=== PATIENT | female | born 1950 | race Caucasian/White ===

== ENCOUNTER 2023-05-30 08:13 | Outpatient (OUT) | payer MEDICARE, OTHER, SELFPAY ==
[2023-05-30 08:51] LABS: Hematocrit 35.6 % (36.0-48.0); Mean Corpuscular HGB Conc 33.7 g/dL (29.9-35.2); Mean Corpuscular Hemoglobin 32.3 pg (26.7-34.0); Mean Platelet Volume 9.4 fL (9.5-13.5); Platelet Count 365 10^3/uL (150-450); Red Blood Count 3.71 10^6/uL (4.20-5.40); Red Cell Distribution Width 13.4 % (11.0-15.0); White Blood Count 7.6 10^3/uL (4.0-11.0)
[2023-05-30 09:07] LABS: Bilirubin Urine NEGATIVE (NEGATIVE); Blood Urine NEGATIVE (NEGATIVE); Clarity Urine CLEAR (CLEAR); Color Urine LT. YELLOW (YELLOW); Glucose Urine UA NEGATIVE (NEGATIVE); Ketones Urine NEGATIVE (NEGATIVE); Leukocyte Esterase Urine LARGE (NEGATIVE); Nitrite Urine NEGATIVE (NEGATIVE); Protein Urine NEGATIVE (NEG/TRACE); Specific Gravity Urine <=1.005 (1.005-1.025); Urobilinogen Urine 0.2 EU/dL (0.2-1.0)
[2023-05-30 09:20] LABS: Albumin Level 3.4 g/dL (3.4-5.0); Anion Gap 12.3; BUN Creatinine Ratio 12.1; Calcium 9.3 mg/dL (8.5-10.1); Carbon Dioxide 29.7 mmol/L (21.0-32.0); Chloride 99 mmol/L (98-107); Estimated GFR (African America 56 (>=60); Estimated GFR (Non-African Ame 46 (>=60); Glucose 90 mg/dL (74-106); Phosphorus 3.5 mg/dL (2.6-4.7); Sodium 137 mmol/L (136-145); Uric Acid 6.1 mg/dL (2.6-6.0)
[2023-05-30 09:24] LABS: Creatinine Urine Random 13.77 mg/dL (20.00-300.00); Protein Creatinine Ratio Urine 0.44; Total Protein Urine Random <6.0 mg/dL (<=11.9)
[2023-05-30 09:25] LABS: Percent Iron Saturation 32.2 %
[2023-05-30 10:04] LABS: Bacteria Urine MODERATE #/HPF (NONE SEEN); Cast Seen? NONE SEEN #/LPF (NONE SEEN); Crystals Seen? None Seen #/HPF (None Seen); Mucus Urine NONE SEEN (NONE SEEN); Squamous Epithelial Cell Urine FEW #/LPF (NONE/RARE); Urine Culture Indicated YES
[2023-05-31 12:09] LABS: PTH, Intact 57 pg/mL (15-65)
== END 2023-05-30 08:14 | disposition home or self-care (01) ==
LOC: LAB 08:19
PROVIDERS: PCP Nurse Practitioner; Visit Provider Internal Medicine
DX: I12.9 Hypertensive chronic kidney disease with stage 1 through stage 4 chronic kidney disease, or unspecified chronic kidney disease (principal); N18.30 Chronic kidney disease, stage 3 unspecified; D63.1 Anemia in chronic kidney disease; I25.10 Atherosclerotic heart disease of native coronary artery without angina pectoris; I73.9 Peripheral vascular disease, unspecified; N25.81 Secondary hyperparathyroidism of renal origin; R82.90 Unspecified abnormal findings in urine
CPT/HCPCS: 36415; 80069; 81001; 82306; 82570; 82728; 83540; 83550; 83735; 83970; 84156; 84550; 85014; 85018; 85027; 87086

== ENCOUNTER 2023-06-20 08:30 | Outpatient (OUT) | payer MEDICARE, OTHER, SELFPAY ==
[2023-06-20 09:10] LABS: Alanine Aminotransferase 22 U/L (14-59); Aspartate Amino Transferase 19 U/L (15-37); Chol HDL Ratio 1.8; Cholesterol 170 mg/dL (<=200); HDL Cholesterol 97 mg/dL (40-60); Triglycerides 63 mg/dL (<=150); VLDL CHOLESTEROL 12.6 mg/dL
== END 2023-06-20 08:31 | disposition home or self-care (01) ==
PROVIDERS: PCP Nurse Practitioner; Visit Provider Internal Medicine Cardiovascular Disease
DX: I25.10 Atherosclerotic heart disease of native coronary artery without angina pectoris (principal); E78.5 Hyperlipidemia, unspecified; I10 Essential (primary) hypertension
CPT/HCPCS: 36415; 80061; 84450; 84460

== ENCOUNTER 2023-12-06 12:39 | Emergency (ER) | payer MEDICARE, OTHER, SELFPAY ==
[2023-12-06] VITALS (10 sets, daily range): BP systolic 123–150; BP diastolic 66–97; PULSE 60–98; TEMP 36.5–36.6; O2SAT 88–100; BMI 24.9
--- OUTSIDE RECORDS SUMMARY | 2023-12-06 13:15 | XMS_ITS | CCD ---
Author Organization [facility] Care Team Providers Care Rubber Mill Tender Name Role Phone UNKNOWN, PROVIDER Unavailable Unavailable JACKSON CHEYANNE Unavailable Unavailable AichholIngrid greenwood Unavailable Unavailable Unavailable Alyssa, Dr. Olivares Attending Unavailable Alyssa, Dr. Olivares Referring Unavailable Jas, Mrs. Ingrid Morillo Primary Care Unavailab le Jas, Mrs. Ingrid Morillo Primary Care Unavailab le Alyssa, Dr. Nilton Cash Attending Unava kanika Shah, Dr. Nilton Cash Referring Unava ilable GEOVANNI BOSS Admitting Unavailable Cassius Thurman Consulting Unavailable GEOVANNI BOSS Attending Unavailable AICHHOLZ, EIGHT ARM OPERATOR INGRID Primary Care Unavailable KARYN, GEOVANNI Consulting Unavailable JOSSY MCQUEEN Admitting Unavailable JOSSY MCQUEEN Consulting Unavailable JOSSY MCQUEEN Attending Unavailable AICHHOLZ, EIGHT ARM OPERATOR INGRID Primary Care Unavailable NESSA, AGGIE Consulting Unavailable NESSAAGGIE Attending Unavailable AICHHOLZ, EIGHT ARM OPERATOR INGRID Primary Care Unavailable NESSA, AGGIE Admitting Unavailable HIGHLANDERJOSSY Attending Unavailable Cassius Thurman Consulting Unavailable AICHHOLZ, EIGHT ARM OPERATOR INGRID Primary Care Unavailable ANDRADEANDER PETER Paolo Admitting Unavailable HIGHLANDERJOSSY Consulting Unavailable AICHHOLZ, EIGHT ARM OPERATOR INGRID Primary Care Unavailable ALYSSA, DR NILTON Snow Attending Unavailledy SHAH, DR NILTON Snow Admitting Unavailledy SHAH, DR NILTON Snow Consulting Unavailabl e JAS, [facility] INGRID Primary Care Unavailable MARCUS ESPAÑA Admitting Unavailable Cassius Thurman Consulting Unavailable MARCUS ESPAÑA Attending Unavailable MARCUS ESPAÑA Consulting Unavailable GEOVANNI BOSS Admitting Unavailable GEOVANNI BOSS Attending Unavailable AICHHOLKate, EIGHT ARM OPERATOR INGRID Primary Care Unavailable DR EMILY REMY V Consulting Unavailable FARZANA BOSSBERLY Consulting Unavailable NESSA, AGGIE Consulting Unavailable AGGIE SZYMANSKI Attending Unavailable JAS, LALO INGRID Primary Care Unavailable AGGIE SZYMANSKI Admitting Unavailable Aggie Szymanski Unavailable Allergies Allergy Classification Reported Allergen(s) Allergy Type Date of Onset Reaction(s) Facility (1 source) celecoxib Drug Allergy 09-24-2013 [facility] (1 source) Cimetidine Drug Allergy 09-24-2013 [facility] Medications Current Medications Medication Drug Class(es) Dates Sig (Normalized) Sig (Original) Albuterol (2 sources) beta2-Adrenergic Agonist Albuterol Sulfate (2.5 MG/ 3 ML) Active amLODIPine 5 mg oral tablet (15 sources) Dihydropyridine Calcium Channel Marzena take 1 tablet by mouth every twenty-four hours amLODIPine Besylate 5 MG 1 tablet Orally Once a day for 90 days Active aspirin 81 mg chewable tablet (15 sources) Platelet Aggregation Inhibitor, Nonsteroidal Anti-inflammatory Drug take 1 tablet by mouth every twenty-four hours Aspirin 81 MG 1 Tablet Orally Daily Active Aspirin EC 81 MG TBEC TAKE 1 TABLET DAILY. Quantity: 0 Refills: 0 Ordered: 02-Jun-2021 DO Active furosemide 20 mg oral tablet (17 sources) Loop Diuretic Furosemide 20 MG TAKE 1 TABLET ONCE DAILY for 90 Active Completed/Discontinued Medications Medication Drug Class(es) Dates Sig (Normalized) Sig (Original) atorvastatin 80 mg oral tablet (15 sources) HMG-CoA Reductase Inhibitor Start: 12-28-2021 take 1 tablet by mouth at bedtime Atorvastatin Calcium 80 MG Oral Tablet TAKE 1 TABLET AT BEDTIME Quantity: 90 Refills: 3 Ordered: 25-Jan-2023 Nilton Shah DO Start : 28-Dec-2021 Active clopidogrel 75 mg oral tablet (17 sources) P2Y12 Platelet Inhibitor Start: 10-03-2021 take 1 tablet by mouth once daily Clopidogrel Bisulfate 75 MG Oral Tablet Take 1 tablet daily Quantity: 90 Refills: 3 Ordered: 02-Aug-2022 Nilton Shah DO Start : 03-Oct-2021 Active metoprolol tartrate 25 mg oral tablet (13 sources) beta-Adrenergic Marzena Start: 10-03-2021 take 1 tablet by mouth twice daily Metoprolol Tartrate 25 MG Oral Tablet Take 1 tablet twice a day Quantity: 180 Refills: 3 Ordered: 02-Aug-2022 Nilton Shah DO Start : 03-Oct-2021 Active nitroglycerin 0.4 mg sublingual tablet (13 sources) Nitrate Vasodilator Nitroglycerin 0.4 [address]ual Tablet Sublingual PL[address] 1 TABLET UNDER THE TONGUE EVERY 5 MINUTES UP TO 3 DOSES NEEDED FOR CHEST PAIN. Quantity: 0 Refills: 0 Ordered: 02-Jun-2021 DO Active Problems Active Problems Problem Classification Problem Date Documented Date Episodic/Chronic Acute cerebrovascular disease (13 sources) Cerebral infarction; Translations: [Cerebral artery occlusion, unspecified with cerebral infarction] Chronic Chronic kidney disease (4 sources) Chronic kidney disease stage 3; Translations: [Chronic kidney disease, stage 3 unspecified] Chronic Chronic obstructive pulmonary disease and bronchiectasis (14 sources) Chronic obstructive lung disease; Translations: [Chronic airway obstruction, not elsewhere classified] Onset: 2 Chronic Coronary atherosclerosis and other heart disease (20 sources) Double coronary vessel disease; Translations: [Coronary atherosclerosis of unspecified type of vessel, [place] or graft] Onset: 2 Chronic Coronary atherosclerosis and other heart disease (1 source) Coronary angioplasty status; Translations: [Coronary angioplasty status] Onset: 2 Episodic Deficiency and other anemia (2 sources) Anemia in chronic kidney disease; Translations: [ANEMIA IN CHRONIC KIDNEY DISEASE] Onset: 3 Chronic Deficiency and other anemia (2 sources) Anemia of renal disease; Translations: [Anemia in chronic kidney disease] Chronic Disorders of lipid metabolism (17 sources) Hyperlipidemia; Translations: [Other and unspecified hyperlipidemia] Onset: 2 Chronic Essential hypertension (14 sources) Benign essential hypertension; Translations: [Benign essential hypertension] Onset: 2 Chronic Hypertension with complications and secondary hypertension (8 sources) Hypertensive chronic kidney disease with stage 1 through stage 4 chronic kidney disease, or unspecified chronic kidney disease; Translations: [Hypertensive renal disease] Onset: 3 Chronic Nutritional deficiencies (2 sources) Hypoalbuminemia due to protein calorie malnutrition; Translations: [Unspecified protein-calorie malnutrition] Chronic Other diseases of kidney and ureters (3 sources) Secondary hyperparathyroidism of renal origin; Translations: [SEC HYPERPARATHYROIDISM RENAL ORIGN] Onset: 3 Chronic Other diseases of kidney and ureters (2 sources) Secondary hyperparathyroidism; Translations: [Secondary hyperparathyroidism of renal origin] Chronic Other nutritional; endocrine; and metabolic disorders (6 sources) Overweight in adulthood with body mass index of 25 or more but less than 30; Translations: [Overweight] Episodic Other nutritional; endocrine; and metabolic disorders (1 source) Hyperuricemia without signs of inflammatory arthritis and tophaceous disease Episodic Peripheral and visceral atherosclerosis (20 sources) Peripheral vascular disease, unspecified; Translations: [Intermittent claudication] Onset: 8 Chronic Residual codes; unclassified (7 sources) Body mass index 20-24 - normal; Translations: [Body Mass Index between 19-24, adult] Episodic Screening and history of mental health and substance abuse codes (14 sources) Ex-smoker; Translations: [Personal history of tobacco use] Onset: 2 Episodic Unclassified (2 sources) Peripheral vascular disease, unspecified / I73.9(ICD-9) Onset: 8 Unclassified (1 source) CHRN KIDNEY DISEASE STG 3 UNSP; Translations: [CHRN KIDNEY DISEASE STG 3 UNSP] Onset: 3 Past or Other Problems Problem Classification Problem Date Documented Da te Episodic/Chronic Chronic kidney disease (2 sources) Chronic kidney disease E Codes: Overexertion (1 source) Slipping, tripping and stumbling without falling, unspecified, initial encounter; Translations: [SLIP TRIP STUMBL NO FALL UNS INIT] Onset: 03-30-2022 Episodic Fracture of lower limb (14 sources) Fracture of unspecified metatarsal bone(s), right foot, initial encounter for closed fracture; Translations: [Displaced fracture of fourth metatarsal bone, right foot, initial encounter for closed fracture] Onset: 03-30-2022 Episodic Other aftercare (1 source) director long term care (current) use of aspirin; Translations: [SOAP WORKER CURRENT USE OF ASPIRIN] Onset: 03-30-2022 Episodic Other aftercare (1 source) Other [place] [facility] (current) drug therapy; Translations: [OTH SOAP WORKER CURRENT DRUG THERAPY] Onset: 03-30-2022 Episodic Other aftercare (1 source) director long term care (current) use of antithrombotics/ant iplatelets; Translations: [SOAP WORKER ANTITHROMBOT/ANTIPL ATLETS] Onset: 03-30-2022 Episodic Other connective tissue disease (4 sources) Pain in right foot; Translations: [PAIN IN RIGHT FOOT] Onset: 07-05-2022 Episodic Results Test Name Value Interpretation Reference Range Facility PTH INTACTon 10-31-2022 PTH, Intact 42 pg/mL Normal 15-65 [facility] Comment on above: Performed By: #### P THINT #### [facility] [address] [place] [address] Dr. Adin Barrera FERRITINon 10-30-2022 Ferritin [Mass/Vol] 35.0 ng/mL Normal 8.0-252.0 [facility] Comment on above: Performed By: #### F ERR, FETIBC, VITAD #### [facility] [address] [place] [address] Dr. Adin Barrera HEMOGRAM AND PLATELon 2022 Hematocrit (Bld) [Volume fraction] 35.5 % Critically low 36.0-48.0 [facility] Comment on above: Performed By: #### H H #### [facility] [address] [place] [address] Dr. Adin Barrera Hemoglobin (Bld) [Mass/Vol] 11.9 g/dL Critically low 12.0-16.0 [facility] Comment on above: Performed By: #### H H #### [facility] [address] [place] [address] Dr. Adin Barrera MCH (RBC) [Entitic mass] 31.5 pg Normal 26.7-34.0 [facility] Comment on above: Performed By: #### H H #### [facility] [address] [place] [address] Dr. Adin Barrera MCHC (RBC) [Mass/Vol] 33.5 g/dL Normal 29.9-35.2 [facility] Comment on above: Performed By: #### H H #### [facility] [address] [place] [address] Dr. Adin Barrera MCV (RBC) [Entitic vol] 93.9 fL Normal 81.0-99.0 [facility] Comment on above: Performed By: #### H H #### [facility] [address] [place] [address] Dr. Adin Barrera PLT 435 103/ul Normal 150-450 [facility] Comment on above: Performed By: #### H H #### [facility] [address] [place] [address] Dr. Adin Barrera RBC 3.78 106/ul Critically low 4.20-5.40 [facility] Comment on above: Performed By: #### H H #### [facility] [address] [place] [address] Dr. Adin Barrera WBC 9.1 103/ul Normal 4.0-11.0 [facility] Comment on above: Performed By: #### H H #### [facility] [address] [place] [address] Dr. Adin Barrera IRON AND TIBCon 10-30-2022 % SATURATION 29.4 % Normal [facility] Comment on above: Performed By: #### F ERR, FETIBC, VITAD #### [facility] [address] [place] [address] Dr. Adin Barrera Iron [Mass/Vol] 84.0 ug/dL Normal 50.0-170.0 [facility] Comment on above: Performed By: #### F ERR, FETIBC, VITAD #### [facility] [address] [place] [address] Dr. Adin Barrera TIBC DIRECT 286.0 ug/dL Normal 250.0-450.0 [facility] Comment on above: Performed By: #### F ERR, FETIBC, VITAD #### [facility] [address] [place] [address] Dr. Adin Barrera MAGNESIUMon 10-30-2022 Magnesium [Mass/Vol] 1.8 mg/dL Normal 1.8-2.4 [facility] Comment on above: Performed By: #### M G, URIC, RENAL #### [facility] [address] [place] [address] Dr. Adin Barrera RENAL FUNCTION PANELon 10-30 Albumin [Mass/Vol] 3.4 g/dL Normal 3.4-5.0 [facility] Comment on above: Performed By: #### M G, URIC, RENAL #### [facility] [address] [address] [address] Adin Barrera Calcium [Mass/Vol] 9.2 mg/dL Normal 8.5-10.1 [facility] Comment on above: Performed By: #### M G, URIC, RENAL #### [facility] [address] [address] [address] Adin Barrera Chloride [Moles/Vol] 104 mmol/L Normal 98-107 [facility] Comment on above: Performed By: #### M G, URIC, RENAL #### [facility] [address] [place] [address] Dr. Adin Barrera CO2 [Moles/Vol] 24.9 mmol/L Normal 21.0-32.0 [facility] Comment on above: Performed By: #### M G, URIC, RENAL #### [facility] [address] [place] [address] Dr. Adin Barrera Creatinine [Mass/Vol] 1.13 mg/dL Critically high 0.55-1.02 [facility] Comment on above: Performed By: #### M G, URIC, RENAL #### [facility] [address] [place] [address] Dr. Adin Barrera EGFR-AF TRISTANIAN 58 mL/min/1.73m2 Critically low >=60 [facility] Comment on above: Performed By: #### M G, URIC, RENAL #### [facility] [address] [place] [address] Dr. Adin Barrera EGFR-NON AF TRISTANIAN 48 mL/min/1.73m2 Critically low >=60 [facility] Comment on above: Performed By: #### M G, URIC, RENAL #### [facility] [address] [place] [address] Dr. Adin Barrera Glucose [Mass/Vol] 88 mg/dL Normal 74-106 [facility] Comment on above: Performed By: #### M G, URIC, RENAL #### [facility] [address] [place] [address] Dr. Adin Barrera Phosphate [Mass/Vol] 3.4 mg/dL Normal 2.6-4.7 [facility] Comment on above: Performed By: #### M G, URIC, RENAL #### [facility] [address] [place] [address] Dr. Adin Barrera Potassium [Moles/Vol] 4.4 mmol/L Normal 3.5-5.1 [facility] Comment on above: Performed By: #### M G, URIC, RENAL #### [facility] [address] [place] [address] Dr. Adin Barrera Sodium [Moles/Vol] 139 mmol/L Normal 136-145 [facility] Comment on above: Performed By: #### M G, URIC, RENAL #### [facility] [address] [place] [address] Dr. Adin Barrera Urea nitrogen [Mass/Vol] 13.0 mg/dL Normal 7.0-18.0 [facility] Comment on above: Performed By: #### M G, URIC, RENAL #### [facility] [address] [place] [address] Dr. Adin Barrera UA RANDOM W/MICROSCOPICon BACTERIA TRACE Abnormal NONE SEEN [facility] Comment on above: Performed By: #### M G, URIC, RENAL #### [facility] [address] [place] [address] Dr. Adin Barrera Bilirubin Ql (U) Negative Normal NEGATIVE [facility] Comment on above: Performed By: #### M G, URIC, RENAL #### [facility] [address] [place] [address] Dr. Adin Barrera CAST NONE SEEN Normal NONE SEEN [facility] Comment on above: Performed By: #### M G, URIC, RENAL #### [facility] [address] [place] [address] Dr. Adin Barrera Clarity (U) CLEAR Normal CLEAR [facility] Comment on above: Performed By: #### M G, URIC, RENAL #### [facility] [address] [place] [address] Dr. Adin Barrera Color (U) LT. YELLOW Normal YELLOW [facility] Comment on above: Performed By: #### M G, URIC, RENAL #### [facility] [address] [address] [address] Adin Barrera Crystals LM Nom (Urine sed) NONE SEEN Normal NONE SEEN [facility] Comment on above: Performed By: #### M G, URIC, RENAL #### [facility] [address] [address] [address] Adin Barrera Epithelial cells LM Ql (Urine sed) FEW Abnormal NONE SEEN /RARE [facility] Comment on above: Performed By: #### M G, URIC, RENAL #### [facility] [address] [address] [address] Adin Barrera Glucose Ql (U) Negative Normal NEGATIVE [facility] Comment on above: Performed By: #### M G, URIC, RENAL #### [facility] [address] [place] [address] Dr. Adin Barrera Hemoglobin Ql (U) Negative Normal NEGATIVE [facility] Comment on above: Performed By: #### M G, URIC, RENAL #### [facility] [address] [address] [address] Adin Barrera Ketones Ql (U) Negative Normal NEGATIVE [facility] Comment on above: Performed By: #### M G, URIC, RENAL #### [facility] [address] [address] [address] Adin Barrera LEUKOCYTES MODERATE Abnormal NEGATIVE [facility] Comment on above: Performed By: #### M G, URIC, RENAL #### [facility] [address] [address] [address] Adin Barrera MUCOUS NONE SEEN Normal NONE SEEN [facility] Comment on above: Performed By: #### M G, URIC, RENAL #### [facility] [address] [address] [address] Adin Barrera Nitrite Ql (U) Negative Normal NEGATIVE [facility] Comment on above: Performed By: #### M G, URIC, RENAL #### [facility] [address] [address] [address] Adin Barrera pH (U) 5.5 [pH] Normal 5-9 [facility] Comment on above: Performed By: #### M G, URIC, RENAL #### [facility] [address] [place] [address] Dr. Adin Barrera RBC 0-2 Normal 0-2 [facility] Comment on above: Performed By: #### M G, URIC, RENAL #### [facility] [address] [place] [address] Dr. Adin Barrera SPEC GRAVITY 1.010 Normal 1.005-<=1.025 [facility] Comment on above: Performed By: #### M G, URIC, RENAL #### [facility] [address] [place] [address] Dr. Adin Barrera UA PROTEIN Negative Normal NEGATIVE/ TRACE [facility] Comment on above: Performed By: #### M G, URIC, RENAL #### [facility] [address] [place] [address] Dr. Adin Barrera Urobilinogen Qn (U) 0.2 {Mitchell'U}/dL Normal 0.2 - 1.0 [facility] Comment on above: Performed By: #### M G, URIC, RENAL #### [facility] [address] [place] [address] Dr. Adin Barrera WBC 5-10 Abnormal NONE SEEN [facility] Comment on above: Performed By: #### M G, URIC, RENAL #### [facility] [address] [place] [address] Dr. Adin Barrera URIC ACID SERUMon 10-30-2022 Urate [Mass/Vol] 5.4 mg/dL Normal 2.6-6.0 [facility] Comment on above: Performed By: #### M G, URIC, RENAL #### [facility] [address] [place] [address] Dr. Adin Barrera VITAMIN D 25 OHon 10-30-2022 VIT D 25-OH 38.3 ng/mL Normal [facility] Comment on above: Performed By: #### F ERR, FETIBC, VITAD #### [facility] [address] [place] [address] Dr. Adin Barrera VIT D RANGES SEE BELOW Normal [facility] Comment on above: Result Comment: <20 ng/mL Vit D deficient 20 - <30 ng/mL Vit D insufficient 30 - 100 ng/mL Vit D sufficient >100 ng/mL Potential Toxicity Performed By: #### F ERR, FETIBC, VITAD #### [facility] [address] [address] [address] Adin Barrera Cardiac Stress Teston 2021 Cardiac Stress Test [address], [address] [address] Exercise Stress Test Patient Name: SANDRA SHELTON Ordering Physician: [id number] Nilton Shah DO Study Date: 07/31/2022 Reading Physician: [id number] Jessica Rojo MD, [facility] MRN/PID: [id number] Supervising Physician: [id number] Ayala Cordova MD Accession/Order#: [id number] Referring Physician: NILTON SHAH Date of : 1950 PCP: Gender: F Fellow: Height: 165.10 cm Nurse: Jessika Aguirre RN Weight: 68.04 kg Revenue Accounting Manager: NA BSA: 1.75 m2 Technologist: BMI: 24.96 kg/m2 Additional Staff: Age: 72 years cc report to: Patient Location: cc report to: [id number] Nilton Shah Study Type: Cardiac Stress Test Diagnosis/ICD: I25.10-Atherosclerotic heart disease; I25.2-Old myocardial infarction; Z98.61-Coronary angioplasty status (PTCA) Indication: STEMI Procedure/CPT: Stress Test Interpretation-[id number]; Stress Test Supervision-[id number] Falls Risk: Low: Patient has low risk for sustaining a fall; environmental safety interventions in place. Study Details: Correct procedure and correct patient verified verbally. Patient History: Allergies: None. Patient Performance: The peak heart rate achieved was 129 bpm, which was 86 % of the age predicted target heart rate of 150 bpm. The resting blood pressure was 120/78 mmHg with a heart rate of 82 bpm. The standing blood pressure was 122/76 mmHg with a heart rate of 83 bpm. The patient's functional capacity was below average. The patient developed leg fatigue during the stress exam. The symptoms resolved with rest. The blood pressure response was normal. The test was terminated due to: leg fatigue and musculoskeletal weakness. Baseline ECG: Resting ECG showed normal sinus rhythm. Stress Stage Data: + +--- +------+-------+ HR Sys BP Sahu BP + +--- +------+-------+ Baseline Resting 82 120 78 + +--- +------+-------+ Baseline Standing 83 122 76 + +--- +------+-------+ Stage I 129 154 76 + +--- +------+-------+ Recovery ECG: The heart rate recovery was normal. + +---+---- --+-------+ HR Sys BP Sahu BP + +---+---- --+-------+ Recovery I 127 146 72 + +---+---- --+-------+ Recovery II 120 138 62 + +---+---- --+-------+ Recovery III 100 126 68 + +---+---- --+-------+ Recovery IV 90 120 74 + +---+---- --+-------+ Summary: 1. 1_normal exercise tolerance test after completing 3 minutes on a Mike protocol and achieving 86% of predicted maximal heart rate and a workload of 4.6 METS. There were no ischemic EKG changes, no chest pain no cardiac arrhythmias induced by exercise 2_limited exercise tolerance for age 3_if the purpose of the stress test is to get enrolled in cardiac rehab, patient can be enrolled target heart rate between 75 to 85% of predicted maximal heart rate and workload between 3 and 5 METS and increase as tolerated. 2. The adequate level of stress was achieved. [id number] Jessica Rojo MD, [facility] Electronically signed on 07/31/2022 at 7:18:28 PM Final Normal [facility] Cardiac Stress Test -[facility] [address] DO Work Phone: LIPID PROFILEon 06-15-2022 CHOL-HDL RATIO NORM SEE BELOW Normal [facility] Comment on above: Result Comment: 3.3 - 4.4 LOW RISK 4.4 - 7.1 AVERAGE RISK 7.1 - 11.0 MODERATE RISK >11.0 HIGH RISK Performed By: #### M G, URIC, RENAL #### [facility] [address] [address] [address] Adin Barrera Cholesterol [Mass/Vol] 191 mg/dL Normal <=200 [facility] Comment on above: Performed By: #### M G, URIC, RENAL #### [facility] [address] [address] [address] Adin Barrera Cholesterol in HDL [Mass/Vol] 108 mg/dL Critically high 40-60 [facility] Comment on above: Performed By: #### M G, URIC, RENAL #### [facility] [address] [address] [address] Adin Barrera Cholesterol in LDL [Mass/Vol] 70.4 mg/dL Normal [facility] Comment on above: Performed By: #### M G, URIC, RENAL #### [facility] [address] [address] [address] Adin Barrera Cholesterol.total/ Cholesterol in HDL [Mass ratio] 1.8 {ratio} Normal [facility] Comment on above: Performed By: #### M G, URIC, RENAL #### [facility] [address] [address] [address] Adin Barrera HDL NORMAL > or = 60 mg/dl - LO W CARDIOVASCULAR RISK <40 mg/dl - HIGH CARDIOVASCULAR RISK Normal [facility] Comment on above: Performed By: #### M G, URIC, RENAL #### [facility] [address] [address] [address] Adin Barrera LDL CALC NORMAL SEE BELOW Normal [facility] Comment on above: Result Comment: <100 mg/dl OPTIMAL 100 - 129 mg/dl NEAR OR ABOVE OPTIMAL 130 - 159 mg/dl BORDERLINE HIGH 160 - 189 mg/dl HIGH >190 mg/dl VERY HIGH Performed By: #### M G, URIC, RENAL #### [facility] [address] [address] [address] Adin Barrera Triglyceride [Mass/Vol] 63 mg/dL Normal <=150 [facility] Comment on above: Performed By: #### M G, URIC, RENAL #### [facility] [address] [address] [address] Adin Barrera VLDL CALC 12.6 mg/dL Normal [facility] Comment on above: Performed By: #### M G, URIC, RENAL #### [facility] [address] [address] [address] Adin Corea 06-15-2022 AST [Catalytic activity/Vol] 18 U/L Normal 15-37 [facility] Comment on above: Performed By: #### M G, URIC, RENAL #### [facility] [address] [address] [address] [facility] 06-15-2022 ALT [Catalytic activity/Vol] 19 U/L Normal 14-59 [facility] Comment on above: Performed By: #### M G, URIC, RENAL #### [facility] [address] [place] [address] Dr. Adin Barrera Office Visit (Cardiology)on 06-07-2022 Follow-up visit Diagnoses/Problems Assessed Body mass index (BMI) of 24.0 to 24.9 in adult (V85.1) (Z68.24) 2-vessel coronary artery disease (414.00) (I25.10) History of myocardial infarction (412) (I25.2) History of PTCA (V45.82) (Z98.61) Hyperlipidemia (272.4) (E78.5) Cerebral infarction, unspecified (434.91) (I63.9) Essential hypertension, benign (401.1) (I10) PVD (peripheral vascular disease) (443.9) (I73.9) COPD (chronic obstructive pulmonary disease) (496) (J44.9) Orders 2-vessel coronary artery disease, History of myocardial infarction, History of PTCA Cardiac Stress Test; Status:Hold For - Scheduling,Retrospecti ve By Protocol Authorization; Requested for:[id number]; Hyperlipidemia ALT - Alanine Aminotransferase, Serum; Status:Active - Retrospective Authorization; Requested for:[id number]; AST; Status:Active - Retrospective Authorization; Requested for:[id number]; Lipid Panel; Status:Active - Retrospective Authorization; Requested for:[id number]; Patient Instructions Please bring all medicines, vitamins, and herbal supplements with you when you come to the office. Prescriptions will not be filled unless you are compliant with your follow up appointments or have a follow up appointment scheduled as per instruction of your physician. Refills should be requested at the time of your visit. Patient provided Falls Prevention education sheet. Follow up in 1 year Chief Complaint SANDRA SHELTON is being seen for an annual follow-up of. 72-year-old female returns she is doing well she has no cardiovascular complaints. She is in a walking boot on her right lower extremity due to falling over her dog with some fractured metatarsals. She has no cardiovascular complaints or angina or nitrate usage or hospitalizations. 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 Previous TIAs and remains on DAPT and high-dose statin therapy. She has not had any recent lipid panel performed her blood pressure is under excellent control. She is not smoking. 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 She has no claudication at this time Recommendations, continue current therapies obtain a lipid panel, will follow-up with treadmill stress testing within the next year once her foot is healed to assess for ischemia given her previous coronary and vascular history. Current Meds Medication NameInstruction Aspirin EC 81 MG Oral Tablet Delayed ReleaseTAKE 1 TABLET DAILY. Atorvastatin Calcium 80 MG Oral TabletTAKE 1 TABLET AT BEDTIME Clopidogrel Bisulfate 75 MG Oral TabletTake 1 tablet daily Lasix 20 MG Oral TabletTAKE 1 TABLET DAILY. Metoprolol Tartrate 25 MG Oral TabletTake 1 tablet twice a day Nitroglycerin 0.4 MG Sublingual Tablet SublingualPLACE 1 TABLET UNDER THE TONGUE EVERY 5 MINUTES UP TO 3 DOSES NEEDED FOR CHEST PAIN. Norvasc 5 MG Oral TabletTAKE 1 TABLET DAILY. Patient did not bring medication list or bottles. Updated verbally with patient Allergies NoKnown No Known Allergies Recorded By: Minerva Rushing; 05/09/2021 1:11:52 PM Social History Problems Alcohol use (V49.89) (Z78.9) socially Caffeine use (V49.89) (Z78.9) 2 sodas daily Former smoker (V15.82) (Z87.891) No illicit drug use Review of Systems Constitutional: not feeling tired. Cardiovascular: no intermittent leg claudication and as noted in HPI. Respiratory: no cough and no shortness of breath. Gastrointestinal: no change in bowel habits and no blood in stools. Integumentary: no skin rashes. Neurological: no seizures and no frequent falls. All other systems have been reviewed and are negative for complaint. Vitals Vital Signs Recorded: 07Jun2022 09:20AM Heart Rate68, L Radial Kzhokcto068, LUE, Sitting [id number], LUE, Sitting Height5 ft 5 in Wkjgvy388 lb BMI Mcmczidstr73.96 kg/m2 BSA Calculated1.75 Tobacco Useb) No PHQ-2 #1. Over the last 2 weeks have you felt down, depressed or hopeless? (If yes, answer PHQ-9 below)No PHQ-2 #2. Over the last 2 weeks have you felt little interest or pleasure in doing things? (If yes, answer PHQ-9 below)No Falls Screening (Age 18+)b) One or more falls in the last year Physical Exam Constitutional: alert and in no acute distress. Neck: neck is supple, symmetric, trachea midline, no masses and no thyromegaly . Pulmonary: no increased work of breathing or signs of respiratory distress and lungs clear to auscultation. Cardiovascular: carotid pulses 2+ bilaterally with no bruit , JVP was normal, no thrills , regular rhythm, normal S1 and S2, no murmurs , pedal pulses 2+ bilaterally and no edema . Abdomen: abdomen non-tender, no masses and no hepatomegaly . Skin: skin warm and dry, normal skin turgor . Psychiatric judgment and insi (more content not included)... Normal [facility] Tobacco Screening.on 022 Adult depression screening assessment No [facility] [address] DO Work Phone: Fall risk assessment b) One or more falls in the last year [facility] DO Work Phone: Tobacco use status CPHS b) No [facility] DO Work Phone: VIT D 25-[place] [facility] 2021 Vitamin D, 25-Hydroxy 36.0 ng/mL Normal 30.0-100.0 [facility] Comment on above: Result Comment: Marilyn min D deficiency has been defined by the [place] of [employer] and an Endocrine Society practice guideline as a level of serum 25-OH vitamin D less than 20 ng/mL (1,2). The Endocrine Society went on to further define vitamin D insufficiency as a level between 21 and 29 ng/mL (2). 1. IOM ([place] of [employer]). 2010. Dietary reference intakes for calcium and D. [place]: The National Academies Press. 2. Britt MF, Antonia NC, Zaid VIVAS, et al. Evaluation, treatment, and prevention of vitamin D deficiency: an Endocrine Society clinical practice guideline. JCEM. 2010; 96(7):1911-30. Performed By: #### M G, URIC, RENAL #### [facility] [address] [address] [address] Adin Barrera PTH INTACTon 05-06-2022 PTH, Intact 33 pg/mL Normal 15-65 [facility] Comment on above: Performed By: #### M G, URIC, RENAL #### [facility] [address], [place] [address] Dr. Adin Barrera FERRITINon 05-05-2022 Ferritin [Mass/Vol] 28.0 ng/mL Normal 8.0-252.0 [facility] Comment on above: Performed By: #### M G, URIC, RENAL #### [facility] [address] [place] [address] Dr. Adin Barrera HEMOGRAM AND PLATELon 2021 Hematocrit (Bld) [Volume fraction] 34.9 % Critically low 36.0-48.0 [facility] Comment on above: Performed By: #### H H #### [facility] [address] [place] [address] Dr. Adin Barrera Hemoglobin (Bld) [Mass/Vol] 11.3 g/dL Critically low 12.0-16.0 [facility] Comment on above: Performed By: #### H H #### [facility] [address] [place] [address] Dr. Adin Barrera MCH (RBC) [Entitic mass] 29.0 pg Normal 26.7-34.0 [facility] Comment on above: Performed By: #### H H #### [facility] [address] [place] [address] Dr. Adin Barrera MCHC (RBC) [Mass/Vol] 32.4 g/dL Normal 29.9-35.2 [facility] Comment on above: Performed By: #### H H #### [facility] [address] [place] [address] Dr. Adin Barrera MCV (RBC) [Entitic vol] 89.7 fL Normal 81.0-99.0 [facility] Comment on above: Performed By: #### H H #### [facility] [address] [place] [address] Dr. Adin Barrera PLT 355 103/ul Normal 150-450 [facility] Comment on above: Performed By: #### H H #### [facility] [address] [place] [address] Dr. Adin Barrera RBC 3.89 106/ul Critically low 4.20-5.40 [facility] Comment on above: Performed By: #### H H #### [facility] [address] [address] [address] Adin Barrera WBC 9.8 103/ul Normal 4.0-11.0 [facility] Comment on above: Performed By: #### H H #### [facility] [address] [place] [address] Dr. Adin Barrera IRON AND TIBCon 05-05-2022 % SATURATION 17.9 % Normal [facility] Comment on above: Performed By: #### M G, URIC, RENAL #### [facility] [address] [place] [address] Dr. Adin Barrera Iron [Mass/Vol] 53.0 ug/dL Normal 50.0-170.0 [facility] Comment on above: Performed By: #### M G, URIC, RENAL #### [facility] [address] [place] [address] Dr. Adin Barrera TIBC DIRECT 296.0 ug/dL Normal 250.0-450.0 [facility] Comment on above: Performed By: #### M G, URIC, RENAL #### [facility] [address] [place] [address] Dr. Adin Barrera MAGNESIUMon 05-05-2022 Magnesium [Mass/Vol] 2.0 mg/dL Normal 1.8-2.4 [facility] Comment on above: Performed By: #### M G, URIC, RENAL #### [facility] [address] [place] [address] Dr. Adin Barrera RENAL FUNCTION PANELon 05-05 Albumin [Mass/Vol] 3.2 g/dL Critically low 3.4-5.0 [facility] Comment on above: Performed By: #### M G, URIC, RENAL #### [facility] [address] [address] [address] Adin Barrera Calcium [Mass/Vol] 8.7 mg/dL Normal 8.5-10.1 [facility] Comment on above: Performed By: #### M G, URIC, RENAL #### [facility] [address] [address] [address] Adin Barrera Chloride [Moles/Vol] 102 mmol/L Normal 98-107 [facility] Comment on above: Performed By: #### M G, URIC, RENAL #### [facility] [address] [address] [address] Adin Barrera CO2 [Moles/Vol] 28.0 mmol/L Normal 21.0-32.0 [facility] Comment on above: Performed By: #### M G, URIC, RENAL #### [facility] [address] [address] [address] Adin Barrera Creatinine [Mass/Vol] 1.25 mg/dL Critically high 0.55-1.02 [facility] Comment on above: Performed By: #### M Luis Armando, URIC, RENAL #### [facility] [address] [place] [address] Dr. Adin Barrera EGFR-AF TRISTANIAN 51 mL/min/1.73m2 Critically low >=60 [facility] Comment on above: Performed By: #### M Luis Armando, URIC, RENAL #### [facility] [address] [place] [address] Dr. Adin Barrera EGFR-NON AF TRISTANIAN 42 mL/min/1.73m2 Critically low >=60 [facility] Comment on above: Performed By: #### M Luis Armando, URIC, RENAL #### [facility] [address] [place] [address] Dr. Adin Barrera Glucose [Mass/Vol] 101 mg/dL Normal 74-106 [facility] Comment on above: Performed By: #### M G, URIC, RENAL #### [facility] [address] [place] [address] Dr. Adin Barrera Phosphate [Mass/Vol] 3.9 mg/dL Normal 2.6-4.7 [facility] Comment on above: Performed By: #### M G, URIC, RENAL #### [facility] [address] [place] [address] Dr. Adin Barrera Potassium [Moles/Vol] 3.8 mmol/L Normal 3.5-5.1 [facility] Comment on above: Performed By: #### M G, URIC, RENAL #### [facility] [address] [address] [address] Adin Barrera Sodium [Moles/Vol] 139 mmol/L Normal 136-145 [facility] Comment on above: Performed By: #### M G, URIC, RENAL #### [facility] [address] [address] [address] Adin Barrera Urea nitrogen [Mass/Vol] 11.0 mg/dL Normal 7.0-18.0 [facility] Comment on above: Performed By: #### M G, URIC, RENAL #### [facility] [address] [address] [address] Adin Barrera UA RANDOM W/MICROSCOPICon BACTERIA SMALL Abnormal NONE SEEN [facility] Comment on above: Performed By: #### U AMIC #### [facility] [address] [place] [address] Dr. Adin Barrera Bilirubin Ql (U) Negative Normal NEGATIVE [facility] Comment on above: Performed By: #### U AMIC #### [facility] [address] [place] [address] Dr. Adin Barrera CAST NONE SEEN Normal NONE SEEN [facility] Comment on above: Performed By: #### U AMIC #### [facility] [address] [place] [address] Dr. Adin Barrera Clarity (U) CLEAR Normal CLEAR [facility] Comment on above: Performed By: #### U AMIC #### [facility] [address] [place] [address] Dr. Adin Barrera Color (U) LT. YELLOW Normal YELLOW [facility] Comment on above: Performed By: #### U AMIC #### [facility] [address] [place] [address] Dr. Adin Barrera Crystals LM Nom (Urine sed) NONE SEEN Normal NONE SEEN [facility] Comment on above: Performed By: #### U AMIC #### [facility] [address] [place] [address] Dr. Adin Barrera Epithelial cells LM Ql (Urine sed) FEW Abnormal NONE SEEN /RARE [facility] Comment on above: Performed By: #### U AMIC #### [facility] [address] [address] [address] Adin Barrera Glucose Ql (U) Negative Normal NEGATIVE [facility] Comment on above: Performed By: #### U AMIC #### [facility] [address] [address] [address] Adin Barrera Hemoglobin Ql (U) Negative Normal NEGATIVE [facility] Comment on above: Performed By: #### U AMIC #### [facility] [address] [address] [address] Adin Barrera Ketones Ql (U) Negative Normal NEGATIVE [facility] Comment on above: Performed By: #### U AMIC #### [facility] [address] [address] [address] Adin Barrera LEUKOCYTES MODERATE Abnormal NEGATIVE [facility] Comment on above: Performed By: #### U AMIC #### [facility] [address] [address] [address] Adin Barrera MUCOUS NONE SEEN Normal NONE SEEN [facility] Comment on above: Performed By: #### U AMIC #### [facility] [address] [address] [address] Adin Barrera Nitrite Ql (U) Negative Normal NEGATIVE [facility] Comment on above: Performed By: #### U AMIC #### [facility] [address] [place] [address] Dr. Adin Barrera pH (U) 6.0 [pH] Normal 5-9 [facility] Comment on above: Performed By: #### U AMIC #### [facility] [address] [address] [address] Adin Barrera RBC NONE SEEN Abnormal 0-2 [facility] Comment on above: Performed By: #### U AMIC #### [facility] [address] [place] [address] Dr. Adin Barrera SPEC GRAVITY 1.010 Normal 1.005-<=1.025 [facility] Comment on above: Performed By: #### U AMIC #### [facility] [address] [address] [address] Adin Barrera UA PROTEIN Negative Normal NEGATIVE/ TRACE [facility] Comment on above: Performed By: #### U AMIC #### [facility] [address] [address] [address] Adin Barrera Urobilinogen Qn (U) 0.2 {Mitchell'U}/dL Normal 0.2 - 1.0 [facility] Comment on above: Performed By: #### U AMIC #### [facility] [address] [place] [address] Dr. Adin Barrera WBC 10-20 Abnormal NONE SEEN [facility] Comment on above: Performed By: #### U AMIC #### [facility] [address] [place] [address] Dr. Adin Barrera URIC ACID SERUMon 05-05-2022 Urate [Mass/Vol] 6.2 mg/dL Critically high 2.6-6.0 [facility] Comment on above: Performed By: #### M G, URIC, RENAL #### [facility] [address] [place] [address] Dr. Adin Barrera URINE T PROTEIN CREAT RATIOo n 05-05-2022 Protein (U) [Mass/Vol] 6.5 mg/dL Normal <=12.0 [facility] Comment on above: Performed By: #### M G, URIC, RENAL #### [facility] [address] [place] [address] Dr. Adin Barrera UR PROT CREAT RAT 0.21 Normal [facility] Comment on above: Performed By: #### M G, URIC, RENAL #### [facility] [address] [place] [address] Dr. Adin Barrera URINE CREAT 31.60 mg/dL Normal 20.00-300.00 [facility] Comment on above: Performed By: #### M G, URIC, RENAL #### [facility] [address] [place] [address] Dr. Adin Barrera VIT B12 AND FOLATEon 022 Cobalamin (Vitamin B12) [Mass/Vol] 208.0 pg/mL Normal 193.0-986.0 [facility] Comment on above: Performed By: #### M G, URIC, RENAL #### [facility] [address], [place] [address] Dr. Adin Barrera FOLATE 13.30 ng/mL Normal 8.60-58.90 [facility] Comment on above: Performed By: #### M G, URIC, RENAL #### [facility] [address], [place] [address] Dr. Adin Barrera Tobacco Screening.on 021 Fall risk assessment a) No falls within the last year -[facility] [address] DO Work Phone: Tobacco use status CPHS b) No -[facility] 250 DO Work Phone: Vital Signs Date Time Vital Sign Value Performing Clinician Facility 08-23-2023 09:40-0500 Body height 161.29 cm Aggie Nessa Other [facility] Other 08-23-2023 09:40-0500 Body mass index (BMI) [Ratio] 25.51 kg/m2 Aggie Nessa Other [facility] Other 08-23-2023 09:40-0500 Body temperature 97.6 [degF] Aggie Nessa Other [facility] Other 08-23-2023 09:40-0500 Body weight 66.36 kg Aggie Nessa Other [facility] Other 08-23-2023 09:40-0500 Diastolic blood pressure 60 mm[Hg] Aggie Nessa Other [facility] Other 08-23-2023 09:40-0500 Respiratory rate 18 /min Aggie Nessa Other [facility] Other 08-23-2023 09:40-0500 SaO2% (BldA) [Mass fraction] 95 % Aggie Nessa Other [facility] Other 08-23-2023 09:40-0500 Systolic blood pressure 104 mm[Hg] Aggie Nessa Other [facility] Other 11-09-2022 10:20-0400 Body height 161.29 cm Aggie Nessa Other [facility] Other 11-09-2022 10:20-0400 Body mass index (BMI) [Ratio] 25.45 kg/m2 Aggie Nessa Other [facility] Other 11-09-2022 10:20-0400 Body temperature 96.5 [degF] Aggie Nessa Other [facility] Other 11-09-2022 10:20-0400 Body weight 66.23 kg Aggie Nessa Other [facility] Other 11-09-2022 10:20-0400 Diastolic blood pressure 74 mm[Hg] Aggie Nessa Other [facility] Other 11-09-2022 10:20-0400 Respiratory rate 18 /min Aggie Nessa Other [facility] Other 11-09-2022 10:20-0400 SaO2% (BldA) [Mass fraction] 96 % Aggie Nessa Other [facility] Other 11-09-2022 10:20-0400 Systolic blood pressure 110 mm[Hg] Aggie Nessa Other [facility] [employer] Other 06-07-2022 09:20-0400 Body height 165.1 cm Ingrid Mark Work Phone: [facility] 250 DO Work Phone: 06-07-2022 09:20-0400 Body mass index (BMI) [Ratio] 24.96 kg/m2 Ingrid Suhholz Work Phone: [facility] 250 DO Work Phone: 06-07-2022 09:20-0400 Body surface area Derived from formula 1.75 m2 Ingrid Suhholz Work Phone: [facility] 250 DO Work Phone: 06-07-2022 09:20-0400 Body weight 68.04 kg Ingrid Suhholz Work Phone: [facility] 250 DO Work Phone: 06-07-2022 09:20-0400 Diastolic blood pressure 64 mm[Hg] Ingrid Suhholz Work Phone: [facility] 250 DO Work Phone: 06-07-2022 09:20-0400 Heart rate 68 /min Ingrid Suhholz Work Phone: [facility] DO Work Phone: 06-07-2022 09:20-0400 Systolic blood pressure 110 mm[Hg] Ingrid Suhholz Work Phone: [facility] 250 DO Work Phone: 06-02-2021 09:29-0400 Body height 160.02 cm Ingrid Suhholz Work Phone: [facility] 250 DO Work Phone: 06-02-2021 09:29-0400 Body mass index (BMI) [Ratio] 26.39 kg/m2 Ingrid Mark Work Phone: [facility] 250 DO Work Phone: 06-02-2021 09:29-0400 Body surface area Derived from formula 1.71 m2 Ingrid Mark Work Phone: [facility] 250 DO Work Phone: 06-02-2021 09:29-0400 Body weight 67.59 kg Ingrid Mark Work Phone: [facility] 250 DO Work Phone: 06-02-2021 09:29-0400 Diastolic blood pressure 78 mm[Hg] Ingrid Mark Work Phone: [facility] 250 DO Work Phone: 06-02-2021 09:29-0400 Heart rate 74 /min Ingrid Mark Work Phone: [facility] 250 DO Work Phone: 06-02-2021 09:29-0400 Systolic blood pressure 136 mm[Hg] Ignrid Mark Work Phone: [facility] 250 DO Work Phone: 05-09-2021 13:12-0400 0 1 Ingrid Suhholkate Work Phone: [facility] 250 DO Work Phone: Comment on above: [id number] Encounters Encounter Date Encounter Type Care Provider Facility Start: 08-23-2023 End: 08-23-2023 ambulatory Aggie Szymanski Other [place] [facility] Other Start: 08-23-2023 Office outpatient visit 25 minutes Aggie Nessa [facility] Start: 01-19-2023 Rx Renewal Ingrid Salgado lz Work Phone: [facility] 250 DO Work Phone: Start: 11-09-2022 End: 11-09-2022 ambulatory Aggie Nessa Other [facility] [employer] Other Start: 11-09-2022 Office outpatient visit 15 minutes Aggie Nessa [facility] Start: 10-30-2022 End: 10-31-2022 ambulatory AGGIE NESSA Facility:[facility] Start: 08-02-2022 Chart Update Ingrid Salgado lz Work Phone: [facility] 250 DO Work Phone: Start: 07-31-[address] Mrs[address] Ingrid Morillo Joeclaudia F acility:[id number] Start: 07-05-2022 End: 07-06-2022 ambulatory JOSSY MCQUEEN Facility:[facility] Start: 06-15-2022 End: 06-16-2022 ambulatory EIGHT ARM OPERATOR INGRID MARK Facility:[facility] Start: 06-08-2022 End: 06-09-2022 ambulatory GEOVANNI KARYN Facility:[facility] Start: 06-07-2022 Office outpatient visit 25 minutes Ingrid Morillo Joekaylaeileenkate [facility]: [facility] Work Phone: Start: 06-07-[address] Nilton Ruiz ility: Start: 05-11-2022 End: 05-12-2022 ambulatory GEOVANNI KARYN Facility:[facility] Start: 05-05-2022 End: 05-06-2022 ambulatory AGGIE NESSA Facility:[facility] Start: 04-12-2022 End: 04-13-2022 ambulatory JOSSY MCQUEEN Facility:[facility] Start: 03-29-2022 End: 03-29-2022 ambulatory EIGHT ARM OPERATOR INGRID AICHHOLZ Facility:[facility] Start: 12-28-2021 Rx Renewal Ingrid Diazho lz Work Phone: [facility] 250 DO Work Phone: Start: 10-03-2021 Rx Renewal Ingrid Diazho lz Work Phone: [facility] 250 DO Work Phone: Start: 06-02-2021 Office outpatient visit 25 minutes Ingrid Morillo [facility] Work Phone: [facility] 250 DO Work Phone: Start: 11-21-2017 Ambulatory PROVIDER UNKNOWN Facili ty:[id number] Procedures Date Procedure Procedure Detail Performing Clinician Biopsy of breast Ingrid Mroillo Aic olz Work Phone: History of percutane ous transluminal coronary angioplasty History of PTCA Ingrid Morillo Aicholz Work Phone: Hysterectomy Ingrid Morillo Aichol z Work Phone: Ligation of fallopian tube L michelle Morillo Aicholz Work Phone: Neuroplasty of media n nerve at carpal tunnel Ingrid Yisel Aicholz Work Phone: Removal of ectopic p regnancy from fallopian tube Ingrid Morillo Aicholz Work Phone: Surgical procedure Ingrid Morillo A ichholz Work Phone: Total colonoscopy Ingrid Yisel chholz Work Phone: Plan of Treatment Date Care Activity Detail Author Start: 06-13-2023 FUV, Provider: Nilton Shah, Status: Pen, Time: 9:30 AM FUV, Provider: Nilton Shah, Status: Pen, Time: 9:30 AM [facility] 250 DO Work Phone: Start: 07-31-2022 STRESS ARAMIS, Provider : GAB HOWELL NUCLEAR ,[id number], Status: Pen, Time: 11:00 AM STRESS ARAMIS, Provider: GAB NILESHI NUCLEAR 01,[id number], Status: Pen, Time: 11:00 AM [facility] 250 DO Work Phone: Start: 06-07-2022 FUV, Provider: Nilton Shah, Status: Pen, Time: 9:20 AM FUV, Provider: Nilton Shah, Status: Pen, Time: 9:20 AM [facility] 250 DO Work Phone: Start: 07-05-2021 STRESS ARAMIS, Provider : GAB HHVI NUCLEAR 01,[id number], Status: Pen, Time: 11:00 AM STRESS ARAMIS, Provider: GAB HHVI NUCLEAR 01,[id number], Status: Pen, Time: 11:00 AM [facility] 250 DO Work Phone: Immunizations Immunization Date Immunization Notes Care Provider Christiane mustafa 12-13-2021 Comirnaty 30 MCG/0.3 ML Intramuscular Suspension Ingrid Mark Work Phone: [place] [address] DO Work Phone: 06-20-2021 Fluad Quadrivalent 0 .5 ML Intramuscular Prefilled Syringe Ingrid Mark Work Phone: [place] [address] DO Work Phone: 06-20-2021 Pfizer-BioNTech COVI D-19 Vacc 30 MCG/0.3ML Intramuscular Suspension Ingrid Mark Work Phone: [place] [address] DO Work Phone: 11-16-2020 Pfizer-BioNTech COVI D-19 Vacc 30 MCG/0.3ML Intramuscular Suspension Ingrid Mark Work Phone: [facility] 250 DO Work Phone: 10-25-2020 Pfizer-BioNTech COVI D-19 Vacc 30 MCG/0.3ML Intramuscular Suspension Ingrid Mark Work Phone: [place] [address] DO Work Phone: 06-10-2020 Fluad Quadrivalent 0 .5 ML Intramuscular Prefilled Syringe Ingrid Mark Work Phone: [place] [address] DO Work Phone: 06-24-2019 Seasonal trivalent influenza vaccine, adjuvanted, preservative free [facility] Work [facility]: [place] [address] DO Work Phone: 05-27-2019 influenza virus vacc ine, unspecified formulation [facility] Work Phone: [place] [address] DO Work Phone: 08-27-2017 influenza virus vacc ine, unspecified formulation [facility] Work Phone: [place] [address] DO Work Phone: 06-27-2017 influenza, injectabl e, quadrivalent, preservative free [facility] Work Phone: [place] [address] DO Work Phone: 05-27-2015 pneumococcal polysaccharide vaccine, 23 valent [facility] Work Phone: [place] [address] DO Work Phone: 06-14-2014 influenza virus vacc ine, unspecified formulation [facility] Work Phone: [place] [address] DO Work Phone: Payers Date Payer Category Payer Medicare [id number] 1957 Unknown [id number] 1950 Unknown [id number] [id number] 1950 Unknown [id number] 2.16.8 [id number] 1950 Unknown [id number] 2.16.84 [id number] 1950 Unknown [id number] 2.16.84 [id number] 1950 Unknown [id number] 2.16.84 [id number] 1950 Unknown [id number] 2.16.84 [id number] 1950 Unknown [id number] 2.16.84 [id number] 1950 Unknown [id number] 2.16.84 [id number] 1950 Unknown [id number] 2.16.84 [id number] 1950 Unknown [id number] 2.16.84 [id number] Medicare [id number] Unknown Social History Date Type Detail Facility No illicit drug use No illicit drug use [place] [address] DO Work Phone: Comment on above: socially; 2 sodas daily; Sex Assigned At Sex Assigned At [facility] [employer] Other Evaluation note 08-23-2023 Note Date & Type Note Facility 08-23-2023 Evaluation note Encounter Date Diagnosis Assessment Notes Jul, Chronic kidney disease, stage 3 unspecified (ICD-10 - N18.30) She has CKD likely due to longstanding HTN. Her b/l serum Creatinine is 1.1-1.3 mg/dl. She has no proteinuria and hematuria. Her renal US showed right renal cyst. She has weakly positive LAURENT biut has negative Anti Ds Ab and normal C3, C4. She has no evidence of proteinuria or hematuria Jul, Hypertensive chronic kidney disease with stage 1 through stage 4 chronic kidney disease, or unspecified chronic kidney disease (ICD-10 - I12.9) Blood pressure is controlled and appears to be euvolemic. Continue current medications Jul, Coronary artery disease involving [place] coronary artery of [place] heart without angina pectoris (ICD-10 - I25.10) Continue current medications and follow with Cardiology Jul, PAD (peripheral artery disease) (ICD-10 - I73.9) She denies any symptoms. Continue ASA and Statin Jul, Secondary hyperparathyroidism (ICD-10 - N25.81) MBD parameters including calcium, phosphorus, PTH and vitamin D are within the target goal. Jul, Hyperuricemia (ICD-10 - E79.0) She has hyperuricemia due to the CKD. Denies any gout flare. Will monitor without medication. [employer] Other Evaluation note 11-09-2022 Note Date & Type Note Facility 11-09-2022 Evaluation note Encounter Date Diagnosis Assessment Notes Oct, Chronic kidney disease, stage 3 unspecified (ICD-10 - N18.30) She has CKD likely due to longstanding HTN. Her b/l serum Creatinine is 1.3-1.5 mg/dl. She has no proteinuria and hematuria. She has weakly positive LAURENT biut has negative Anti Ds Ab and normal C3, C4. She has no evidence of proteinuria or hematuria Oct, Anemia of renal disease (ICD-10 - D63.1) Hemoglobin is within the goal and has adequate Iron. No need for SE[place]OUR Oct, Hypertensive chronic kidney disease with stage 1 through stage 4 chronic kidney disease, or unspecified chronic kidney disease (ICD-10 - I12.9) Blood pressure is controlled and appears to be euvolemic. Continue current medications Oct, Coronary artery disease involving [place] coronary artery of [place] heart without angina pectoris (ICD-10 - I25.10) Continue current medications and follow with Cardiology Oct, PAD (peripheral artery disease) (ICD-10 - I73.9) She denies any symptoms. Continue ASA and Statin Oct, Secondary hyperparathyroidism (ICD-10 - N25.81) MBD parameters including calcium, phosphorus, PTH and vitamin D are within the target goal. [employer] Other Clinical Note 07-05-2022 Note Date & Type Note Facility 07-05-2022 Note PROCEDURE: XR FOOT R T MIN 3 VIEWS HISTORY: Pain in foot ; follow-up right foot fractures COMPARISON: XR foot right 06/08/2022 FINDINGS: BONES:Stable alignment and prominent callus formation consistent with ongoing bone healing of prior fractures at the neck of the second through fifth metatarsals. Mild degenerative changes the first metatarsophalangeal joint. SOFT TISSUES:Mild distal dorsal soft tissue swelling, unchanged. EFFUSION:None visible. OTHER: Negative. IMPRESSION: 1. Stable alignment and bone healing of the second through fifth metatarsal fractures. Electronically authenticated by: CASSIUS THURMAN Date: 2022-07-05 14:14 [facility] Clinical Note 06-08-2022 Note Date & Type Note Facility 06-08-2022 Note PROCEDURE: XR FOOT R T MIN 3 VIEWS COMPARISON: 05/11/2022 HISTORY: Pain in right foot FINDINGS: BONES:Stable angulated fractures involving the head and neck of the second through fifth metatarsals. Intra-articular fracture medial base of the first proximal phalanx. No dislocation. Enthesopathic spurring of the calcaneus. SOFT TISSUES:Negative. No visible soft tissue swelling. EFFUSION:None visible. OTHER: Negative. IMPRESSION: Stable healing fractures Electronically authenticated by: EMILY REMY Date: 2022-06-08 18:49 [facility] Clinical Note 05-11-2022 Note Date & Type Note Facility 05-11-2022 Note PROCEDURE: XR FOOT R T MIN 3 VIEWS HISTORY: Pain in right foot ; follow-up metatarsal fractures COMPARISON: XR foot right 04/12/2022 FINDINGS: BONES:Small fracture fragments with early bone healing involving the proximal medial corner of the first proximal phalanx. Mildly displaced and angulated fractures involving the neck of the second through fifth metatarsals with prominent callus formation along the margins. SOFT TISSUES:No visible soft tissue swelling. EFFUSION:None visible. OTHER: Negative. IMPRESSION: 1. Ongoing bone healing of first proximal phalanx and second through fifth metatarsals with stable alignment compared to prior study. Electronically authenticated by: CASSIUS THURMAN Date: 2022-05-11 10:51 [facility] Clinical Note 04-13-2022 Note Date & Type Note Facility 04-13-2022 Note PROCEDURE: XR FOOT R T MIN 3 VIEWS HISTORY: Pain in right foot ; follow-up forefoot fractures COMPARISON: XR foot right 03/29/2022 FINDINGS: BONES: Nondisplaced proximal medial corner fracture of the first proximal phalanx with intra-articular extension. Transverse fractures through the neck of second through fifth metatarsals with slight medial apex angulation of the second third metatarsals. Lateral displacement of the heads of the fourth and fifth metatarsals up to one half of the bone width. SOFT TISSUES:Dorsal soft tissue swelling. EFFUSION:None visible. OTHER: Negative. IMPRESSION: 1. Acute fractures of the first through fifth digits with interval displacement involving the fourth and fifth metatarsals. The other fractures appear stable in alignment. Electronically authenticated by: CASSIUS THURMAN Date: 2022-04-13 06:59 [facility] Clinical Note 03-29-2022 Note Date & Type Note Facility 03-29-2022 Note PROCEDURE: XR FOOT R T MIN 3 VIEWS HISTORY: Unspecified fall ; acute right foot pain after falling COMPARISON: None. FINDINGS: BONES:Incomplete transverse fracture versus corner fracture at medial proximal base of first metatarsal. Mildly angulated transverse fractures through the neck of third, fourth, and fifth metatarsals, possibly the second metatarsal. SOFT TISSUES:Moderate swelling of distal foot. EFFUSION:None visible. OTHER: Negative. IMPRESSION: 1. Acute fractures of the first proximal phalanx, and the third through fifth metatarsals, possibly the second metatarsal. Electronically authenticated by: CASSIUS THURMAN Date: 2022-03-29 11:44 [facility] History general Narrative - Reported Note Date & Type Note Facility History general Narrative - Reported Type Medical History hypertension Medical History hyperlipidemia Medical History heart attack Medical History copd Medical History RIGHT FOOT FRACTURE Surgical History heart stent Surgical History hysterectomy Surgical History shoulder surgery Surgical History Bilateral CTR Hospitalization History See Above Hospitalization History Tubal preganacy [employer] Other Summary Purpose Family History Unknown Family Member Name Dates Details Family history of acute myoc ardial infarction of anterior wall: Brother(V17.3, Z82.49) Status:Active FH: diabetes mellitus: Broth er(V18.0, Z83.3) Status:Active Family history of hypertensi on: Mother(V17.49, Z82.49) Status:Active Unknown Family Member Name Dates Details Family history of hypertensi on: Mother(V17.49, Z82.49) Status:Active FH: diabetes mellitus: Broth er(V18.0, Z83.3) Status:Active Family history of acute myoc ardial infarction of anterior wall: Brother(V17.3, Z82.49) Status:Active Unknown Family Member Name Dates Details Family history of acute myoc ardial infarction of anterior wall: Brother(V17.3, Z82.49) Status:Active FH: diabetes mellitus: Broth er(V18.0, Z83.3) Status:Active Family history of hypertensi on: Mother(V17.49, Z82.49) Status:Active Unknown Family Member Name Dates Details Family history of acute myoc ardial infarction of anterior wall: Brother(V17.3, Z82.49) Status:Active FH: diabetes mellitus: Broth er(V18.0, Z83.3) Status:Active Family history of hypertensi on: Mother(V17.49, Z82.49) Status:Active Unknown Family Member Name Dates Details Family history of acute myoc ardial infarction of anterior wall: Brother(V17.3, Z82.49) Status:Active FH: diabetes mellitus: Broth er(V18.0, Z83.3) Status:Active Family history of hypertensi on: Mother(V17.49, Z82.49) Status:Active Unknown Family Member Name Dates Details Family history of acute myoc ardial infarction of anterior wall: Brother(V17.3, Z82.49) Status:Active FH: diabetes mellitus: Broth er(V18.0, Z83.3) Status:Active Family history of hypertensi on: Mother(V17.49, Z82.49) Status:Active Unknown Family Member Name Dates Details Family history of acute myoc ardial infarction of anterior wall: Brother(V17.3, Z82.49) Status:Active FH: diabetes mellitus: Broth er(V18.0, Z83.3) Status:Active Family history of hypertensi on: Mother(V17.49, Z82.49) Status:Active Unknown Family Member Name Dates Details Family history of acute myoc ardial infarction of anterior wall: Brother(V17.3, Z82.49) Status:Active FH: diabetes mellitus: Broth er(V18.0, Z83.3) Status:Active Family history of hypertensi on: Mother(V17.49, Z82.49) Status:Active Unknown Family Member Name Dates Details Family history of acute myoc ardial infarction of anterior wall: Brother(V17.3, Z82.49) Status:Active FH: diabetes mellitus: Broth er(V18.0, Z83.3) Status:Active Family history of hypertensi on: Mother(V17.49, Z82.49) Status:Active Unknown Family Member Name Dates Details Family history of hypertensi on: Mother(V17.49, Z82.49) Status:Active FH: diabetes mellitus: Broth er(V18.0, Z83.3) Status:Active Family history of acute myoc ardial infarction of anterior wall: Brother(V17.3, Z82.49) Status:Active Unknown Family Member Name Dates Details Family history of acute myoc ardial infarction of anterior wall: Brother(V17.3, Z82.49) Status:Active FH: diabetes mellitus: Broth er(V18.0, Z83.3) Status:Active Family history of hypertensi on: Mother(V17.49, Z82.49) Status:Active Unknown Family Member Name Dates Details Family history of acute myoc ardial infarction of anterior wall: Brother(V17.3, Z82.49) Status:Active FH: diabetes mellitus: Broth er(V18.0, Z83.3) Status:Active Family history of hypertensi on: Mother(V17.49, Z82.49) Status:Active Advance Directives No Advanced Directives Records FoundNo Advanced Directives Records FoundNo Advanced Directives Records FoundNo Advanced Directives Records FoundNo Advanced Directives Records Found Chief Complaint * SANDRA SHELTON is being seen for an annual follow-up of. * Patient is a 71-year-old female who returns for routine follow-up. She is doing well she has no significant cardiovascular complaints or nitrate usage or recurrent hospitalizations. She does have mild lower extremity claudication symptomatology however pulse volume recordings from August 2019 weretotally normal. 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 She has a history of prior inferior SD with primary revascularization of the RCA PLV branch, and in 2016 had LIGHTING DESIGNER and stenting of the right iliac artery and with relief of her symptomatology. She has developed chronic renal insufficiency due to combination of medications that have been adjudicated and now with improving renal parameters as followed by her center lead consultant. She also has a history of TIAs none recently and remains on long-term DAPT therapy with no bleeding, ne urologic, or cardiac recurrent events. * She remains with mild hypertension, hyperlipidemia and mild obesity * Recommendations, obtain lipid panel, continue current therapies, will follow- up in 1 year * SANDRA SHELTON is being seen for an annual follow-up of. * Patient is a 71-year-old female who returns for routine follow-up. She is doing well she has no significant cardiovascular complaints or nitrate usage or recurrent hospitalizations. She does have mild lower extremity claudication symptomatology however pulse volume recordings from August 2019 weretotally normal. 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 She has a history of prior inferior SD with primary revascularization of the RCA PLV branch, and in 2016 had LIGHTING DESIGNER and stenting of the right iliac artery and with relief of her symptomatology. She has developed chronic renal insufficiency due to combination of medications that have been adjudicated and now with improving renal parameters as followed by her center lead consultant. She also has a history of TIAs none recently and remains on long-term DAPT therapy with no bleeding, ne urologic, or cardiac recurrent events. * She remains with mild hypertension, hyperlipidemia and mild obesity * Recommendations, obtain lipid panel, continue current therapies, will follow- up in 1 year * SANDRA SHELTON is being seen for an annual follow-up of. * 72-year-old female returns she is doing well she has no cardiovascular complaints. She is in a walking boot on her right lower extremity due to falling over her dog with some fractured metatarsals. * She has no cardiovascular complaints or angina or nitrate usage or hospitalizations. She has a history of inferior SD with revascularization the RCA and PLV branch in 2014 with subsequent stenting ofthe right iliac as well. Previous TIAs and remains on DAPT and high-dose statin therapy. She has not had any recent lipid panel performed her blood pressure is under excellent control. She is not smoking. * Reviewing her August 2015 angiogram she underwent successful SMART stent of the right common external iliac with a 6 x 60 Smart stent notably had diffuse three-vessel below the knee disease on the left lower extremity. She has no claudication at this time * Recommendations, continue current therapies obtain a lipid panel, will follow- up with treadmill stress testing within the next year once her foot is healed to assess for ischemia given her previous coronary and vascular history. * SANDRA SHELTON is being seen for an annual follow-up of. * 72-year-old female returns she is doing well she has no cardiovascular complaints. She is in a walking boot on her right lower extremity due to falling over her dog with some fractured metatarsals. * She has no cardiovascular complaints or angina or nitrate usage or hospitalizations. She has a history of inferior SD with revascularization the RCA and PLV branch in 2014 with subsequent stenting ofthe right iliac as well. Previous TIAs and remains on DAPT and high-dose statin therapy. She has not had any recent lipid panel performed her blood pressure is under excellent control. She is not smoking. * Reviewing her August 2015 angiogram she underwent successful SMART stent of the right common external iliac with a 6 x 60 Smart stent notably had diffuse three-vessel below the knee disease on the left lower extremity. She has no claudication at this time * Recommendations, continue current therapies obtain a lipid panel, will follow- up with treadmill stress testing within the next year once her foot is healed to assess for ischemia given her previous coronary and vascular history. * SANDRA SHELTON is being seen for an annual follow-up of. * 72-year-old female returns she is doing well she has no cardiovascular complaints. She is in a walking boot on her right lower extremity due to falling over her dog with some fractured metatarsals. * She has no cardiovascular complaints or angina or nitrate usage or hospitalizations. She has a history of inferior SD with revascularization the RCA and PLV branch in 2014 with subsequent stenting ofthe right iliac as well. Previous TIAs and remains on DAPT and high-dose statin therapy. She has not had any recent lipid panel performed her blood pressure is under excellent control. She is not smoking. * Reviewing her August 2015 angiogram she underwent successful SMART stent of the right common external iliac with a 6 x 60 Smart stent notably had diffuse three-vessel below the knee disease on the left lower extremity. She has no claudication at this time * Recommendations, continue current therapies obtain a lipid panel, will follow- up with treadmill stress testing within the next year once her foot is healed to assess for ischemia given her previous coronary and vascular history. * SANDRA SHELTON is being seen for an annual follow-up of. * 72-year-old female returns she is doing well she has no cardiovascular complaints. She is in a walking boot on her right lower extremity due to falling over her dog with some fractured metatarsals. * She has no cardiovascular complaints or angina or nitrate usage or hospitalizations. She has a history of inferior SD with revascularization the RCA and PLV branch in 2014 with subsequent stenting ofthe right iliac as well. Previous TIAs and remains on DAPT and high-dose statin therapy. She has not had any recent lipid panel performed her blood pressure is under excellent control. She is not smoking. * Reviewing her August 2015 angiogram she underwent successful SMART stent of the right common external iliac with a 6 x 60 Smart stent notably had diffuse three-vessel below the knee disease on the left lower extremity. She has no claudication at this time * Recommendations, continue current therapies obtain a lipid panel, will follow- up with treadmill stress testing within the next year once her foot is healed to assess for ischemia given her previous coronary and vascular history. Additional Source Comments INFORMATION SOURCE (unrecogn ized section and content) DATE CREATED AUTHOR 02/14/2018 [facility] DATE CREATED AUTHOR AUTHOR'S ORGANIZ ATION 06/07/2022 [facility] DATE CREATED AUTHOR AUTHOR'S ORGANIZ ATION 06/07/2022 [employer] DATE CREATED AUTHOR AUTHOR'S ORGANIZ ATION 08/02/2022 [facility] DATE CREATED AUTHOR AUTHOR'S ORGANIZ ATION 11/01/2022 [facility] REASON FOR VISIT (unrecogniz ed section and content) CKD and HTNCKD and HTN FOR RECORDS PERTAINING TO PATIENTS WHO ARE OR HAVE BEEN ENROLLED IN A CHEMICAL DEPENDENCY/SUBSTANCEABUSE PROGRAM, SOME INFORMATION MAY BE OMITTED. This clinical summary was aggregated from multiple sources. Caution should be exercised in using it in the provision of clinical care. This summary normalizes information from multiple sources, and as a consequence, information in this document may materially change the coding, format and clinical context of patient data. In addition, data may be omitted in some cases. CLINICAL DECISIONS SHOULD BE BASED ON THE PRIMARY CLINICAL RECORDS. [employer] provides no warranty or guarantee of the accuracy or completeness of information in this document.
--- NOTE | 2023-12-06 13:17 | ECG_ITS ---
[facility] Test Date: 2023-12-06 Pat Name: SANDRA SHELTON Department: Room: - Gender: Female Instrument Specialist: : 1950 Requested By: [id number] Order Number: [id number] Reading MD: IRENE FORD Measurements Intervals Williamson Rate: 76 P: 34 WI: 148 QRS: 54 QRSD: 86 T: 26 QT: 400 QTc: 430 Interpretive Statements 1100 Sinus rhythm 2420 RSR (QR) in lead V1/V2, consistent with right ventricular conduction delay 9130 borderline ECG Compared to ECG 06/14/2018 14:02:00 No significant changes Electronically Signed On 12-06-2023 23:08:58 EDT by IRENE FORD
--- NOTE | 2023-12-06 13:21 | CT_ITS ---
The [address] [address] Patient Name: SANDRA SHELTON MRN: [id number] date: 1950 Sex: F Assigned Patient Location: ED.MAIN Current Patient Location: ER Accession/Order Number: [id number] Exam Date: 12/06/2023 14:52 Report Date: 12/06/2023 15:26 At the request of: MILAGROS DIAZ Procedure: CT abdomen pelvis w con CT ABDOMEN/PELVIS WITH IV CONTRAST. INDICATION: Abdominal pain. COMPARISON: There are no other studies available for comparison. TECHNIQUE: Contiguous axial images were obtained from the lung bases to the pelvic floor following the intravenous administration of contrast. Coronal and sagittal reformations are provided. FINDINGS: LOWER LUNGS: There is minimal atelectasis in the lower lobes. LIVER/BILIARY TREE: No mass. No intrahepatic ductal dilatation. GALLBLADDER: No significant gallbladder wall thickening. No radiopaque stone. CBD: Normal CBD. SPLEEN: Normal in size. PANCREAS: No acute findings. No peripancreatic fluid or inflammation. No pancreatic duct dilatation. No discrete mass. ADRENALS: Normal. KIDNEYS: No hydronephrosis. No radiopaque calculus. STOMACH AND BOWEL: There is a moderate-sized hiatal hernia. No dilated bowel loops. No bowel wall thickening. APPENDIX: Not visualized. PERITONEAL CAVITY: No fluid. No fat stranding. ABDOMINAL WALL: No subcutaneous stranding. No subcutaneous fluid collection. LYMPH NODES: No mesenteric or retroperitoneal lymphadenopathy by CT criteria. ABDOMINAL AORTA: No aneurysm. PELVIS: No acute abnormality. MUSCULOSKELETAL: No acute osseous abnormality. CT/CT abdomen pelvis w con IMPRESSION: 1. No acute abnormality in the abdomen or pelvis. 2. Moderate to large size hiatal hernia. Electronically authenticated by: SAMMY BACON Date: 12/06/2023 15:26
--- NOTE | 2023-12-06 13:22 | ED_ITS ---
HPI HPI - General Adult General Chief complaint: Abdominal Pain Stated complaint: ABDOMINAL PAIN Time Seen by Provider: 12/06/23 13:14 Source: patient Mode of arrival: Wheelchair History of Present Illness HPI narrative: Patient is a 73-year-old female who presents to the emergency department for sharp pain in the epigastrium and right upper quadrant that began 3 hours ago. She reports associated nausea and vomiting. She states the pain began while watching television this morning. Pain goes through to her back. She states she has had pancreatitis in the past, she does not know why and she still has her gallbladder. She has had a previous hysterectomy and appendectomy. She denies any other associated abdominal surgeries. She has had no fevers, cough or congestion. She states she has been urinating and had a normal bowel movement today without difficulty. No medications taken prior to arrival. Related Data Home Medications ?Medication ?Instructions ?Recorded ?Confirmed amlodipine 5 mg tablet 5 mg PO DAILY 12/06/23 12/06/23 atorvastatin 80 mg tablet 80 mg PO DAILY 12/06/23 12/06/23 furosemide 20 mg tablet 20 mg PO DAILY 12/06/23 12/06/23 Previous Rx's ?Medication ?Instructions ?Recorded hydrocodone 5 mg-acetaminophen 325 1 tab PO Q6H PRN pain 3 days #12 12/06/23 mg tablet tabs hyoscyamine sulfate 0.125 mg 0.125 mg PO Q6H PRN abdominal pain 12/06/23 tablet (Levsin) #12 tabs ondansetron 4 mg disintegrating 4 mg PO Q6H PRN nausea and 12/06/23 tablet vomiting #12 tabs promethazine 25 mg tablet 25 mg PO Q6H PRN nausea and 12/06/23 vomiting #12 tabs Allergies Allergy/AdvReac Type Severity Reaction Status Date / Time No Known Drug Allergies Allergy Verified 12/06/23 12:49 Opioid HPI Opioid Management Most Recent Opioid Data: Last Pain Scale 8 12/06/23 14:22 Last OCT Pain Assessment 12/06/23 13:48 Review of Systems ROS Constitutional Denies: fever or chills Ears, nose, mouth, and throat Denies: throat pain or nasal congestion Cardiovascular Denies: chest pain Respiratory Denies: shortness of breath or cough Gastrointestinal Reports: abdominal pain, nausea and vomiting; Denies: diarrhea Genitourinary Denies: painful urination Musculoskeletal Denies: back pain Integumentary/Breast Denies: rash Neurological Denies: headache Hematologic/Lymphatic Denies: easy bruising or easy bleeding Exam Narrative Exam Narrative: Gen.: Awake, alert, in no distress Head: Normocephalic, atraumatic ENT: Moist mucous membranes Respiratory: No respiratory distress, lungs clear bilaterally Cardio: Regular rate and rhythm Gastrointestinal: Abdomen is soft, nondistended and Tender to palpation in the right upper quadrant with voluntary guarding, no rebound Extremities: Moves extremities equally Psych: Normal mood and affect Neuro: No focal neuro deficit Skin: Warm, dry, intact Constitutional Vital Signs, click to edit/add: Last Vital Signs Temp 97.8 F 12/06/23 12:45 Pulse 87 12/06/23 15:10 Resp 16 12/06/23 15:10 BP 150/90 H 12/06/23 15:10 Pulse Ox 94 L 12/06/23 15:17 O2 Del Method Room Air 12/06/23 15:17 O2 Flow Rate 2 12/06/23 14:25 Course Vital Signs Vital signs: Vital Signs Temperature 97.8 F 12/06/23 12:45 Pulse Rate 81 12/06/23 12:45 Respiratory Rate 22 H 12/06/23 12:45 Blood Pressure 123/66 12/06/23 12:45 Pulse Oximetry 98 12/06/23 12:45 Oxygen Delivery Method Room Air 12/06/23 12:45 Temperature 97.8 F 12/06/23 12:45 Pulse Rate 87 12/06/23 15:10 Respiratory Rate 16 12/06/23 15:10 Blood Pressure 150/90 H 12/06/23 15:10 Pulse Oximetry 94 L 12/06/23 15:17 Oxygen Delivery Method Room Air 12/06/23 15:17 Oxygen Delivery Flow Rate 2 12/06/23 14:25 Medical Decision Making MDM Narrative Medical decision making narrative: Patient was initially medicated with IV fluids, Dilaudid, Zofran. She did have a short period of hypoxia as she fell asleep after the pain medications were given, she was briefly placed on a nasal cannula with improvement and she was able to be removed from the nasal cannula and oxygen with no further hypoxia. Patient's lab studies show elevated white blood cell count with elevated LFTs and bilirubin. CT was performed showing a moderate hiatal hernia, but no other acute abnormalities. Given the patient's pain in the right upper quadrant and abnormal labs, an ultrasound of the right upper quadrant was performed showing no evidence of acute biliary issue. Vital signs are stable in the ER. Abdomen is soft and nonsurgical. Discussed with Dr. Nunez for general surgery, patient will be sent for an outpatient HIDA scan and close follow-up in the office. Patient is stable at time of discharge, reevaluated by attending physician prior to discharge and remedicated with Phenergan as she still feels nauseous but has had no vomiting in the ER. She is discharged home on a clear liquid diet, Zofran, Phenergan, short course of pain medication and Levsin. Follow-up with general surgery and return to the ER if symptoms change or worsen Medical Records Medical records reviewed: Yes I reviewed the patient's medical records Lab Data Lab results reviewed: Yes I reviewed the patient's lab results Labs: Lab Results 12/06/23 Range/Units 13:20 WBC 14.8 H (4.0-11.0) 10^3/uL RBC 3.74 L (4.20-5.40) 10^6/uL Hgb 11.7 L (12.0-16.0) g/dL Hct 34.8 L (36.0-48.0) % MCV 93.0 (81.0-99.0) fL MCH 31.3 (26.7-34.0) pg MCHC 33.6 (29.9-35.2) g/dL RDW 13.9 (11.0-15.0) % Plt Count 370 (150-450) 10^3/uL MPV 9.7 (9.5-13.5) fL Neut % (Auto) 81.4 H (43.0-75.0) % Lymph % (Auto) 10.3 L (20.5-60.0) % Routt % (Auto) 6.6 (1.7-12.0) % Eos % (Auto) 0.9 (0.9-7.0) % Baso % (Auto) 0.4 (0.2-2.0) % Neut # (Auto) 12.0 H (1.4-6.5) 10^3/uL Lymph # (Auto) 1.5 (1.2-3.8) 10^3/uL Routt # (Auto) 1.0 H (0.3-0.8) 10^3/uL Eos # (Auto) 0.1 (0.0-0.7) 10^3/uL Baso # (Auto) 0.1 (0.0-0.1) 10^3/uL Abs Immat Gran (auto) 0.06 H (0.00-0.03) 10^3/uL Imm/Tot Granulo (auto) 0.4 (0.0-0.5) % Sodium 137 (136-145) mmol/L Potassium 3.5 (3.5-5.1) mmol/L Chloride 100 (98-107) mmol/L Carbon Dioxide 23.6 (21.0-32.0) mmol/L Anion Gap 16.9 BUN 18.0 (7.0-18.0) mg/dL Creatinine 1.22 H (0.55-1.02) mg/dL Est GFR ( Amer) 53 L (>=60) Est GFR (Non-Af Amer) 43 L (>=60) BUN/Creatinine Ratio 14.8 Glucose 124 H (74-106) mg/dL Lactate 2.0 (0.4-2.0) mmol/L Calcium 9.1 (8.5-10.1) mg/dL Total Bilirubin 1.5 H (0.2-1.0) mg/dL AST 56 H (15-37) U/L ALT 31 (14-59) U/L Alkaline Phosphatase 125 H (46-116) U/L Troponin I High Sens <4.0 L (4.0-51.3) pg/mL Total Protein 7.4 (6.4-8.2) g/dL Albumin 3.3 L (3.4-5.0) g/dL Globulin 4.1 g/dL Albumin/Globulin Ratio 0.8 Lipase 15.0 L (16.0-77.0) U/L Imaging Data CT scan - abdomen: Attestation: I have reviewed the pertinent imaging results. Radiologist's impression: ITS Impressions Abdomen/Pelvis CT 12/06/23 13:21 IMPRESSION: 1. No acute abnormality in the abdomen or pelvis. 2. Moderate to large size hiatal hernia. Electronically authenticated by: SAMMY BACON Date: 12/06/2023 15:26 Upper Quadrant Ultrasound 12/06/23 15:32 IMPRESSION: 1. Normal gallbladder. There are no stones or sludge, and no sonographic evidence of acute cholecystitis. 2. Fatty infiltration of the liver with normal caliber common bile duct at 5 mm. 3. Right kidney with cortical thinning and a 3.8 cm cyst. No hydronephrosis. Electronically authenticated by: MARCELAISABELL JUDITH Date: 12/06/2023 16:25 ECG Data Attestation: I personally reviewed and interpreted this ECG as follows: (Normal sinus rhythm at a rate of 76, no acute ST elevation or ectopy. EKG reviewed by attending physician) Discharge Plan Discharge Stand Alone Forms: Portal Instructions Chief Complaint: Abdominal Pain Clinical Impression: Abdominal pain Patient Disposition: Home, Self-Care Time of Disposition Decision: 16:36 Condition: Good Prescriptions / Home Meds: New hydrocodone-acetaminophen 5-325 mg tablet 1 tab PO Q6H PRN (Reason: pain) 3 Days Qty: 12 0RF Rx Instructions: DX: R10.9 hyoscyamine sulfate [Levsin] 0.125 mg tablet 0.125 mg PO Q6H PRN (Reason: abdominal pain) Qty: 12 0RF promethazine 25 mg tablet 25 mg PO Q6H PRN (Reason: nausea and vomiting) Qty: 12 0RF ondansetron 4 mg tablet,disintegrating 4 mg PO Q6H PRN (Reason: nausea and vomiting) Qty: 12 0RF No Action amlodipine 5 mg tablet 5 mg PO DAILY atorvastatin 80 mg tablet 80 mg PO DAILY furosemide 20 mg tablet 20 mg PO DAILY Print Language: Lithuanian Instructions: Acute Abdominal Pain (ED) Referrals: Ingrid Mark NP [Primary Care Provider] - 1 week Odin Nunez MD [Physician] - As soon as possible
[2023-12-06 13:38] LABS: Basophils Absolute Auto 0.1 10^3/uL (0.0-0.1); Basophils Percent Auto 0.4 % (0.2-2.0); Eosinophils Absolute Auto 0.1 10^3/uL (0.0-0.7); Eosinophils Percent Auto 0.9 % (0.9-7.0); Hematocrit 34.8 % (36.0-48.0); Hemoglobin 11.7 g/dL (12.0-16.0); Immature Granulocytes Abs Auto 0.06 10^3/uL (0.00-0.03); Immature Granulocytes Pct Auto 0.4 % (0.0-0.5); Lymphocytes Absolute Auto 1.5 10^3/uL (1.2-3.8); Lymphocytes Percent Auto 10.3 % (20.5-60.0); Mean Corpuscular HGB Conc 33.6 g/dL (29.9-35.2); Mean Corpuscular Hemoglobin 31.3 pg (26.7-34.0); Mean Platelet Volume 9.7 fL (9.5-13.5); Monocytes Percent Auto 6.6 % (1.7-12.0); Neutrophils Percent Auto 81.4 % (43.0-75.0); Platelet Count 370 10^3/uL (150-450); Red Blood Count 3.74 10^6/uL (4.20-5.40); Red Cell Distribution Width 13.9 % (11.0-15.0); White Blood Count 14.8 10^3/uL (4.0-11.0)
[2023-12-06] MEDS: 0.9 % SODIUM CHLORIDE 1,000 ML 999 ML IV (13:47)
[2023-12-06] MEDS: HYDROMORPHONE HCL 1 MG/ML CARTRIDGE IVP (13:48)
[2023-12-06] MEDS: ONDANSETRON PF 4 MG/2 ML VIAL IV ×2 (13:49→15:14)
[2023-12-06 14:20] LABS: Alanine Aminotransferase 31 U/L (14-59); Albumin Globulin Ratio 0.8; Albumin Level 3.3 g/dL (3.4-5.0); Alkaline Phosphatase 125 U/L (46-116); Anion Gap 16.9; Aspartate Amino Transferase 56 U/L (15-37); BUN Creatinine Ratio 14.8; Bilirubin Total 1.5 mg/dL (0.2-1.0); Calcium 9.1 mg/dL (8.5-10.1); Carbon Dioxide 23.6 mmol/L (21.0-32.0); Chloride 100 mmol/L (98-107); Estimated GFR (African America 53 (>=60); Estimated GFR (Non-African Ame 43 (>=60); Globulin 4.1 g/dL; Glucose 124 mg/dL (74-106); Potassium 3.5 mmol/L (3.5-5.1); Sodium 137 mmol/L (136-145); Total Protein 7.4 g/dL (6.4-8.2); Troponin I High Sensitivity <4.0 pg/mL (4.0-51.3)
--- NOTE | 2023-12-06 15:32 | US_ITS ---
The [address] [address] Patient Name: SANDRA SHELTON MRN: [id number] date: 1950 Sex: F Assigned Patient Location: ER Current Patient Location: ER Accession/Order Number: [id number] Exam Date: 12/06/2023 15:33 Report Date: 12/06/2023 16:25 At the request of: MILAGROS DIAZ Procedure: US right upper quadrant Ultrasound abdomen right upper quadrant HISTORY: ruq pain COMPARISON: None. TECHNIQUE: Dedicated transabdominal right upper quadrant ultrasound was performed. FINDINGS: The gallbladder is nondistended and without focal wall abnormality. There is no discrete gallstone identified. No sludge is seen. The gallbladder wall measures 2 mm in thickness. No pericholecystic fluid is seen, and the sonographic Xie's sign is negative. The proximal common bile duct measures 5 mm in diameter. There is no intrahepatic bile duct dilatation. The liver demonstrates diffusely increased echogenicity. No discrete liver lesion seen. The visualized pancreas is normal. Portions of the pancreas are obscured by overlying bowel gas. The right kidney measures 8.2 x 3.9 x 3.7 cm. Mild cortical thinning. There is a right renal cyst measuring 3.8 x 3.7 x 3.0 cm. There is no hydronephrosis in the right kidney. There is no fluid in the right upper quadrant. US/US right upper quadrant IMPRESSION: 1. Normal gallbladder. There are no stones or sludge, and no sonographic evidence of acute cholecystitis. 2. Fatty infiltration of the liver with normal caliber common bile duct at 5 mm. 3. Right kidney with cortical thinning and a 3.8 cm cyst. No hydronephrosis. Electronically authenticated by: MADIE WONG Date: 12/06/2023 16:25
[2023-12-06] MEDS: PROMETHAZINE HCL 12.5 MG in 0.9 % SODIUM CHLORIDE 50 ML 202 MG IV (16:57)
== END 2023-12-06 17:25 | disposition home or self-care (01) ==
PROVIDERS: Physician Assistant; Emergency Provider Emergency Medicine Emergency Medical Services; PCP Nurse Practitioner
DX: R10.9 Unspecified abdominal pain (principal); Z90.49 Acquired absence of other specified parts of digestive tract; Z90.710 Acquired absence of both cervix and uterus; Z79.899 Other long term (current) drug therapy
CPT/HCPCS: 36415; 74177; 76705; 80053; 83605; 83690; 84484; 85025; 93005; 96361; 96365; 96375; 96376; 99285; J1170; Q9967

== ENCOUNTER 2023-12-13 07:32 | Outpatient (OUT) | payer MEDICARE, OTHER, SELFPAY ==
--- NOTE | 2023-12-13 07:20 | NM_ITS ---
The [address] [address] Patient Name: SANDRA SHELTON MRN: [id number] date: 1950 Sex: F Assigned Patient Location: PA Current Patient Location: PA Accession/Order Number: [id number] Exam Date: 12/13/2023 07:20 Report Date: 12/13/2023 10:33 At the request of: CECY LOONEY Procedure: PA hepatobiliary w pharm EXAMINATION: PA hepatobiliary w pharm HISTORY: RIGHT UPPER QUADRANT PAIN, NAUSEA AND VOMITING COMPARISON: No relevant comparison available. TECHNIQUE: Radionuclide hepatobiliary imaging was performed after intravenous injection of 5.3 mCi Tc-99m LILLIAN derivative with sequential acquisitions every 1 minute for one hour. Hepatobiliary imaging with gallbladder ejection fraction analysis was then performed with sequential imaging every 1 minute for 60 minutes following ingestion of 8 oz. Ensure Plus. FINDINGS: LIVER: Normal, prompt and uniform radiotracer uptake and clearing. BILIARY DUCTS: Normal radioisotopic biliary excretion. GALLBLADDER: Normal with no evidence of cystic duct obstruction. INTESTINE: Normal with no evidence of common biliary ductal obstruction. EJECTION FRACTION: 67 % within 60 minutes. (Normal EF > 38%). OTHER: Negative. PA/PA hepatobiliary w pharm IMPRESSION: 1. Normal nuclear medicine HIDA scan. Electronically authenticated by: DEANA PRATER Date: 12/13/2023 10:33
--- OUTSIDE RECORDS SUMMARY | 2023-12-13 07:35 | XMS_ITS | CCD ---
Author Organization [facility] Care Team Providers Care Acetylene Torch Solderer Name Role Phone UNKNOWN, PROVIDER Unavailable Unavailable JACKSON CHEYANNE Unavailable Unavailable AichholzIngrid Yisel Unavailable Unavailable Unavailable Alyssa, Dr. Olivares Attending Unavailable Alyssa, Dr. Olivares Referring Unavailable Jas, Mrs. Ingrid Morillo Primary Care Unavailab le Jas, Mrs. Ingrid Morillo Primary Care Unavailab le Alyssa, Dr. Nilton Cash Attending Unava kanika Shah, Dr. Nilton Cash Referring Unava ilable GEOVANNI BOSS Admitting Unavailable Cassius Thurman Consulting Unavailable GEOVANNI BOSS Attending Unavailable AICHHOLZ, LIMEROCK TOWER LOADER INGRID Primary Care Unavailable KARYN, GEOVANNI Consulting Unavailable JOSSY MCQUEEN Admitting Unavailable JOSSY MCQUEEN Consulting Unavailable JOSSY MCQUEEN Attending Unavailable AICHHOLZ, LIMEROCK TOWER LOADER INGRID Primary Care Unavailable NESSA, AGGIE Consulting Unavailable NESSAFANTAUL Attending Unavailable AICHHOLZ, LIMEROCK TOWER LOADER INGRID Primary Care Unavailable NESSA, AGGIE Admitting Unavailable HIGHLANDERJOSSY Attending Unavailable Cassius Thurman Consulting Unavailable AICHHOLZ, LIMEROCK TOWER LOADER INGRID Primary Care Unavailable HIGHLANDERJOSSY Admitting Unavailable HIGHLANDERJOSSY Consulting Unavailable AICHHOLZ, LIMEROCK TOWER LOADER INGRID Primary Care Unavailable ALYSSA, DR NILOTN Snow Attending Unavailledy SHAH, DR NILTON Snow Admitting Unavailledy SHAH, DR NILTON Snow Consulting Unavailabl e JAS, [facility] INGRID Primary Care Unavailable MARCUS ESPAÑA Admitting Unavailable Cassius Thurman Consulting Unavailable MARCUS ESPAÑA Attending Unavailable MARCUS ESPAÑA Consulting Unavailable GEOVANNI BOSS Admitting Unavailable GEOVANNI BOSS Attending Unavailable AICHEILEENZ, LIMEROCK TOWER LOADER INGRID Primary Care Unavailable DR EMILY REMY V Consulting Unavailable FARZANA BOSSBERLY Consulting Unavailable NESSA, AGGIE Consulting Unavailable AGGIE SZYMANSKI Attending Unavailable LALO MARK Primary Care Unavailable AGGIE SZYMANSKI Admitting Unavailable Aggie Szymanski Unavailable Allergies Allergy Classification Reported Allergen(s) Allergy Type Date of Onset Reaction(s) Facility (1 source) celecoxib Drug Allergy 09-24-2013 [facility] (1 source) Cimetidine Drug Allergy 09-24-2013 [facility] Medications Current Medications Medication Drug Class(es) [...] [Coronary atherosclerosis of unspecified type of vessel, [place] or graft] Onset: 2 Chronic Coronary atherosclerosis [...] Onset: 03-30-2022 Episodic Other aftercare (1 source) long-term (current) use of aspirin; Translations: [GROUP HOME CURRENT USE OF ASPIRIN] Onset: 03-30-2022 Episodic Other aftercare (1 source) Other assisted (current) drug therapy; Translations: [OTH GROUP HOME CURRENT DRUG THERAPY] Onset: 03-30-2022 Episodic Other aftercare (1 source) 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 Adin Barrera FERRITINon 10-30-2022 Ferritin [Mass/Vol] 35.0 ng/mL Normal 8.0-252.0 [facility] Comment on above: Performed By: #### F ERR, FETIBC, VITAD #### [facility] [address] [address] [address] Adin Barrera HEMOGRAM AND PLATELon 2022 Hematocrit (Bld) [Volume fraction] 35.5 % Critically low 36.0-48.0 [facility] Comment on above: Performed By: #### H H #### [facility] [address] [place] [address] Dr. Adin Barrera Hemoglobin (Bld) [Mass/Vol] 11.9 g/dL Critically low 12.0-16.0 [facility] Comment on above: Performed By: #### H H #### [facility] [address] [place] [address] Dr. Adin Barrera MCH (RBC) [Entitic mass] 31.5 pg Normal 26.7-34.0 [facility] Comment on above: Performed By: #### H H #### [facility] [address] [place] [address] Dr. Adin Barrera MCHC (RBC) [Mass/Vol] 33.5 g/dL Normal 29.9-35.2 [facility] Comment on above: Performed By: #### H H #### [facility] [address] [place] [address] Dr. Adin Barrera MCV (RBC) [Entitic vol] 93.9 fL Normal 81.0-99.0 [facility] Comment on above: Performed By: #### H H #### [facility] [address] [place] [address] Dr. Adin Barrera PLT 435 103/ul Normal 150-450 [facility] Comment on above: Performed By: #### H H #### [facility] [address] [place] [address] Dr. Adin Barrera RBC 3.78 106/ul Critically low 4.20-5.40 [facility] Comment on above: Performed By: #### H H #### [facility] [address] [place] [address] Dr. Adin Barrera WBC 9.1 103/ul Normal 4.0-11.0 [facility] Comment on above: Performed By: #### H H #### [facility] [address] [place] [address] Dr. Adin Barrera IRON AND TIBCon 10-30-2022 % SATURATION 29.4 % Normal [facility] Comment on above: Performed By: #### F ERR, FETIBC, VITAD #### [facility] [address] [place] [address] Dr. Adin Barrera Iron [Mass/Vol] 84.0 ug/dL Normal 50.0-170.0 [facility] Comment on above: Performed By: #### F ERR, FETIBC, VITAD #### [facility] [address] [place] [address] Dr. Adin Barrera TIBC DIRECT 286.0 ug/dL Normal 250.0-450.0 [facility] Comment on above: Performed By: #### F ERR, FETIBC, VITAD #### [facility] [address] [place] [address] Dr. Adin Barrera MAGNESIUMon 10-30-2022 Magnesium [Mass/Vol] 1.8 mg/dL Normal 1.8-2.4 [facility] Comment on above: Performed By: #### M G, URIC, RENAL #### [facility] [address] [place] [address] Dr. Adin Barrera RENAL FUNCTION PANELon 10-30 Albumin [Mass/Vol] 3.4 g/dL Normal 3.4-5.0 [facility] Comment on above: Performed By: #### M G, URIC, RENAL #### [facility] [address] [place] [address] Dr. Adin Barrera Calcium [Mass/Vol] 9.2 mg/dL Normal 8.5-10.1 [facility] Comment on above: Performed By: #### M G, URIC, RENAL #### [facility] [address] [place] [address] Dr. Adin Barrera Chloride [Moles/Vol] 104 mmol/L Normal 98-107 [facility] Comment on above: Performed By: #### M G, URIC, RENAL #### [facility] [address] [place] [address] Dr. Adin Barrera CO2 [Moles/Vol] 24.9 mmol/L Normal 21.0-32.0 [facility] Comment on above: Performed By: #### M G, URIC, RENAL #### [facility] [address] [place] [address] Dr. Adin Barrera Creatinine [Mass/Vol] 1.13 mg/dL Critically high 0.55-1.02 [facility] Comment on above: Performed By: #### M G, URIC, RENAL #### [facility] [address] [place] [address] Dr. Adin Barrera EGFR-AF TONGAN 58 mL/min/1.73m2 Critically low >=60 [facility] Comment on above: Performed By: #### M G, URIC, RENAL #### [facility] [address] [place] [address] Dr. Adin Barrera EGFR-NON AF TONGAN 48 mL/min/1.73m2 Critically low >=60 [facility] Comment on above: Performed By: #### M G, URIC, RENAL #### [facility] [address] [place] [address] Dr. Adin Barrera Glucose [Mass/Vol] 88 mg/dL Normal 74-106 [facility] Comment on above: Performed By: #### M G, URIC, RENAL #### [facility] [address] [place] [address] Dr. Adin Barrera Phosphate [Mass/Vol] 3.4 mg/dL Normal 2.6-4.7 [facility] Comment on above: Performed By: #### M G, URIC, RENAL #### [facility] [address] [place] [address] Dr. Adin Barrera Potassium [Moles/Vol] 4.4 mmol/L Normal 3.5-5.1 [facility] Comment on above: Performed By: #### M G, URIC, RENAL #### [facility] [address] [place] [address] Dr. Adin Barrera Sodium [Moles/Vol] 139 mmol/L Normal 136-145 [facility] Comment on above: Performed By: #### M G, URIC, RENAL #### [facility] [address] [place] [address] Dr. Adin Barrera Urea nitrogen [Mass/Vol] 13.0 mg/dL Normal 7.0-18.0 [facility] Comment on above: Performed By: #### M G, URIC, RENAL #### [facility] [address] [place] [address] Dr. Adin Barrera UA RANDOM W/MICROSCOPICon BACTERIA TRACE Abnormal NONE SEEN [facility] Comment on above: Performed By: #### M G, URIC, RENAL #### [facility] [address] [place] [address] Dr. Adin Barrera Bilirubin Ql (U) Negative Normal NEGATIVE [facility] Comment on above: Performed By: #### M G, URIC, RENAL #### [facility] [address] [place] [address] Dr. Adin Barrera CAST NONE SEEN Normal NONE SEEN [facility] Comment on above: Performed By: #### M G, URIC, RENAL #### [facility] [address] [place] [address] Dr. Adin Barrera Clarity (U) CLEAR Normal CLEAR [facility] Comment on above: Performed By: #### M G, URIC, RENAL #### [facility] [address] [place] [address] Dr. Adin Barrera Color (U) LT. YELLOW Normal YELLOW [facility] Comment on above: Performed By: #### M G, URIC, RENAL #### [facility] [address] [address] [address] Adin Barrera Crystals LM Nom (Urine sed) NONE SEEN Normal NONE SEEN [facility] Comment on above: Performed By: #### M G, URIC, RENAL #### [facility] [address] [address] [address] Adin Barrera Epithelial cells LM Ql (Urine sed) FEW Abnormal NONE SEEN /RARE [facility] Comment on above: Performed By: #### M G, URIC, RENAL #### [facility] [address] [address] [address] Adin Barrera Glucose Ql (U) Negative Normal NEGATIVE [facility] Comment on above: Performed By: #### M G, URIC, RENAL #### [facility] [address] [place] [address] Dr. Adin Barrera Hemoglobin Ql (U) Negative Normal NEGATIVE [facility] Comment on above: Performed By: #### M G, URIC, RENAL #### [facility] [address] [address] [address] Adin Barrera Ketones Ql (U) Negative Normal NEGATIVE [facility] Comment on above: Performed By: #### M G, URIC, RENAL #### [facility] [address] [address] [address] Adin Barrera LEUKOCYTES MODERATE Abnormal NEGATIVE [facility] Comment on above: Performed By: #### M G, URIC, RENAL #### [facility] [address] [address] [address] Adin Brarera MUCOUS NONE SEEN Normal NONE SEEN [facility] Comment on above: Performed By: #### M G, URIC, RENAL #### [facility] [address] [address] [address] Adin Barrera Nitrite Ql (U) Negative Normal NEGATIVE [facility] Comment on above: Performed By: #### M G, URIC, RENAL #### [facility] [address] [address] [address] Adin Barrera pH (U) 5.5 [pH] Normal 5-9 [facility] Comment on above: Performed By: #### M G, URIC, RENAL #### [facility] [address] [place] [address] Dr. Adin Barrera RBC 0-2 Normal 0-2 [facility] Comment on above: Performed By: #### M G, URIC, RENAL #### [facility] [address] [place] [address] Dr. Adin Barrera SPEC GRAVITY 1.010 Normal 1.005-<=1.025 [facility] Comment on above: Performed By: #### M G, URIC, RENAL #### [facility] [address] [place] [address] Dr. Adin Barrera UA PROTEIN Negative Normal NEGATIVE/ TRACE [facility] Comment on above: Performed By: #### M G, URIC, RENAL #### [facility] [address] [place] [address] Dr. Adin Barrera Urobilinogen Qn (U) 0.2 {Mitchell'U}/dL Normal 0.2 - 1.0 [facility] Comment on above: Performed By: #### M G, URIC, RENAL #### [facility] [address] [place] [address] Dr. Adin Barrera WBC 5-10 Abnormal NONE SEEN [facility] Comment on above: Performed By: #### M G, URIC, RENAL #### [facility] [address] [place] [address] Dr. Adin Barrera URIC ACID SERUMon 10-30-2022 Urate [Mass/Vol] 5.4 mg/dL Normal 2.6-6.0 [facility] Comment on above: Performed By: #### M G, URIC, RENAL #### [facility] [address] [place] [address] Dr. Adin Barrera VITAMIN D 25 OHon 10-30-2022 VIT D 25-OH 38.3 ng/mL Normal [facility] Comment on above: Performed By: #### F ERR, FETIBC, VITAD #### [facility] [address] [place] [address] Dr. Adin Barrera VIT D RANGES SEE BELOW Normal [facility] Comment on above: Result Comment: <20 ng/mL Vit D deficient 20 - <30 ng/mL Vit D insufficient 30 - 100 ng/mL Vit D sufficient >100 ng/mL Potential Toxicity Performed By: #### F ERR, FETIBC, VITAD #### [facility] [address] [address] [address] Adin Barrera Cardiac Stress Teston 2021 Cardiac Stress Test [address], [address] [address] Exercise Stress Test Patient Name: SANDRA SHELTON Ordering Physician: [id number] Nilton Shah DO Study Date: 07/31/2022 Reading Physician: [id number] Jessica Rojo MD, [facility] MRN/PID: [id number] Supervising Physician: [id number] Ayala Cordova MD Accession/Order#: [id number] Referring Physician: NILTON SHAH Date of : 1950 PCP: Gender: F Fellow: Height: 165.10 cm Nurse: Jessika Aguirre RN Weight: 68.04 kg Change Agent: NA BSA: 1.75 m2 Technologist: BMI: 24.96 kg/m2 Additional Staff: Age: 72 years cc report to: Patient Location: cc report to: [id number] Nilton Shah DO Study Type: Cardiac Stress Test Diagnosis/ICD: I25.10-Atherosclerotic heart disease; 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 [id number] Jessica Rojo MD, FAC Electronically signed on 07/31/2022 at 7:18:28 PM Final Normal [facility] Cardiac Stress Test -[facility] [address] DO Work Phone: LIPID PROFILEon 06-15-2022 CHOL-HDL RATIO NORM SEE BELOW Normal [facility] Comment on above: Result Comment: 3.3 - 4.4 LOW RISK 4.4 - 7.1 AVERAGE RISK 7.1 - 11.0 MODERATE RISK >11.0 HIGH RISK Performed By: #### M G, URIC, RENAL #### [facility] [address] [address] [address] Adin Barrera Cholesterol [Mass/Vol] 191 mg/dL Normal <=200 [facility] Comment on above: Performed By: #### M G, URIC, RENAL #### [facility] [address] [address] [address] Adin Barrera Cholesterol in HDL [Mass/Vol] 108 mg/dL Critically high 40-60 [facility] Comment on above: Performed By: #### M G, URIC, RENAL #### [facility] [address] [address] [address] Adin Barrera Cholesterol in LDL [Mass/Vol] 70.4 mg/dL Normal [facility] Comment on above: Performed By: #### M G, URIC, RENAL #### [facility] [address] [address] [address] Adin Barrera Cholesterol.total/ Cholesterol in HDL [Mass ratio] 1.8 {ratio} Normal [facility] Comment on above: Performed By: #### M G, URIC, RENAL #### [facility] [address] [address] [address] Adin Barrera HDL NORMAL > or = 60 mg/dl - LO W CARDIOVASCULAR RISK <40 mg/dl - HIGH CARDIOVASCULAR RISK Normal [facility] Comment on above: Performed By: #### M G, URIC, RENAL #### [facility] [address] [address] [address] Adin Barrera LDL CALC NORMAL SEE BELOW Normal [facility] Comment on above: Result Comment: <100 mg/dl OPTIMAL 100 - 129 mg/dl NEAR OR ABOVE OPTIMAL 130 - 159 mg/dl BORDERLINE HIGH 160 - 189 mg/dl HIGH >190 mg/dl VERY HIGH Performed By: #### M G, URIC, RENAL #### [facility] [address] [address] [address] Adin Barrera Triglyceride [Mass/Vol] 63 mg/dL Normal <=150 [facility] Comment on above: Performed By: #### M G, URIC, RENAL #### [facility] [address] [address] [address] Adin Barrera VLDL CALC 12.6 mg/dL Normal [facility] Comment on above: Performed By: #### M G, URIC, RENAL #### [facility] [address] [address] [address] Adin Corea 06-15-2022 AST [Catalytic activity/Vol] 18 U/L Normal 15-37 [facility] Comment on above: Performed By: #### M G, URIC, RENAL #### [facility] [address] [address] [address] [facility] ALT [Catalytic activity/Vol] 19 U/L Normal 14-59 [facility] Comment on above: Performed By: #### M G, URIC, RENAL #### [facility] [address] [place] [address] Dr. Adin Barrera Office Visit (Cardiology)on 06-07-2022 [...] - Scheduling,Retrospecti ve By Protocol Authorization; Requested for:[id number]; Hyperlipidemia ALT - Alanine Aminotransferase, Serum; Status:Active - Retrospective Authorization; Requested for:[id number]; AST; Status:Active - Retrospective Authorization; Requested for:[id number]; Lipid Panel; Status:Active - Retrospective Authorization; Requested for:[id number]; Patient Instructions Please bring all medicines, vitamins, [...] hospitalizations. She has a history of inferior UT with revascularization the RCA and PLV branch [...] Recorded: 07Jun2022 09:20AM Heart Rate68, L Radial Dfilcfvz447, LUE, Sitting Zkskucyyi46, LUE, Sitting Height5 ft 5 in Narvns185 lb BMI Ioqxehkhdm47.96 kg/m2 BSA Calculated1.75 Tobacco Useb) No PHQ-2 [...] Screening.on 022 Adult depression screening assessment No [facility] [address] DO Work Phone: Fall risk assessment b) One or more falls in the last year [facility] [address] DO Work Phone: Tobacco use status CPHS b) No [facility] [address] 250 DO Work Phone: VIT D 25-OH [facility] 2021 Vitamin D, 25-Hydroxy 36.0 ng/mL Normal 30.0-100.0 [facility] Comment on above: Result Comment: Marilyn min D deficiency has been defined by the Hope of [employer] and an Endocrine Society practice guideline as a level of serum 25-OH vitamin D less than 20 ng/mL (1,2). The Endocrine Society went on to further define vitamin D insufficiency as a level between 21 and 29 ng/mL (2). 1. IOM ([employer] of [employer]). 2010. Dietary reference intakes for calcium and D. [place]: The National Academies Press. 2. Britt MF, Antonia NC, Zaid VIVAS, et al. Evaluation, treatment, and prevention of vitamin D deficiency: an Endocrine Society clinical practice guideline. JCEM. 2010; 96(7):1911-30. Performed By: #### M G, URIC, RENAL #### [facility] [address] [place], [place] [address] Dr. Adin Barrera PTH INTACTon 05-06-2022 PTH, Intact 33 pg/mL Normal 15-65 [facility] Comment on above: Performed By: #### M G, URIC, RENAL #### [facility] [address] [place], [place] [address] Dr. Adin Barrera FERRITINon 05-05-2022 Ferritin [Mass/Vol] 28.0 ng/mL Normal 8.0-252.0 [facility] Comment on above: Performed By: #### M G, URIC, RENAL #### [facility] [address] [address] [address] Adin Barrera HEMOGRAM AND PLATELon 2021 Hematocrit (Bld) [Volume fraction] 34.9 % Critically low 36.0-48.0 [facility] Comment on above: Performed By: #### H H #### [facility] [address] [address] [address] Adin Barrera Hemoglobin (Bld) [Mass/Vol] 11.3 g/dL Critically low 12.0-16.0 [facility] Comment on above: Performed By: #### H H #### [facility] [address] [place] [address] Dr. Adin Barrera MCH (RBC) [Entitic mass] 29.0 pg Normal 26.7-34.0 [facility] Comment on above: Performed By: #### H H #### [facility] [address] [place] [address] Dr. Adin Barrera MCHC (RBC) [Mass/Vol] 32.4 g/dL Normal 29.9-35.2 [facility] Comment on above: Performed By: #### H H #### [facility] [address] [place] [address] Dr. Adin Barrera MCV (RBC) [Entitic vol] 89.7 fL Normal 81.0-99.0 [facility] Comment on above: Performed By: #### H H #### [facility] [address] [place] [address] Dr. Adin Barrera PLT 355 103/ul Normal 150-450 [facility] Comment on above: Performed By: #### H H #### [facility] [address] [address] [address] Adin Barrera RBC 3.89 106/ul Critically low 4.20-5.40 [facility] Comment on above: Performed By: #### H H #### [facility] [address] [address] [address] Adin Barrera WBC 9.8 103/ul Normal 4.0-11.0 [facility] Comment on above: Performed By: #### H H #### [facility] [address] [address] [address] Adin Barrera IRON AND TIBCon 05-05-2022 % SATURATION 17.9 % Normal [facility] Comment on above: Performed By: #### M G, URIC, RENAL #### [facility] [address] [place] [address] Dr. Adin Barrera Iron [Mass/Vol] 53.0 ug/dL Normal 50.0-170.0 [facility] Comment on above: Performed By: #### M G, URIC, RENAL #### [facility] [address] [place] [address] Dr. Adin Barrera TIBC DIRECT 296.0 ug/dL Normal 250.0-450.0 [facility] Comment on above: Performed By: #### M G, URIC, RENAL #### [facility] [address] [place] [address] Dr. Adin Barrera MAGNESIUMon 05-05-2022 Magnesium [Mass/Vol] 2.0 mg/dL Normal 1.8-2.4 [facility] Comment on above: Performed By: #### M G, URIC, RENAL #### [facility] [address] [address] [address] Adin Barrera RENAL FUNCTION PANELon 05-05 Albumin [Mass/Vol] 3.2 g/dL Critically low 3.4-5.0 [facility] Comment on above: Performed By: #### M G, URIC, RENAL #### [facility] [address] [place] [address] Dr. Adin Barrera Calcium [Mass/Vol] 8.7 mg/dL Normal 8.5-10.1 [facility] Comment on above: Performed By: #### M G, URIC, RENAL #### [facility] [address] [address] [address] Adin Barrera Chloride [Moles/Vol] 102 mmol/L Normal 98-107 [facility] Comment on above: Performed By: #### M G, URIC, RENAL #### [facility] [address] [address] [address] Adin Barrera CO2 [Moles/Vol] 28.0 mmol/L Normal 21.0-32.0 [facility] Comment on above: Performed By: #### M G, URIC, RENAL #### [facility] [address] [address] [address] Adin Barrera Creatinine [Mass/Vol] 1.25 mg/dL Critically high 0.55-1.02 [facility] Comment on above: Performed By: #### M Luis Armando, URIC, RENAL #### [facility] [address] [place] [address] Dr. Adin Barrera EGFR-AF TONGAN 51 mL/min/1.73m2 Critically low >=60 [facility] Comment on above: Performed By: #### M G, URIC, RENAL #### [facility] [address] [place] [address] Dr. Adin Barrera EGFR-NON AF TONGAN 42 mL/min/1.73m2 Critically low >=60 [facility] Comment on above: Performed By: #### M G, URIC, RENAL #### [facility] [address] [place] [address] Dr. Adin Barrera Glucose [Mass/Vol] 101 mg/dL Normal 74-106 [facility] Comment on above: Performed By: #### M G, URIC, RENAL #### [facility] [address] [place] [address] Dr. Adin Barrera Phosphate [Mass/Vol] 3.9 mg/dL Normal 2.6-4.7 [facility] Comment on above: Performed By: #### M G, URIC, RENAL #### [facility] [address] [place] [address] Dr. Adin Barrera Potassium [Moles/Vol] 3.8 mmol/L Normal 3.5-5.1 [facility] Comment on above: Performed By: #### M G, URIC, RENAL #### [facility] [address] [address] [address] Adin Barrera Sodium [Moles/Vol] 139 mmol/L Normal 136-145 [facility] Comment on above: Performed By: #### M G, URIC, RENAL #### [facility] [address] [address] [address] dAin Barrera Urea nitrogen [Mass/Vol] 11.0 mg/dL Normal 7.0-18.0 [facility] Comment on above: Performed By: #### M G, URIC, RENAL #### [facility] [address] [address] [address] Adin Barrera UA RANDOM W/MICROSCOPICon BACTERIA SMALL Abnormal NONE SEEN [facility] Comment on above: Performed By: #### U AMIC #### [facility] [address] [place] [address] Dr. Adin Barrera Bilirubin Ql (U) Negative Normal NEGATIVE [facility] Comment on above: Performed By: #### U AMIC #### [facility] [address] [place] [address] Dr. Adin Barrera CAST NONE SEEN Normal NONE SEEN [facility] Comment on above: Performed By: #### U AMIC #### [facility] [address] [place] [address] Dr. Adin Barrera Clarity (U) CLEAR Normal CLEAR [facility] Comment on above: Performed By: #### U AMIC #### [facility] [address] [place] [address] Dr. Adin Barrera Color (U) LT. YELLOW Normal YELLOW [facility] Comment on above: Performed By: #### U AMIC #### [facility] [address] [place] [address] Dr. Adin Barrera Crystals LM Nom (Urine sed) NONE SEEN Normal NONE SEEN [facility] Comment on above: Performed By: #### U AMIC #### [facility] [address] [place] [address] Dr. Adin Barrera Epithelial cells LM Ql (Urine sed) FEW Abnormal NONE SEEN /RARE [facility] Comment on above: Performed By: #### U AMIC #### [facility] [address] [address] [address] Adin Barrera Glucose Ql (U) Negative Normal NEGATIVE The [facility] Comment on above: Performed By: #### U AMIC #### [facility] [address] [address] [address] Adin Barrera Hemoglobin Ql (U) Negative Normal NEGATIVE The [facility] Comment on above: Performed By: #### U AMIC #### [facility] [address] [address] [address] Adin Barrera Ketones Ql (U) Negative Normal NEGATIVE [facility] Comment on above: Performed By: #### U AMIC #### [facility] [address] [address] [address] Adin Barrera LEUKOCYTES MODERATE Abnormal NEGATIVE [facility] Comment on above: Performed By: #### U AMIC #### [facility] [address] [address] [address] Adin Barrera MUCOUS NONE SEEN Normal NONE SEEN [facility] Comment on above: Performed By: #### U AMIC #### [facility] [address] [address] [address] Adin Barrera Nitrite Ql (U) Negative Normal NEGATIVE [facility] Comment on above: Performed By: #### U AMIC #### [facility] [address] [address] [address] Adin Barrera pH (U) 6.0 [pH] Normal 5-9 [facility] Comment on above: Performed By: #### U AMIC #### [facility] [address] [address] [address] Adin Barrera RBC NONE SEEN Abnormal 0-2 [facility] Comment on above: Performed By: #### U AMIC #### [facility] [address] [place] [address] Dr. Adin Barrera SPEC GRAVITY 1.010 Normal 1.005-<=1.025 The [facility] Comment on above: Performed By: #### U AMIC #### [facility] [address] [address] [address] Adin Barrera UA PROTEIN Negative Normal NEGATIVE/ TRACE [facility] Comment on above: Performed By: #### U AMIC #### [facility] [address] [address] [address] Adin Barrera Urobilinogen Qn (U) 0.2 {Mitchell'U}/dL Normal 0.2 - 1.0 [facility] Comment on above: Performed By: #### U AMIC #### [facility] [address] [address] [address] Adin Barrera WBC 10-20 Abnormal NONE SEEN [facility] Comment on above: Performed By: #### U AMIC #### [facility] [address] [place] [address] Dr. Adin Barrera URIC ACID SERUMon 05-05-2022 Urate [Mass/Vol] 6.2 mg/dL Critically high 2.6-6.0 [facility] Comment on above: Performed By: #### M G, URIC, RENAL #### [facility] [address] [place] [address] Dr. Adin Barrera URINE T PROTEIN CREAT RATIOo n 05-05-2022 Protein (U) [Mass/Vol] 6.5 mg/dL Normal <=12.0 [facility] Comment on above: Performed By: #### M G, URIC, RENAL #### [facility] [address] [place] [address] Dr. Adin Barrera UR PROT CREAT RAT 0.21 Normal [address] [facility] Comment on above: Performed By: #### M G, URIC, RENAL #### [facility] [address] [place] [address] Dr. Adin Barrera URINE CREAT 31.60 mg/dL Normal 20.00-300.00 [facility] Comment on above: Performed By: #### M G, URIC, RENAL #### [facility] [address] [place] [address] Dr. Adin Barrera VIT B12 AND FOLATEon 022 Cobalamin (Vitamin B12) [Mass/Vol] 208.0 pg/mL Normal 193.0-986.0 [facility] Comment on above: Performed By: #### M G, URIC, RENAL #### [facility] [address] [place], [place] [address] Dr. Adin Barrera FOLATE 13.30 ng/mL Normal 8.60-58.90 [facility] Comment on above: Performed By: #### M G, URIC, RENAL #### [facility] [address] [place], [place] [address] Dr. Adin Barrera Tobacco Screening.on 021 Fall risk assessment a) No falls within the last year -[facility] 250 DO Work Phone: Tobacco use status CPHS b) No -[facility] Ign[address]ta 250 DO Work Phone: Vital Signs Date Time Vital Sign Value Performing Clinician Facility 08-23-2023 09:40-0500 Body height 161.29 cm Aggie Nessa Other [employer] Other 08-23-2023 09:40-0500 Body mass index (BMI) [Ratio] 25.51 kg/m2 Aggie Nessa Other [facility] Other 08-23-2023 09:40-0500 Body temperature 97.6 [degF] Aggie Nessa Other [facility] Other 08-23-2023 09:40-0500 Body weight 66.36 kg Aggie Nessa Other [facility] Other 08-23-2023 09:40-0500 Diastolic blood pressure 60 mm[Hg] Aggie Nessa Other [facility] Other 08-23-2023 09:40-0500 Respiratory rate 18 /min Aggie Nessa Other [facility] Other 08-23-2023 09:40-0500 SaO2% (BldA) [Mass fraction] 95 % Aggie Nessa Other [facility] Other 08-23-2023 09:40-0500 Systolic blood pressure 104 mm[Hg] Aggie Nessa Other [facility] Other 11-09-2022 10:20-0400 Body height 161.29 cm Aggie Nessa Other [facility] Other 11-09-2022 10:20-0400 Body mass index (BMI) [Ratio] 25.45 kg/m2 Aggie Nessa Other [facility] Other 11-09-2022 10:20-0400 Body temperature 96.5 [degF] Aggie Nessa Other [facility] Other 11-09-2022 10:20-0400 Body weight 66.23 kg Aggie Nessa Other [facility] Other 11-09-2022 10:20-0400 Diastolic blood pressure 74 mm[Hg] Aggie Nessa Other [facility] Other 11-09-2022 10:20-0400 Respiratory rate 18 /min Aggie Nessa Other [facility] Other 11-09-2022 10:20-0400 SaO2% (BldA) [Mass fraction] 96 % Aggie Nessa Other [facility] Other 11-09-2022 10:20-0400 Systolic blood pressure 110 mm[Hg] Aggie Nessa Other [facility] [employer] Other 06-07-2022 09:20-0400 Body height 165.1 cm Ingrid Suhholkrystyna Work Phone: [facility] 250 DO Work Phone: 06-07-2022 09:20-0400 Body mass index (BMI) [Ratio] 24.96 kg/m2 Ingrid Suhholz Work Phone: [facility] 250 DO Work Phone: 06-07-2022 09:20-0400 Body surface area Derived from formula 1.75 m2 Ingrid Suhholz Work Phone: [facility] 250 DO Work Phone: 06-07-2022 09:20-0400 Body weight 68.04 kg Ingrid Suhholz Work Phone: [facility] 250 DO Work Phone: 06-07-2022 09:20-0400 Diastolic blood pressure 64 mm[Hg] Ingrid Suhholz Work Phone: [facility] 250 DO Work Phone: 06-07-2022 09:20-0400 Heart rate 68 /min Ingrid Suhholz Work Phone: [facility] 250 DO Work Phone: 06-07-2022 09:20-0400 Systolic blood pressure 110 mm[Hg] Ingrid Suhholz Work Phone: [facility] 250 DO Work Phone: 06-02-2021 09:29-0400 Body height 160.02 cm Ingrid Suhholz Work Phone: [facility] 250 DO Work Phone: 06-02-2021 09:29-0400 Body mass index (BMI) [Ratio] 26.39 kg/m2 Ingrid Mark Work Phone: [facility] 250 DO Work Phone: 06-02-2021 09:29-0400 Body surface area Derived from formula 1.71 m2 Ingrid Mark Work Phone: [facility] 250 DO Work Phone: 06-02-2021 09:29-0400 Body weight 67.59 kg Ingrid Mark Work Phone: [facility] 250 DO Work Phone: 06-02-2021 09:29-0400 Diastolic blood pressure 78 mm[Hg] Ingrid Suhholkrystyna Work Phone: [facility] 250 DO Work Phone: 06-02-2021 09:29-0400 Heart rate 74 /min Ingrid Mark Work Phone: [facility] 250 DO Work Phone: 06-02-2021 09:29-0400 Systolic blood pressure 136 mm[Hg] Ingrid Suhholkrystyna Work Phone: [facility] 250 DO Work Phone: 05-09-2021 13:12-0400 0 1 Ingrid Suhholkrystyna Work Phone: [facility] 250 DO Work Phone: Comment on above: [id number] Encounters Encounter Date Encounter Type Care Provider Facility Start: 08-23-2023 End: 08-23-2023 ambulatory Aggie Szymanski Other [place] [employer] Other Start: 08-23-2023 Office outpatient visit 25 minutes Aggie Nessa [facility] Start: 01-19-2023 Rx Renewal Ingrid Salgado lz Work Phone: [facility] 250 DO Work Phone: Start: 11-09-2022 End: 11-09-2022 ambulatory Aggie Nessa Other [facility] [employer] Other Start: 11-09-2022 Office outpatient visit 15 minutes Aggie Nessa [facility] Start: 10-30-2022 End: 10-31-2022 ambulatory AGGIE NESSA Facility:[facility] Start: 08-02-2022 Chart Update Ingrid Salgado lz Work Phone: [facility] 250 DO Work Phone: Start: 07-31-2022 amb[address] Mrs. Ingrid Morillo Joeclaudia F acility:[id number] Start: 07-05-2022 End: 07-06-2022 ambulatory JOSSY MCQUEEN Facility:[facility] Start: 06-15-2022 End: 06-16-2022 ambulatory [employer] INGRID MARK Facility:[facility] Start: 06-08-2022 End: 06-09-2022 ambulatory GEOVANNI KARYN Facility:[facility] Start: 06-07-2022 Office outpatient visit 25 minutes Ingrid Morillo Joekaylaeileenkrystyna Work Phone: [facility] 250 DO Work Phone: Start: 06-07-[address] Nilton Ruiz ility: Start: 05-11-2022 End: 05-12-2022 ambulatory GEOVANNI KARYN Facility:[facility] Start: 05-05-2022 End: 05-06-2022 ambulatory AGGIE NESSA Facility:[facility] Start: 04-12-2022 End: 04-13-2022 ambulatory JOSSY MCQUEEN Facility:[facility] Start: 03-29-2022 End: 03-29-2022 ambulatory [employer] INGRID AICHHOLZ Facility:[facility] Start: 12-28-2021 Rx Renewal Ingrid Diazho lz Work Phone: [facility] 250 DO Work Phone: Start: 10-03-2021 Rx Renewal Ingrid Diazho lz Work Phone: [facility] 250 DO Work Phone: Start: 06-02-2021 Office outpatient visit 25 minutes Ingrid Morillo Aicholz Work Phone: [facility] 250 DO Work Phone: Start: 11-21-2017 Ambulatory PROVIDER UNKNOWN Facili ty:[id number] Procedures Date Procedure Procedure Detail Performing Clinician Biopsy of breast Ingrid Morillo Aic hholz Work Phone: History of percutane ous transluminal coronary angioplasty History of PTCA Ingrid Morillo Aicholz Work Phone: Hysterectomy Ingrid Morillo Aichol z Work Phone: Ligation of fallopian tube L michelle Morillo Aicholz Work Phone: Neuroplasty of media n nerve at carpal tunnel Ingrid Yisel Aichholz Work Phone: Removal of ectopic p regnancy from fallopian tube Ingrid Morillo Aichholz Work Phone: Surgical procedure Ingrid Morillo A ichholz Work Phone: Total colonoscopy Ingrid Yisel chholz Work Phone: Plan of Treatment Date Care Activity Detail Author Start: 06-13-2023 FUV, Provider: Nilton Shah, Status: Pen, Time: 9:30 AM FUV, Provider: Nilton Shah, Status: Pen, Time: 9:30 AM [facility] 250 DO Work Phone: Start: 07-31-2022 STRESS ARAMIS, Provider : GAB HOWELL NUCLEAR ,[id number], Status: Pen, Time: 11:00 AM STRESS ARAMIS, Provider: GAB NILESHI NUCLEAR 01,[id number], Status: Pen, Time: 11:00 AM [facility] 250 DO Work Phone: Start: 06-07-2022 FUV, Provider: Nilton Shah, Status: Pen, Time: 9:20 AM FUV, Provider: Nilton Shah, Status: Pen, Time: 9:20 AM [facility] 250 DO Work Phone: Start: 07-05-2021 STRESS ARAMIS, Provider : GAB NILESHI NUCLEAR 01,[id number], Status: Pen, Time: 11:00 AM STRESS ARAMIS, Provider: GAB GALLOWAYI NUCLEAR 01,[id number], Status: Pen, Time: 11:00 AM [facility] 250 DO Work Phone: Immunizations Immunization Date Immunization Notes Care Provider Christiane mustafa 12-13-2021 Comirnaty 30 MCG/0.3 ML Intramuscular Suspension Ingrid Mark Work Phone: [address] [place] [address] DO Work Phone: 06-20-2021 Fluad Quadrivalent 0 .5 ML Intramuscular Prefilled Syringe Ingrid Mark Work Phone: [address] [place] [address] DO Work Phone: 06-20-2021 Pfizer-BioNTech COVI D-19 Vacc 30 MCG/0.3ML Intramuscular Suspension Ingrid Mark Work Phone: [facility] 250 DO Work Phone: 11-16-2020 Pfizer-BioNTech COVI D-19 Vacc 30 MCG/0.3ML Intramuscular Suspension Ingrid Mark Work Phone: [facility] 250 DO Work Phone: 10-25-2020 Pfizer-BioNTech COVI D-19 Vacc 30 MCG/0.3ML Intramuscular Suspension Ingrid Mark Work Phone: [address] [address] DO Work Phone: 06-10-2020 Fluad Quadrivalent 0 .5 ML Intramuscular Prefilled Syringe Ingrid Mark Work Phone: [address] [address] DO Work Phone: 06-24-2019 Seasonal trivalent influenza vaccine, adjuvanted, preservative free [facility] Work Phone: [address] [place] [address] DO Work Phone: 05-27-2019 influenza virus vacc ine, unspecified formulation [facility] Work Phone: [address] [place] [address] DO Work Phone: 08-27-2017 influenza virus vacc ine, unspecified formulation [facility] Work Phone: [address] [address] DO Work Phone: 06-27-2017 influenza, injectabl e, quadrivalent, preservative free [facility] Work Phone: [address] [address] DO Work Phone: 05-27-2015 pneumococcal polysaccharide vaccine, 23 valent [facility] Work Phone: [address] [address] DO Work Phone: 06-14-2014 influenza virus vacc ine, unspecified formulation [facility] Work Phone: [address] [address] DO Work Phone: Payers Date Payer Category Payer Medicare [id number] 1957 Unknown [id number] 1950 Unknown [id number] 2.16. [id number] 1950 Unknown [id number] 2.16.8 [id number] 1952 Unknown [id number] 2.16.84 [id number] 1950 Unknown [id number] 2.16.84 [id number] 1952 Unknown [id number] 2.16.84 [id number] 1952 Unknown [id number] 2.16.84 [id number] 1952 Unknown [id number] 2.16.84 [id number] 1952 Unknown [id number] 2.16.84 [id number] 1952 Unknown [id number] 2.16.84 [id number] 1950 Unknown [id number] 2.16.84 [id number] Medicare [id number] Unknown Social History Date Type Detail Facility No illicit drug use No illicit drug use [address] [id number] DO Work Phone: Comment on above: socially; 2 sodas daily; Sex Assigned At Sex Assigned At [facility] [employer] Other Evaluation note 08-23-2023 Note Date & [...] current medications Jul, Coronary artery disease involving [place] coronary artery of [place] heart without angina pectoris (ICD-10 - I25.10) [...] any gout flare. Will monitor without medication. [facility] Other Evaluation note 11-09-2022 Note Date & [...] current medications Oct, Coronary artery disease involving [place] coronary artery of [place] heart without angina pectoris (ICD-10 - I25.10) Continue current medications and follow with Cardiology Oct, PAD (peripheral artery disease) (ICD-10 - I73.9) She denies any symptoms. Continue ASA and Statin Oct, Secondary hyperparathyroidism (ICD-10 - N25.81) MBD parameters including calcium, phosphorus, PTH and vitamin D are within the target goal. [employer] Other Clinical Note 07-05-2022 Note Date & [...] by: CASSIUS THURMAN Date: 2022-07-05 14:14 [facility] Note 06-08-2022 Note Date & Type [...] by: EMILY REMY Date: 2022-06-08 18:49 [facility] Note 05-11-2022 Note Date & Type [...] by: CASSIUS THURMAN Date: 2022-05-11 10:51 [facility] Note 04-13-2022 Note Date & Type [...] authenticated by: CASSIUS THURMAN Date: 2022-04-13 06:59 [facility] Clinical Note 03-29-2022 Note Date & [...] the second metatarsal. Electronically authenticated by: CASSIUS HTURMAN Date: 2022-03-29 11:44 [facility] History general Narrative - Reported Note Date & Type Note Facility History general Narrative - Reported Type Medical History hypertension Medical History hyperlipidemia Medical History heart attack Medical History copd Medical History RIGHT FOOT FRACTURE Surgical History heart stent Surgical History hysterectomy Surgical History shoulder surgery Surgical History Bilateral CTR Hospitalization History See Above Hospitalization History Tubal preganacy [facility] Other Summary Purpose Family History Unknown Family [...] She has a history of prior inferior UT with primary revascularization of the RCA PLV branch, and in 2016 had LEGAL INSTRUCTOR and stenting of the right iliac artery and with relief of her symptomatology. She has developed chronic renal insufficiency due to combination of medications that have been adjudicated and now with improving renal parameters as followed by her human resource professional. She also has a history of TIAs [...] She has a history of prior inferior UT with primary revascularization of the RCA PLV branch, and in 2016 had LEGAL INSTRUCTOR and stenting of the right iliac artery and with relief of her symptomatology. She has developed chronic renal insufficiency due to combination of medications that have been adjudicated and now with improving renal parameters as followed by her human resource professional. She also has a history of TIAs [...] hospitalizations. She has a history of inferior UT with revascularization the RCA and PLV branch [...] hospitalizations. She has a history of inferior UT with revascularization the RCA and PLV branch [...] hospitalizations. She has a history of inferior UT with revascularization the RCA and PLV branch [...] hospitalizations. She has a history of inferior UT with revascularization the RCA and PLV branch [...] section and content) DATE CREATED AUTHOR 02/14/2018 [facility] DATE CREATED AUTHOR AUTHOR'S ORGANIZ ATION 06/07/2022 [facility] DATE CREATED AUTHOR AUTHOR'S ORGANIZ ATION 06/07/2022 [facility] DATE CREATED AUTHOR AUTHOR'S ORGANIZ ATION [facility]/02/2022 [facility] DATE CREATED AUTHOR AUTHOR'S ORGANIZ ATION 11/01/2022 [facility] REASON FOR VISIT (unrecogniz ed section and [...] BE BASED ON THE PRIMARY CLINICAL RECORDS. [facility], [facility]. provides no warranty or guarantee of the accuracy or completeness of information in this document.
== END 2023-12-13 07:33 | disposition home or self-care (01) ==
LOC: NM 07:32
PROVIDERS: PCP Nurse Practitioner; Visit Provider Emergency Medicine Emergency Medical Services
DX: R10.9 Unspecified abdominal pain (principal)
CPT/HCPCS: 78227; A9537

== ENCOUNTER 2024-01-08 07:27 | Outpatient (OUT) | payer MEDICARE, OTHER, SELFPAY ==
--- OUTSIDE RECORDS SUMMARY | 2024-01-08 07:31 | XMS_ITS | CCD ---
Author Organization [facility] Care Team Providers Care Drywall Boardhanger Name Role Phone UNKNOWN, PROVIDER Unavailable Unavailable CHEYANNE PAZ Unavailable Unavailable AickaylaholIngrid greenwood Unavailable Unavailable Unavailable Dr. Nilton Shah Attending Unavailable Alyssa, Dr. Olivares Referring Unavailable Jas, Mrs. Ingrid Morillo Primary Care Unavailab le Joehhelene, Mrs. Ingrid Morillo Primary Care Unavailab le Alyssa, Dr. Nilton Cash Attending Unava kanika Shah, Dr. Nilton Cash Referring Unava ilable GEOVANNI BOSS Admitting Unavailable Olman, Cassius Consulting Unavailable GEOVANNI BOSS Attending Unavailable AICHHOLZ, STAGE ELECTRICIAN INGRID Primary Care Unavailable KARYN, GEOVANNI Consulting Unavailable CHARISSE, PETER D Admitting Unavailable CHARISSE, PETER D Consulting Unavailable CHARISSE PETER D Attending Unavailable AICHHOLZ, STAGE ELECTRICIAN INGRID Primary Care Unavailable NESSA, AGGIE Consulting Unavailable NESSAFANTAUL Attending Unavailable AICHHOLZ, STAGE ELECTRICIAN INGRID Primary Care Unavailable NESSA, AGGIE Admitting Unavailable HIGHLANDER, PETER D Attending Unavailable Zieber, Cassius Consulting Unavailable AICHHOLZ, STAGE ELECTRICIAN INGRID Primary Care Unavailable HIGHLANDER, PETER D Admitting Unavailable HIGHLANDER, PETER D Consulting Unavailable AICHHOLZ, STAGE ELECTRICIAN INGRID Primary Care Unavailable ALYSSA, DR NILTON Snow Attending Unavailledy SHAH, DR NILTON Snow Admitting Unavailledy SHAH, DR NILTON Snow Consulting Unavailabl e AICHHELENE, STAGE ELECTRICIAN INGRID Primary Care Unavailable MARCUS ESPAÑA Admitting Unavailable Cassius Thurman Consulting Unavailable MARCUS ESPAÑA Attending Unavailable MARCUS ESPAÑA Consulting Unavailable GEOVANNI BOSS Admitting Unavailable GEOVANNI BOSS Attending Unavailable AICHHOLZ, STAGE ELECTRICIAN INGRID Primary Care Unavailable DR EMILY REMY V Consulting Unavailable GEOVANNI BOSS Consulting Unavailable AGGIE SZYMANSKI Consulting Unavailable AGGIE SZYMANSKI Attending Unavailable LALO MARK Primary Care Unavailable AGGIE SZYMANSKI Admitting Unavailable Aggie Szymanski Unavailable JOSE LUIS ADAM Attending Unavailable INGRID MARK Primary Care Unavailable Allergies Allergy Classification Reported Allergen(s) Allergy Type Date of Onset Reaction(s) Facility (1 source) celecoxib Drug Allergy 09-24-2013 [facility] (1 source) Cimetidine Drug Allergy 09-24-2013 [facility] Medications Current Medications Medication Drug Class(es) [...] Problem Classification Problem Date Documented Date Episodic/Chronic Abdominal hernia (2 sources) Diaphragmatic hernia without obstruction or gangrene; Translations: [Hernia of abdominal cavity] Onset: 4 Episodic Abdominal pain (2 sources) Epigastric pain; Translations: [Right upper quadrant pain] Onset: 4 Episodic Acute cerebrovascular disease (13 sources) Cerebral infarction; [...] [Coronary atherosclerosis of unspecified type of vessel, [place] or graft] Onset: 2 Chronic Coronary atherosclerosis [...] [Secondary hyperparathyroidism of renal origin] Chronic Other liver diseases (1 source) Fatty (change of) liver, not elsewhere classified; Translations: [Fatty (change of) liver, not elsewhere classified] Onset: 4 Chronic Other nutritional; endocrine; and metabolic disorders (6 sources) Overweight in adulthood with body mass index of 25 or more but less than 30; Translations: [Overweight] Episodic Other nutritional; endocrine; and metabolic disorders (1 source) Hyperuricemia without signs of inflammatory arthritis and tophaceous disease Episodic Other screening for suspected conditions (not mental disorders or infectious disease) (1 source) Other specified abnormal findings of blood chemistry; Translations: [Other specified abnormal findings of blood chemistry] Onset: 4 Episodic Peripheral and visceral atherosclerosis (20 sources) Peripheral vascular disease, unspecified; Translations: [Intermittent claudication] Onset: 8 Chronic Residual codes; unclassified (7 sources) Body mass index 20-24 - normal; Translations: [Body Mass Index between 19-24, adult] Episodic Residual codes; unclassified (1 source) Pain, unspecified; Translations: [Pain, unspecified] Onset: 4 Episodic Screening and history of mental health [...] Onset: 03-30-2022 Episodic Other aftercare (1 source) detention (current) use of aspirin; Translations: [[facility] CURRENT USE OF ASPIRIN] Onset: 03-30-2022 Episodic Other aftercare (1 source) Other salvage determiner (current) drug therapy; Translations: [OTH [facility] CURRENT DRUG THERAPY] Onset: 03-30-2022 Episodic Other aftercare (1 source) detention (current) use of antithrombotics/ant iplatelets; Translations: [[facility] ANTITHROMBOT/ANTIPL ATLETS] Onset: 03-30-2022 Episodic Other connective tissue disease (4 sources) Pain in right foot; Translations: [PAIN IN RIGHT FOOT] Onset: 07-05-2022 Episodic Results Test Name Value Interpretation Reference Range Facility PTH INTACTon 10-31-2022 PTH, Intact 42 pg/mL Normal 15-65 [facility] Comment on above: Performed By: #### P THINT #### [facility] [address] [place] [address] Dr. Adin Barrera FERRITINon 10-30-2022 Ferritin [Mass/Vol] 35.0 ng/mL Normal 8.0-252.0 [facility] Comment on above: Performed By: #### F ERR, FETIBC, VITAD #### [facility] [address] [place] [address] Dr. Adin Barrera HEMOGRAM AND PLATELon 2022 Hematocrit (Bld) [Volume fraction] 35.5 % Critically low 36.0-48.0 [facility] Comment on above: Performed By: #### H H #### [facility] [address] [place] [address] Dr. Adin Barrera Hemoglobin (Bld) [Mass/Vol] 11.9 g/dL Critically low 12.0-16.0 [facility] Comment on above: Performed By: #### H H #### [facility] [address] [address] [address] Adin Barrera MCH (RBC) [Entitic mass] 31.5 pg Normal 26.7-34.0 [facility] Comment on above: Performed By: #### H H #### [facility] [address] [place] [address] Dr. Adin Barrera MCHC (RBC) [Mass/Vol] 33.5 g/dL Normal 29.9-35.2 [facility] Comment on above: Performed By: #### H H #### [facility] [address] [place] [address] Dr. Adin Barrera MCV (RBC) [Entitic vol] 93.9 fL Normal 81.0-99.0 [facility] Comment on above: Performed By: #### H H #### [facility] [address] [place] [address] Dr. Adin Barrera PLT 435 103/ul Normal 150-450 [facility] Comment on above: Performed By: #### H H #### [facility] [address] [place] [address] Dr. Adin Barrera RBC 3.78 106/ul Critically low 4.20-5.40 [facility] Comment on above: Performed By: #### H H #### [facility] [address] [place] [address] Dr. Adin Barrera WBC 9.1 103/ul Normal 4.0-11.0 [facility] Comment on above: Performed By: #### H H #### [facility] [address] [place] [address] Dr. Adin Barrera IRON AND TIBCon 10-30-2022 % SATURATION 29.4 % Normal [facility] Comment on above: Performed By: #### F ERR, FETIBC, VITAD #### [facility] [address] [place] [address] Dr. Adin Barrera Iron [Mass/Vol] 84.0 ug/dL Normal 50.0-170.0 [facility] Comment on above: Performed By: #### F ERR, FETIBC, VITAD #### [facility] [address] [address] [address] Adin Barrera TIBC DIRECT 286.0 ug/dL Normal 250.0-450.0 [facility] Comment on above: Performed By: #### F ERR, FETIBC, VITAD #### [facility] [address] [place] [address] Dr. Adin Barrera MAGNESIUMon 10-30-2022 Magnesium [Mass/Vol] 1.8 mg/dL Normal 1.8-2.4 [facility] Comment on above: Performed By: #### M G, URIC, RENAL #### [facility] [address] [place] [address] Dr. Adin Barrera RENAL FUNCTION PANELon 10-30 Albumin [Mass/Vol] 3.4 g/dL Normal 3.4-5.0 [facility] Comment on above: Performed By: #### M G, URIC, RENAL #### [facility] [address] [place] [address] Dr. Adin Barrera Calcium [Mass/Vol] 9.2 mg/dL Normal 8.5-10.1 [facility] Comment on above: Performed By: #### M G, URIC, RENAL #### [facility] [address] [place] [address] Dr. Adin Barrera Chloride [Moles/Vol] 104 mmol/L Normal 98-107 [facility] Comment on above: Performed By: #### M G, URIC, RENAL #### [facility] [address] [place] [address] Dr. Adin Barrera CO2 [Moles/Vol] 24.9 mmol/L Normal 21.0-32.0 [facility] Comment on above: Performed By: #### M G, URIC, RENAL #### [facility] [address] [place] [address] Dr. Adin Barrera Creatinine [Mass/Vol] 1.13 mg/dL Critically high 0.55-1.02 [facility] Comment on above: Performed By: #### M G, URIC, RENAL #### [facility] [address] [address] [address] Adin Barrera EGFR-AF SUDANESE 58 mL/min/1.73m2 Critically low >=60 [facility] Comment on above: Performed By: #### M G, URIC, RENAL #### [facility] [address] [address] [address] Adin Barrera EGFR-NON AF SUDANESE 48 mL/min/1.73m2 Critically low >=60 [facility] Comment on above: Performed By: #### M G, URIC, RENAL #### [facility] [address] [address] [address] Adin Barrera Glucose [Mass/Vol] 88 mg/dL Normal 74-106 [facility] Comment on above: Performed By: #### M G, URIC, RENAL #### [facility] [address] [place] [address] Dr. Adin Barrera Phosphate [Mass/Vol] 3.4 mg/dL Normal 2.6-4.7 [facility] Comment on above: Performed By: #### M G, URIC, RENAL #### [facility] [address] [place] [address] Dr. Adin Barrera Potassium [Moles/Vol] 4.4 mmol/L Normal 3.5-5.1 [facility] Comment on above: Performed By: #### M G, URIC, RENAL #### [facility] [address] [place] [address] Dr. Adin Barrera Sodium [Moles/Vol] 139 mmol/L Normal 136-145 [facility] Comment on above: Performed By: #### M G, URIC, RENAL #### [facility] [address] [place] [address] Dr. Adin Barrera Urea nitrogen [Mass/Vol] 13.0 mg/dL Normal 7.0-18.0 [facility] Comment on above: Performed By: #### M G, URIC, RENAL #### [facility] [address] [place] [address] Dr. Adin Barrera UA RANDOM W/MICROSCOPICon BACTERIA TRACE Abnormal NONE SEEN [facility] Comment on above: Performed By: #### M G, URIC, RENAL #### [facility] [address] [address] [address] Adin Barrera Bilirubin Ql (U) Negative Normal NEGATIVE [facility] Comment on above: Performed By: #### M G, URIC, RENAL #### [facility] [address] [address] [address] Adin Barrera CAST NONE SEEN Normal NONE SEEN [facility] Comment on above: Performed By: #### M G, URIC, RENAL #### [facility] [address] [address] [address] Adin Barrera Clarity (U) CLEAR Normal CLEAR [facility] Comment on above: Performed By: #### M G, URIC, RENAL #### [facility] [address] [address] [address] Adin Barrera Color (U) LT. YELLOW Normal YELLOW [facility] Comment on above: Performed By: #### M G, URIC, RENAL #### [facility] [address] [address] [address] Adin Barrera Crystals LM Nom (Urine sed) NONE SEEN Normal NONE SEEN [facility] Comment on above: Performed By: #### M G, URIC, RENAL #### [facility] [address] [address] [address] Adin Barrera Epithelial cells LM Ql (Urine sed) FEW Abnormal NONE SEEN /RARE [facility] Comment on above: Performed By: #### M G, URIC, RENAL #### [facility] [address] [address] [address] Adin Barrera Glucose Ql (U) Negative Normal NEGATIVE [facility] Comment on above: Performed By: #### M G, URIC, RENAL #### [facility] [address] [address] [address] Adin Barrera Hemoglobin Ql (U) Negative Normal NEGATIVE [facility] Comment on above: Performed By: #### M G, URIC, RENAL #### [facility] [address] [address] [address] Adin Barrera Ketones Ql (U) Negative Normal NEGATIVE [facility] Comment on above: Performed By: #### M G, URIC, RENAL #### [facility] [address] [address] [address] Adin Barrera LEUKOCYTES MODERATE Abnormal NEGATIVE [facility] Comment on above: Performed By: #### M G, URIC, RENAL #### [facility] [address] [address] [address] Adin Barrera MUCOUS NONE SEEN Normal NONE SEEN [facility] Comment on above: Performed By: #### M G, URIC, RENAL #### [facility] [address] [address] [address] Adin Barrera Nitrite Ql (U) Negative Normal NEGATIVE [facility] Comment on above: Performed By: #### M G, URIC, RENAL #### [facility] [address] [place] [address] Dr. Adin Barrera pH (U) 5.5 [pH] Normal 5-9 [facility] Comment on above: Performed By: #### M G, URIC, RENAL #### [facility] [address] [place] [address] Dr. Adin Barrera RBC 0-2 Normal 0-2 [facility] Comment on above: Performed By: #### M G, URIC, RENAL #### [facility] [address] [place] [address] Dr. Adin Barrera SPEC GRAVITY 1.010 Normal 1.005-<=1.025 [facility] Comment on above: Performed By: #### M G, URIC, RENAL #### [facility] [address] [place] [address] Dr. Adin Barrera UA PROTEIN Negative Normal NEGATIVE/ TRACE [facility] Comment on above: Performed By: #### M G, URIC, RENAL #### [facility] [address] [place] [address] Dr. Adin Barrera Urobilinogen Qn (U) 0.2 {Mitchell'U}/dL Normal 0.2 - 1.0 [facility] Comment on above: Performed By: #### M G, URIC, RENAL #### [facility] [address] [address] [address] Adin Barrera WBC 5-10 Abnormal NONE SEEN [facility] Comment on above: Performed By: #### M G, URIC, RENAL #### [facility] [address] [address] [address] Adin Barrera URIC ACID SERUMon 10-30-2022 Urate [Mass/Vol] 5.4 mg/dL Normal 2.6-6.0 [facility] Comment on above: Performed By: #### M G, URIC, RENAL #### [facility] [address] [address] [address] Adin Barrera VITAMIN D 25 OHon 10-30-2022 VIT D 25-OH 38.3 ng/mL Normal [facility] Comment on above: Performed By: #### F ERR, FETIBC, VITAD #### [facility] [address] [place] [address] Dr. Adin Barrera VIT D RANGES SEE BELOW Normal [facility] Comment on above: Result Comment: <20 ng/mL Vit D deficient 20 - <30 ng/mL Vit D insufficient 30 - 100 ng/mL Vit D sufficient >100 ng/mL Potential Toxicity Performed By: #### F ERR, FETIBC, VITAD #### [facility] [address] [place] [address] Dr. Adin Barrera Cardiac Stress Teston 2021 Cardiac Stress Test [address], [address], [place] [address] Exercise Stress Test Patient Name: SANDRA SHELTON Ordering Physician: [id number] Nilton Shah DO Study Date: 07/31/2022 Reading Physician: [id number] Jessica Rojo MD, [facility] MRN/PID: [id number] Supervising Physician: [id number] Ayala Cordova MD Accession/Order#: [id number] Referring Physician: NILTON SHAH Date of : 1950 PCP: Gender: F Fellow: Height: 165.10 cm Nurse: Jessika Aguirre RN Weight: 68.04 kg Employee Relations Manager: KATIE BSA: 1.75 m2 Technologist: BMI: 24.96 kg/m2 Additional Staff: Age: 72 years cc report to: Patient Location: cc report to: [id number] Nilton Shah DO Study Type: Cardiac Stress Test Diagnosis/ICD: I25.10-Atherosclerotic heart disease; 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 [id number] Jessica Rojo MD, FACC Electronically signed on 07/31/2022 at 7:18:28 PM Final Normal [facility] Cardiac Stress Test -[facility] 250 DO Work Phone: LIPID PROFILEon 06-15-2022 CHOL-HDL RATIO NORM SEE BELOW Normal [facility] Comment on above: Result Comment: 3.3 - 4.4 LOW RISK 4.4 - 7.1 AVERAGE RISK 7.1 - 11.0 MODERATE RISK >11.0 HIGH RISK Performed By: #### M G, URIC, RENAL #### [facility] [address] [place], [place] [address] Dr. Adin Barrera Cholesterol [Mass/Vol] 191 mg/dL Normal <=200 [facility] Comment on above: Performed By: #### M G, URIC, RENAL #### [facility] [address] [address] [address] Adin Barrera Cholesterol in HDL [Mass/Vol] 108 mg/dL Critically high 40-60 [facility] Comment on above: Performed By: #### M G, URIC, RENAL #### [facility] [address] [address] [address] Adin Barrera Cholesterol in LDL [Mass/Vol] 70.4 mg/dL Normal [facility] Comment on above: Performed By: #### M G, URIC, RENAL #### [facility] [address] [address] [address] Adin Barrera Cholesterol.total/ Cholesterol in HDL [Mass ratio] 1.8 {ratio} Normal [facility] Comment on above: Performed By: #### M G, URIC, RENAL #### [facility] [address] [address] [address] Adin Barrera HDL NORMAL > or = 60 mg/dl - LO W CARDIOVASCULAR RISK <40 mg/dl - HIGH CARDIOVASCULAR RISK Normal [facility] Comment on above: Performed By: #### M G, URIC, RENAL #### [facility] [address] [address] [address] Adin Barrera LDL CALC NORMAL SEE BELOW Normal [facility] Comment on above: Result Comment: <100 mg/dl OPTIMAL 100 - 129 mg/dl NEAR OR ABOVE OPTIMAL 130 - 159 mg/dl BORDERLINE HIGH 160 - 189 mg/dl HIGH >190 mg/dl VERY HIGH Performed By: #### M G, URIC, RENAL #### [facility] [address] [address] [address] Adin Barrera Triglyceride [Mass/Vol] 63 mg/dL Normal <=150 [facility] Comment on above: Performed By: #### M G, URIC, RENAL #### [facility] [address] [address] [address] Adin Barrera VLDL CALC 12.6 mg/dL Normal [facility] Comment on above: Performed By: #### M G, URIC, RENAL #### [facility] [address] [place], [place] [address] Dr. Adin Barrera SGOTon 06-15-2022 AST [Catalytic activity/Vol] 18 U/L Normal 15-37 [facility] Comment on above: Performed By: #### M G, URIC, RENAL #### [facility] [address] [place], [place] [address] Dr. Adin Barrera SGPTon 06-15-2022 ALT [Catalytic activity/Vol] 19 U/L Normal 14-59 [facility] Comment on above: Performed By: #### M G, URIC, RENAL #### [facility] [address] [place], [place] [address] Dr. Adin Barrera Office Visit (Cardiology)on 06-07-2022 [...] - Scheduling,Retrospecti ve By Protocol Authorization; Requested for:[id number]; Hyperlipidemia ALT - Alanine Aminotransferase, Serum; Status:Active - Retrospective Authorization; Requested for:[id number]; AST; Status:Active - Retrospective Authorization; Requested for:[id number]; Lipid Panel; Status:Active - Retrospective Authorization; Requested for:[id number]; Patient Instructions Please bring all medicines, vitamins, [...] hospitalizations. 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 Normal [employer] Tobacco Screening.on Adult depression screening assessment No [facility] [employer] [address] DO Work Phone: Fall risk assessment b) One or more falls in the last year [facility] [employer] [address] DO Work Phone: Tobacco use status CP b) No [facility] [employer] 250 DO Work Phone: VIT D 25-OH [facility] 2021 Vitamin D, 25-Hydroxy 36.0 ng/mL Normal 30.0-100.0 [facility] Comment on above: Result Comment: Marilyn min D deficiency has been defined by the [place] of [employer] and an Endocrine Society practice guideline as a level of serum 25-OH vitamin D less than 20 ng/mL (1,2). The Endocrine Society went on to further define vitamin D insufficiency as a level between 21 and 29 ng/mL (2). 1. IOM ([place] of [employer]). 2010. Dietary reference intakes for calcium and D. [place]: The National Academies Press. 2. Britt MF, Antonia MAGAÑA, Zaid VIVAS, et al. Evaluation, treatment, and prevention of vitamin D deficiency: an Endocrine Society clinical practice guideline. JCEM. 2010; 96(7):1911-30. Performed By: #### M G, URIC, RENAL #### [facility] [address] [place] [address] Dr. Adin Barrera PTH INTACTon 05-06-2022 PTH, Intact 33 pg/mL Normal 15-65 [facility] Comment on above: Performed By: #### M G, URIC, RENAL #### [facility] [address] [place] [address] Dr. Adin Barrera FERRITINon 05-05-2022 Ferritin [Mass/Vol] 28.0 ng/mL Normal 8.0-252.0 [facility] Comment on above: Performed By: #### M G, URIC, RENAL #### [facility] [address] [place] [address] Dr. Adin Barrera HEMOGRAM AND PLATELon 2021 Hematocrit (Bld) [Volume fraction] 34.9 % Critically low 36.0-48.0 [facility] Comment on above: Performed By: #### H H #### [facility] [address] [place] [address] Dr. Adin Barrera Hemoglobin (Bld) [Mass/Vol] 11.3 g/dL Critically low 12.0-16.0 [facility] Comment on above: Performed By: #### H H #### [facility] [address] [place] [address] Dr. Adin Barrera MCH (RBC) [Entitic mass] 29.0 pg Normal 26.7-34.0 [facility] Comment on above: Performed By: #### H H #### [facility] [address] [place] [address] Dr. Adin Barrera MCHC (RBC) [Mass/Vol] 32.4 g/dL Normal 29.9-35.2 [facility] Comment on above: Performed By: #### H H #### [facility] [address] [place] [address] Dr. Adin Barrera MCV (RBC) [Entitic vol] 89.7 fL Normal 81.0-99.0 [facility] Comment on above: Performed By: #### H H #### [facility] [address] [place] [address] Dr. Adin Barrera PLT 355 103/ul Normal 150-450 [facility] Comment on above: Performed By: #### H H #### [facility] [address] [place] [address] Dr. Adin Barrera RBC 3.89 106/ul Critically low 4.20-5.40 [facility] Comment on above: Performed By: #### H H #### [facility] [address] [place] [address] Dr. Adin Barrera WBC 9.8 103/ul Normal 4.0-11.0 [facility] Comment on above: Performed By: #### H H #### [facility] [address] [place] [address] Dr. Adin Barrera IRON AND TIBCon 05-05-2022 % SATURATION 17.9 % Normal [facility] Comment on above: Performed By: #### M G, URIC, RENAL #### [facility] [address] [place] [address] Dr. Adin Barrera Iron [Mass/Vol] 53.0 ug/dL Normal 50.0-170.0 [facility] Comment on above: Performed By: #### M G, URIC, RENAL #### [facility] [address] [place] [address] Dr. Adin Barrera TIBC DIRECT 296.0 ug/dL Normal 250.0-450.0 [facility] Comment on above: Performed By: #### M G, URIC, RENAL #### [facility] [address] [place] [address] Dr. Adin Barrera MAGNESIUMon 05-05-2022 Magnesium [Mass/Vol] 2.0 mg/dL Normal 1.8-2.4 [facility] Comment on above: Performed By: #### M G, URIC, RENAL #### [facility] [address] [address] [address] Adin Barrera RENAL FUNCTION PANELon 05-05 Albumin [Mass/Vol] 3.2 g/dL Critically low 3.4-5.0 [facility] Comment on above: Performed By: #### M G, URIC, RENAL #### [facility] [address] [place] [address] Dr. Adin Barrera Calcium [Mass/Vol] 8.7 mg/dL Normal 8.5-10.1 [facility] Comment on above: Performed By: #### M G, URIC, RENAL #### [facility] [address] [place] [address] Dr. Adin Barrera Chloride [Moles/Vol] 102 mmol/L Normal 98-107 [facility] Comment on above: Performed By: #### M G, URIC, RENAL #### [facility] [address] [place] [address] Dr. Adin Barrera CO2 [Moles/Vol] 28.0 mmol/L Normal 21.0-32.0 [facility] Comment on above: Performed By: #### M G, URIC, RENAL #### [facility] [address] [place] [address] Dr. Adin Barrera Creatinine [Mass/Vol] 1.25 mg/dL Critically high 0.55-1.02 [facility] Comment on above: Performed By: #### M G, URIC, RENAL #### [facility] [address] [place] [address] Dr. Adin Barrera EGFR-AF SUDANESE 51 mL/min/1.73m2 Critically low >=60 [facility] Comment on above: Performed By: #### M G, URIC, RENAL #### [facility] [address] [place] [address] Dr. Adin Barrera EGFR-NON AF SUDANESE 42 mL/min/1.73m2 Critically low >=60 [facility] Comment on above: Performed By: #### M G, URIC, RENAL #### [facility] [address] [address] [address] Adin Barrera Glucose [Mass/Vol] 101 mg/dL Normal 74-106 [facility] Comment on above: Performed By: #### M G, URIC, RENAL #### [facility] [address] [place] [address] Dr. Adin Barrera Phosphate [Mass/Vol] 3.9 mg/dL Normal 2.6-4.7 [facility] Comment on above: Performed By: #### M G, URIC, RENAL #### [facility] [address] [place] [address] Dr. Adin Barrera Potassium [Moles/Vol] 3.8 mmol/L Normal 3.5-5.1 [facility] Comment on above: Performed By: #### M G, URIC, RENAL #### [facility] [address] [place] [address] Dr. Adin Barrera Sodium [Moles/Vol] 139 mmol/L Normal 136-145 [facility] Comment on above: Performed By: #### M G, URIC, RENAL #### [facility] [address] [place] [address] Dr. Adin Barrera Urea nitrogen [Mass/Vol] 11.0 mg/dL Normal 7.0-18.0 [facility] Comment on above: Performed By: #### M G, URIC, RENAL #### [facility] [address] [place] [address] Dr. Adin Barrera UA RANDOM W/MICROSCOPICon BACTERIA SMALL Abnormal NONE SEEN [facility] Comment on above: Performed By: #### U AMIC #### [facility] [address] [place] [address] Dr. Adin Barrera Bilirubin Ql (U) Negative Normal NEGATIVE [facility] Comment on above: Performed By: #### U AMIC #### [facility] [address] [place] [address] Dr. Adin Barrera CAST NONE SEEN Normal NONE SEEN [facility] Comment on above: Performed By: #### U AMIC #### [facility] [address] [address] [address] Adin Barrera Clarity (U) CLEAR Normal CLEAR [facility] Comment on above: Performed By: #### U AMIC #### [facility] [address] [address] [address] Adin Barrera Color (U) LT. YELLOW Normal YELLOW [facility] Comment on above: Performed By: #### U AMIC #### [facility] [address] [address] [address] Adin Barrera Crystals LM Nom (Urine sed) NONE SEEN Normal NONE SEEN [facility] Comment on above: Performed By: #### U AMIC #### [facility] [address] [place] [address] Dr. Adin Barrera Epithelial cells LM Ql (Urine sed) FEW Abnormal NONE SEEN /RARE [facility] Comment on above: Performed By: #### U AMIC #### [facility] [address] [address] [address] Adin Barrera Glucose Ql (U) Negative Normal NEGATIVE [facility] Comment on above: Performed By: #### U AMIC #### [facility] [address] [place] [address] Dr. Adin Barrera Hemoglobin Ql (U) Negative Normal NEGATIVE [facility] Comment on above: Performed By: #### U AMIC #### [facility] [address] [address] [address] Adin Barrera Ketones Ql (U) Negative Normal NEGATIVE [facility] Comment on above: Performed By: #### U AMIC #### [facility] [address] [address] [address] Adin Barrera LEUKOCYTES MODERATE Abnormal NEGATIVE [facility] Comment on above: Performed By: #### U AMIC #### [facility] [address] [place] [address] Dr. Adin Barrera MUCOUS NONE SEEN Normal NONE SEEN [facility] Comment on above: Performed By: #### U AMIC #### [facility] [address] [place] [address] Dr. Adin Barrera Nitrite Ql (U) Negative Normal NEGATIVE [facility] Comment on above: Performed By: #### U AMIC #### [facility] [address] [address] [address] Adin Barrera pH (U) 6.0 [pH] Normal 5-9 [facility] Comment on above: Performed By: #### U AMIC #### [facility] [address] [address] [address] Adin Barrera RBC NONE SEEN Abnormal 0-2 [facility] Comment on above: Performed By: #### U AMIC #### [facility] [address] [address] [address] Adin Barrera SPEC GRAVITY 1.010 Normal 1.005-<=1.025 The [facility] Comment on above: Performed By: #### U AMIC #### [facility] [address] [place] [address] Dr. Adin Barrera UA PROTEIN Negative Normal NEGATIVE/ TRACE [facility] Comment on above: Performed By: #### U AMIC #### [facility] [address] [place] [address] Dr. Adin Barrera Urobilinogen Qn (U) 0.2 {Mitchell'U}/dL Normal 0.2 - 1.0 [facility] Comment on above: Performed By: #### U AMIC #### [facility] [address] [place] [address] Dr. Adin Barrera WBC 10-20 Abnormal NONE SEEN [facility] Comment on above: Performed By: #### U AMIC #### [facility] [address] [place] [address] Dr. Adin Barrera URIC ACID SERUMon 05-05-2022 Urate [Mass/Vol] 6.2 mg/dL Critically high 2.6-6.0 [facility] Comment on above: Performed By: #### M G, URIC, RENAL #### [facility] [address] [place] [address] Dr. Adin Barrera URINE T PROTEIN CREAT RATIOo n 09-09-2022 Protein (U) [Mass/Vol] 6.5 mg/dL Normal <=12.0 [facility] Comment on above: Performed By: #### M G, URIC, RENAL #### [facility] [address] [address] [address] Adin Barrera UR PROT CREAT RAT 0.21 Normal [facility] Comment on above: Performed By: #### M G, URIC, RENAL #### [facility] [id number] Adin Barrera URINE CREAT 31.60 mg/dL Normal 20.00-300.00 [facility] Comment on above: Performed By: #### M G, URIC, RENAL #### [facility] [address] [address] [address] Adin Barrera VIT B12 AND FOLATEon 022 Cobalamin (Vitamin B12) [Mass/Vol] 208.0 pg/mL Normal 193.0-986.0 [facility] Comment on above: Performed By: #### M G, URIC, RENAL #### [facility] [address] [address] [address] Adin Barrera FOLATE 13.30 ng/mL Normal 8.60-58.90 [facility] Comment on above: Performed By: #### M G, URIC, RENAL #### [facility] [address] [place] [address] Dr. Adin Barrera Tobacco Screening.on 021 Fall risk assessment a) No falls within the last year [facility] 250 DO Work Phone: Tobacco use status [facility] b) No [facility] 250 DO Work Phone: Vital Signs Date Time Vital Sign Value Performing Clinician Facility 08-23-2023 09:40-0500 Body height 161.29 cm Aggie Nessa Other [employer] Other 08-23-2023 09:40-0500 Body mass index (BMI) [Ratio] 25.51 kg/m2 Aggie Nessa Other [employer] Other 08-23-2023 09:40-0500 Body temperature 97.6 [degF] Aggie Nessa Other [employer] Other 08-23-2023 09:40-0500 Body weight 66.36 kg Aggie Nessa Other [employer] Other 08-23-2023 09:40-0500 Diastolic blood pressure 60 mm[Hg] Aggie Nessa Other [employer] Other 08-23-2023 09:40-0500 Respiratory rate 18 /min Aggie Nessa Other [employer] Other 08-23-2023 09:40-0500 SaO2% (BldA) [Mass fraction] 95 % Aggie Nessa Other [employer] Other 08-23-2023 09:40-0500 Systolic blood pressure 104 mm[Hg] Aggie Nessa Other [employer] Other 11-09-2022 10:20-0400 Body height 161.29 cm Aggie Nessa Other [employer] Other 11-09-2022 10:20-0400 Body mass index (BMI) [Ratio] 25.45 kg/m2 Aggie Nessa Other [employer] Other 11-09-2022 10:20-0400 Body temperature 96.5 [degF] Aggie Nessa Other [employer] Other 11-09-2022 10:20-0400 Body weight 66.23 kg Aggie Nessa Other [employer] Other 11-09-2022 10:20-0400 Diastolic blood pressure 74 mm[Hg] Aggie Nessa Other [employer] Other 11-09-2022 10:20-0400 Respiratory rate 18 /min Aggie Nessa Other [employer] Other 11-09-2022 10:20-0400 SaO2% (BldA) [Mass fraction] 96 % Aggie Nessa Other [employer] Other 11-09-2022 10:20-0400 Systolic blood pressure 110 mm[Hg] Aggie Nessa Other [employer] Other 06-07-2022 09:20-0400 Body height 165.1 cm Ingrid Mark Work Phone: [facility] [employer] 250 DO Work Phone: 06-07-2022 09:20-0400 Body mass index (BMI) [Ratio] 24.96 kg/m2 Ingrid Mark Work Phone: [facility] 250 DO Work Phone: 06-07-2022 09:20-0400 Body surface area Derived from formula 1.75 m2 Ingrid Mark Work Phone: [facility] 250 DO Work Phone: 06-07-2022 09:20-0400 Body weight 68.04 kg Ingrid Mark Work Phone: [facility] [employer] 250 DO Work Phone: 06-07-2022 09:20-0400 Diastolic blood pressure 64 mm[Hg] Ingrid Morillo Aichholz Work Phone: [facility] 250 DO Work Phone: 06-07-2022 09:20-0400 Heart rate 68 /min Ingrid Morillo Aichholz Work Phone: [facility] 250 DO Work Phone: 06-07-2022 09:20-0400 Systolic blood pressure 110 mm[Hg] Ingrid Morillo Aichholz Work Phone: [facility] 250 DO Work Phone: 06-02-2021 09:29-0400 Body height 160.02 cm Ingrid Morillo Aichholz Work Phone: [facility] 250 DO Work Phone: 06-02-2021 09:29-0400 Body mass index (BMI) [Ratio] 26.39 kg/m2 Ingrid Jo Aichholz Work Phone: [facility] 250 DO Work Phone: 06-02-2021 09:29-0400 Body surface area Derived from formula 1.71 m2 Ingrid Morillo Aichholz Work Phone: [facility] 250 DO Work Phone: 06-02-2021 09:29-0400 Body weight 67.59 kg Ingrid Morillo Aichholz Work Phone: [facility] 250 DO Work Phone: 06-02-2021 09:29-0400 Diastolic blood pressure 78 mm[Hg] Ingrid Morillo Aichholz Work Phone: [facility] 250 DO Work Phone: 06-02-2021 09:29-0400 Heart rate 74 /min Ingrid Jo Aichholz Work Phone: [facility] 250 DO Work Phone: 06-02-2021 09:29-0400 Systolic blood pressure 136 mm[Hg] Ingrid Morillo Joehholz Work Phone: [facility] 250 DO Work Phone: 05-09-2021 13:120400 0 1 Ingrid Morillo Joehholz Work Phone: [facility] 250 DO Work Phone: Comment on above: [id number] Encounters Encounter Date Encounter Type Care Provider Facility Start: 12-19-2023 End: 12-19-2023 ambulatory [facility] Start: 12-12-2023 ambulatory [facility] Start: 08-23-2023 End: 08-23-2023 ambulatory Aggie Nessa Other [facility] [employer] Other Start: 08-23-2023 Office outpatient visit 25 minutes Aggie Nessa [facility] Start: 01-19-2023 Rx Renewal Ingrid Morillo Damian lz Work Phone: [facility] 250 DO Work Phone: Start: 11-09-2022 End: 11-09-2022 ambulatory Aggie Nessa Other [facility] [employer] Other Start: 11-09-2022 Office outpatient visit 15 minutes Aggie Nessa [facility] Start: 10-30-2022 End: 10-31-2022 ambulatory AGGIE NESSA Facility: Start: 08-02-2022 Chart Update Ingrid Morillo Damian lz Work Phone: [facility] 250 DO Work Phone: Start: 07-31-2022 amb[address] Mrs. Ingrid Morillo Joehhelene Willem acility:[id number] Start: 07-05-2022 End: 07-06-2022 [facility] Start: 06-15-2022 End: 06-16-2022 ambulatory [employer] INGRID AICKaylaHOLZ Facility:H1 Start: 06-08-2022 End: 06-09-2022 ambulatory GEOVANNI KARYN Facility:[facility]1 Start: 06-07-2022 Office outpatient visit 25 minutes Ingrid Morillo Aichholz Work Phone: [facility] 250 DO Work Phone: Start: 06-07-[address] Nilton Shah Fac ility: Start: 05-11-2022 End: 05-12-2022 ambulatory GEOVANNI CHINEN Facility:H1 Start: 05-05-2022 End: 05-06-2022 ambulatory AGGIE NESSA Facility:H1 Start: 04-12-2022 End: 04-13-2022 ambulatory JOSSY Paolo [facility] Facility:H1 Start: 03-29-2022 End: 03-29-2022 ambulatory [employer] IN[employer] MARK Facility:H1 Start: 12-28-2021 Rx Renewal Ingrid Morillo Joehho lz Work Phone: [facility] 250 DO Work Phone: Start: 10-03-2021 Rx Renewal Ingrid Morillo Joehho lz Work Phone: [facility] 250 DO Work Phone: Start: 06-02-2021 Office outpatient visit 25 minutes Ingrid Yisel Aichholz Work Phone: [facility] 250 DO Work Phone: Start: 11-21-2017 Ambulatory PROVIDER UNKNOWN Facili ty:[id number] Procedures Date Procedure Procedure Detail Performing Clinician Biopsy of breast Ingrid Morillo Aic hholz Work Phone: History of percutane ous transluminal coronary angioplasty History of PTCA Ingrid Morillo Aichholz Work Phone: Hysterectomy Ingrid Morillo Aichol z Work Phone: Ligation of fallopian tube [facility] Work Phone: Neuroplasty of media n nerve at carpal tunnel [facility] Work Phone: 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 Work [facility]: Start: 07-31-2022 STRESS ARAMIS, Provider : GAB HHVI NUCLEAR 01,[id number], Status: Pen, Time: 11:00 AM STRESS ARAMIS, Provider: GAB HHVI NUCLEAR 01,[id number], Status: Pen, Time: 11:00 AM [facility] 250 DO Work Phone: Start: 06-07-2022 FUV, Provider: Nilton Shah, Status: Pen, Time: 9:20 AM [facility], Provider: Nilton Shah, Status: Pen, Time: 9:[address] [facility] Work Phone: Start: 07-05-2021 STRESS ARAMIS, Provider : GAB HHVI NUCLEAR 01,[id number], Status: Pen, Time: 11:00 AM STRESS ARAMIS, Provider: GAB HHVI NUCLEAR 01,[id number], Status: Pen, Time: 11:00 AM [facility] 250 DO Work Phone: Immunizations Immunization Date Immunization Notes Care Provider Fa cilijovany 12-13-2021 Comirnaty 30 MCG/0.3 ML Intramuscular Suspension Ingrid Suhhelene Work Phone: [place] [address] DO Work Phone: 06-20-2021 Fluad Quadrivalent 0 .5 ML Intramuscular Prefilled Syringe Ingrid Suhholz Work Phone: [address] [address] DO Work Phone: 06-20-2021 Pfizer-BioNTech COVI D-19 Vacc 30 MCG/0.3ML Intramuscular Suspension Ingrid Morillo Joekaylaholz Work Phone: [address] [address] DO Work Phone: 11-16-2020 Pfizer-BioNTech COVI D-19 Vacc 30 MCG/0.3ML Intramuscular Suspension Ingrid Yisel Diazkaylaholkrystyna Work Phone: [address] [address] DO Work Phone: 10-25-2020 Pfizer-BioNTech COVI D-19 Vacc 30 MCG/0.3ML Intramuscular Suspension Ingrid Gonzaleskrystyna Work Phone: [address] [address] DO Work Phone: 06-10-2020 Fluad Quadrivalent 0 .5 ML Intramuscular Prefilled Syringe Ingrid Yisel Diazjuliuskrystyna Work Phone: [address] [address] DO Work Phone: 06-24-2019 Seasonal trivalent influenza vaccine, adjuvanted, preservative free Ingrid Yisel Diazkaylahelene Work Phone: [address] [place] [address] DO Work Phone: 05-27-2019 influenza virus vacc ine, unspecified formulation Ingrid Yisel Diazkaylahelene Work Phone: [address] [place] [address] DO Work Phone: 08-27-2017 influenza virus vacc ine, unspecified formulation Ingridterri Mark Work Phone: [address] [address] DO Work Phone: 06-27-2017 influenza, injectabl e, quadrivalent, preservative free Ingrid Mark Work Phone: [address] [place] [address] DO Work Phone: 05-27-2015 pneumococcal polysaccharide vaccine, 23 valent Ingrid Mark Work Phone: [address] [place] [address] DO Work Phone: 06-14-2014 influenza virus vacc ine, unspecified formulation Ingrid Mark Work Phone: [address] [address] DO Work Phone: Payers Date Payer Category Payer Medicare [id number] 1957 Unknown [id number] 1950 Unknown [id number] 2.16. [id number] 1950 Unknown [id number] 2.16.8 [id number] 1952 Unknown [id number] 2.16.84 [id number] 1950 Unknown [id number] 2.16.84 [id number] 1952 Unknown [id number] 2.16.84 [id number] 1952 Unknown [id number] 2.16.84 [id number] 1952 Unknown [id number] 2.16.84 [id number] 1952 Unknown [id number] 2.16.84 [id number] 1952 Unknown [id number] 2.16.84 [id number] 1952 Unknown [id number] 2.16.84 [id number] 1952 Unknown [id number] 2.16.8 [id number] Medicare [id number] Unknown Social History Date Type Detail Facility No illicit drug use No illicit drug use [facility] 250 DO Work Phone: Comment on above: socially; 2 sodas daily; Sex Assigned At Sex Assigned At Bir th [employer] Other Evaluation note 08-23-2023 Note Date & [...] current medications Jul, Coronary artery disease involving [place] coronary artery of [place] heart without angina pectoris (ICD-10 - I25.10) [...] any gout flare. Will monitor without medication. [employer] Other Evaluation note 11-09-2022 Note Date & [...] current medications Oct, Coronary artery disease involving [place] coronary artery of [place] heart without angina pectoris (ICD-10 - I25.10) Continue current medications and follow with Cardiology Oct, PAD (peripheral artery disease) (ICD-10 - I73.9) She denies any symptoms. Continue ASA and Statin Oct, Secondary hyperparathyroidism (ICD-10 - N25.81) MBD parameters including calcium, phosphorus, PTH and vitamin D are within the target goal. [employer] Other Clinical Note 07-05-2022 Note Date & [...] authenticated by: CASSIUS THURMAN Date: 2022-07-05 14:14 [facility] Clinical Note 06-08-2022 Note Date & Type [...] by: EMILY REMY Date: 2022-06-08 18:49 [facility] Note 05-11-2022 Note Date & Type [...] by: CASSIUS THURMAN Date: 2022-05-11 10:51 [facility] Note 04-13-2022 Note Date & Type [...] authenticated by: CASSIUS THURMAN Date: 2022-04-13 06:59 [facility] Note 03-29-2022 Note Date & Type [...] authenticated by: CASSIUS THURMAN Date: 2022-03-29 11:44 [facility] History general Narrative - Reported Note Date & Type Note Facility History general Narrative - Reported Type Medical History hypertension Medical History hyperlipidemia Medical History heart attack Medical History copd Medical History RIGHT FOOT FRACTURE Surgical History heart stent Surgical History hysterectomy Surgical History shoulder surgery Surgical History Bilateral CTR Hospitalization History See Above Hospitalization History Tubal preganacy [employer] Other Summary Purpose Family History No Family History Records FoundUnknown Family Member Name Dates Details Family history [...] She has a history of prior inferior HI with primary revascularization of the RCA PLV branch, and in 2016 had GATE AGENT and stenting of the right iliac artery and with relief of her symptomatology. 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 She also has a history of TIAs [...] She has a history of prior inferior HI with primary revascularization of the RCA PLV branch, and in 2015 had GATE AGENT and stenting of the right iliac artery and with relief of her symptomatology. 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 She also has a history of TIAs [...] hospitalizations. She has a history of inferior HI with revascularization the RCA and PLV branch [...] hospitalizations. She has a history of inferior HI with revascularization the RCA and PLV branch [...] hospitalizations. She has a history of inferior HI with revascularization the RCA and PLV branch [...] hospitalizations. She has a history of inferior HI with revascularization the RCA and PLV branch [...] section and content) DATE CREATED AUTHOR 02/14/2018 [facility] DATE CREATED AUTHOR AUTHOR'S ORGANIZ ATION 06/07/2022 [facility] DATE CREATED AUTHOR AUTHOR'S ORGANIZ ATION 06/07/2022 [employer] DATE CREATED AUTHOR AUTHOR'S ORGANIZ ATION 08/02/2022 [facility] DATE CREATED AUTHOR AUTHOR'S ORGANIZ ATION 11/01/2022 [facility] DATE CREATED AUTHOR AUTHOR'S ORGANIZ ATION 12/20/2023 [facility] REASON FOR VISIT (unrecogniz ed section and [...] BE BASED ON THE PRIMARY CLINICAL RECORDS. [employer] provides no warranty or guarantee of the accuracy or completeness of information in this document.
== END 2024-01-08 07:28 | disposition home or self-care (01) ==
LOC: PST 07:27
PROVIDERS: PCP Nurse Practitioner; Visit Provider Surgery
DX: Z01.818 Encounter for other preprocedural examination (principal); K44.9 Diaphragmatic hernia without obstruction or gangrene; R10.13 Epigastric pain; R10.11 Right upper quadrant pain

== ENCOUNTER 2024-01-09 06:47 | Day surgery (SDC) | payer MEDICARE, OTHER, SELFPAY ==
[2024-01-09 06:50] VITALS: BP 137/74; PULSE 99; TEMP 36.1; O2SAT 100; BMI 24.2
--- OUTSIDE RECORDS SUMMARY | 2024-01-09 06:50 | XMS_ITS | CCD ---
Author Organization [facility] Care Team Providers Care Concept Artist Name Role Phone UNKNOWN, PROVIDER Unavailable Unavailable [...] Consulting Unavailable GEOVANNI BOSS Attending Unavailable AICHHOLZ, RUBBER TILE FLOOR LAYER INGRID Primary Care Unavailable KARYN, GEOVANNI Consulting Unavailable CHARISSE, PETER D Admitting Unavailable CHARISSE, PETER D Consulting Unavailable CHARISSE PETER D Attending Unavailable AICHHOLZ, RUBBER TILE FLOOR LAYER INGRID Primary Care Unavailable NESSA, AGGIE Consulting Unavailable NESSAFANTAUL Attending Unavailable AICHHOLZ, RUBBER TILE FLOOR LAYER INGRID Primary Care Unavailable NESSA, AGGIE Admitting Unavailable HIGHLANDER, PETER D Attending Unavailable Zieber, Cassius Consulting Unavailable AICHHOLZ, RUBBER TILE FLOOR LAYER INGRID Primary Care Unavailable HIGHLANDER, PETER D Admitting Unavailable HIGHLANDER, PETER D Consulting Unavailable AICHHOLZ, RUBBER TILE FLOOR LAYER INGRID Primary Care Unavailable ALYSSA, DR NILTON Snow Attending Unavailledy SHAH, DR NILTON Snow Admitting Unavailledy SHAH, DR NILTON Snow Consulting Unavailabl e AICHHELENE, RUBBER TILE FLOOR LAYER INGRID Primary Care Unavailable MARCUS ESPAÑA Admitting Unavailable Cassius Thurman Consulting Unavailable MARCUS ESPAÑA Attending Unavailable MARCUS ESPAÑA Consulting Unavailable GEOVANNI BOSS Admitting Unavailable GEOVANNI BOSS Attending Unavailable AICHHOLZ, RUBBER TILE FLOOR LAYER INGRID Primary Care Unavailable DR EMILY REMY V Consulting Unavailable GEOVANNI BOSS Consulting Unavailable AGGIE SZYMANSKI Consulting Unavailable AGGIE SZYMANSKI Attending Unavailable LALO MARK Primary Care Unavailable AGGIE SZYMANSKI Admitting Unavailable Aggie Szymanski Unavailable JOSE LUIS ADAM Attending Unavailable INGRID MARK Primary Care Unavailable Allergies Allergy Classification Reported Allergen(s) Allergy Type Date of Onset Reaction(s) Facility (1 source) celecoxib Drug Allergy 09-24-2013 [facility] (1 source) Cimetidine Drug Allergy 09-24-2013 [facility] Medications Current Medications Medication Drug Class(es) [...] [Coronary atherosclerosis of unspecified type of vessel, [place] or graft] Onset: 2 Chronic Coronary atherosclerosis [...] source) long-term (current) use of aspirin; Translations: [INTERMEDIATE CURRENT USE OF ASPIRIN] Onset: 03-30-2022 Episodic Other aftercare (1 source) Other vermin exterminator (current) drug therapy; Translations: [OTH INTERMEDIATE CURRENT DRUG THERAPY] Onset: 03-30-2022 Episodic Other aftercare (1 source) long-term (current) use of antithrombotics/ant iplatelets; Translations: [INTERMEDIATE ANTITHROMBOT/ANTIPL ATLETS] Onset: 03-30-2022 Episodic Other connective tissue disease (4 sources) Pain in right foot; Translations: [PAIN IN RIGHT FOOT] Onset: 07-05-2022 Episodic Results Test Name Value Interpretation Reference Range Facility PTH INTACTon 10-31-2022 PTH, Intact 42 pg/mL Normal 15-65 [facility] Comment on above: Performed By: #### P THINT #### [facility] [address] [place] [address] Dr. Adin Barrera FERRITINon 10-30-2022 Ferritin [Mass/Vol] 35.0 ng/mL Normal 8.0-252.0 [facility] Comment on above: Performed By: #### F ERR, FETIBC, VITAD #### [facility] [address] [place] [address] Dr. Adin Barrera HEMOGRAM AND PLATELon 2022 Hematocrit (Bld) [Volume fraction] 35.5 % Critically low 36.0-48.0 [facility] Comment on above: Performed By: #### H H #### [facility] [address] [place] [address] Dr. Adin Barrera Hemoglobin (Bld) [Mass/Vol] 11.9 g/dL Critically low 12.0-16.0 [facility] Comment on above: Performed By: #### H H #### [facility] [address] [address] [address] Adin Barrera MCH (RBC) [Entitic mass] 31.5 pg Normal 26.7-34.0 [facility] Comment on above: Performed By: #### H H #### [facility] [address] [place] [address] Dr. Adin Barrera MCHC (RBC) [Mass/Vol] 33.5 g/dL Normal 29.9-35.2 [facility] Comment on above: Performed By: #### H H #### [facility] [address] [place] [address] Dr. Adin Barrera MCV (RBC) [Entitic vol] 93.9 fL Normal 81.0-99.0 [facility] Comment on above: Performed By: #### H H #### [facility] [address] [place] [address] Dr. Adin Barrera PLT 435 103/ul Normal 150-450 [facility] Comment on above: Performed By: #### H H #### [facility] [address] [place] [address] Dr. Adin Barrera RBC 3.78 106/ul Critically low 4.20-5.40 [facility] Comment on above: Performed By: #### H H #### [facility] [address] [place] [address] Dr. Adin Barrera WBC 9.1 103/ul Normal 4.0-11.0 [facility] Comment on above: Performed By: #### H H #### [facility] [address] [place] [address] Dr. Adin Barrera IRON AND TIBCon 10-30-2022 % SATURATION 29.4 % Normal [facility] Comment on above: Performed By: #### F ERR, FETIBC, VITAD #### [facility] [address] [place] [address] Dr. Adin Barrera Iron [Mass/Vol] 84.0 ug/dL Normal 50.0-170.0 [facility] Comment on above: Performed By: #### F ERR, FETIBC, VITAD #### [facility] [address] [address] [address] Adin Barrera TIBC DIRECT 286.0 ug/dL Normal 250.0-450.0 [facility] Comment on above: Performed By: #### F ERR, FETIBC, VITAD #### [facility] [address] [place] [address] Dr. Adin Barrera MAGNESIUMon 10-30-2022 Magnesium [Mass/Vol] 1.8 mg/dL Normal 1.8-2.4 [facility] Comment on above: Performed By: #### M G, URIC, RENAL #### [facility] [address] [place] [address] Dr. Adin Barrera RENAL FUNCTION PANELon 10-30 Albumin [Mass/Vol] 3.4 g/dL Normal 3.4-5.0 [facility] Comment on above: Performed By: #### M G, URIC, RENAL #### [facility] [address] [place] [address] Dr. Adin Barrera Calcium [Mass/Vol] 9.2 mg/dL Normal 8.5-10.1 [facility] Comment on above: Performed By: #### M G, URIC, RENAL #### [facility] [address] [place] [address] Dr. Adin Barrera Chloride [Moles/Vol] 104 mmol/L Normal 98-107 [facility] Comment on above: Performed By: #### M G, URIC, RENAL #### [facility] [address] [place] [address] Dr. Adin Barrera CO2 [Moles/Vol] 24.9 mmol/L Normal 21.0-32.0 [facility] Comment on above: Performed By: #### M G, URIC, RENAL #### [facility] [address] [place] [address] Dr. Adin Barrera Creatinine [Mass/Vol] 1.13 mg/dL Critically high 0.55-1.02 [facility] Comment on above: Performed By: #### M G, URIC, RENAL #### [facility] [address] [address] [address] Adin Barrera EGFR-AF BURMESE 58 mL/min/1.73m2 Critically low >=60 [facility] Comment on above: Performed By: #### M G, URIC, RENAL #### [facility] [address] [address] [address] Adin Barrera EGFR-NON AF BURMESE 48 mL/min/1.73m2 Critically low >=60 [facility] Comment on above: Performed By: #### M G, URIC, RENAL #### [facility] [address] [address] [address] Adin Barrera Glucose [Mass/Vol] 88 mg/dL Normal 74-106 [facility] Comment on above: Performed By: #### M G, URIC, RENAL #### [facility] [address] [place] [address] Dr. Adin Barrera Phosphate [Mass/Vol] 3.4 mg/dL Normal 2.6-4.7 [facility] Comment on above: Performed By: #### M G, URIC, RENAL #### [facility] [address] [place] [address] Dr. Adin Barrera Potassium [Moles/Vol] 4.4 mmol/L Normal 3.5-5.1 [facility] Comment on above: Performed By: #### M G, URIC, RENAL #### [facility] [address] [place] [address] Dr. Adin Barrera Sodium [Moles/Vol] 139 mmol/L Normal 136-145 [facility] Comment on above: Performed By: #### M G, URIC, RENAL #### [facility] [address] [place] [address] Dr. Adin Barrera Urea nitrogen [Mass/Vol] 13.0 mg/dL Normal 7.0-18.0 [facility] Comment on above: Performed By: #### M G, URIC, RENAL #### [facility] [address] [place] [address] Dr. Adin Barrera UA RANDOM W/MICROSCOPICon BACTERIA TRACE Abnormal NONE SEEN [facility] Comment on above: Performed By: #### M G, URIC, RENAL #### [facility] [address] [address] [address] Adin Barrera Bilirubin Ql (U) Negative Normal NEGATIVE [facility] Comment on above: Performed By: #### M G, URIC, RENAL #### [facility] [address] [address] [address] Adin Barrera CAST NONE SEEN Normal NONE SEEN [facility] Comment on above: Performed By: #### M G, URIC, RENAL #### [facility] [address] [address] [address] Adin Barrera Clarity (U) CLEAR Normal CLEAR [facility] Comment on above: Performed By: #### M G, URIC, RENAL #### [facility] [address] [address] [address] Adin Barrera Color (U) LT. YELLOW Normal YELLOW [facility] Comment on above: Performed By: #### M G, URIC, RENAL #### [facility] [address] [address] [address] Adin Barrera Crystals LM Nom (Urine sed) NONE SEEN Normal NONE SEEN [facility] Comment on above: Performed By: #### M G, URIC, RENAL #### [facility] [address] [address] [address] Adin Barrera Epithelial cells LM Ql (Urine sed) FEW Abnormal NONE SEEN /RARE [facility] Comment on above: Performed By: #### M G, URIC, RENAL #### [facility] [address] [address] [address] Adin Barrera Glucose Ql (U) Negative Normal NEGATIVE [facility] Comment on above: Performed By: #### M G, URIC, RENAL #### [facility] [address] [address] [address] Adin Barrera Hemoglobin Ql (U) Negative Normal NEGATIVE [facility] Comment on above: Performed By: #### M G, URIC, RENAL #### [facility] [address] [address] [address] Adin Barrera Ketones Ql (U) Negative Normal NEGATIVE [facility] Comment on above: Performed By: #### M G, URIC, RENAL #### [facility] [address] [address] [address] Adin Barrera LEUKOCYTES MODERATE Abnormal NEGATIVE [facility] Comment on above: Performed By: #### M G, URIC, RENAL #### [facility] [address] [address] [address] Adin Barrera MUCOUS NONE SEEN Normal NONE SEEN [facility] Comment on above: Performed By: #### M G, URIC, RENAL #### [facility] [address] [address] [address] Adin Barrera Nitrite Ql (U) Negative Normal NEGATIVE [facility] Comment on above: Performed By: #### M G, URIC, RENAL #### [facility] [address] [place] [address] Dr. Adin Barrera pH (U) 5.5 [pH] Normal 5-9 [facility] Comment on above: Performed By: #### M G, URIC, RENAL #### [facility] [address] [place] [address] Dr. Adin Barrera RBC 0-2 Normal 0-2 [facility] Comment on above: Performed By: #### M G, URIC, RENAL #### [facility] [address] [place] [address] Dr. Adin Barrera SPEC GRAVITY 1.010 Normal 1.005-<=1.025 [facility] Comment on above: Performed By: #### M G, URIC, RENAL #### [facility] [address] [place] [address] Dr. Adin Barrera UA PROTEIN Negative Normal NEGATIVE/ TRACE [facility] Comment on above: Performed By: #### M G, URIC, RENAL #### [facility] [address] [place] [address] Dr. Adin Barrera Urobilinogen Qn (U) 0.2 {Mitchell'U}/dL Normal 0.2 - 1.0 [facility] Comment on above: Performed By: #### M G, URIC, RENAL #### [facility] [address] [address] [address] Adin Barrera WBC 5-10 Abnormal NONE SEEN [facility] Comment on above: Performed By: #### M G, URIC, RENAL #### [facility] [address] [address] [address] Adin Barrera URIC ACID SERUMon 10-30-2022 Urate [Mass/Vol] 5.4 mg/dL Normal 2.6-6.0 [facility] Comment on above: Performed By: #### M G, URIC, RENAL #### [facility] [address] [address] [address] Adin Barrera VITAMIN D 25 OHon 10-30-2022 VIT D 25-OH 38.3 ng/mL Normal [facility] Comment on above: Performed By: #### F ERR, FETIBC, VITAD #### [facility] [address] [place] [address] Dr. Adin Barrera VIT D RANGES SEE BELOW Normal [facility] Comment on above: Result Comment: <20 ng/mL Vit D deficient 20 - <30 ng/mL Vit D insufficient 30 - 100 ng/mL Vit D sufficient >100 ng/mL Potential Toxicity Performed By: #### F ERR, FETIBC, VITAD #### [facility] [address] [place] [address] Dr. Adin Barrera Cardiac Stress Teston 2021 Cardiac Stress Test [address], [address], [place] [address] Exercise Stress Test Patient Name: SANDRA SHELTON Ordering Physician: [id number] Nilton Shah DO Study Date: 07/31/2022 Reading Physician: [id number] Jessica Rojo MD, [facility] MRN/PID: [id number] Supervising Physician: [id number] Ayala Cordova MD Accession/Order#: [id number] Referring Physician: NILTON SHAH Date of : 1950 PCP: Gender: F Fellow: Height: 165.10 cm Nurse: Jessika Aguirre RN Weight: 68.04 kg Manager Field Service: KATIE BSA: 1.75 m2 Technologist: BMI: 24.96 kg/m2 Additional Staff: Age: 72 years cc report to: Patient Location: cc report to: [id number] Nilton Shah DO Study Type: Cardiac Stress Test Diagnosis/ICD: I25.10-Atherosclerotic heart disease; 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 [id number] Jessica Rojo MD, FACC Electronically signed on 07/31/2022 at 7:18:28 PM Final Normal [facility] Cardiac Stress Test -[facility] 250 DO Work Phone: LIPID PROFILEon 06-15-2022 CHOL-HDL RATIO NORM SEE BELOW Normal [facility] Comment on above: Result Comment: 3.3 - 4.4 LOW RISK 4.4 - 7.1 AVERAGE RISK 7.1 - 11.0 MODERATE RISK >11.0 HIGH RISK Performed By: #### M G, URIC, RENAL #### [facility] [address] [place], [place] [address] Dr. Adin Barrera Cholesterol [Mass/Vol] 191 mg/dL Normal <=200 [facility] Comment on above: Performed By: #### M G, URIC, RENAL #### [facility] [address] [address] [address] Adin Barrera Cholesterol in HDL [Mass/Vol] 108 mg/dL Critically high 40-60 [facility] Comment on above: Performed By: #### M G, URIC, RENAL #### [facility] [address] [address] [address] Adin Barrera Cholesterol in LDL [Mass/Vol] 70.4 mg/dL Normal [facility] Comment on above: Performed By: #### M G, URIC, RENAL #### [facility] [address] [address] [address] Adin Barrera Cholesterol.total/ Cholesterol in HDL [Mass ratio] 1.8 {ratio} Normal [facility] Comment on above: Performed By: #### M G, URIC, RENAL #### [facility] [address] [address] [address] Adin Barrera HDL NORMAL > or = 60 mg/dl - LO W CARDIOVASCULAR RISK <40 mg/dl - HIGH CARDIOVASCULAR RISK Normal [facility] Comment on above: Performed By: #### M G, URIC, RENAL #### [facility] [address] [address] [address] Adin Barrera LDL CALC NORMAL SEE BELOW Normal [facility] Comment on above: Result Comment: <100 mg/dl OPTIMAL 100 - 129 mg/dl NEAR OR ABOVE OPTIMAL 130 - 159 mg/dl BORDERLINE HIGH 160 - 189 mg/dl HIGH >190 mg/dl VERY HIGH Performed By: #### M G, URIC, RENAL #### [facility] [address] [address] [address] Adin Barrera Triglyceride [Mass/Vol] 63 mg/dL Normal <=150 [facility] Comment on above: Performed By: #### M G, URIC, RENAL #### [facility] [address] [address] [address] Adin Barrera VLDL CALC 12.6 mg/dL Normal [facility] Comment on above: Performed By: #### M G, URIC, RENAL #### [facility] [address] [place], [place] [address] Dr. Adin Barrera SGOTon 06-15-2022 AST [Catalytic activity/Vol] 18 U/L Normal 15-37 [facility] Comment on above: Performed By: #### M G, URIC, RENAL #### [facility] [address] [place], [place] [address] Dr. Adin Barrera SGPTon 06-15-2022 ALT [Catalytic activity/Vol] 19 U/L Normal 14-59 [facility] Comment on above: Performed By: #### M G, URIC, RENAL #### [facility] [address] [place], [place] [address] Dr. Adin Barrera Office Visit (Cardiology)on 06-07-2022 [...] - Scheduling,Retrospecti ve By Protocol Authorization; Requested for:[id number]; Hyperlipidemia ALT - Alanine Aminotransferase, Serum; Status:Active - Retrospective Authorization; Requested for:[id number]; AST; Status:Active - Retrospective Authorization; Requested for:[id number]; Lipid Panel; Status:Active - Retrospective Authorization; Requested for:[id number]; Patient Instructions Please bring all medicines, vitamins, [...] hospitalizations. 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 [...] Recorded: 07Jun2022 09:20AM Heart Rate68, L Radial Utqtmlib999, LUE, Sitting Kokjrjxnd90, LUE, Sitting Height5 ft 5 in Dqkiso713 lb BMI Jsfyujqzsk83.96 kg/m2 BSA Calculated1.75 Tobacco Useb) No PHQ-2 [...] Tobacco Screening.on Adult depression screening assessment No [facility] [employer] DO Work Phone: Fall risk assessment b) One or more falls in the last year [facility] [employer] DO Work Phone: Tobacco use status CP b) No [facility] [employer] 250 DO Work Phone: VIT D 25-OH [facility]on 2021 Vitamin D, 25-Hydroxy 36.0 ng/mL Normal 30.0-100.0 [facility] Comment on above: Result Comment: Marilyn min D deficiency has been defined by the [place] of [employer] and an Endocrine Society practice guideline as a level of serum 25-OH vitamin D less than 20 ng/mL (1,2). The Endocrine Society went on to further define vitamin D insufficiency as a level between 21 and 29 ng/mL (2). 1. IOM ([place] of [employer]). 2010. Dietary reference intakes for calcium and D. [place]: The National Academies Press. 2. Britt MF, Antonia MAGAÑA, Zaid VIVAS, et al. Evaluation, treatment, and prevention of vitamin D deficiency: an Endocrine Society clinical practice guideline. JCEM. 2010; 96(7):1911-30. Performed By: #### M G, URIC, RENAL #### [facility] [address] [place] [address] Dr. Adin Barrera PTH INTACTon 05-06-2022 PTH, Intact 33 pg/mL Normal 15-65 [facility] Comment on above: Performed By: #### M G, URIC, RENAL #### [facility] [address] [place] [address] Dr. Adin Barrera FERRITINon 05-05-2022 Ferritin [Mass/Vol] 28.0 ng/mL Normal 8.0-252.0 [facility] Comment on above: Performed By: #### M G, URIC, RENAL #### [facility] [address] [place] [address] Dr. Adin Barrera HEMOGRAM AND PLATELon 2021 Hematocrit (Bld) [Volume fraction] 34.9 % Critically low 36.0-48.0 [facility] Comment on above: Performed By: #### H H #### [facility] [address] [place] [address] Dr. Adin Barrera Hemoglobin (Bld) [Mass/Vol] 11.3 g/dL Critically low 12.0-16.0 [facility] Comment on above: Performed By: #### H H #### [facility] [address] [place] [address] Dr. Adin Barrera MCH (RBC) [Entitic mass] 29.0 pg Normal 26.7-34.0 [facility] Comment on above: Performed By: #### H H #### [facility] [address] [place] [address] Dr. Adin Barrera MCHC (RBC) [Mass/Vol] 32.4 g/dL Normal 29.9-35.2 [facility] Comment on above: Performed By: #### H H #### [facility] [address] [place] [address] Dr. Adin Barrera MCV (RBC) [Entitic vol] 89.7 fL Normal 81.0-99.0 [facility] Comment on above: Performed By: #### H H #### [facility] [address] [place] [address] Dr. Adin Barrera PLT 355 103/ul Normal 150-450 [facility] Comment on above: Performed By: #### H H #### [facility] [address] [place] [address] Dr. Adin Barrera RBC 3.89 106/ul Critically low 4.20-5.40 [facility] Comment on above: Performed By: #### H H #### [facility] [address] [place] [address] Dr. Adin Barrera WBC 9.8 103/ul Normal 4.0-11.0 [facility] Comment on above: Performed By: #### H H #### [facility] [address] [place] [address] Dr. Adin Barrera IRON AND TIBCon 05-05-2022 % SATURATION 17.9 % Normal [facility] Comment on above: Performed By: #### M G, URIC, RENAL #### [facility] [address] [place] [address] Dr. Adin Barrera Iron [Mass/Vol] 53.0 ug/dL Normal 50.0-170.0 [facility] Comment on above: Performed By: #### M G, URIC, RENAL #### [facility] [address] [place] [address] Dr. Adin Barrera TIBC DIRECT 296.0 ug/dL Normal 250.0-450.0 [facility] Comment on above: Performed By: #### M G, URIC, RENAL #### [facility] [address] [place] [address] Dr. Adin Barrera MAGNESIUMon 05-05-2022 Magnesium [Mass/Vol] 2.0 mg/dL Normal 1.8-2.4 [facility] Comment on above: Performed By: #### M G, URIC, RENAL #### [facility] [address] [address] [address] Adin Barrera RENAL FUNCTION PANELon 05-05 Albumin [Mass/Vol] 3.2 g/dL Critically low 3.4-5.0 [facility] Comment on above: Performed By: #### M G, URIC, RENAL #### [facility] [address] [place] [address] Dr. Adin Barrera Calcium [Mass/Vol] 8.7 mg/dL Normal 8.5-10.1 [facility] Comment on above: Performed By: #### M G, URIC, RENAL #### [facility] [address] [place] [address] Dr. Adin Barrera Chloride [Moles/Vol] 102 mmol/L Normal 98-107 [facility] Comment on above: Performed By: #### M G, URIC, RENAL #### [facility] [address] [place] [address] Dr. Adin Barrera CO2 [Moles/Vol] 28.0 mmol/L Normal 21.0-32.0 [facility] Comment on above: Performed By: #### M G, URIC, RENAL #### [facility] [address] [place] [address] Dr. Adin Barrera Creatinine [Mass/Vol] 1.25 mg/dL Critically high 0.55-1.02 [facility] Comment on above: Performed By: #### M G, URIC, RENAL #### [facility] [address] [place] [address] Dr. Adin Barrera EGFR-AF BURMESE 51 mL/min/1.73m2 Critically low >=60 [facility] Comment on above: Performed By: #### M G, URIC, RENAL #### [facility] [address] [place] [address] Dr. Adin Barrera EGFR-NON AF BURMESE 42 mL/min/1.73m2 Critically low >=60 [facility] Comment on above: Performed By: #### M G, URIC, RENAL #### [facility] [address] [address] [address] Adin Barrera Glucose [Mass/Vol] 101 mg/dL Normal 74-106 [facility] Comment on above: Performed By: #### M G, URIC, RENAL #### [facility] [address] [place] [address] Dr. Adin Barrera Phosphate [Mass/Vol] 3.9 mg/dL Normal 2.6-4.7 [facility] Comment on above: Performed By: #### M G, URIC, RENAL #### [facility] [address] [place] [address] Dr. Adin Barrera Potassium [Moles/Vol] 3.8 mmol/L Normal 3.5-5.1 [facility] Comment on above: Performed By: #### M G, URIC, RENAL #### [facility] [address] [place] [address] Dr. Adin Barrera Sodium [Moles/Vol] 139 mmol/L Normal 136-145 [facility] Comment on above: Performed By: #### M G, URIC, RENAL #### [facility] [address] [place] [address] Dr. Adin Barrera Urea nitrogen [Mass/Vol] 11.0 mg/dL Normal 7.0-18.0 [facility] Comment on above: Performed By: #### M G, URIC, RENAL #### [facility] [address] [place] [address] Dr. Adin Barrera UA RANDOM W/MICROSCOPICon BACTERIA SMALL Abnormal NONE SEEN [facility] Comment on above: Performed By: #### U AMIC #### [facility] [address] [place] [address] Dr. Adin Barrera Bilirubin Ql (U) Negative Normal NEGATIVE [facility] Comment on above: Performed By: #### U AMIC #### [facility] [address] [place] [address] Dr. Adin Barrera CAST NONE SEEN Normal NONE SEEN [facility] Comment on above: Performed By: #### U AMIC #### [facility] [address] [address] [address] Adin Barrera Clarity (U) CLEAR Normal CLEAR [facility] Comment on above: Performed By: #### U AMIC #### [facility] [address] [address] [address] Adin Barrera Color (U) LT. YELLOW Normal YELLOW [facility] Comment on above: Performed By: #### U AMIC #### [facility] [address] [address] [address] Adin Barrera Crystals LM Nom (Urine sed) NONE SEEN Normal NONE SEEN [facility] Comment on above: Performed By: #### U AMIC #### [facility] [address] [place] [address] Dr. Adin Barrera Epithelial cells LM Ql (Urine sed) FEW Abnormal NONE SEEN /RARE [facility] Comment on above: Performed By: #### U AMIC #### [facility] [address] [address] [address] Adin Barrera Glucose Ql (U) Negative Normal NEGATIVE [facility] Comment on above: Performed By: #### U AMIC #### [facility] [address] [place] [address] Dr. Adin Barrera Hemoglobin Ql (U) Negative Normal NEGATIVE The [facility] Comment on above: Performed By: #### U AMIC #### [facility] [address] [address] [address] Adin Barrera Ketones Ql (U) Negative Normal NEGATIVE [facility] Comment on above: Performed By: #### U AMIC #### [facility] [address] [address] [address] Adin Barrera LEUKOCYTES MODERATE Abnormal NEGATIVE [facility] Comment on above: Performed By: #### U AMIC #### [facility] [address] [place] [address] Dr. Adin Barrera MUCOUS NONE SEEN Normal NONE SEEN [facility] Comment on above: Performed By: #### U AMIC #### [facility] [address] [place] [address] Dr. Adin Barrera Nitrite Ql (U) Negative Normal NEGATIVE [facility] Comment on above: Performed By: #### U AMIC #### [facility] [address] [address] [address] Adin Barrera pH (U) 6.0 [pH] Normal 5-9 [facility] Comment on above: Performed By: #### U AMIC #### [facility] [address] [address] [address] Adin Barrera RBC NONE SEEN Abnormal 0-2 [facility] Comment on above: Performed By: #### U AMIC #### [facility] [address] [address] [address] Adin Barrera SPEC GRAVITY 1.010 Normal 1.005-<=1.025 [facility] Comment on above: Performed By: #### U AMIC #### [facility] [address] [place] [address] Dr. Adin Barrera UA PROTEIN Negative Normal NEGATIVE/ TRACE [facility] Comment on above: Performed By: #### U AMIC #### [facility] [address] [place] [address] Dr. Adin Barrera Urobilinogen Qn (U) 0.2 {Mitchell'U}/dL Normal 0.2 - 1.0 [facility] Comment on above: Performed By: #### U AMIC #### [facility] [address] [place] [address] Dr. Adin Barrera WBC 10-20 Abnormal NONE SEEN [facility] Comment on above: Performed By: #### U AMIC #### [facility] [address] [place] [address] Dr. Adin Barrera URIC ACID SERUMon 05-05-2022 Urate [Mass/Vol] 6.2 mg/dL Critically high 2.6-6.0 [facility] Comment on above: Performed By: #### M G, URIC, RENAL #### [facility] [address] [place] [address] Dr. Adin Barrera URINE T PROTEIN CREAT RATIOo n 09-09-2022 Protein (U) [Mass/Vol] 6.5 mg/dL Normal <=12.0 [facility] Comment on above: Performed By: #### M G, URIC, RENAL #### [facility] [address] [address] [address] Adin Barrera UR PROT CREAT RAT 0.21 Normal [facility] Comment on above: Performed By: #### M G, URIC, RENAL #### [facility] [address] [id number] Adin Barrera URINE CREAT 31.60 mg/dL Normal 20.00-300.00 [facility] Comment on above: Performed By: #### M G, URIC, RENAL #### [facility] [address] [address] [address] Adin Barrera VIT B12 AND FOLATEon 022 Cobalamin (Vitamin B12) [Mass/Vol] 208.0 pg/mL Normal 193.0-986.0 [facility] Comment on above: Performed By: #### M G, URIC, RENAL #### [facility] [address] [address] [address] Adin Barrera FOLATE 13.30 ng/mL Normal 8.60-58.90 [facility] Comment on above: Performed By: #### M G, URIC, RENAL #### [facility] [address] [place] [address] Dr. Adin Barrera Tobacco Screening.on 021 Fall risk assessment a) No falls within the last year [facility] 250 DO Work Phone: Tobacco use status [facility] b) No [facility] 250 DO Work Phone: Vital Signs Date Time Vital Sign Value Performing Clinician Facility 08-23-2023 09:40-0500 Body height 161.29 cm Aggie Nessa Other [facility] Other 08-23-2023 09:40-0500 Body mass index (BMI) [Ratio] 25.51 kg/m2 Aggie Nessa Other [facility] Other 08-23-2023 09:40-0500 Body temperature 97.6 [degF] Aggie Nessa Other [facility] Other 08-23-2023 09:40-0500 Body weight 66.36 kg Aggie Nessa Other [facility] Other 08-23-2023 09:40-0500 Diastolic blood pressure 60 mm[Hg] Aggie Nessa Other [facility] Other 08-23-2023 09:40-0500 Respiratory rate 18 /min Aggie Nessa Other [facility] Other 08-23-2023 09:40-0500 SaO2% (BldA) [Mass fraction] 95 % Aggie Nessa Other [facility] Other 08-23-2023 09:40-0500 Systolic blood pressure 104 mm[Hg] Aggie Nessa Other [facility] Other 11-09-2022 10:20-0400 Body height 161.29 cm Aggie Nessa Other [facility] Other 11-09-2022 10:20-0400 Body mass index (BMI) [Ratio] 25.45 kg/m2 Aggie Nessa Other [facility] Other 11-09-2022 10:20-0400 Body temperature 96.5 [degF] Aggie Nessa Other [facility] Other 11-09-2022 10:20-0400 Body weight 66.23 kg Aggie Nessa Other [facility] Other 11-09-2022 10:20-0400 Diastolic blood pressure 74 mm[Hg] Aggie Nessa Other [facility] Other 11-09-2022 10:20-0400 Respiratory rate 18 /min Aggie Nessa Other [facility] Other 11-09-2022 10:20-0400 SaO2% (BldA) [Mass fraction] 96 % Aggie Nessa Other [facility] Other 11-09-2022 10:20-0400 Systolic blood pressure 110 mm[Hg] Aggie Nessa Other [facility] Other 06-07-2022 09:20-0400 Body height 165.1 cm Ingrid Mark Work Phone: [facility] 250 DO Work Phone: 06-07-2022 09:20-0400 Body mass index (BMI) [Ratio] 24.96 kg/m2 Ingrid Mark Work Phone: [facility] 250 DO Work Phone: 06-07-2022 09:20-0400 Body surface area Derived from formula 1.75 m2 Ingrid Mark Work Phone: [facility] 250 DO Work Phone: 06-07-2022 09:20-0400 Body weight 68.04 kg Ingrid Mark Work Phone: [facility] [employer] 250 DO Work Phone: 06-07-2022 09:20-0400 Diastolic blood pressure 64 mm[Hg] Ingrid Morillo Aichholz Work Phone: [facility] 250 DO Work Phone: 06-07-2022 09:20-0400 Heart rate 68 /min Ingrid Morillo Aichholz Work Phone: [facility] 250 DO Work Phone: 06-07-2022 09:20-0400 Systolic blood pressure 110 mm[Hg] Ingrid Morillo Aichholz Work Phone: [facility] 250 DO Work Phone: 06-02-2021 09:29-0400 Body height 160.02 cm Ingrid Morillo Aichholz Work Phone: [facility] 250 DO Work Phone: 06-02-2021 09:29-0400 Body mass index (BMI) [Ratio] 26.39 kg/m2 Ingrid Jo Aichholz Work Phone: [facility] 250 DO Work Phone: 06-02-2021 09:29-0400 Body surface area Derived from formula 1.71 m2 Ingrid Morillo Aichholz Work Phone: [facility] 250 DO Work Phone: 06-02-2021 09:29-0400 Body weight 67.59 kg Ingrid Morillo Aichholz Work Phone: [facility] 250 DO Work Phone: 06-02-2021 09:29-0400 Diastolic blood pressure 78 mm[Hg] Ingrid Moirllo Aichholz Work Phone: [facility] 250 DO Work Phone: 06-02-2021 09:29-0400 Heart rate 74 /min Ingrid Jo Aichholz Work Phone: [facility] 250 DO Work Phone: 06-02-2021 09:29-0400 Systolic blood pressure 136 mm[Hg] Ingrid Morillo Joehholz Work Phone: [facility] 250 DO Work Phone: 05-09-2021 13:120400 0 1 Ingrid Morillo Joehholz Work Phone: [facility] 250 DO Work Phone: Comment on above: [id number] Encounters Encounter Date Encounter Type Care Provider Facility Start: 12-19-2023 End: 12-19-2023 ambulatory [facility] Start: 12-12-2023 ambulatory [facility] Start: 08-23-2023 End: 08-23-2023 ambulatory Aggie Nessa Other [facility] Other Start: 08-23-2023 Office outpatient visit 25 minutes Aggie Nessa [facility] Start: 01-19-2023 Rx Renewal Ingrid Morillo Damian lz Work Phone: [facility] 250 DO Work Phone: Start: 11-09-2022 End: 11-09-2022 ambulatory Aggie Nessa Other [facility] Other Start: 11-09-2022 Office outpatient visit 15 minutes Aggie Nessa [facility] Start: 10-30-2022 End: 10-31-2022 ambulatory AGGIE NESSA Facility: Start: 08-02-2022 Chart Update Ingrid Morillo Damian lz Work Phone: [facility] 250 DO Work Phone: Start: 07-31-2022 [address] Mrs. Ingrid Morillo Joehhelene Willem acility:[id number] Start: 07-05-2022 End: 07-06-2022 [facility] Start: 06-15-2022 End: 06-16-2022 ambulatory [employer] INGRID AICKaylaHOLZ Facility:H1 Start: 06-08-2022 End: 06-09-2022 ambulatory GEOVANNI KARYN Facility:H1 Start: 06-07-2022 Office outpatient visit 25 minutes Ingrid Morillo Aichholz Work Phone: [facility] 250 DO Work Phone: Start: 06-07-[address] Nilton Shah Fac ility: Start: 05-11-2022 End: 05-12-2022 ambulatory GEOVANNI CHINEN Facility:H1 Start: 05-05-2022 End: 05-06-2022 ambulatory AGGIE NESSA Facility:H1 Start: 04-12-2022 End: 04-13-2022 ambulatory JOSSY Paolo [facility] Facility:H1 Start: 03-29-2022 End: 03-29-2022 ambulatory [employer] INGRID MARK Facility:H1 Start: 12-28-2021 Rx Renewal Ingrid Morillo Joehho lz Work Phone: [facility] 250 DO Work Phone: Start: 10-03-2021 Rx Renewal Ingrid Morillo Joehho lz Work Phone: [facility] 250 DO Work Phone: Start: 06-02-2021 Office outpatient visit 25 minutes Ingrid Yisel Aichholz Work Phone: [facility] 250 DO Work Phone: Start: 11-21-2017 Ambulatory PROVIDER UNKNOWN Facili ty:[id number] Procedures Date Procedure Procedure Detail Performing Clinician Biopsy of breast Ingrid Morillo Aic hholz Work Phone: History of percutane ous transluminal coronary angioplasty History of PTCA Ingrid Morillo Aichholz Work Phone: Hysterectomy Ingrid Morillo Aichol z Work Phone: L[facility] of fallopian tube [facility] Work Phone: Neuroplasty of media n nerve at carpal tunnel [facility] Work Phone: Removal of ectopic p regnancy from fallopian tube [facility] Work Phone: Surgical procedure Ingrid Morillo A ichholz Work Phone: Total colonoscopy Ingrid Morillo chholz Work Phone: Plan of Treatment Date Care Activity Detail Author Start: 06-13-2023 FUV, Provider: Nilton Shah, Status: Pen, Time: 9:30 AM [facility], Provider: Nilton Shah, Status: Pen, Time: 9:30 [facility] Work [facility]: Start: 07-31-2022 STRESS ARAMIS, Provider : GAB HHVI NUCLEAR 01,[id number], Status: Pen, Time: 11:00 AM STRESS ARAMIS, Provider: GAB HHVI NUCLEAR 01,[id number], Status: Pen, Time: 11:00 AM [facility] 250 DO Work Phone: Start: 06-07-2022 FUV, Provider: Nilton Shah, Status: Pen, Time: 9:20 AM [facility]UV, Provider: Nilton Shah, Status: Pen, Time: 9:20 AM [facility] Work Phone: Start: 07-05-2021 STRESS ARAMIS, Provider : GAB HHVI NUCLEAR 01,[id number], Status: Pen, Time: 11:00 AM STRESS ARAMIS, Provider: GAB HHVI NUCLEAR 01,[id number], Status: Pen, Time: 11:00 AM [facility] 250 DO Work Phone: Immunizations Immunization Date Immunization Notes Care Provider Fa cilijovany 12-13-2021 Comirnaty 30 MCG/0.3 ML Intramuscular Suspension Ingrid Suhhelene Work Phone: [address] [address] DO Work Phone: 06-20-2021 Fluad Quadrivalent 0 .5 ML Intramuscular Prefilled Syringe Ingrid Suhholz Work Phone: [address] [address] DO Work Phone: 06-20-2021 Pfizer-BioNTech COVI D-19 Vacc 30 MCG/0.3ML Intramuscular Suspension Ingrid Morillo Joekaylaholz Work Phone: [address] [address] DO Work Phone: 11-16-2020 Pfizer-BioNTech COVI D-19 Vacc 30 MCG/0.3ML Intramuscular Suspension Ingrid Yisel Diazkaylaholkrystyna Work Phone: [address] [address] DO Work Phone: 10-25-2020 Pfizer-BioNTech COVI D-19 Vacc 30 MCG/0.3ML Intramuscular Suspension Ingrid Gonzaleskrystyna Work Phone: [address] [address] DO Work Phone: 06-10-2020 Fluad Quadrivalent 0 .5 ML Intramuscular Prefilled Syringe Ingrid Yisel Diazjuliuskrystyna Work Phone: [address] [address] DO Work Phone: 06-24-2019 Seasonal trivalent influenza vaccine, adjuvanted, preservative free Ingrid Yisel Diazkaylaehlene Work Phone: [address] [address] DO Work Phone: 05-27-2019 influenza virus vacc ine, unspecified formulation Ingrid Yisel Diazkaylahelene Work Phone: [address] [address] DO Work Phone: 08-27-2017 influenza virus vacc ine, unspecified formulation Ingridterri Mark Work Phone: [address] [address] DO Work Phone: 06-27-2017 influenza, injectabl e, quadrivalent, preservative free Ingrid Mark Work Phone: [address] [address] DO Work Phone: 05-27-2015 pneumococcal polysaccharide vaccine, 23 valent Ingrid Mark Work Phone: [address] [address] DO Work Phone: 06-14-2014 influenza virus vacc ine, unspecified formulation Ingrid Mark Work Phone: [address] [address] DO Work Phone: Payers Date Payer Category Payer Medicare [id number] 1957 Unknown [id number] 1950 Unknown [id number] 2.16. [id number] 1950 Unknown [id number] 2.16.8 [id number] 1950 Unknown [id number] 2.16.84 [id number] 1950 Unknown [id number] 2.16.84 [id number] 1952 Unknown [id number] 2.16.84 [id number] 1950 Unknown [id number] 2.16.84 [id number] 1952 Unknown [id number] 2.16.84 [id number] 1952 Unknown [id number] 2.16.84 [id number] 1952 Unknown [id number] 2.16.84 [id number] 1952 Unknown [id number] 2.16.84 [id number] 1952 Unknown [id number] 2.16.8 [id number] Medicare [id number] Unknown Social History Date Type Detail Facility No illicit drug use No illicit drug use [facility] 250 DO Work Phone: Comment on above: socially; 2 sodas daily; Sex Assigned At Sex Assigned At Bir th [facility] Other Evaluation note 08-23-2023 Note Date & [...] current medications Jul, Coronary artery disease involving [place] coronary artery of [place] heart without angina pectoris (ICD-10 - I25.10) [...] any gout flare. Will monitor without medication. [facility] Other Evaluation note 11-09-2022 Note Date & Type Note Facility 11-09-2022 Evaluation note Encounter Date Diagnosis Assessment Notes Oct, Chronic kidney disease, stage 3 unspecified (ICD-10 - N18.30) She has CKD likely due to longstanding HTN. Her b/l serum Creatinine is 1.3-1.5 mg/dl. She has no proteinuria and hematuria. She has weakly positive LAUERNT biut has negative Anti Ds Ab and [...] current medications Oct, Coronary artery disease involving [place] coronary artery of [place] heart without angina pectoris (ICD-10 - I25.10) Continue current medications and follow with Cardiology Oct, PAD (peripheral artery disease) (ICD-10 - I73.9) She denies any symptoms. Continue ASA and Statin Oct, Secondary hyperparathyroidism (ICD-10 - N25.81) MBD parameters including calcium, phosphorus, PTH and vitamin D are within the target goal. [facility] Other Clinical Note 07-05-2022 Note Date & [...] authenticated by: CASSIUS THURMAN Date: 2022-07-05 14:14 [facility] Clinical Note 06-08-2022 Note Date & Type [...] by: EMILY REMY Date: 2022-06-08 18:49 [facility] Clinical Note 05-11-2022 Note Date & Type [...] by: CASSIUS THURMAN Date: 2022-05-11 10:51 [facility] Clinical Note 04-13-2022 Note Date & Type [...] by: CASSIUS THURMAN Date: 2022-04-13 06:59 [facility] Clinical Note 03-29-2022 Note Date & [...] authenticated by: CASSIUS THURMAN Date: 2022-03-29 11:44 [facility] History general Narrative - Reported Note Date & Type Note Facility History general Narrative - Reported Type Medical History hypertension Medical History hyperlipidemia Medical History heart attack Medical History copd Medical History RIGHT FOOT FRACTURE Surgical History heart stent Surgical History hysterectomy Surgical History shoulder surgery Surgical History Bilateral CTR Hospitalization History See Above Hospitalization History Tubal preganacy [facility] Other Summary Purpose Family History No Family [...] She has a history of prior inferior IN with primary revascularization of the RCA PLV branch, and in 2016 had PLUMBER SUPERVISOR and stenting of the right iliac artery and with relief of her symptomatology. She has developed chronic renal insufficiency due to combination of medications that have been adjudicated and now with improving renal parameters as followed by her small arms artillery repairer. She also has a history of TIAs [...] She has a history of prior inferior IN with primary revascularization of the RCA PLV branch, and in 2015 had PLUMBER SUPERVISOR and stenting of the right iliac artery and with relief of her symptomatology. She has developed chronic renal insufficiency due to combination of medications that have been adjudicated and now with improving renal parameters as followed by her small arms artillery repairer. She also has a history of TIAs [...] hospitalizations. 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 [...] hospitalizations. 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 [...] hospitalizations. 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 [...] hospitalizations. 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 [...] section and content) DATE CREATED AUTHOR 02/14/2018 [facility] DATE CREATED AUTHOR AUTHOR'S ORGANIZ ATION 06/07/2022 [facility] DATE CREATED AUTHOR AUTHOR'S ORGANIZ ATION 06/07/2022 [employer] DATE CREATED AUTHOR AUTHOR'S ORGANIZ ATION 08/02/2022 [facility] DATE CREATED AUTHOR AUTHOR'S ORGANIZ [...] BE BASED ON THE PRIMARY CLINICAL RECORDS. [email or web address] provides no warranty or guarantee of the accuracy or completeness of information in this document.
[2024-01-09] MEDS: LACTATED RINGER'S SOLUTION 1,000 ML 50 ML IV (07:24)
--- NOTE | 2024-01-09 07:42 | P.GSPRC_ITS ---
Date of procedure: 01/09/24 Indications for Procedure: nausea and vomiting Pre-op diagnosis: nausea and vomiting Post-op diagnosis: other (superficial gastritis without hemorrhage/medium hiatal hernia) Procedure: EGD with biopsy antrum and distal esophagus Findings: superficial gastritis without hemorrhage Medium hiatal hernia Anesthesia: RADHA Surgeon: Odin Nunez Procedure Summary: 73-year-old female presents for upper endoscopy due to chronic nausea and vomiting and findings of a large hiatal hernia on CT scan performed at [facility]. She had initially been scheduled for colonoscopy as well but declined to have it done because she cannot tolerate the bowel preparation of suprep tablets. She does not want to try it again with a different prep. She understands about a colonoscopy cannot rule out a malignancy of the large intestine. Patient was taken to the endoscopy suite placed in the left lateral recumbent position and given anesthesia by the senior occupational therapist. The Olympus EGD scope was advanced under direct visualization into the posterior pharynx esophagus with difficulty into the stomach and through the 1st 2nd 3rd and 4th portions of the duodenum which were completely normal. There were no ulcers polyps or tumors seen. The scope was returned to the stomach retroflexed on itself looking the GE junction which showed a medium hiatal hernia and no polyps or ulcers or tumors but she did have moderate to severe gastritis for which biopsies of the antrum were taken with hemostasis being maintained. The scope was then withdrawn to the distal esophagus where she has a moderate- sized hiatal hernia not as large as depicted on CT scan and minimal esophagitis for which one biopsy was done at the GE junction and about 35 cm. Hemostasis was maintained. The scope was removed from the rest of the esophagus which was completely normal. He tolerated procedure well. We will await the biopsies.we will call with results of her biopsies and further recommendations. Estimated blood loss (mL): 0 Complications: No Condition: stable Disposition: PACU
[2024-01-09 07:45] VITALS: BP 118/69; PULSE 84; TEMP 36.8; O2SAT 99
[2024-01-09 08:15] VITALS: BP 134/90; PULSE 107; O2SAT 98
[2024-01-10 12:09] LABS: H Pylori Tissue, Urease Negative
== END 2024-01-09 08:15 | disposition home or self-care (01) ==
PROVIDERS: PCP Nurse Practitioner; Visit Provider Surgery
PROC: (CPT 43239; principal; 2024-01-09 08:05)
DX: R10.13 Epigastric pain (principal); R10.11 Right upper quadrant pain; K44.9 Diaphragmatic hernia without obstruction or gangrene; R11.2 Nausea with vomiting, unspecified; K29.30 Chronic superficial gastritis without bleeding; K20.90 Esophagitis, unspecified without bleeding; Z79.02 Long term (current) use of antithrombotics/antiplatelets; Z79.82 Long term (current) use of aspirin; E78.00 Pure hypercholesterolemia, unspecified; Z87.442 Personal history of urinary calculi; Z90.710 Acquired absence of both cervix and uterus; Z87.891 Personal history of nicotine dependence; K76.0 Fatty (change of) liver, not elsewhere classified; R79.89 Other specified abnormal findings of blood chemistry
CPT/HCPCS: 43239; 87077; 88305; 88342; 99999; J1094; J2704

== ENCOUNTER 2024-02-05 08:18 | Outpatient (OUT) | payer MEDICARE, OTHER, SELFPAY ==
--- OUTSIDE RECORDS SUMMARY | 2024-02-05 08:26 | XMS_ITS | CCD ---
Author Organization [facility] Care Team Providers Care Sand Slinger Name Role Phone UNKNOWN, PROVIDER Unavailable Unavailable CHEYANNE PAZ Unavailable Unavailable AichholzIngrid Yisel Unavailable Unavailable Unavailable Dr. Nilton Shah Attending Unavailable Alyssa, Dr. Olivares Referring Unavailable Jas, Mrs. Ingrid Morillo Primary Care Unavailab le Jas, Mrs. Ingrid Morillo Primary Care Unavailab kp Shah, Dr. Nilton Cash Attending Unava kanika Shah, Dr. Nilton Cash Referring Unava ilable GEOVANNI BOSS Admitting Unavailable Olman, Cassius Consulting Unavailable GEOVANNI BOSS Attending Unavailable AICHHOLZ, MACHINE OPERATOR CANE CUTTER INGRID Primary Care Unavailable FARZANA BOSSBERLY Consulting Unavailable CHARISSE, PETER D Admitting Unavailable HIGHLANDER, PETER D Consulting Unavailable CHARISSE PETER D Attending Unavailable AICHHOLZ, MACHINE OPERATOR CANE CUTTER INGRID Primary Care Unavailable NESSA, AGGIE Consulting Unavailable NESSA AGGIE Attending Unavailable AICHHOLZ, MACHINE OPERATOR CANE CUTTER INGRID Primary Care Unavailable NESSA, AGGIE Admitting Unavailable HIGHLANDER, PETER D Attending Unavailable Zieber, Cassius Consulting Unavailable AICHHOLZ, MACHINE OPERATOR CANE CUTTER INGRID Primary Care Unavailable HIGHLANDER, PETER D Admitting Unavailable HIGHLANDER, PETER D Consulting Unavailable AICHHOLZ, MACHINE OPERATOR CANE CUTTER INGRID Primary Care Unavailable ALYSSA, DR NILTON Snow Attending Unavailledy SHAH, DR NILTON Snow Admitting Unavailledy SHAH, DR NILTON Snow Consulting Unavailabl e JOEHHELENE, MACHINE OPERATOR CANE CUTTER INGRID Primary Care Unavailable MARCUS ESPAÑA Admitting Unavailable Cassius Thurman Consulting Unavailable MARCUS ESPAÑA Attending Unavailable MARCUS ESPAÑA Consulting Unavailable GEOVANNI BOSS Admitting Unavailable GEOVANNI BOSS Attending Unavailable AICHHOLZ, MACHINE OPERATOR CANE CUTTER INGRID Primary Care Unavailable WALTHAM, DR EMILY Patel Consulting Unavailable GEOVANNI BOSS Consulting Unavailable AGGIE SZYMANSKI Consulting Unavailable AGGIE SZYMANSKI Attending Unavailable LALO MARK Primary Care Unavailable NESASAGGIE Admitting Unavailable Nessa Aggie Unavailable JOSE LUIS ADAM Attending Unavailable INGRID MARK Primary Care Unavailable Jose Luis Adam Attending Unavailable Jose Luis Adam Admitting Unavailable Allergies Allergy Classification Reported Allergen(s) Allergy Type Date of Onset Reaction(s) Facility (1 source) celecoxib Drug Allergy 09-24-2013 [facility] (1 source) Cimetidine Drug Allergy 09-24-2013 [facility] Medications Current Medications Medication Drug [...] [Coronary atherosclerosis of unspecified type of vessel, cher-ae heights or graft] Onset: 2 Chronic Coronary atherosclerosis [...] Onset: 03-30-2022 Episodic Other aftercare (1 source) continuous churn buttermaker (current) use of aspirin; Translations: [JAIL CURRENT USE OF ASPIRIN] Onset: 03-30-2022 Episodic Other aftercare (1 source) Other senior care (current) drug therapy; Translations: [OTH JAIL CURRENT DRUG THERAPY] Onset: 03-30-2022 Episodic Other aftercare (1 source) continuous churn buttermaker (current) use of antithrombotics/ant iplatelets; Translations: [EMERGENCY RESPONSE TECHNICIAN ANTITHROMBOT/ANTIPL ATLETS] Onset: 03-30-2022 Episodic Other connective tissue disease (4 sources) Pain in right foot; Translations: [PAIN IN RIGHT FOOT] Onset: 07-05-2022 Episodic Results Test Name Value Interpretation Reference Range Facility [facility] 01-09-2024 L Specimen: [id number] Received: 01/10/24 Status: MOHAMUD Burns Num: [id number] Spec Type: Surgical Subm Dr: Jose Luis Adam DO Tissues: A Stomach - Biopsy/Polyp (ANTRUM BX) B Esophagus Biopsy (DISTAL ESOPHAGUS) Procedures: HE/4, Gross/Micro L4/2, PAS-Alcian Blue, H PYLORI/2 Age/ Patient Sex Location Account Attending Physician Mira Shelton 73/F LABELL [id number] Jose Luis Adam DO SPEC NUM: [id number] RECD: 01/10/24 STATUS: MOHAMUD BURNS NUM: [id number] EVA: 01/09/[address]: Jose Luis Adam DO ENTERED: 01/10/[address]: Nafisa,Lab SPEC TYPE: Surgical DEPT: KEYUR SULLIVAN ORDERED: HE/4, Gross/Micro L4/2, PAS-Alcian Blue, H PYLORI/2 ORDERED: HE/4, Gross/Micro L4/2, PAS-Alcian Blue, H PYLORI/2 Supplemental Report Addendum 1 Entered: 01/13/24-8488 Supplemental for findings of PAS/AB special stain without a change or the initial interpretation: -The PAS/AB special stain is also negative CPT: 97973 Addendum Signed (signature on file) Edouard Barrera MD 01/13/24 1542 ---- Pathological Diagnosis A, gastric antrum biopsy: -Antral mucosa with moderate chronic gastritis in both fragments of only minor active type, and with focal mild chronic erosion, otherwise without intestinal metaplasia, active erosion, or glandular atypia identified ---- Specimen: [id number] Received: 01/10/24 Status: MOHAMUD Burns Num: [id number] Spec Type: Surgical Subm Dr: Jose Luis Adam, Tissues: A Stomach - Biopsy/Polyp (ANTRUM BX) B Esophagus Biopsy (DISTAL ESOPHAGUS) Procedures: HE/4, Gross/Micro L4/2, PAS-Alcian Blue, H PYLORI/2 ---- Patient: RuthievelshinMira [id number] (Continued) ---- Specimen: [id number] Received: 01/10/24 (Continued) Pathological Diagnosis (Continued) Signed (signature on file) Edouard Barrera MD 01/13/24 1437 ---- Specimen: [id number] Received: 01/10/24 Status: MOHAMUD Burns Num: [id number] Spec Type: Surgical Subm Dr: Jose Luis Adam DO Tissues: A Stomach - Biopsy/Polyp (ANTRUM BX) B Esophagus Biopsy (DISTAL ESOPHAGUS) Procedures: HE/4, Gross/Micro L4/2, PAS-Alcian Blue, H PYLORI/2 ---- Patient: RuthieMira izaguirre [id number] (Continued) ---- Specimen: [id number] Received: 01/10/24 (Continued) Pathological Diagnosis (Continued) -H. pylori immunostain with provided control is negative for identified Helicobacter organism B, distal esophagus biopsy: -Cardiac type glandular mucosa with moderate chronic inflammation of the at least minor active type, consistent with nonspecific mild chronic gastric carditis and/or mild effect of chronic GERD, otherwise without obvious intestinal metaplasia or glandular dysplasia identified -H. pylori immunostain with provided control is also negative for identified Helicobacter organism Gross Description A. Received in formalin, labeled with the patient's name, date of and antrum BX are 2 sharp mucosal tissue fragments measuring 0.4 x 0.3 x 0.1 cm and 0.3 x 0.3 x 0.1 cm, entirely submitted in A1. B. Received in formalin, labeled with the patient's name, date of and distal esophagus BX is a 0.2 x 0.2 x 0.2 cm sharp mucosal tissue fragment, entirely submitted in B1. Clinical history: Hiatal hernia, esophagitis CPT Codes 07604 X2 [id number] ---- ---- Specimen: [id number] Received: 01/10/24 Status: MOHAMUD Burns Num: [id number] Spec Type: Surgical Subm Dr: Jose Luis Adam DO Tissues: A Stomach - Biopsy/Polyp (ANTRUM BX) B Esophagus Biopsy (DISTAL ESOPHAGUS) Procedures: HE/4, Gross/Micro L4/2, PAS-Alcian Blue, H PYLORI/2 ---- Patient: Mira Shelton [id number] (Continued) ---- Signed (signature on file) Edouard Barrera MD 01/13/24 1437 Normal [facility] PTH INTACTon 10-31-2022 PTH, Intact 42 pg/mL Normal 15-65 [facility] Comment on above: Performed By: #### P THINT #### [facility] [address] [place] [address] Dr. Adin Barrera FERRITINon 10-30-2022 Ferritin [Mass/Vol] 35.0 ng/mL Normal 8.0-252.0 [facility] Comment on above: Performed By: #### F ERR, FETIBC, VITAD #### [facility] [address] [place] [address] Dr. Adin Barrera HEMOGRAM AND PLATELon 2022 Hematocrit (Bld) [Volume fraction] 35.5 % Critically low 36.0-48.0 [facility] Comment on above: Performed By: #### H H #### [facility] [address] [place] [address] [address] Adin Barrera Hemoglobin (Bld) [Mass/Vol] 11.9 g/dL Critically low 12.0-16.0 [facility] Comment on above: Performed By: #### H H #### [facility] [address] [place] [address] Dr. Adin Barrera MCH (RBC) [Entitic mass] 31.5 pg Normal 26.7-34.0 [facility] Comment on above: Performed By: #### H H #### [facility] [address] [place] [address] Dr. Adin Barrera MCHC (RBC) [Mass/Vol] 33.5 g/dL Normal 29.9-35.2 [facility] Comment on above: Performed By: #### H H #### [facility] [address] [place] [address] Dr. Adin Barrera MCV (RBC) [Entitic vol] 93.9 fL Normal 81.0-99.0 [facility] Comment on above: Performed By: #### H H #### [facility] [address] [place] [address] Dr. Adin Barrera PLT 435 103/ul Normal 150-450 [facility] Comment on above: Performed By: #### H H #### [facility] [address] [place] [address] Dr. Adin Barrera RBC 3.78 106/ul Critically low 4.20-5.40 [facility] Comment on above: Performed By: #### H H #### [facility] [address] [place] [address] Dr. Adin Barrera WBC 9.1 103/ul Normal 4.0-11.0 [facility] Comment on above: Performed By: #### H H #### [facility] [address] [place] [address] Dr. Adin Barrera IRON AND TIBCon 10-30-2022 % SATURATION 29.4 % Normal [facility] Comment on above: Performed By: #### F ERR, FETIBC, VITAD #### [facility] [address] [place] [address] Dr. Adin Barrera Iron [Mass/Vol] 84.0 ug/dL Normal 50.0-170.0 [facility] Comment on above: Performed By: #### F ERR, FETIBC, VITAD #### [facility] [address] [place] [address] Dr. Adin Barrera TIBC DIRECT 286.0 ug/dL Normal 250.0-450.0 [facility] Comment on above: Performed By: #### F ERR, FETIBC, VITAD #### [facility] [address] [place] [address] Dr. Adin Barrera MAGNESIUMon 10-30-2022 Magnesium [Mass/Vol] 1.8 mg/dL Normal 1.8-2.4 [facility] Comment on above: Performed By: #### M G, URIC, RENAL #### [facility] [address] [place] [address] Dr. Adin Barrera RENAL FUNCTION PANELon 10-30 Albumin [Mass/Vol] 3.4 g/dL Normal 3.4-5.0 [facility] Comment on above: Performed By: #### M G, URIC, RENAL #### [facility] [address] [place] [address] Dr. Adin Barrera Calcium [Mass/Vol] 9.2 mg/dL Normal 8.5-10.1 [facility] Comment on above: Performed By: #### M G, URIC, RENAL #### [facility] [address] [place] [address] Dr. Adin Barrera Chloride [Moles/Vol] 104 mmol/L Normal 98-107 [facility] Comment on above: Performed By: #### M G, URIC, RENAL #### [facility] [address] [place] [address] Dr. Adin Barrera CO2 [Moles/Vol] 24.9 mmol/L Normal 21.0-32.0 [facility] Comment on above: Performed By: #### M G, URIC, RENAL #### [facility] [address] [address] [address] Adin Barrera Creatinine [Mass/Vol] 1.13 mg/dL Critically high 0.55-1.02 [facility] Comment on above: Performed By: #### M G, URIC, RENAL #### [facility] [address] [address] [address] Adin Barrera EGFR-AF MOSOTHO 58 mL/min/1.73m2 Critically low >=60 [facility] Comment on above: Performed By: #### M G, URIC, RENAL #### [facility] [address] [address] [address] Adin Barrera EGFR-NON AF MOSOTHO 48 mL/min/1.73m2 Critically low >=60 [facility] Comment on above: Performed By: #### M G, URIC, RENAL #### [facility] [address] [address] [address] Adin Barrera Glucose [Mass/Vol] 88 mg/dL Normal 74-106 [facility] Comment on above: Performed By: #### M G, URIC, RENAL #### [facility] [address] [address] [address] Adin Barrera Phosphate [Mass/Vol] 3.4 mg/dL Normal 2.6-4.7 [facility] Comment on above: Performed By: #### M G, URIC, RENAL #### [facility] [address] [address] [address] Adin Barrera Potassium [Moles/Vol] 4.4 mmol/L Normal 3.5-5.1 [facility] Comment on above: Performed By: #### M G, URIC, RENAL #### [facility] [address] [address] [address] Adin Barrera Sodium [Moles/Vol] 139 mmol/L Normal 136-145 [facility] Comment on above: Performed By: #### M G, URIC, RENAL #### [facility] [address] [address] [address] Adin Barrera Urea nitrogen [Mass/Vol] 13.0 mg/dL Normal 7.0-18.0 [facility] Comment on above: Performed By: #### M G, URIC, RENAL #### [facility] [address] [place] [address] Dr. Adin Barrera UA RANDOM W/MICROSCOPICon BACTERIA TRACE Abnormal NONE SEEN [facility] Comment on above: Performed By: #### M G, URIC, RENAL #### [facility] [address] [place] [address] Dr. Adin Barrera Bilirubin Ql (U) Negative Normal NEGATIVE [facility] Comment on above: Performed By: #### M G, URIC, RENAL #### [facility] [address] [place] [address] Dr. Adin Barrera CAST NONE SEEN Normal NONE SEEN [facility] Comment on above: Performed By: #### M G, URIC, RENAL #### [facility] [address] [place] [address] Dr. Adin Barrera Clarity (U) CLEAR Normal CLEAR [facility] Comment on above: Performed By: #### M G, URIC, RENAL #### [facility] [address] [place] [address] Dr. Adin Barrera Color (U) LT. YELLOW Normal YELLOW [facility] Comment on above: Performed By: #### M G, URIC, RENAL #### [facility] [address] [place] [address] Dr. Adin Barrera Crystals LM Nom (Urine sed) NONE SEEN Normal NONE SEEN [facility] Comment on above: Performed By: #### M G, URIC, RENAL #### [facility] [address] [place] [address] Dr. Adin Barrera Epithelial cells LM Ql (Urine sed) FEW Abnormal NONE SEEN /RARE [facility] Comment on above: Performed By: #### M G, URIC, RENAL #### [facility] [address] [place] [address] Dr. Adin Barrera Glucose Ql (U) Negative Normal NEGATIVE [facility] Comment on above: Performed By: #### M G, URIC, RENAL #### [facility] [address] [place] [address] Dr. Adin Barrera Hemoglobin Ql (U) Negative Normal NEGATIVE The [facility] Comment on above: Performed By: #### M G, URIC, RENAL #### [facility] [address] [address] [address] Adin Barrera Ketones Ql (U) Negative Normal NEGATIVE [facility] Comment on above: Performed By: #### M G, URIC, RENAL #### [facility] [address] [address] [address] Adin Barrera LEUKOCYTES MODERATE Abnormal NEGATIVE [facility] Comment on above: Performed By: #### M G, URIC, RENAL #### [facility] [address] [address] [address] Adin Barrera MUCOUS NONE SEEN Normal NONE SEEN [facility] Comment on above: Performed By: #### M G, URIC, RENAL #### [facility] [address] [address] [address] Adin Barrera Nitrite Ql (U) Negative Normal NEGATIVE [facility] Comment on above: Performed By: #### M G, URIC, RENAL #### [facility] [address] [address] [address] Adin Barrera pH (U) 5.5 [pH] Normal 5-9 [facility] Comment on above: Performed By: #### M G, URIC, RENAL #### [facility] [address] [address] [address] Adin Barrera RBC 0-2 Normal 0-2 [facility] Comment on above: Performed By: #### M G, URIC, RENAL #### [facility] [address] [address] [address] Adin Barrera SPEC GRAVITY 1.010 Normal 1.005-<=1.025 [facility] Comment on above: Performed By: #### M G, URIC, RENAL #### [facility] [address] [address] [address] Adin Barrera UA PROTEIN Negative Normal NEGATIVE/ TRACE [facility] Comment on above: Performed By: #### M G, URIC, RENAL #### [facility] [address] [address] [address] Adin Barrera Urobilinogen Qn (U) 0.2 {Mitchell'U}/dL Normal 0.2 - 1.0 [facility] Comment on above: Performed By: #### M G, URIC, RENAL #### [facility] [address] [id number] Adin Barrera WBC 5-10 Abnormal NONE SEEN [facility] Comment on above: Performed By: #### M G, URIC, RENAL #### [facility] [address] [address] [address] Adin Barrera URIC ACID SERUMon 10-30-2022 Urate [Mass/Vol] 5.4 mg/dL Normal 2.6-6.0 [facility] Comment on above: Performed By: #### M G, URIC, RENAL #### [facility] [address] [place] [address] Dr. Adin Barrera VITAMIN D 25 OHon 10-30-2022 VIT D 25-OH 38.3 ng/mL Normal [facility] Comment on above: Performed By: #### F ERR, FETIBC, VITAD #### [facility] [address] [place] [address] Dr. Adin Barrera VIT D RANGES SEE BELOW Normal [facility] Comment on above: Result Comment: <20 ng/mL Vit D deficient 20 - <30 ng/mL Vit D insufficient 30 - 100 ng/mL Vit D sufficient >100 ng/mL Potential Toxicity Performed By: #### F ERR, FETIBC, VITAD #### [facility] [address] [place] [address] Dr. Adin Barrera Cardiac Stress Teston 2021 Cardiac Stress Test [address], [address], [place] [address] Exercise Stress Test Patient Name: MIRA SHELTON Ordering Physician: [id number] Nilton Shah DO Study Date: 07/31/2022 Reading Physician: [id number] Jessica Rojo MD, [facility] MRN/PID: [id number] Supervising Physician: [id number] Ayala Cordova MD Accession/Order#: [id number] Referring Physician: NILTON HAHNDON Date of : 1950 PCP: Gender: F Fellow: Height: 165.10 cm Nurse: Jessika Aguirre RN Weight: 68.04 kg History Professor: KATIE BSA: 1.75 m2 Technologist: BMI: 24.96 kg/m2 Additional Staff: Age: 72 years cc report to: Patient Location: cc report to: [id number] Nilton Hah[address]ove SALOMON Study Type: Cardiac Stress Test Diagnosis/ICD: I25.10-Atherosclerotic heart disease; 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 [id number] Jessica Rojo MD, FACC Electronically signed on 07/31/2022 at 7:18:28 PM Final Normal [facility] Cardiac Stress Test -[facility] 250 DO Work Phone: LIPID PROFILEon 06-15-2022 CHOL-HDL RATIO NORM SEE BELOW Normal [facility] Comment on above: Result Comment: 3.3 - 4.4 LOW RISK 4.4 - 7.1 AVERAGE RISK 7.1 - 11.0 MODERATE RISK >11.0 HIGH RISK Performed By: #### M G, URIC, RENAL #### [facility] [address] [address] [address] Adin Barrera Cholesterol [Mass/Vol] 191 mg/dL Normal <=200 [facility] Comment on above: Performed By: #### M G, URIC, RENAL #### [facility] [address] [address] [address] Adin Barrera Cholesterol in HDL [Mass/Vol] 108 mg/dL Critically high 40-60 [facility] Comment on above: Performed By: #### M G, URIC, RENAL #### [facility] [address] [place] [address] Dr. Adin Barrera Cholesterol in LDL [Mass/Vol] 70.4 mg/dL Normal [facility] Comment on above: Performed By: #### M G, URIC, RENAL #### [facility] [address] [place] [address] Dr. Adin Barrera Cholesterol.total/ Cholesterol in HDL [Mass ratio] 1.8 {ratio} Normal [facility] Comment on above: Performed By: #### M G, URIC, RENAL #### [facility] [address] [place] [address] Dr. Adin Barrera HDL NORMAL > or = 60 mg/dl - LO W CARDIOVASCULAR RISK <40 mg/dl - HIGH CARDIOVASCULAR RISK Normal [facility] Comment on above: Performed By: #### M G, URIC, RENAL #### [facility] [address] [address] [address] Adin Barrera LDL CALC NORMAL SEE BELOW Normal [facility] Comment on above: Result Comment: <100 mg/dl OPTIMAL 100 - 129 mg/dl NEAR OR ABOVE OPTIMAL 130 - 159 mg/dl BORDERLINE HIGH 160 - 189 mg/dl HIGH >190 mg/dl VERY HIGH Performed By: #### M G, URIC, RENAL #### [facility] [address] [address] [address] Adin Barrera Triglyceride [Mass/Vol] 63 mg/dL Normal <=150 [facility] Comment on above: Performed By: #### M G, URIC, RENAL #### [facility] [address] [place], [place] [address] Dr. Adin Barrera VLDL CALC 12.6 mg/dL Normal [facility] Comment on above: Performed By: #### M G, URIC, RENAL #### [facility] [address] [place], [place] [address] Dr. Adin Barrera SGOTon 06-15-2022 AST [Catalytic activity/Vol] 18 U/L Normal 15-37 [facility] Comment on above: Performed By: #### M G, URIC, RENAL #### [facility] [address] [place], [place] [address] Dr. Adin Barrera SGPTon 06-15-2022 ALT [Catalytic activity/Vol] 19 U/L Normal 14-59 [facility] Comment on above: Performed By: #### M G, URIC, RENAL #### [facility] [address] [place], [place] [address] Dr. Adin Barrera Office Visit (Cardiology)on 06-07-2022 [...] - Scheduling,Retrospecti ve By Protocol Authorization; Requested for:07Jun2022; Hyperlipidemia ALT - Alanine Aminotransferase, Serum; Status:Active - Retrospective Authorization; Requested for:07Jun2022; AST; Status:Active - Retrospective Authorization; Requested for:07Jun2022; Lipid Panel; Status:Active - Retrospective Authorization; Requested for:[id number]; Patient Instructions Please bring all medicines, vitamins, [...] Follow up in 1 year Chief Complaint MIRA SHELTON is being seen for an annual follow-up of. 72-year-old female returns she is doing well she has no cardiovascular complaints. She is in a walking boot on her right lower extremity due to falling over her dog with some fractured metatarsals. She has no cardiovascular complaints or angina or nitrate usage or hospitalizations. 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 Normal [place] Tobacco Screening.on 022 Adult depression screening assessment No [facility] 250 DO Work Phone: Fall risk assessment b) One or more falls in the last year [facility] [employer] 250 DO Work Phone: Tobacco use status [facility]PH[facility] b) No [facility] 250 DO Work Phone: VIT D 25-OH [facility]on 2021 Vitamin D, 25-Hydroxy 36.0 ng/mL Normal 30.0-100.0 [facility] Comment on above: Result Comment: Marilyn min D deficiency has been defined by the [place] of [employer] and an Endocrine Society practice guideline as a level of serum 25-OH vitamin D less than 20 ng/mL (1,2). The Endocrine Society went on to further define vitamin D insufficiency as a level between 21 and 29 ng/mL (2). 1. IOM ([place] of [employer]). 2010. Dietary reference intakes for calcium and D. [place]: The National Academies Press. 2. Britt MF, Antonia NC, Zaid VIVAS, et al. Evaluation, treatment, and prevention of vitamin D deficiency: an Endocrine Society clinical practice guideline. JCEM. 2010; 96(7):1911-30. Performed By: #### M G, URIC, RENAL #### [facility] [address] [place] [address] Dr. Adin Barrera PTH INTACTon 05-06-2022 PTH, Intact 33 pg/mL Normal 15-65 [facility] Comment on above: Performed By: #### M G, URIC, RENAL #### [facility] [address] [place] [address] Dr. Adin Barrera FERRITINon 05-05-2022 Ferritin [Mass/Vol] 28.0 ng/mL Normal 8.0-252.0 [facility] Comment on above: Performed By: #### M G, URIC, RENAL #### [facility] [address] [place] [address] Dr. Adin Barrera HEMOGRAM AND PLATELon 2021 Hematocrit (Bld) [Volume fraction] 34.9 % Critically low 36.0-48.0 [facility] Comment on above: Performed By: #### H H #### [facility] [address] [place] [address] Dr. Adin Barrera Hemoglobin (Bld) [Mass/Vol] 11.3 g/dL Critically low 12.0-16.0 [facility] Comment on above: Performed By: #### H H #### [facility] [address] [place] [address] Dr. Adin Barrera MCH (RBC) [Entitic mass] 29.0 pg Normal 26.7-34.0 [facility] Comment on above: Performed By: #### H H #### [facility] [address] [place] [address] Dr. dAin Barrera MCHC (RBC) [Mass/Vol] 32.4 g/dL Normal 29.9-35.2 [facility] Comment on above: Performed By: #### H H #### [facility] [address] [place] [address] Dr. Adin Barrera MCV (RBC) [Entitic vol] 89.7 fL Normal 81.0-99.0 [facility] Comment on above: Performed By: #### H H #### [facility] [address] [place] [address] Dr. Adin Barrera PLT 355 103/ul Normal 150-450 [facility] Comment on above: Performed By: #### H H #### [facility] [address] [place] [address] Dr. Adin Barrera RBC 3.89 106/ul Critically low 4.20-5.40 [facility] Comment on above: Performed By: #### H H #### [facility] [address] [place] [address] Dr. Adin Barrera WBC 9.8 103/ul Normal 4.0-11.0 [facility] Comment on above: Performed By: #### H H #### [facility] [address] [place] [address] Dr. Adin Barrera IRON AND TIBCon 05-05-2022 % SATURATION 17.9 % Normal [facility] Comment on above: Performed By: #### M G, URIC, RENAL #### [facility] [address] [place] [address] Dr. Adin Barrera Iron [Mass/Vol] 53.0 ug/dL Normal 50.0-170.0 [facility] Comment on above: Performed By: #### M G, URIC, RENAL #### [facility] [address] [place] [address] Dr. Adin Barrera TIBC DIRECT 296.0 ug/dL Normal 250.0-450.0 [facility] Comment on above: Performed By: #### M G, URIC, RENAL #### [facility] [address] [address] [address] Adin Barrera MAGNESIUMon 05-05-2022 Magnesium [Mass/Vol] 2.0 mg/dL Normal 1.8-2.4 [facility] Comment on above: Performed By: #### M G, URIC, RENAL #### [facility] [address] [address] [address] Adin Barrera RENAL FUNCTION PANELon 05-05 Albumin [Mass/Vol] 3.2 g/dL Critically low 3.4-5.0 [facility] Comment on above: Performed By: #### M G, URIC, RENAL #### [facility] [address] [address] [address] Adin Barrera Calcium [Mass/Vol] 8.7 mg/dL Normal 8.5-10.1 [facility] Comment on above: Performed By: #### M G, URIC, RENAL #### [facility] [address] [address] [address] Adin Barrera Chloride [Moles/Vol] 102 mmol/L Normal 98-107 [facility] Comment on above: Performed By: #### M G, URIC, RENAL #### [facility] [address] [address] [address] Adin Barrera CO2 [Moles/Vol] 28.0 mmol/L Normal 21.0-32.0 [facility] Comment on above: Performed By: #### M G, URIC, RENAL #### [facility] [address] [address] [address] Adin Barrera Creatinine [Mass/Vol] 1.25 mg/dL Critically high 0.55-1.02 [facility] Comment on above: Performed By: #### M G, URIC, RENAL #### [facility] [address] [address] [address] Adin Barrera EGFR-AF MOSOTHO 51 mL/min/1.73m2 Critically low >=60 [facility] Comment on above: Performed By: #### M G, URIC, RENAL #### [facility] [address] [address] [address] Adin Barrera EGFR-NON AF MOSOTHO 42 mL/min/1.73m2 Critically low >=60 [facility] Comment on above: Performed By: #### M G, URIC, RENAL #### [facility] [address] [place] [address] Dr. Adin Barrera Glucose [Mass/Vol] 101 mg/dL Normal 74-106 [facility] Comment on above: Performed By: #### M G, URIC, RENAL #### [facility] [address] [place] [address] Dr. Adin Barrera Phosphate [Mass/Vol] 3.9 mg/dL Normal 2.6-4.7 [facility] Comment on above: Performed By: #### M G, URIC, RENAL #### [facility] [address] [place] [address] Dr. Adin Barrera Potassium [Moles/Vol] 3.8 mmol/L Normal 3.5-5.1 [facility] Comment on above: Performed By: #### M G, URIC, RENAL #### [facility] [address] [place] [address] Dr. Adin Barrera Sodium [Moles/Vol] 139 mmol/L Normal 136-145 [facility] Comment on above: Performed By: #### M G, URIC, RENAL #### [facility] [address] [place] [address] Dr. Adin Barrera Urea nitrogen [Mass/Vol] 11.0 mg/dL Normal 7.0-18.0 [facility] Comment on above: Performed By: #### M G, URIC, RENAL #### [facility] [address] [place] [address] Dr. Adin Barrera UA RANDOM W/MICROSCOPICon BACTERIA SMALL Abnormal NONE SEEN [facility] Comment on above: Performed By: #### U AMIC #### [facility] [address] [place] [address] Dr. Adin Barrera Bilirubin Ql (U) Negative Normal NEGATIVE [facility] Comment on above: Performed By: #### U AMIC #### [facility] [address] [address] [address] Adin Barrera CAST NONE SEEN Normal NONE SEEN [facility] Comment on above: Performed By: #### U AMIC #### [facility] [address] [address] [address] Adin Barrera Clarity (U) CLEAR Normal CLEAR [facility] Comment on above: Performed By: #### U AMIC #### [facility] [address] [address] [address] Adin Barrera Color (U) LT. YELLOW Normal YELLOW [facility] Comment on above: Performed By: #### U AMIC #### [facility] [address] [place] [address] Dr. Adin Barrera Crystals LM Nom (Urine sed) NONE SEEN Normal NONE SEEN [facility] Comment on above: Performed By: #### U AMIC #### [facility] [address] [address] [address] Adin Barrera Epithelial cells LM Ql (Urine sed) FEW Abnormal NONE SEEN /RARE [facility] Comment on above: Performed By: #### U AMIC #### [facility] [address] [place] [address] Dr. Adin Barrera Glucose Ql (U) Negative Normal NEGATIVE [facility] Comment on above: Performed By: #### U AMIC #### [facility] [address] [address] [address] Adin Barrera Hemoglobin Ql (U) Negative Normal NEGATIVE The [facility] Comment on above: Performed By: #### U AMIC #### [facility] [address] [address] [address] Adin Barrera Ketones Ql (U) Negative Normal NEGATIVE [facility] Comment on above: Performed By: #### U AMIC #### [facility] [address] [address] [address] Adin Barrera LEUKOCYTES MODERATE Abnormal NEGATIVE [facility] Comment on above: Performed By: #### U AMIC #### [facility] [address] [place] [address] Dr. Adin Barrera MUCOUS NONE SEEN Normal NONE SEEN [facility] Comment on above: Performed By: #### U AMIC #### [facility] [address] [address] [address] Adin Barrera Nitrite Ql (U) Negative Normal NEGATIVE [facility] Comment on above: Performed By: #### U AMIC #### [facility] [address] [place] [address] Dr. Adin Barrera pH (U) 6.0 [pH] Normal 5-9 [facility] Comment on above: Performed By: #### U AMIC #### [facility] [address] [place] [address] Dr. Adin Barrera RBC NONE SEEN Abnormal 0-2 [facility] Comment on above: Performed By: #### U AMIC #### [facility] [address] [place] [address] Dr. Adin Barrera SPEC GRAVITY 1.010 Normal 1.005-<=1.025 [facility] Comment on above: Performed By: #### U AMIC #### [facility] [address] [place] [address] Dr. Adin Barrera UA PROTEIN Negative Normal NEGATIVE/ TRACE [facility] Comment on above: Performed By: #### U AMIC #### [facility] [address] [place] [address] Dr. Adin Barrera Urobilinogen Qn (U) 0.2 {Mitchell'U}/dL Normal 0.2 - 1.0 [facility] Comment on above: Performed By: #### U AMIC #### [facility] [address] [place] [address] Dr. Adin Barrera WBC 10-20 Abnormal NONE SEEN [facility] Comment on above: Performed By: #### U AMIC #### [facility] [address] [place] [address] Dr. Adin Barrera URIC ACID SERUMon 05-05-2022 Urate [Mass/Vol] 6.2 mg/dL Critically high 2.6-6.0 [facility] Comment on above: Performed By: #### M G, URIC, RENAL #### [facility] [address] [address] [address] Adin Barrera URINE T PROTEIN CREAT RATIOo n 05-05-2022 Protein (U) [Mass/Vol] 6.5 mg/dL Normal <=12.0 [facility] Comment on above: Performed By: #### M G, URIC, RENAL #### [facility] [address] [place] [address] Dr. Adin Barrera UR PROT CREAT RAT 0.21 Normal [facility] Comment on above: Performed By: #### M G URIC, RENAL #### [facility] [address] [place] [address] Dr. Adin Barrera URINE CREAT 31.60 mg/dL Normal 20.00-300.[address] [facility] Comment on above: Performed By: #### M Luis Armando, URIC, RENAL #### [facility] [address] [place] [address] Dr. Adin Barrera VIT B12 AND FOLATEon 022 Cobalamin (Vitamin B12) [Mass/Vol] 208.0 pg/mL Normal 193.0-986.0 [facility] Comment on above: Performed By: #### M Luis Armando, URIC, RENAL #### [facility] [address] [place] [address] Dr. Adin Barrera FOLATE 13.30 ng/mL Normal 8.60-58.90 [facility] Comment on above: Performed By: #### M G, URIC, RENAL #### [facility] [address] [place] [address] Dr. Adin Barrera Tobacco Screening.on 021 Fall risk assessment a) No falls within the last year [facility] [employer] 250 DO Work Phone: Tobacco use status [facility] b) No [facility] [employer] 250 DO Work Phone: Vital Signs Date Time Vital Sign Value Performing Clinician Facility 08-23-2023 09:40-0500 Body height 161.29 cm Aggie Nessa Other [facility] Other 08-23-2023 09:40-0500 Body mass index (BMI) [Ratio] 25.51 kg/m2 Aggie Nessa Other [facility] Other 08-23-2023 09:40-0500 Body temperature 97.6 [degF] Aggie Nessa Other [facility] Other 08-23-2023 09:40-0500 Body weight 66.36 kg Aggie Nessa Other [facility] Other 08-23-2023 09:40-0500 Diastolic blood pressure 60 mm[Hg] Aggie Nessa Other [facility] Other 08-23-2023 09:40-0500 Respiratory rate 18 /min Aggie Nessa Other [facility] Other 08-23-2023 09:40-0500 SaO2% (BldA) [Mass fraction] 95 % Aggie Nessa Other [facility] Other 08-23-2023 09:40-0500 Systolic blood pressure 104 mm[Hg] Aggie Nessa Other [facility] Other 11-09-2022 10:20-0400 Body height 161.29 cm Aggie Nessa Other [facility] Other 11-09-2022 10:20-0400 Body mass index (BMI) [Ratio] 25.45 kg/m2 Aggie Nessa Other [facility] Other 11-09-2022 10:20-0400 Body temperature 96.5 [degF] Aggie Nessa Other [facility] Other 11-09-2022 10:20-0400 Body weight 66.23 kg Aggie Nessa Other [facility] Other 11-09-2022 10:20-0400 Diastolic blood pressure 74 mm[Hg] Aggie Nessa Other [facility] Other 11-09-2022 10:20-0400 Respiratory rate 18 /min Aggie Nessa Other [facility] Other 11-09-2022 10:20-0400 SaO2% (BldA) [Mass fraction] 96 % Aggie Nessa Other [facility] Other 11-09-2022 10:20-0400 Systolic blood pressure 110 mm[Hg] Aggie Nessa Other [facility] Other 06-07-2022 09:20-0400 Body height 165.1 cm Ingrid Yisel DiazGiveit100helene Work Phone: [facility] [employer] 250 DO Work Phone: 06-07-2022 09:20-0400 Body mass index (BMI) [Ratio] 24.96 kg/m2 Ingrid Mark Work Phone: [facility] [employer] 250 DO Work Phone: 06-07-2022 09:20-0400 Body surface area Derived from formula 1.75 m2 Ingrid Mark Work Phone: [facility] [employer] 250 DO Work Phone: 06-07-2022 09:20-0400 Body weight 68.04 kg Ingrid Diazhholz Work Phone: [facility] 250 DO Work Phone: 06-07-2022 09:20-0400 Diastolic blood pressure 64 mm[Hg] Ingrid Morillo Aichholz Work Phone: [facility] 250 DO Work Phone: 06-07-2022 09:20-0400 Heart rate 68 /min Ingrid Morillo Aichholz Work Phone: [facility] 250 DO Work Phone: 06-07-2022 09:20-0400 Systolic blood pressure 110 mm[Hg] Ingrid Morillo Aichholz Work Phone: [facility] 250 DO Work Phone: 06-02-2021 09:29-0400 Body height 160.02 cm Ingrid Diazhholz Work Phone: [facility] 250 DO Work Phone: 06-02-2021 09:29-0400 Body mass index (BMI) [Ratio] 26.39 kg/m2 Ingrid Diazhholz Work Phone: [facility] 250 DO Work Phone: 06-02-2021 09:29-0400 Body surface area Derived from formula 1.71 m2 Ingrid Morillo Aichholz Work Phone: [facility] 250 DO Work Phone: 06-02-2021 09:29-0400 Body weight 67.59 kg Ingrid Morillo Aichholz Work Phone: [facility] 250 DO Work Phone: 06-02-2021 09:29-0400 Diastolic blood pressure 78 mm[Hg] Ingrid Diazhholz Work Phone: [facility] 250 DO Work Phone: 06-02-2021 09:29-0400 Heart rate 74 /min Ingrid Morillo Joehholz Work Phone: [facility] 250 DO Work Phone: 06-02-2021 09:29-0400 Systolic blood pressure 136 mm[Hg] Ingrid Morillo Aichholz Work Phone: [facility] 250 DO Work Phone: 05-09-2021 13:12-0400 0 1 Ingrid Diazhholz Work Phone: [facility] 250 DO Work Phone: Comment on above: [id number] Encounters Encounter Date Encounter Type Care Provider Facility Start: 01-09-2024 End: 01-09-2024 ambulatory [facility] Facility:[facility] Start: 12-19-2023 End: 12-19-2023 ambulatory [facility] Start: 12-12-[address] [facility] Start: 08-23-2023 End: 08-23-2023 ambulatory Aggie Nessa Other [facility] Other Start: 08-23-2023 Office outpatient visit 25 minutes Aggie Nessa [facility] Start: 01-19-2023 Rx Renewal Ingrid Morillo Joehho lz Work Phone: [facility] 250 DO Work Phone: Start: 11-09-2022 End: 11-09-2022 ambulatory Aggie Nessa Other [facility] Other Start: 11-09-2022 Office outpatient visit 15 minutes Aggie Nessa [facility] Start: 10-30-2022 End: 10-31-2022 ambulatory AGGIE NESSA Facility:[facility] Start: 08-02-2022 Chart Update Ingrid Yisel Diazkaylaho lz Work Phone: [facility] 250 DO Work Phone: Start: 07-31-2022 [address] Mrs. Ingrid Morillo Jas F acility:[id number] Start: 07-05-2022 End: 07-06-2022 ambulatory PETER D ANDRADEANDER Facility:[facility] Start: 06-15-2022 End: 06-16-2022 ambulatory MACHINE OPERATOR CANE CUTTER INGRID JOEKaylaGOKULZ Facility:[facility] Start: 06-08-2022 End: 06-09-2022 ambulatory GEOVANNI KARYN Facility:[facility] Start: 06-07-2022 Office outpatient visit 25 minutes Ingrid Yisel Diazhholz Work Phone: [facility] 250 DO Work Phone: Start: 06-07-[address] Nilton Shah Fac ility: Start: 05-11-2022 End: 05-12-2022 ambulatory GEOVANNI KARYN Facility:[facility] Start: 05-05-2022 End: 05-06-2022 ambulatory AGGIE NESSA Facility:[facility] Start: 04-12-2022 End: 04-13-2022 ambulatory [facility] Facility:[facility] Start: 03-29-2022 End: 03-29-2022 ambulatory MACHINE OPERATOR CANE CUTTER INGRID JOEKaylaGOKULZ Facility:[facility]1 Start: 12-28-2021 Rx Renewal Ingrid Yisel Diazhpoornima lz Work Phone: [facility] 250 DO Work Phone: Start: 10-03-2021 Rx Renewal Ingrid Yisel Diazhho lz Work Phone: [facility] 250 DO Work Phone: Start: 06-02-2021 Office outpatient visit 25 minutes Ingrid Yisel Diazhholz Work Phone: [facility] 250 DO Work Phone: Start: 11-21-2017 Ambulatory PROVIDER UNKNOWN Facili ty:[id number] Procedures Date Procedure Procedure Detail Performing Clinician Biopsy of breast Ingrid Morillo Aic hholz Work Phone: History of percutane ous transluminal coronary angioplasty History of PTCA Ingrid Morillo Aichholz Work Phone: Hysterectomy Ingrid Morillo Aichhol z Work Phone: Ligation of fallopian tube L michelle Morillo Aichholz Work Phone: Neuroplasty of media n nerve [...] Nilton Shah, Status: Pen, Time: 9:30 AM [facility] 250 DO Work Phone: Start: 07-31-2022 STRESS ARAMIS, Provider : GAB HHVI NUCLEAR 01,[id number], Status: Pen, Time: 11:00 AM STRESS ARAMIS, Provider: GAB HHVI NUCLEAR 01,[id number], Status: Pen, Time: 11:00 AM [facility] 250 DO Work Phone: Start: 06-07-2022 FUV, Provider: Nilton Shah, Status: Pen, Time: 9:20 AM [facility]UV, Provider: Nilton Shah, Status: Pen, Time: 9:20 AM [facility] 250 DO Work Phone: Start: 07-05-2021 STRESS ARAMIS, Provider : GAB GALLOWAYI NUCLEAR 01,[id number], Status: Pen, Time: 11:00 AM STRESS ARAMIS, [facility] ,[id number], Status: Pen, Time: 11:00 AM [facility] 250 DO Work Phone: Immunizations Immunization Date Immunization Notes Care Provider Christiane ramsey 12-13-2021 Comirnaty 30 MCG/0.3 ML Intramuscular Suspension Ingrid Mark Work Phone: [address] [address] DO Work Phone: 06-20-2021 Fluad Quadrivalent 0 .5 ML Intramuscular Prefilled Syringe Ingrid Mark Work Phone: [address] [address] DO Work Phone: 06-20-2021 Pfizer-BioNTech COVI D-19 Vacc 30 MCG/0.3ML Intramuscular Suspension Ingrid Mark Work Phone: [address] [address] DO Work Phone: 11-16-2020 Pfizer-BioNTech COVI D-19 Vacc 30 MCG/0.3ML Intramuscular Suspension Ingrid Mark Work Phone: [address] [address] DO Work Phone: 10-25-2020 Pfizer-BioNTech COVI D-19 Vacc 30 MCG/0.3ML Intramuscular Suspension Ingrid Mark Work Phone: [address] [place] [address] DO Work Phone: 06-10-2020 Fluad Quadrivalent 0 .5 ML Intramuscular Prefilled Syringe Ingrid Mark Work Phone: [address] [place] [address] DO Work Phone: 06-24-2019 Seasonal trivalent influenza vaccine, adjuvanted, preservative free Ingrid Mark Work Phone: [address] [address] DO Work Phone: 05-27-2019 influenza virus vacc ine, unspecified formulation Ingrid Mark Work Phone: [address] [place] [address] DO Work Phone: 08-27-2017 influenza virus vacc ine, unspecified formulation Ingrid Suhholkrystyna Work Phone: [address] [place] [address] DO Work Phone: 06-27-2017 influenza, injectabl e, quadrivalent, preservative free Ingrid Suhholkrystyna Work Phone: [address] [place] [address] DO Work Phone: 05-27-2015 pneumococcal polysaccharide vaccine, 23 valent Ingrid DiazGiveit100holz Work Phone: [address] [place] [address] DO Work Phone: 06-14-2014 influenza virus vacc ine, unspecified formulation Ingrid Morillo Aickaylaholz Work Phone: [address] [place] [address] DO Work Phone: Payers Date Payer Category Payer Self-pay 1957 Medicare [id number] 1957 Unknown [id number] 1950 Unknown [id number] 2.16. [id number] 1950 Unknown [id number] 2.16.8 [id number] 1952 Unknown [id number] 2.16.84 [id number] 1952 Unknown [id number] 2.16.84 [id number] 1952 Unknown [id number] 2.16.84 [id number] 1952 Unknown [id number] 2.16.84 [id number] 1952 Unknown [id number] 2.16.84 [id number] 1952 Unknown [id number] 2.16.84 [id number] 1952 Unknown [id number] 2.16.84 [id number] 1952 Unknown [id number] 2.16.84 [id number] 1952 Unknown [id number] 2.16.8 [id number] Medicare [id number] Unknown Unknown [id number] 2.16.8 [id number] Social History Date Type Detail Facility No illicit drug use No illicit drug use [address] [address] DO Work Phone: Comment on above: socially; 2 sodas daily; Sex Assigned At Sex Assigned At [facility] [employer] Other Evaluation note 08-23-2023 Note Date & [...] current medications Jul, Coronary artery disease involving cher-ae heights coronary artery of cher-ae heights heart without angina pectoris (ICD-10 - I25.10) [...] any gout flare. Will monitor without medication. [facility] Other Evaluation note 11-09-2022 Note Date & [...] current medications Oct, Coronary artery disease involving cher-ae heights coronary artery of cher-ae heights heart without angina pectoris (ICD-10 - I25.10) Continue current medications and follow with Cardiology Oct, PAD (peripheral artery disease) (ICD-10 - I73.9) She denies any symptoms. Continue ASA and Statin Oct, Secondary hyperparathyroidism (ICD-10 - N25.81) MBD parameters including calcium, phosphorus, PTH and vitamin D are within the target goal. [facility] Other Clinical Note 07-05-2022 Note Date & [...] by: CASSIUS THURMAN Date: 2022-07-05 14:14 [facility] Clinical Note 06-08-2022 Note Date [...] by: EMILY REMY Date: 2022-06-08 18:49 [facility] Clinical Note 05-11-2022 Note Date & [...] by: CASSIUS THURMAN Date: 2022-05-11 10:51 [facility] Clinical Note 04-13-2022 Note Date & [...] authenticated by: CASSIUS THURMAN Date: 2022-04-13 06:59 [facility] Clinical Note 03-29-2022 Note Date & [...] authenticated by: CASSIUS THURMAN Date: 2022-03-29 11:44 [facility] History general Narrative - Reported Note Date & Type Note Facility History general Narrative - Reported Type Medical History hypertension Medical History hyperlipidemia Medical History heart attack Medical History copd Medical History RIGHT FOOT FRACTURE Surgical History heart stent Surgical History hysterectomy Surgical History shoulder surgery Surgical History Bilateral CTR Hospitalization History See Above Hospitalization History Tubal preganacy [facility] Other Summary Purpose Family History No Family [...] Advanced Directives Records Found Chief Complaint * MIRA SHELTON is being seen for an annual [...] She has a history of prior inferior MN with primary revascularization of the RCA PLV branch, and in 2016 had ACCOUNTS SUPERVISOR and stenting of the right iliac artery and with relief of her symptomatology. She has developed chronic renal insufficiency due to combination of medications that have been adjudicated and now with improving renal parameters as followed by her clinic manager. She also has a history of TIAs none recently and remains on long-term DAPT therapy with no bleeding, ne urologic, or cardiac recurrent events. * She remains with mild hypertension, hyperlipidemia and mild obesity * Recommendations, obtain lipid panel, continue current therapies, will follow- up in 1 year * MIRA SHELTON is being seen for an annual [...] She has a history of prior inferior MN with primary revascularization of the RCA PLV branch, and in 2015 had ACCOUNTS SUPERVISOR and stenting of the right iliac artery and with relief of her symptomatology. She has developed chronic renal insufficiency due to combination of medications that have been adjudicated and now with improving renal parameters as followed by her clinic manager. She also has a history of TIAs none recently and remains on long-term DAPT therapy with no bleeding, ne urologic, or cardiac recurrent events. * She remains with mild hypertension, hyperlipidemia and mild obesity * Recommendations, obtain lipid panel, continue current therapies, will follow- up in 1 year * MIRA SHELTON is being seen for an annual follow-up of. * 72-year-old female returns she is doing well she has no cardiovascular complaints. She is in a walking boot on her right lower extremity due to falling over her dog with some fractured metatarsals. * She has no cardiovascular complaints or angina or nitrate usage or hospitalizations. She has a history of inferior MN with revascularization the RCA and PLV branch [...] her previous coronary and vascular history. * MIRA SHELTON is being seen for an annual follow-up of. * 72-year-old female returns she is doing well she has no cardiovascular complaints. She is in a walking boot on her right lower extremity due to falling over her dog with some fractured metatarsals. * She has no cardiovascular complaints or angina or nitrate usage or hospitalizations. She has a history of inferior MN with revascularization the RCA and PLV branch [...] her previous coronary and vascular history. * MIRA SHELTON is being seen for an annual follow-up of. * 72-year-old female returns she is doing well she has no cardiovascular complaints. She is in a walking boot on her right lower extremity due to falling over her dog with some fractured metatarsals. * She has no cardiovascular complaints or angina or nitrate usage or hospitalizations. She has a history of inferior MN with revascularization the RCA and PLV branch [...] her previous coronary and vascular history. * MIRA SHELTON is being seen for an annual follow-up of. * 72-year-old female returns she is doing well she has no cardiovascular complaints. She is in a walking boot on her right lower extremity due to falling over her dog with some fractured metatarsals. * She has no cardiovascular complaints or angina or nitrate usage or hospitalizations. She has a history of inferior MN with revascularization the RCA and PLV branch [...] section and content) DATE CREATED AUTHOR 02/14/2018 [facility] DATE CREATED AUTHOR AUTHOR'S ORGANIZ ATION 06/07/2022 [facility] DATE CREATED AUTHOR AUTHOR'S ORGANIZ ATION 06/07/2022 [facility] DATE CREATED AUTHOR AUTHOR'S ORGANIZ ATION 08/02/2022 [facility] DATE CREATED AUTHOR AUTHOR'S ORGANIZ ATION 11/01/2022 [facility] DATE CREATED AUTHOR AUTHOR'S ORGANIZ ATION 12/20/2023 [facility] DATE CREATED AUTHOR AUTHOR'S ORGANIZ ATION 01/15/[address] [facility] REASON FOR VISIT (unrecogniz ed section and [...] BE BASED ON THE PRIMARY CLINICAL RECORDS. [facility]. provides no warranty or guarantee of the accuracy or completeness of information in this document.
[2024-02-05 08:54] LABS: Bilirubin Urine NEGATIVE (NEGATIVE); Blood Urine NEGATIVE (NEGATIVE); Clarity Urine CLEAR (CLEAR); Color Urine LT. YELLOW (YELLOW); Glucose Urine UA NEGATIVE (NEGATIVE); Ketones Urine NEGATIVE (NEGATIVE); Leukocyte Esterase Urine MODERATE (NEGATIVE); Nitrite Urine NEGATIVE (NEGATIVE); Protein Urine NEGATIVE (NEG/TRACE); Urobilinogen Urine 0.2 EU/dL (0.2-1.0)
[2024-02-05 08:54] LABS: Hematocrit 34.7 % (36.0-48.0); Hemoglobin 11.7 g/dL (12.0-16.0); Mean Corpuscular HGB Conc 33.7 g/dL (29.9-35.2); Mean Corpuscular Hemoglobin 31.4 pg (26.7-34.0); Mean Platelet Volume 9.5 fL (9.5-13.5); Platelet Count 387 10^3/uL (150-450); Red Blood Count 3.73 10^6/uL (4.20-5.40); Red Cell Distribution Width 14.2 % (11.0-15.0); White Blood Count 8.5 10^3/uL (4.0-11.0)
[2024-02-05 09:02] LABS: Bacteria Urine MODERATE #/HPF (NONE SEEN); Mucus Urine NONE SEEN (NONE SEEN); RBC Urine NONE SEEN #/HPF (0-2); Squamous Epithelial Cell Urine MODERATE #/LPF (NONE/RARE)
[2024-02-05 09:15] LABS: Albumin Level 2.9 g/dL (3.4-5.0); Calcium 8.7 mg/dL (8.5-10.1); Chloride 100 mmol/L (98-107); Estimated GFR (African America 50 (>=60); Estimated GFR (Non-African Ame 41 (>=60); Glucose 94 mg/dL (74-106); Magnesium 1.9 mg/dL (1.8-2.4); Phosphorus 3.3 mg/dL (2.6-4.7); Sodium 138 mmol/L (136-145); Uric Acid 6.2 mg/dL (2.6-6.0)
[2024-02-05 09:46] LABS: Creatinine Urine Random 21.26 mg/dL (20.00-300.00); Protein Creatinine Ratio Urine 0.28; Total Protein Urine Random <6.0 mg/dL (<=11.9)
[2024-02-06 11:09] LABS: PTH, Intact 42 pg/mL (15-65)
== END 2024-02-05 08:19 | disposition home or self-care (01) ==
LOC: LAB 08:20
PROVIDERS: PCP Nurse Practitioner; Visit Provider Internal Medicine
DX: N18.30 Chronic kidney disease, stage 3 unspecified (principal); D63.1 Anemia in chronic kidney disease; I12.9 Hypertensive chronic kidney disease with stage 1 through stage 4 chronic kidney disease, or unspecified chronic kidney disease; I25.10 Atherosclerotic heart disease of native coronary artery without angina pectoris; I73.9 Peripheral vascular disease, unspecified; N25.81 Secondary hyperparathyroidism of renal origin
CPT/HCPCS: 36415; 80069; 81001; 82306; 82570; 83735; 83970; 84156; 84550; 85027

== ENCOUNTER 2025-02-20 08:01 | Outpatient (OUT) | payer MEDICARE, OTHER, SELFPAY ==
--- OUTSIDE RECORDS SUMMARY | 2025-02-20 08:06 | XMS_ITS | Clinical Summary ---
Author Organization [facility] Healthcare Address [address] [place] [address] Care Team Providers Care Spring Inspector Name Role Phone Dangelo Mittal MD Primary Care Provider [phone] Ingrid Mark RACK ROOM WORKER Unavailable [phone] Ingrid Mark RACK ROOM WORKER Unavailable [phone] Allergies No known active allergies Medications albuterol (2.5 MG/3ML) 0.083% nebulizer solution Take 2.5 mg by nebulization every 6 (six) hours if needed for wheezing or shortness of breath 4 Active amLODIPine (Norvasc) 5 MG tablet Take 5 mg by mouth Daily Active aspirin 81 MG EC tablet Take 81 mg by mouth in the morning. Active atorvastatin (Lipitor) 80 MG tablet Take 80 mg by mouth at bedtime Active clopidogrel (Plavix) 75 MG tablet Take 75 mg by mouth Daily Active furosemide (Lasix) 20 MG tablet Take 20 mg by mouth Daily Active metoprolol tartrate (Lopressor) 25 MG tablet Take 25 mg by mouth in the morning and 25 mg before bedtime. Active nitroglycerin (Nitrostat) 0.[address] 0.4 mg under the tongue every 5 (five) minutes if needed for chest pain Active sucralfate (Carafate) 1 g tablet Take 1 g by mouth in the morning and 1 g at noon and 1 g in the evening and 1 g before bedtime. 4 Active Sutab 7059-169-420 MG tablet USE PER INSTRUCTIONAL SHEET GIVEN BY OFFICE Active Active Problems Problem Noted Date Diagnosed Date Chronic kidney disease, stage 3b 08/12/2024 Assessment & Plan (08/12/2024 6:45 AM EST): Mgmt per nephrology Anemia of renal disease 08/12/2024 Hyperuricemia 08/12/2024 Assessment & Plan (08/12/2024 6:44 AM EST): No current meds, is followed by nephrology for her CKD stage 3b Secondary hyperparathyroidism 08/12/2024 Assessment & Plan (08/12/2024 6:45 AM EST): Monitor with nephrology, secondary to her CKD CAD (coronary artery disease) 08/12/2024 Assessment & Plan (08/12/2024 6:47 AM EST): Follows with [facility] Current meds: asa, statin, plavix, amlodpine, and metoprolol and prn nitro Hypertensive chronic kidney disease with stage 1 through stage 4 chronic kidney disease, or unspecified chronic kidney disease 08/12/2024 Assessment & Plan (08/12/2024 6:45 AM EST): Recommend bp control Nephrology monitors PAD (peripheral artery disease) 08/12/2024 Assessment & Plan (08/12/2024 6:46 AM EST): On statin, asa, plavix, b lindsay Cont with cardiology Encounter for subsequent tete ual wellness visit (AWV) in Medicare patient 08/12/2024 Assessment & Plan (08/12/2024 11:30 AM EST): Reviewed Ht/Wt/BMI Recommend eye exam yearly Recommend dental exams twice a year Balance work/leisure activities Exercises is recommended most days of the week (appropriate as chronic conditions allow) Follow up yearly and prn Refuses mammogram, colon cancer testing, or lung cancer screening Recommend updating her pneumovax 23 vaccine Dermatitis 08/12/2024 Former smoker 06/18/2024 Assessment & Plan (08/12/2024 11:29 AM EST): Was a former smoker Patient meets requirements for low dose CT scan for lung cancer screening: age 55-80, patient is a current smoker or has quit in the last 15 years (about 9 years ago). Smoking history is > or equal to 30 pack-year ( 1.5 ppdX 45 years 66 pack years). If needed the patient is able or willing to receive treatment. The patient is not currently exhibiting any s/s of lung cancer. We have discussed the benefits as well as harms of screening, follow up testing if needed, false positive rates. We have also discussed that this type of CT scan has less radiation exposure than a traditional lung CT scan. We have also discussed that it is important to follow with annual screening for this. The patient has also been counseled on the importance of smoking cessation. She declines wanting this done Cerebral infarction, unspecified 05/14/2023 Chronic obstructive pulmonary disease, unspecifi ed 05/14/2023 Assessment & Plan (08/12/2024 6:47 AM EST): Former smoker Uses albuterol prn Essential hypertension, benign 05/14/2023 Assessment & Plan (08/12/2024 6:46 AM EST): Please check blood pressure daily and record DASH diet Limit caffeine Take medication as directed Contact office if chest pain, pressure, dizziness, shortness of breath, swelling legs Recommend slow position changes Current meds: Amlodipine, metoprolol History of myocardial infarction 05/14/2023 History of PTCA 05/14/2023 Hyperlipidemia 05/14/2023 Assessment & Plan (08/12/2024 6:44 AM EST): Currently on statin Check labs yearly and prn dose changes BMI 24.0-24.9, adult 05/14/2023 Resolved Problems Problem Noted Date Diagnosed Date Resolved Date Chronic kidney disease 06/13/202308/12 2-vessel coronary artery disease 05/14/2023 08/12/2024 Peripheral vascular disease, unspecified 05/14/2023 08/12/2024 Immunizations Immunization Administration Dates Next Due Influenza, High Dose Seasona l, Preservative Free 08/12/2024 Influenza, Seasonal, Quadriv alent, Adjuvanted 06/26/2023,06/20/2021,06/10/2020 Influenza, Unspecified 05/27/2019,08/27/2017, Influenza, injectable, quadr ivalent, preservative free 06/27/2017 Influenza, trivalent, adjuvanted 06/24/2019 Pneumococcal Polysaccharide PPSV23 05/27/2015 Social History Tobacco Use Types Packs/Day Years Used Date Smoking Tobacco: Never Smokeless Tobacco: Never Tobacco Cessation:Counseling Given: Not Answered Alcohol Use Standard Drinks/Week Comments Yes 0 (1 standard drink = 0.6 oz pure alcohol) caffine: two sodas daily no coffee no tea PHQ-2 Answer Date Recorded Patient Health Questionnaire-2 Score 0 08/12/2024 Comments Unknown Sex and Gender Information Value Date Recorded Sex Assigned at Not on file Legal Sex Female 7:58 PM EDT Gender Identity Not on file Sexual Orientation Not on file Last Filed Vital Signs Vital Sign Reading Time Taken Comments Blood Pressure 112/82 08/12/2024 10:36 AM EST Pulse 75 08/12/2024 10:36 AM EST Temperature 36.8 C (98.3 F) 08/12/2024 10:36 AM EST Respiratory Rate 19 08/12/2024 10:36 AM EST Oxygen Saturation 97% 08/12/2024 10:36 AM EST Inhaled Oxygen Concentration - - Weight 65.3 kg (144 lb) 08/12/2024 10:36 AM EST Height 163.8 cm (5' 4.5 ) 08/12/2024 10:36 AM ES T Body Mass Index 24.34 08/12/2024 10:36 AM EST Plan of Treatment Upcoming Encounters Date Type Department Care Team (Late st Contact Info) Description 08/13/2025 10:00 AM EST [facility] [address] [place] [address] Ingrid Mark NP [address] [place] [address] Health Maintenance Due Date Last Done Comments CT Colonography 1950 Colonoscopy 1950 FIT-DNA 1950 FIT 1950 FOBT 1950 Sigmoidoscopy 1950 Pneumococcal Vaccine: 65+ Years (2 of 2 - PCV) 05/27/2016 05/27/2015 Colorectal Cancer Screening 08/12/2025 Postponed from 1950 (Patient Refused) Mammogram 08/12/2025 08/12/2024 (Samantha ent Refused) Medicare Annual Wellness (AWV) 08/12/2025 08/12/2024 Influenza Vaccine Completed 08/12/2024, , 06/20/2021, Additional history exists Insurance MEDICARE [employer] Care Teams Spring Inspector Relationship Specialty Start Date End Date Dangelo Mittal MD [address] [place] [phone] PCP - General Family Medicine 08/12/24 Ingrid Mark NP [address] [place] [address] PCP - ACO Reach 10/03/24 Ingrid Mark NP [address] [place] [address] Nurse Practitioner Family Medicine 08/12/24
--- OUTSIDE RECORDS SUMMARY | 2025-02-20 08:06 | XMS_ITS | Clinical Summary ---
Author Organization [employer] Address [id number] [address] [place] [address] Care Team Providers Care Net Coordinator Name Role Phone JoeIngrid taylor Dahlia SENIOR OPERATOR-PRACTICING MD ANESTHESIOLOGIST Primary Care Provider Allergies No known active allergies Medications amLODIPine (NORVASC) 5 mg tablet Take 1 tablet (5 mg total) by mouth in the morning. Active aspirin 81 mg Take 1 tablet (81 mg total) by mouth in the morning. Active atorvastatin (LIPITOR) 80 mg tablet Take 1 tablet (80 mg total) by mouth in the morning. 12/14/19 24 Active furosemide (LASIX) 20 mg tablet Take 1 tablet (20 mg total) by mouth daily. Active HYDROcodone-acetam inophen (NORCO) 5-325 mg per tablet Take 1 tablet by mouth every 6 (six) hours as needed for pain. 12/06/19 24 Active hyoscyamine (ANASPAZ,LEVSIN) 0.125 mg tablet Take 1 tablet (0.125 mg total) by mouth. 12/06/19 24 Active nitroglycerin (NITROSTAT) 0.[address] 1 tablet (0.4 mg total) under the tongue. Active ondansetron ODT (ZOFRAN ODT) 4 mg disintegrating tablet Dissolve 1 tablet (4 mg total) on tongue every 8 (eight) hours as needed. 12/06/19 24 Active promethazine (PHENERGAN) 25 mg tablet Take 0.5 tablets (12.5 mg total) by mouth every 6 (six) hours as needed. 12/06/19 24 Active sucralfate (CARAFATE) 1 gram tablet Take 1 tablet (1 g total) by mouth in the morning and 1 tablet (1 g total) at noon and 1 tablet (1 g total) in the evening and 1 tablet (1 g total) before bedtime. 360 tablet 12/19/19 Active sod sulf-pot chloride-mag sulf 1.479-0.188- 0.225 gram tablet See instructional sheet given by office. Patient was given a [employer] coupon voucher to use, this is not to be ran through patients insurance. 24 tablet 12/19/19 Active clopidogreL (PLAVIX) 75 mg tablet Take 1 tablet (75 mg total) by mouth in the morning. Active metoprolol tartrate (LOPRESSOR) 25 mg tablet Take 1 tablet (25 mg total) by mouth in the morning and 1 tablet (25 mg total) before bedtime. Active sucralfate (CARAFATE) 1 gram tablet Take 1 tablet (1 g total) by mouth in the morning and 1 tablet (1 g total) at noon and 1 tablet (1 g total) in the evening and 1 tablet (1 g total) before bedtime. 56 tablet 12/19/19 Active Active Problems No known active problems Family History Medical History Relation Name Comments Cancer Brother Liver cancer Brother Cancer Father Esophageal cancer Father Hypertension Mother Relation Name Status Comments Brother Father Mother Social History Tobacco Use Types Packs/Day Years Used Date Smoking Tobacco: Former Cigarettes Smokeless Tobacco: Never Tobacco Cessation:Counseling Given: Not Answered Alcohol Use Standard Drinks/Week Comments Not Asked 0 (1 standard drink = 0.6 oz pur e alcohol) 4-6 A WEEK Childcare Answer Date Recorded Childcare Unknown 02/05/2019 Employment Answer Date Recorded Employment Unknown 02/05/2019 Hunger Screening Answer Date Recorded Within the past 12 months we worried whether our food would run out before we got money to buy more. Never True 12/19/2023 Within the past 12 months th e food we bought just didn't last and we didn't have money to get more. Never True 12/19/2023 Comments Unknown Sex and Gender Information Value Date Recorded Sex Assigned at Not on file Legal Sex Female 11:24 AM EDT Gender Identity Not on file Sexual Orientation Not on file Last Filed Vital Signs Vital Sign Reading Time Taken Comments Blood Pressure - - Pulse - - Temperature - - Respiratory Rate - - Oxygen Saturation - - Inhaled Oxygen Concentration - - Weight 64.4 kg (142 lb) 12/19/2023 9:43 AM EDT Height 165.1 cm (5' 5 ) 12/19/2023 9:43 AM EDT Body Mass Index 23.63 12/19/2023 9:43 AM EDT Plan of Treatment Health Maintenance Due Date Last Done Comments Depression Screening 1964 DTaP,Tdap and Td Vaccines (1 - Tdap) 1971 Zoster (Shingles) Vaccine (1 of 2) 2002 Fall Risk Screening 2017 COVID-19 Vaccine (6 - 2023-2 5 season) 2024 06/26/2023, 12/13/2021, 06/20/2021, Additional history exists Adult BMI Screening 12/18/2024 12/19/2023 Tobacco Screening 12/18/2024 12/19/2023 Influenza Vaccine 04/27/2025 06/26/2023, , 06/10/2020, Additional history exists Medical Devices Not on file Insurance MEDICARE COMM[employer] Care Teams Net Coordinator Relationship Specialty Start Date End Date Ingrid Mark, SENIOR OPERATOR-PRACTICING MD ANESTHESIOLOGIST PCP - General Nurse Practitioner 12/19/23
--- OUTSIDE RECORDS SUMMARY | 2025-02-20 08:06 | XMS_ITS | Encounter Summary ---
Author Organization [facility] Address [address] [place] [address] Phone Care Team Providers Care Map Colorer Name Role Phone JoekaylaeileenIngrid greenwood Yisel STERILE PROCESSING TECH-PUBLIC POLICY MEDIATOR Primary Care Provider Encounter Details Date Type Department Care Team (Late st Contact Info) Description 02/05/2024 Scanned Document [facility] [address] [place] [phone] Scanning, Generic Provider Social History Tobacco Use Types Packs/Day Years Used Date Smoking Tobacco: Former Cigarettes Q uit: 2013 Smokeless Tobacco: Never Alcohol Use Standard Drinks/Week Comments Yes 1 (1 standard drink = 0.6 oz pur e alcohol) occassionally PHQ-2 Answer Date Recorded Patient Health Questionnaire-2 Score 0 06/13/2023 Comments Unknown Sex and Gender Information Value Date Recorded Sex Assigned at Not on file Legal Sex Female 12:58 PM EST Gender Identity Not on file Sexual Orientation Not on file documented as of this encounter Plan of Treatment Upcoming Encounters Date Type Department Care Team (Late st Contact Info) Description 06/18/2025 10:10 AM EDT Office Visit [facility] [address] [facility] [address] [place] [address] Marshall Cano DO [address] [facility] [address] [place] [address] documented as of this encounter Visit Diagnoses Not on filedocumented in this encounter Additional Health Concerns Assessment Noted Time A fall risk assessment has been complete d for the patient 06/13/2023 9:47 AM EDT documented as of this encounter Care Teams Map Colorer Relationship Specialty Start Date End Date Ingrid Mark, STERILE PROCESSING TECH-PUBLIC POLICY MEDIATOR [address] [place] [address] PCP - General 09/17/19 documented as of this encounter
--- OUTSIDE RECORDS SUMMARY | 2025-02-20 08:06 | XMS_ITS | Encounter Summary ---
Author Organization [facility] Address [address] [place] [address] Phone Care Team Providers Care Food Sanitarian Name Role Phone Ingrid Mark TRANSFERRER-CORPORATE LAW SPECIALIST Primary Care Provider Encounter Details Date Type Department Care Team (Late st Contact Info) Description 06/16/2022 Orders Only [facility] [address] [place] [address] Conversion, Onbase Social History Tobacco Use Types Packs/Day Years Used Date Smoking Tobacco: Never Assessed Comments Unknown Sex and Gender Information Value Date Recorded Sex Assigned at Not on file Legal Sex Female 12:58 PM EST Gender Identity Not on file Sexual Orientation Not on file documented as of this encounter Plan of Treatment Upcoming Encounters Date Type Department Care Team (Late st Contact Info) Description 06/18/2025 10:10 AM EDT Office Visit [facility] [address] [facility] [address] [place] [phone] Marshall Cano, [address] [facility] [address] [place] [address] Scheduled Orders Name Type Priority Associated Diagnoses Orde r Schedule OUTSIDE LAB SCAN Lab Ordered: 06/16/2022 documented as of this encounter Visit Diagnoses Not on filedocumented in this encounter Care Teams Food Sanitarian Relationship Specialty Start Date End Date Ingrid Mark APRN-CORPORATE LAW SPECIALIST [address] [place] [address] PCP - General 09/17/19 documented as of this encounter
--- OUTSIDE RECORDS SUMMARY | 2025-02-20 08:06 | XMS_ITS | Encounter Summary ---
Author Organization [facility] Address [address] [place] [address] Phone Care Team Providers Care Bonderizer Name Role Phone Ingrid Mark APRN-DIRECTOR OF BANDS Primary Care Provider Encounter Details Date Type Department Care Team (Late st Contact Info) Description 03/29/2020 Orders Only [facility] [address] [place] [address] Conversion, Onbase Social History Tobacco Use Types [...] Description 06/18/2025 10:10 AM EDT Office Visit [facility] [address] [facility] [address] [place] [phone] Marshall Cano, [address] [facility] [address] [place], [place] [phone] Scheduled Orders Name Type Priority Associated Diagnoses Orde r Schedule OUTSIDE LAB SCAN Lab Ordered: 03/29/2020 documented as of this encounter Visit Diagnoses Not on filedocumented in this encounter Care Teams Bonderizer Relationship Specialty Start Date End Date Ingrid Mark APRN-CNP [address] [place] [phone] PCP - General 09/17/19 documented as of this encounter
--- OUTSIDE RECORDS SUMMARY | 2025-02-20 08:07 | XMS_ITS | Encounter Summary ---
Author Organization [facility] Address [address] [place] [address] Care Team Providers Care Rnfa Name Role Phone Dangelo Mittal MD Primary Care Provider [phone] Ingrid Mark NP Unavailable [phone] Ingrid Mark NP Unavailable [phone] Encounter Details Date Type Department Care Team (Late st Contact Info) Description 12/13/2023 Clinisync Result Encounter [facility] External Department Unsolicited Provider, Generic External Data Social History Tobacco Use Types Packs/Day Years [...] 08/13/2025 10:00 AM EST Office Visit [facility] [address] [place] [address] Ingrid Mark NP [address] [place] [address] documented as of this encounter Procedures Procedure Name Priority Date/Time Associated Diagnosis Comments NM HEPATOBILIARY SCAN W PHARMACOLOGICAL INTERVENTION 12/13/2023 10:33 AM EDT documented in this encounter Results * NM HEPATOBILIARY SCAN W PHARMACOLOGICAL INTERVENTION (12/13/2023 10:33 AM EDT) Anatomical Region Laterality Modality Radiographic Anay ging 12/13/2023 10:3 3 AM EDT Narrative 12/13/2023 10:36 [place] [address] Nuclear Medicine Report Signed Patient: MIRA SHELTON MR#: [id number] : 1950 Acct:[id number] Age/Sex: 73 / F ADM Date: 12/13/23 Loc: [place] Attending Dr: Ulysses Casas M.D. Ordering Physician: Ulysses Casas Date of Service: 12/13/23 Procedure(s): [place] hepatobiliary w pharm Accession Number(s): [id number] cc: Ingrid Mark GUEST ASSOCIATE; Ulysses Casas [place] [address] Patient Name: MIRA SHELTON MRN: [id number] date: 1950 Sex: F Assigned Patient Location: [place] Current Patient Location: [place] Accession/Order Number: [id number] Exam Date: 12/13/2023 07:20 Report Date: 12/13/2023 10:33 At the request of: ULYSSES CASAS Procedure: [place] hepatobiliary w pharm EXAMINATION: [place] hepatobiliary w pharm HISTORY: RIGHT UPPER QUADRANT PAIN, NAUSEA AND VOMITING COMPARISON: No relevant comparison available. TECHNIQUE: Radionuclide hepatobiliary imaging was performed after intravenous injection of 5.3 mCi Tc-99m LILLIAN derivative with sequential acquisitions every 1 minute for one hour. Hepatobiliary imaging with gallbladder ejection fraction analysis was then performed with sequential imaging every 1 minute for 60 minutes following ingestion of 8 oz. Ensure Plus. FINDINGS: LIVER: Normal, prompt and uniform radiotracer uptake and clearing. BILIARY DUCTS: Normal radioisotopic biliary excretion. GALLBLADDER: Normal with no evidence of cystic duct obstruction. INTESTINE: Normal with no evidence of common biliary ductal obstruction. EJECTION FRACTION: 67 % within 60 minutes. (Normal EF > 38%). OTHER: Negative. [place] hepatobiliary w pharm IMPRESSION: 1. Normal nuclear medicine HIDA scan. Electronically authenticated by: CASSIUS THURMAN Date: 12/13/2023 10:33 Dictated By: Cassius Thurman M.D. Signed By: 12/13/23 1036 DD/ 1033 TD/TT: Invoice Machine Operator: Procedure Note Radiology, Radiologist, - 12/13/2023 [place] [address] Nuclear Medicine Report Signed Patient: MIRA SHELTON JMR#: [id number] : 1950cct:[id number] Age/Sex: 73 / FADM Date: 12/13/23 Loc: [place] Attending Dr: Ulysses Casas M.D. Ordering Physician: Ulysses Casas Date of Service: 12/13/23 Procedure(s): [place] hepatobiliary w pharm Accession Number(s): [id number] cc: Ingrid Mark NP; Ulysses Casas [place] [address] Patient Name: MIRA SHELTON MRN: [id number] date: 1950 Sex: F Assigned Patient Location: [place] Current Patient Location: [place] Accession/Order Number: [id number] Exam Date: 12/13/2023 07:20 Report Date: 12/13/2023 10:33 At the request of: ULYSSES CASAS Procedure: [place] hepatobiliary w pharm EXAMINATION: [place] hepatobiliary w pharm HISTORY: RIGHT UPPER QUADRANT PAIN, NAUSEA AND VOMITING COMPARISON: No relevant comparison available. TECHNIQUE: Radionuclide hepatobiliary imaging was performed afterintravenous injection of 5.3 mCi Tc-99m LILLIAN derivative with sequential acquisitionsevery 1 minute for one hour. Hepatobiliary imaging with gallbladder ejectionfraction analysis was then performed with sequential imaging every 1 minute for 60 minutes following ingestion of 8 oz. Ensure Plus. FINDINGS: LIVER: Normal, prompt and uniform radiotracer uptake and clearing. BILIARY DUCTS: Normal radioisotopic biliary excretion. GALLBLADDER: Normal with no evidence of cystic duct obstruction. INTESTINE: Normal with no evidence of common biliary ductal obstruction. EJECTION FRACTION: 67 % within 60 minutes. (Normal EF > 38%). OTHER: Negative. [place] hepatobiliary w pharm IMPRESSION: 1. Normal nuclear medicine HIDA scan. Electronically authenticated by: CASSIUS Mclaughlin: 12/13/2023 10:33 Dictated By: Cassius Thurman M.D. Signed By:12/13/23 1036 DD/ 1033 TD/TT: Invoice Machine Operator: us Generic External Data Provider IMG XR PROCEDURES Final Result documented in this encounter Visit Diagnoses Not on filedocumented in this encounter Care Teams Rnfa Relationship Specialty Start Date End Date Dangelo Mittal MD [address] [place] [phone] PCP - General Family Medicine 08/12/24 Ingrid Mark NP [address] [place] [address] PCP - ACO Reach 10/03/24 Ingrid Mark NP [address] [place] [address] Nurse Practitioner Family Medicine 08/12/24 documented as of this encounter
--- OUTSIDE RECORDS SUMMARY | 2025-02-20 08:07 | XMS_ITS | Clinical Summary ---
Author Organization [facility] Address [address] [place] [address] Phone Care Team Providers Care Corduroy Cutter Operator Name Role Phone Ingrid Mark APRN-AIRPLANE ELECTRICAL REPAIRER Primary Care Provider Allergies No known active allergies Medications furosemide (Lasix) 20 mg tablet Take 1 tablet (20 mg) by mouth once daily. Active nitroglycerin (Nitrostat) 0.[address] 1 tablet (0.4 mg) under the tongue every 5 minutes if needed for chest pain. Active amLODIPine (Norvasc) 5 mg tablet Take 1 tablet (5 mg) by mouth once daily. Active atorvastatin (Lipitor) 80 mg tabletIndications:H yperlipidemia, unspecified hyperlipidemia type Take 1 tablet (80 mg) by mouth once daily at bedtime. 90 tablet 3 4 Active metoprolol tartrate (Lopressor) 25 mg tabletIndications:E ssential hypertension, benign TAKE 1 TABLET TWICE A DAY 180 tablet 3 5 Active clopidogrel (Plavix) 75 mg tabletIndications:2 -vessel coronary artery disease,History of PTCA Take 1 tablet (75 mg) by mouth once daily. 90 tablet 3 5 11/25/19 26 Active Active Problems Problem Noted Date Diagnosed Date Former smoker 06/18/2024 Chronic kidney disease 06/13/2023 PVD (peripheral vascular disease) 05/14/2023 Hyperlipidemia 05/14/2023 History of PTCA 05/14/2023 History of myocardial infarction 05/14/2023 Essential hypertension, benign 05/14/2023 COPD (chronic obstructive pulmonary disease) ([place]) 05/14/2023 Cerebral infarction, unspecified 05/14/2023 2-vessel coronary artery disease 05/14/2023 BMI 24.0-24.9, adult 05/14/2023 Encounters Date Type Department Care Team Description 11/23/[address] [place] [address] Ana Howard, ORE FEEDER-AIRPLANE ELECTRICAL REPAIRER 2-vessel coronary artery disease; History of PTCA 11/23/[address] [place] [address] Marshall Cano, Essential hypertension, benign from Last 3 Months Immunizations Immunization Administration Dates Next Due Flu vaccine (IIV4), preserva tive free *Check age/dose* 06/27/2017 Influenza, Seasonal, Quadriv alent, Adjuvanted 06/20/2021,06/10/2020 Influenza, Unspecified 05/27/2019,08/27/2017, Influenza, trivalent, adjuvanted 06/24/2019 Pfizer Ferguson Cap SARS-CoV-2 12/13/2021 Pneumococcal polysaccharide vaccine, 23-valent, age 2 years and older (PNEUMOVAX 23) 05/27/2015 Family History Medical History Relation Name Comments Diabetes Brother Heart attack Brother Hypertension Mother Relation Name Status Comments Brother Mother Social History Tobacco Use Types Packs/Day [...] Sign Reading Time Taken Comments Blood Pressure 122/76 06/18/2024 9:03 AM EDT Pulse 68 06/18/2024 9:03 AM EDT Temperature - - Respiratory Rate - - Oxygen Saturation - - Inhaled Oxygen Concentration - - Weight 64.9 kg (143 lb) 06/18/2024 9:03 AM EDT Height 162.6 cm (5' 4 ) 06/18/2024 9:03 AM EDT Body Mass Index 24.55 06/18/2024 9:03 AM EDT Plan of Treatment Upcoming Encounters Date Type Department Care Team (Late st Contact Info) Description 06/18/2025 10:10 AM EDT Office Visit [facility] [address] [place] [id number] Marshall Cano DO [address] [place] [address] Health Maintenance Due Date Last Done Comments Bone Density Scan 1952 CT Colonography 1952 Colonoscopy 1952 Colorectal Cancer Screening 1952 FIT-DNA (Cologuard) 1952 FIT 1952 Lipid Panel 1952 Medicare Annual Wellness Visit (AWV) 1952 Sigmoidoscopy 1952 Skin Cancer Screening 1952 Diabetes Screening 1970 Hepatitis C Screening 1970 CKD: Urine Protein Screening 1971 DTaP/Tdap/Td Vaccines (1 - Tdap) 1974 Mammogram 1992 Zoster Vaccines (1 of 2) 2002 RSV High Risk: (Elderly (60+) or Population) (1 - Risk 60-74 years 1-dose series) 2012 Pneumococcal Vaccine (2 of 2 - PCV) 05/27/2016 05/27/2015 COVID-19 Vaccine ( season) 2024 06/26/2023, 12/13/2021, 06/20/2021, Additional history exists Influenza Vaccine (Season Ended) 2025 06/26/2023, 06/20/2021, 06/10/2020, Additional history exists HIB Vaccines Aged Out No longer eligi ble based on patient's age to complete this topic HPV Vaccines (No Doses Required) Completed Hepatitis A Vaccines Aged Out No long er eligible based on patient's age to complete this topic Hepatitis B Vaccines Aged Out No long er eligible based on patient's age to complete this topic IPV Vaccines Aged Out No longer eligi ble based on patient's age to complete this topic Meningococcal Vaccine Aged Out No johnathan melina eligible based on patient's age to complete this topic Rotavirus Vaccines Aged Out No longer eligible based on patient's age to complete this topic Insurance MEDICARE PART A AND B [employer] MEDICARE PART A AND B Member Subscriber Plan / Payer ( fective 2017-Present) Name:RuthieFátima izaguirrety Dahlia Member ID:[id number] Relation to Subscriber:Self Name:CatrachoshinMira Dahlia Subscriber ID:[id number] Payer ID:Not on file Group ID:Not on file Type:Not on file Address: [place] [phone] [employer] Care Teams Corduroy Cutter Operator Relationship Specialty Start Date End Date Ingrid Mark, ORE FEEDER-AIRPLANE ELECTRICAL REPAIRER [facility] [place][note 2] [place] [address] PCP - General 09/17/19
--- OUTSIDE RECORDS SUMMARY | 2025-02-20 08:08 | XMS_ITS | CCD ---
Author Organization [facility] CliniSyne Care Team Providers Care Tool Builder Name Role Phone UNKNOWN, PROVIDER Unavailable Unavailable JACKSON CHEYANNE Unavailable Unavailable AichholzIngrid Yisel Unavailable Unavailable Unavailable Dr. Marshall Shah Attending Unavailable Jerome, Dr. Olivares Referring Unavailable Jas, Mrs. Ingrid Morillo Primary Care Unavailab le Joehminerva, Mrs. Ingrid Morillo Primary Care Unavailab le Jerome, Dr. Marshall Cash Attending Unava kanika Shah, Dr. Marshall Cash Referring Unava ilable FARZANA BOSSBERLY Admitting Unavailable Deana Thurman Consulting Unavailable GEOVANNI BOSS Attending Unavailable AICHHOLZ, LUNCH WAGON OPERATOR INGRID Primary Care Unavailable FARZANA BOSSBERLY Consulting Unavailable JOSSY MCQUEEN Admitting Unavailable JOSSY MCQUEEN Consulting Unavailable JOSSY MCQUEEN Attending Unavailable AICHHOLZ, LUNCH WAGON OPERATOR INGRID Primary Care Unavailable NESSA, AGGIE Consulting Unavailable NESSAFANTAUL Attending Unavailable AICHHOLZ, LUNCH WAGON OPERATOR INGRID Primary Care Unavailable NESSA, AGGIE Admitting Unavailable JOSSY MCQUEEN Attending Unavailable La NenaerPoen Consulting Unavailable AICHHOLZ, LUNCH WAGON OPERATOR INGRID Primary Care Unavailable HIGHLANDER PETER D Admitting Unavailable HIGHLANDER PETER Paolo Consulting Unavailable AICHHOLZ, LUNCH WAGON OPERATOR INGRID Primary Care Unavailable JEROME, DR MARSHALL Snow Attending Unavailledy SHAH, DR MARSHALL Snow Admitting Unavailledy SHAH, DR MARSHALL Snow Consulting Unavailabl e JOEHMINERVA, LUNCH WAGON OPERATOR INGRID Primary Care Unavailable MARCUS ESPAÑA Admitting Unavailable Deana Thurman Consulting Unavailable MARCUS ESPAÑA Attending Unavailable MARCUS ESPAÑA Consulting Unavailable GEOVANNI BOSS Admitting Unavailable GEOVANNI BOSS Attending Unavailable AICHHOLZ, LUNCH WAGON OPERATOR INGRID Primary Care Unavailable DR EMILY REMY V Consulting Unavailable GEOVANNI BOSS Consulting Unavailable NESSA, AGGIE Consulting Unavailable NESSA, AGGIE Attending Unavailable LALO MARK Primary Care Unavailable NESSA, AGGIE Admitting Unavailable Nessa, Aggie Unavailable JOSE LUIS ADAM Attending Unavailable INGRID MARK Primary Care Unavailable DO Jose Luis Adam Attending Provider [phone] Jas ALTAMIRANO-Ingrid MAY Primary Care Provider MARSHALL SHAH Attending Unavailable MARSHALL SHAH Referring Unavailable INGRID MARK Primary Care Unavailable Jose Luis Adam Admitting Unavailable Jose Luis Adam Attending Unavailable Ingrid Mark Primary Care Unavailable Nessa, Aggie Consulting Unavailable Zuhair Shah Admitting Unavailable Zuhair Shah Attending Unavailable Dangelo Mittal MD Primary Care Provider Jas SNOW GROOMER, Ingrid Unavailable INGRID MARK Attending Unavailable Jas HOT AIR FURNACE INSTALLER REPAIRER-LUNCH WAGON OPERATOR, Ingrid Villagomez Primary Care Provider Unavailable Primary Care Provider Unavailledy Mark HOT AIR FURNACE INSTALLER [facility] Ingrid Villagomez Primary Care Provider Allergies Allergy Classification Reported Allergen(s) Allergy Type Date of Onset Reaction(s) Facility (1 source) celecoxib Drug Allergy 09-24-2013 [facility] (1 source) Cimetidine Drug Allergy 09-24-2013 [facility] Medications Current Medications Medication Drug Class(es) Dates Sig (Normalized) Sig (Original) acetaminophen 325 mg / HYDROcodone bitartrate 5 mg oral tablet (4 sources) Opioid Agonist Start: 12-06-2023 take 1 tablet by mouth every six hours as needed for pain HYDROcodone-acetam inophen (NORCO) 5-325 mg per tablet Take 1 tablet by mouth every 6 (six) hours as needed for pain. 12/06/2023 Active albuterol 0.83 mg/ml inhalation solution (5 sources) beta2-Adrenergic Agonist Start: 02-14-2024 albuterol (2.5 MG/3ML) 0.083% nebulizer solution Take 2.5 mg by nebulization every 6 (six) hours if needed for wheezing or shortness of breath 02/14/2024 Active Start: 02-14-2024 Albuterol Sulf ate Active 2.5 MG CNTNEBULIZ Every 6 hours February 14, 2024 12:00am Albuterol Sulfat e (2.5 MG/ 3 ML) Active amLODIPine 5 mg oral tablet (20 sources) Dihydropyridine Calcium Channel Lindsay Start: 02-14-2024 take 5 mg by mouth once daily Amlodipine Active 5 MG PO Daily February 14, 2024 12:00am aspirin 81 mg chewable tablet (20 sources) Platelet Aggregation Inhibitor, Nonsteroidal Anti-inflammatory Drug Start: 02-14-2024 take 81 mg by mouth once daily Aspirin Active 81 MG PO Daily February 14, 2024 12:00am End: 06-18-2024 take 1 tablet by mouth in the morning aspirin 81 MG EC tablet Take 81 mg by mouth in the morning. Active take 1 tablet by marybel th every twenty-four hours Aspirin 81 MG 1 Tablet Orally Daily Active atorvastatin 80 mg oral tablet (20 sources) HMG-CoA Reductase Inhibitor Start: 12-28-2021 take 1 tablet by mouth in the morning atorvastatin (LIPITOR) 80 mg tablet Take 1 tablet (80 mg total) by mouth in the morning. 12/14/2023 Active clopidogrel 75 mg oral tablet (20 sources) P2Y12 Platelet Inhibitor Start: 10-03-2021 End: 12-23-2024 take 75 mg by mouth once daily Clopidogrel Active 75 MG PO Daily February 14, 2024 12:00am furosemide 20 mg oral tablet (20 sources) Loop Diuretic Start: 02-14-2024 take 20 mg by mouth once daily Furosemide Active 20 MG PO Daily February 14, 2024 12:00am hyoscyamine sulfate 0.125 mg oral tablet (4 sources) Start: 12-06-2023 hyoscyamine (ANASPAZ,LEVSIN) 0.125 mg tablet Take 1 tablet (0.125 mg total) by mouth. 12/06/2023 Active metoprolol tartrate 25 mg oral tablet (20 sources) beta-Adrenergic Lindsay Start: 10-03-2021 End: 01-31-2025 take 25 mg by mouth twice daily Metoprolol Tartrate Active 25 MG PO Twice daily February 14, 2024 12:00am nitroglycerin 0.4 mg sublingual tablet (20 sources) Nitrate Vasodilator nitroglyceri n (Nitrostat) 0.[address] 0.4 mg under the tongue every 5 (five) minutes if needed for chest pain Active ondansetron 4 mg disintegrating oral tablet (4 sources) Serotonin-3 Receptor Antagonist Start: 12-06-2023 take 1 tablet by mouth every eight hours as needed ondansetron ODT (ZOFRAN ODT) 4 mg disintegrating tablet Dissolve 1 tablet (4 mg total) on tongue every 8 (eight) hours as needed. 12/06/2023 Active promethazine hydrochloride 25 mg oral tablet (4 sources) Phenothiazine Start: 12-06-2023 take 0.5 tablet by mouth every six hours as needed promethazine (PHENERGAN) 25 mg tablet Take 0.5 tablets (12.5 mg total) by mouth every 6 (six) hours as needed. 12/06/2023 Active sod sulf-pot chloride-mag sulf 1.479-0.188- 0.225 gram tablet (4 sources) Start: 12-19-2023 sod sulf-pot chloride-mag sulf 1.479-0.188- 0.225 gram tablet See instructional sheet given by office. Patient was given a [employer] coupon voucher to use, this is not to be ran through patients insurance. 24 tablet 12/19/2023 Active sucralfate 1000 mg oral tablet (9 sources) Aluminum Complex Start: 12-19-2023 sucralfate (Carafate) 1 g tablet Take 1 g by mouth in the morning and 1 g at noon and 1 g in the evening and 1 g before bedtime. 12/19/2023 Active Sutab 2644-949-176 MG tablet (2 sources) Sutab 1479-225-1 88 MG tablet USE PER INSTRUCTIONAL SHEET GIVEN BY OFFICE Active triamcinolone acetonide 1 mg/ml topical cream (1 source) Corticosteroid Start: 08-12-2024 End: 08-26-2024 triamcinolone (Kenalog) 0.1 % cream Indications: Dermatitis Apply topically 2 (two) times a day for 14 days Apply to affected area, for up to 14 days, avoid use to face 30 g 08/12/2024 08/26/2024 Active Problems Active Problems Problem Classification Problem Date Documented Date Episodic/Chronic Abdominal hernia (3 sources) Diaphragmatic hernia without obstruction or gangrene; Translations: [Hernia of abdominal cavity] Onset: 4 12-18-2023 Episodic Abdominal pain (4 sources) Epigastric pain; Translations: [Right upper quadrant pain] Onset: 4 12-19-2023 Episodic Acute cerebrovascular disease (16 sources) Cerebral infarction; Translations: [Cerebral artery occlusion, unspecified with cerebral infarction] Onset: 3 05-14-2023 Chronic Allergic reactions (2 sources) Inflammatory dermatosis; Translations: [Dermatitis, unspecified] Onset: 4 08-12-2024 Episodic Chronic kidney disease (15 sources) Chronic kidney disease stage 3; Translations: [Chronic kidney disease, stage 3 unspecified] Onset: 3 Resolved: 4 02-14-2024 Chronic Chronic kidney disease (5 sources) Chronic kidney disease; Translations: [Chronic kidney disease, stage 3b (Multi)] Onset: 3 Chronic obstructive pulmonary disease and bronchiectasis (20 sources) Chronic obstructive lung disease; Translations: [Chronic airway obstruction, not elsewhere classified] Onset: 2 06-18-2024 Chronic Coronary atherosclerosis and other heart disease (20 sources) Double coronary vessel disease; Translations: [Coronary atherosclerosis of unspecified type of vessel, [place] or graft] Onset: 2 Resolved: 4 Chronic Coronary atherosclerosis and other heart disease (3 sources) Coronary angioplasty status; Translations: [Coronary angioplasty status] Onset: 2 Episodic Deficiency and other anemia (3 sources) Anemia in chronic kidney disease; Translations: [ANEMIA IN CHRONIC KIDNEY DISEASE] Onset: 3 Chronic Deficiency and other anemia (5 sources) Anemia of renal disease; Translations: [Anemia in chronic kidney disease] Onset: 4 02-14-2024 Chronic Disorders of lipid metabolism (20 sources) Hyperlipidemia; Translations: [Other and unspecified hyperlipidemia] Onset: 2 Chronic Essential hypertension (20 sources) Benign essential hypertension; Translations: [Benign essential hypertension] Onset: 2 06-18-2024 Chronic Hypertension with complications and secondary hypertension (14 sources) Hypertensive chronic kidney disease with stage 1 through stage 4 chronic kidney disease, or unspecified chronic kidney disease; Translations: [Hypertensive renal disease] Onset: 3 Chronic Immunizations and screening for infectious disease (1 source) Needs influenza immunization; Translations: [Encounter for immunization] 08-12-2024 Episodic Nutritional deficiencies (2 sources) Hypoalbuminemia due to protein calorie malnutrition; Translations: [Unspecified protein-calorie malnutrition] Chronic Other diseases of kidney and ureters (5 sources) Secondary hyperparathyroidism of renal origin; Translations: [Secondary hyperparathyroidism (of renal origin)] Onset: 3 Chronic Other diseases of kidney and ureters (6 sources) Secondary hyperparathyroidism; Translations: [Secondary hyperparathyroidism of renal origin] Onset: 4 02-14-2024 Chronic Other liver diseases (1 source) Fatty (change of) liver, not elsewhere classified; Translations: [Fatty (change of) liver, not elsewhere classified] Onset: 4 Chronic Other liver diseases (1 source) Steatosis of liver; Translations: [Fatty (change of) liver, not elsewhere classified] 12-19-2023 Chronic Other nutritional; endocrine; and metabolic disorders (6 sources) Overweight in adulthood with body mass index of 25 or more but less than 30; Translations: [Overweight] Episodic Other nutritional; endocrine; and metabolic disorders (3 sources) Hyperuricemia without signs of inflammatory arthritis and tophaceous disease; Translations: [Other abnormal blood chemistry] Onset: 4 Episodic Other nutritional; endocrine; and metabolic disorders (4 sources) Hyperuricemia; Translations: [Hyperuricemia without signs of inflammatory arthritis and tophaceous disease] Onset: 4 02-14-2024 Episodic Other screening for suspected conditions (not mental disorders or infectious disease) (2 sources) Other specified abnormal findings of blood chemistry; Translations: [Other abnormal blood chemistry] Onset: 4 12-19-2023 Episodic Peripheral and visceral atherosclerosis (20 sources) Peripheral vascular disease, unspecified; Translations: [Intermittent claudication] Onset: 8 Resolved: 4 Chronic Residual codes; unclassified (1 source) Pain, unspecified; Translations: [Pain, unspecified] Onset: 4 Episodic Residual codes; unclassified (2 sources) Body mass index (BMI) 24.0-24.9, adult; Translations: [Body mass index (BMI) 24.0-24.9, adult] Onset: 4 Episodic Screening and history of mental health and substance abuse codes (20 sources) Ex-smoker; Translations: [Personal history of tobacco use] Onset: 2 06-18-2024 Episodic Unclassified (2 sources) Peripheral vascular disease, unspecified / I73.9(ICD-9) Onset: 8 Unclassified (1 source) CHRN KIDNEY DISEASE STG 3 UNSP; Translations: [CHRN KIDNEY DISEASE STG 3 UNSP] Onset: 3 Past or Other Problems Problem Classification Problem Date Documented Da te Episodic/Chronic E Codes: Overexertion (1 source) Slipping, tripping and stumbling without falling, unspecified, initial encounter; Translations: [SLIP TRIP STUMBL NO FALL UNS INIT] Onset: 03-30-2022 Episodic Fracture of lower limb (14 sources) Fracture of unspecified metatarsal bone(s), right foot, initial encounter for closed fracture; Translations: [Displaced fracture of fourth metatarsal bone, right foot, initial encounter for closed fracture] Onset: 03-30-2022 Episodic Mood disorders (1 source) Mood disorders Onset: 08-12-2024 08-12-2024 Other aftercare (1 source) penitentiary (current) use of aspirin; Translations: [[place] CURRENT USE OF ASPIRIN] Onset: 03-30-2022 Episodic Other aftercare (1 source) Other intermediate (current) drug therapy; Translations: [OTH [place] CURRENT DRUG THERAPY] Onset: 03-30-2022 Episodic Other aftercare (1 source) penitentiary (current) use of antithrombotics/ant iplatelets; Translations: [INTERMEDIATE ANTITHROMBOT/ANTIPL ATLETS] Onset: 03-30-2022 Episodic Other connective tissue disease (4 sources) Pain in right foot; Translations: [PAIN IN RIGHT FOOT] Onset: 07-05-2022 Episodic Residual codes; unclassified (11 sources) Body mass index 20-24 - normal; Translations: [Body Mass Index between 19-24, adult] Onset: 05-14-2023 06-18-2024 Episodic Unclassified (1 source) Onset: 06-18-2024 06-18-2024 Results Test Name Value Interpretation Reference Range Facility Dipstick and Microscopicon 1 09-20-2023 Appearance (U) Clear Normal Clear [facility] Comment on above: Order Comment: Name Collection Type:: Clean-Voided Midstream Performed By: #### P ROCRERAT, FE and TIBC, CUU, ADDONUAPLUS, RENAL, PTH, URIC, CBCNO, MG, [id number], ALANA #### [address] Bacteria,Urine None Seen Normal None Seen [facility] Comment on above: Order Comment: Name Collection Type:: Clean-Voided Midstream Performed By: #### P ROCRERAT, FE and TIBC, CUU, ADDONUAPLUS, RENAL, PTH, URIC, CBCNO, MG, [id number], ALANA #### [address] Bilirubin,Urine Negative Normal Negative [facility] Comment on above: Order Comment: Name Collection Type:: Clean-Voided Midstream Performed By: #### P ROCRERAT, FE and TIBC, CUU, ADDONUAPLUS, RENAL, PTH, URIC, CBCNO, MG, [id number], ALANA #### [place] [id number] [facility] Color (U) Colorless Normal Yellow [facility] Comment on above: Order Comment: Name Collection Type:: Clean-Voided Midstream Performed By: #### P ROCRERAT, FE and TIBC, CUU, ADDONUAPLUS, RENAL, PTH, URIC, CBCNO, MG, [id number], ALANA #### [address] Glucose Ql (U) Normal Normal Normal [facility] Comment on above: Order Comment: Name Collection Type:: Clean-Voided Midstream Performed By: #### P ROCRERAT, FE and TIBC, CUU, ADDONUAPLUS, RENAL, PTH, URIC, CBCNO, MG, [id number], ALANA #### [address] Hyaline Casts,Urine 0 [LPF] Normal 0-8 [facility] Comment on above: Order Comment: Name Collection Type:: Clean-Voided Midstream Performed By: #### P ROCRERAT, FE and TIBC, CUU, ADDONUAPLUS, RENAL, PTH, URIC, CBCNO, MG, [id number], ALANA #### [address] Ketones Ql (U) Negative Normal Negative [facility] Comment on above: Order Comment: Name Collection Type:: Clean-Voided Midstream Performed By: #### P ROCRERAT, FE and TIBC, CUU, ADDONUAPLUS, RENAL, PTH, URIC, CBCNO, MG, [id number], ALANA #### [address] Leukocyte esterase Test strip Ql (U) 2+ High Negative [facility] Comment on above: Order Comment: Name Collection Type:: Clean-Voided Midstream Performed By: #### P ROCRERAT, FE and TIBC, CUU, ADDONUAPLUS, RENAL, PTH, URIC, CBCNO, MG, [id number], ALANA #### [address] Mucus,Urine Rare Normal [facility] Comment on above: Order Comment: Name Collection Type:: Clean-Voided Midstream Result Comment: PERF ORMED BY: [place] [address] PATHOLOGIST [employer] JEWEL GONZALES M.D. Performed By: #### P ROCRERAT, FE and TIBC, CUU, ADDONUAPLUS, RENAL, PTH, URIC, CBCNO, MG, [id number], ALANA #### [address] Nitrite,Urine Negative Normal Negative [facility] Comment on above: Order Comment: Name Collection Type:: Clean-Voided Midstream Performed By: #### P ROCRERAT, FE and TIBC, CUU, ADDONUAPLUS, RENAL, PTH, URIC, CBCNO, MG, [id number], ALANA #### [address] Occult Blood,Urine Negative Normal Negative [facility] Comment on above: Order Comment: Name Collection Type:: Clean-Voided Midstream Performed By: #### P ROCRERAT, FE and TIBC, CUU, ADDONUAPLUS, RENAL, PTH, URIC, CBCNO, MG, [id number], ALANA #### [address] pH (U) 5.0 [pH] Normal 5.0-9.0 [facility] Comment on above: Order Comment: Name Collection Type:: Clean-Voided Midstream Performed By: #### P ROCRERAT, FE and TIBC, CUU, ADDONUAPLUS, RENAL, PTH, URIC, CBCNO, MG, [id number], ALANA #### [address] Protein,Urine Negative Normal Negative [facility] Comment on above: Order Comment: Name Collection Type:: Clean-Voided Midstream Performed By: #### P ROCRERAT, FE and TIBC, CUU, ADDONUAPLUS, RENAL, PTH, URIC, CBCNO, MG, [id number], ALANA #### [address] RBC,Urine 1 [HPF] Normal 0-4 [facility] Comment on above: Order Comment: Name Collection Type:: Clean-Voided Midstream Performed By: #### P ROCRERAT, FE and TIBC, CUU, ADDONUAPLUS, RENAL, PTH, URIC, CBCNO, MG, [id number], ALANA #### [address] Specificy Drasco,Urine 1.005 Normal 1.001-1.030 [facility] Comment on above: Order Comment: Name Collection Type:: Clean-Voided Midstream Performed By: #### P ROCRERAT, FE and TIBC, CUU, ADDONUAPLUS, RENAL, PTH, URIC, CBCNO, MG, [id number], ALANA #### [address] Squamous Epithelial Cell,Urine 3 [HPF] High 0-2 [facility] Comment on above: Order Comment: Name Collection Type:: Clean-Voided Midstream Performed By: #### P ROCRERAT, FE and TIBC, CUU, ADDONUAPLUS, RENAL, PTH, URIC, CBCNO, MG, [id number], ALANA #### [address] Urobilinogen,Urine Normal Normal Normal [facility] Comment on above: Order Comment: Name Collection Type:: Clean-Voided Midstream Performed By: #### P ROCRERAT, FE and TIBC, CUU, ADDONUAPLUS, RENAL, PTH, URIC, CBCNO, MG, [id number], ALANA #### [address] WBC,Urine 5 [HPF] High 0-4 [facility] Comment on above: Order Comment: Name Collection Type:: Clean-Voided Midstream Performed By: #### P ROCRERAT, FE and TIBC, CUU, ADDONUAPLUS, RENAL, PTH, URIC, CBCNO, MG, [id number], ALANA #### [address] Ferritinon 07-21-2024 Ferritin [Mass/Vol] 44.6 ng/mL Normal 11.0-306.8 [facility] Comment on above: Performed By: #### P ROCRERAT, FE and TIBC, CUU, ADDONUAPLUS, RENAL, PTH, URIC, CBCNO, MG, [id number], ALANA #### [address] Hemogram CBC Without Diffon 07-21-2024 Erythrocyte distribution width (RBC) [Ratio] 14.4 % Normal 11.9-15.3 [facility] Comment on above: Performed By: #### P ROCRERAT, FE and TIBC, CUU, ADDONUAPLUS, RENAL, PTH, URIC, CBCNO, MG, [id number], ALANA #### [address] Hematocrit (Bld) [Volume fraction] 38.4 % Normal 34.0-46.4 [facility] Comment on above: Performed By: #### P ROCRERAT, FE and TIBC, CUU, ADDONUAPLUS, RENAL, PTH, URIC, CBCNO, MG, [id number], ALANA #### [address] Hemoglobin (Bld) [Mass/Vol] 13.0 g/dL Normal 11.8-15.4 [facility] Comment on above: Performed By: #### P ROCRERAT, FE and TIBC, CUU, ADDONUAPLUS, RENAL, PTH, URIC, CBCNO, MG, [id number], ALANA #### [address] MCH (RBC) [Entitic mass] 32.3 pg Normal 24.7-34.3 [facility] Comment on above: Performed By: #### P ROCRERAT, FE and TIBC, CUU, ADDONUAPLUS, RENAL, PTH, URIC, CBCNO, MG, [id number], ALANA #### [address] MCV (RBC) [Entitic vol] 95.7 fL Normal 80-100 [facility] Comment on above: Performed By: #### P ROCRERAT, FE and TIBC, CUU, ADDONUAPLUS, RENAL, PTH, URIC, CBCNO, MG, [id number], ALANA #### [address] Mean Corpuscular HGB Conc 33.8 g/dL Normal 32.0-35.0 [facility] Comment on above: Performed By: #### P ROCRERAT, FE and TIBC, CUU, ADDONUAPLUS, RENAL, PTH, URIC, CBCNO, MG, [id number], ALANA #### [address] Platelet mean volume (Bld) [Entitic vol] 8.1 fL Normal 6.3-10.7 [facility] Comment on above: Result Comment: PERF ORMED BY: [place] [address] PATHOLOGIST [employer] JEWEL GONZALES M.D. Performed By: #### P ROCRERAT, FE and TIBC, CUU, ADDONUAPLUS, RENAL, PTH, URIC, CBCNO, MG, [id number], ALANA #### [address] Platelets (Bld) [#/Vol] 405 10*3/uL Normal 150-450 [facility] Comment on above: Performed By: #### P ROCRERAT, FE and TIBC, CUU, ADDONUAPLUS, RENAL, PTH, URIC, CBCNO, MG, [id number], ALANA #### [address] RBC (Bld) [#/Vol] 4.02 10*6/uL Normal 3.60-5.00 [facility] Comment on above: Performed By: #### P ROCRERAT, FE and TIBC, CUU, ADDONUAPLUS, RENAL, PTH, URIC, CBCNO, MG, [id number], ALANA #### [address] WBC (Bld) [#/Vol] 9.1 10*3/uL Normal 3.8-11.6 [facility] Comment on above: Performed By: #### P ROCRERAT, FE and TIBC, CUU, ADDONUAPLUS, RENAL, PTH, URIC, CBCNO, MG, [id number], ALANA #### [address] Iron and TIBC Profileon 11-2 5-2024 % Iron Saturation 35.0 % Normal 20-50 [facility] Comment on above: Performed By: #### P ROCRERAT, FE and TIBC, CUU, ADDONUAPLUS, RENAL, PTH, URIC, CBCNO, MG, [id number], ALANA #### [facility] [address] Iron [Mass/Vol] 114 ug/dL Normal 50-212 [facility] Comment on above: Performed By: #### P ROCRERAT, FE and TIBC, CUU, ADDONUAPLUS, RENAL, PTH, URIC, CBCNO, MG, [id number], ALANA #### [facility] [address] Total Iron Binding Capacity 326 ug/dL Normal 255-450 [facility] Comment on above: Performed By: #### P ROCRERAT, FE and TIBC, CUU, ADDONUAPLUS, RENAL, PTH, URIC, CBCNO, MG, [id number], ALANA #### [facility] [address] Transferrin [Mass/Vol] 233 mg/dL Normal 203-362 [facility] Comment on above: Performed By: #### P ROCRERAT, FE and TIBC, CUU, ADDONUAPLUS, RENAL, PTH, URIC, CBCNO, MG, [id number], ALANA #### [address] Lipid Panelon 07-21-2024 Cholesterol [Mass/Vol] 190 mg/dL Normal 140-200 [facility] Comment on above: Result Comment: Chol less than 200 mg/dl low risk Chol 201-239 mg/dl borderline risk Chol 240 mg/dl and greater high risk Performed By: #### P ROCRERAT, FE and TIBC, CUU, ADDONUAPLUS, RENAL, PTH, URIC, CBCNO, MG, [id number], ALANA #### [address] Cholesterol in HDL [Mass/Vol] 110 mg/dL High 23-92 [facility] Comment on above: Result Comment: HDL CHOL ATP-III CLASSIFICATION Cardiovascular Risk HDL > or equal to 60 mg/dL LOW HDL < 40 mg/dL HIGH Performed By: #### P ROCRERAT, FE and TIBC, CUU, ADDONUAPLUS, RENAL, PTH, URIC, CBCNO, MG, [id number], ALANA #### [address] Cholesterol.total/Cho lesterol in HDL [Mass ratio] 1.7 {ratio} Normal <5.0 [facility] Comment on above: Result Comment: PERF ORMED BY: [place] [address] PATHOLOGIST [employer] JEWEL GONZALES M.D. Performed By: #### P ROCRERAT, FE and TIBC, CUU, ADDONUAPLUS, RENAL, PTH, URIC, CBCNO, MG, [id number], ALANA #### [address] LDL Cholesterol,Calculate d 67 mg/dL Normal 0-100 [facility] Comment on above: Result Comment: LDL ATP III CLASSIFICATION LDL less than 100 mg/dL Optimal LDL 100-129 mg/dL Near or above optimal LDL 130-159 mg/dL Borderline high LDL 160-189 mg/dL High LDL greater than 189 mg/dL Very high Performed By: #### P ROCRERAT, FE and TIBC, CUU, ADDONUAPLUS, RENAL, PTH, URIC, CBCNO, MG, [id number], ALANA #### [address] Triglyceride w/Reflex 67 mg/dL Normal 0-149 [facility] Comment on above: Result Comment: TRIG ATP III CLASSIFICATION TRIG less than 150 mg/dL Normal TRIG 150-199 mg/dL Borderline high TRIG 200-500 mg/dL High TRIG greater than 500 mg/dL Very high Standard traceable to the Center for Disease Conrtrol and Prevention (CDC) test method. Performed By: #### P ROCRERAT, FE and TIBC, CUU, ADDONUAPLUS, RENAL, PTH, URIC, CBCNO, MG, [id number], ALANA #### [address] VLDL CHOLESTEROL 13 mg/dL Normal [facility] Comment on above: Performed By: #### P ROCRERAT, FE and TIBC, CUU, ADDONUAPLUS, RENAL, PTH, URIC, CBCNO, MG, [id number], ALANA #### [address] Magnesiumon 07-21-2024 Magnesium [Mass/Vol] 1.9 mg/dL Normal 1.9-2.7 [facility] Comment on above: Performed By: #### P ROCRERAT, FE and TIBC, CUU, ADDONUAPLUS, RENAL, PTH, URIC, CBCNO, MG, [id number], ALANA #### [address] Parathyroid Hormone Intacton 07-21-2024 Parathyroid Hormone Intact 71.4 pg/mL Normal 12-88 [facility] Comment on above: Result Comment: PERF ORMED BY: [place] [address] PATHOLOGIST [employer] JEWEL GONZALES M.D. Performed By: #### P ROCRERAT, FE and TIBC, CUU, ADDONUAPLUS, RENAL, PTH, URIC, CBCNO, MG, [id number], ALANA #### [address] Protein Creat Ratio Ur Rando mon 07-21-2024 Creatinine, Urine (Random) 22.00 mg/dL Normal [facility] Comment on above: Result Comment: No r eference range established Performed By: #### P ROCRERAT, FE and TIBC, CUU, ADDONUAPLUS, RENAL, PTH, URIC, CBCNO, MG, [id number], ALANA #### [address] Protein, Urine (Random) <4 Normal 0-9 [facility] Comment on above: Performed By: #### P ROCRERAT, FE and TIBC, CUU, ADDONUAPLUS, RENAL, PTH, URIC, CBCNO, MG, [id number], ALANA #### [address] Urine Protein/Creatinine Ratio Not performed Normal 0-200 [facility] Comment on above: Result Comment: PERF ORMED BY: [place] [address] PATHOLOGIST [employer] JEWEL GONZALES M.D. Performed By: #### P ROCRERAT, FE and TIBC, CUU, ADDONUAPLUS, RENAL, PTH, URIC, CBCNO, MG, [id number], ALANA #### [address] Renal Function Panelon 07-21 Albumin [Mass/Vol] 4.0 g/dL Normal 3.5-5.7 [facility] Comment on above: Performed By: #### P ROCRERAT, FE and TIBC, CUU, ADDONUAPLUS, RENAL, PTH, URIC, CBCNO, MG, [id number], ALANA #### [address] Anion gap [Moles/Vol] 13.4 mmol/L Normal 6.0-15.0 [facility] Comment on above: Performed By: #### P ROCRERAT, FE and TIBC, CUU, ADDONUAPLUS, RENAL, PTH, URIC, CBCNO, MG, [id number], ALANA #### [address] Calcium [Mass/Vol] 9.4 mg/dL Normal 8.6-10.3 [facility] Comment on above: Performed By: #### P ROCRERAT, FE and TIBC, CUU, ADDONUAPLUS, RENAL, PTH, URIC, CBCNO, MG, [id number], ALANA #### [address] Chloride [Moles/Vol] 100 mmol/L Normal 98-107 [facility] Comment on above: Performed By: #### P ROCRERAT, FE and TIBC, CUU, ADDONUAPLUS, RENAL, PTH, URIC, CBCNO, MG, [id number], ALANA #### [facility] [address] CO2 [Moles/Vol] 29.1 mmol/L Normal 21.0-31.0 [facility] Comment on above: Performed By: #### P ROCRERAT, FE and TIBC, CUU, ADDONUAPLUS, RENAL, PTH, URIC, CBCNO, MG, [id number], ALANA #### [facility] [address] Creatinine [Mass/Vol] 1.16 mg/dL Normal 0.60-1.20 [facility] Comment on above: Performed By: #### P ROCRERAT, FE and TIBC, CUU, ADDONUAPLUS, RENAL, PTH, URIC, CBCNO, MG, [id number], ALANA #### [address] Estimated GFR 50.092 mL/Min Normal [facility] Comment on above: Performed By: #### P ROCRERAT, FE and TIBC, CUU, ADDONUAPLUS, RENAL, PTH, URIC, CBCNO, MG, [id number], ALANA #### [facility] [address] Glucose [Mass/Vol] 89 mg/dL Normal 70-100 [facility] Comment on above: Result Comment: [facility] Glucose Reference Range is dependent on time and content of last meal. Glucose of more than 200 mg/dL in a nonstressed, ambulatory subject supports the diagnosis of Diabetes Mellitus. ADA recommended reference range Performed By: #### P ROCRERAT, FE and TIBC, CUU, ADDONUAPLUS, RENAL, PTH, URIC, CBCNO, MG, [id number], ALANA #### [address] Phosphate [Mass/Vol] 3.5 mg/dL Normal 2.5-4.5 [facility] Comment on above: Performed By: #### P ROCRERAT, FE and TIBC, CUU, ADDONUAPLUS, RENAL, PTH, URIC, CBCNO, MG, [id number], ALANA #### [address] Potassium [Moles/Vol] 4.5 mmol/L Normal 3.5-5.1 [facility] Comment on above: Performed By: #### P ROCRERAT, FE and TIBC, CUU, ADDONUAPLUS, RENAL, PTH, URIC, CBCNO, MG, [id number], ALANA #### [address] Sodium [Moles/Vol] 138 mmol/L Normal 136-145 [facility] Comment on above: Performed By: #### P ROCRERAT, FE and TIBC, CUU, ADDONUAPLUS, RENAL, PTH, URIC, CBCNO, MG, [id number], ALANA #### [address] Urea nitrogen [Mass/Vol] 13 mg/dL Normal 7-25 [facility] Comment on above: Performed By: #### P ROCRERAT, FE and TIBC, CUU, ADDONUAPLUS, RENAL, PTH, URIC, CBCNO, MG, [id number], ALANA #### [address] Uric Acidon 07-21-2024 Urate [Mass/Vol] 6.7 mg/dL High 2.3-6.6 [facility] Comment on above: Performed By: #### P ROCRERAT, FE and TIBC, CUU, ADDONUAPLUS, RENAL, PTH, URIC, CBCNO, MG, [id number], ALANA #### [address] Urine Cultureon 07-21-2024 Bacteria identified Cx Nom (U) 15,000 colonies/ml mixed bacterial skin contaminants 2 Days PERFORMED BY: [place] [address] PATHOLOGIST [employer] JEWEL GONZALES M.D. Normal [facility] Comment on above: Performed By: #### P ROCRERAT, FE and TIBC, CUU, ADDONUAPLUS, RENAL, PTH, URIC, CBCNO, MG, [id number], ALANA #### [facility] [id number] [facility] Vitamin D 25 Hydroxy Totalon 07-21-2024 Vitamin D 25 Hydroxy Total 39.9 ng/mL Normal 30-100 [facility] Comment on above: Result Comment: MELIZA MIN D STATUS 25(OH)VITAMIN D RANGE (ng/mL) Deficient <20 Insufficient 20 to <30 Sufficient 30 to 100 Reference: Britt MF,Antonia NC, Zaid VIVAS, et al. Evaluation,treatment, and prevention of vitamin D deficiency; an Endocrine Society clinical practice guideline. JCEM. 2010; 96(7):1911-30. PERFORMED BY: [place] [address] PATHOLOGIST [employer] JEWEL GONZALES M.D. Performed By: #### P ROCRERAT, FE and TIBC, CUU, ADDONUAPLUS, RENAL, PTH, URIC, CBCNO, MG, [id number], ALANA #### [facility] [id number] [facility] Erythrocyte distribution wid th Auto (RBC) [Ratio]on 02-05-2024 Erythrocyte distribution width (RBC) [Ratio] 14.2 % 11.0-15.0 [facility] Estimated glomerular filtrat ion rate (GFR) non- Americanon 02-05-2024 GFR/1.73 sq M.predicted among non-blacks MDRD (S/P/Bld) [Vol rate/Area] 41 mL/min/{1.73_m2} >=60 [facility] Hematocrit Auto (Bld) [Volum e fraction]on 02-05-2024 Hematocrit (Bld) [Volume fraction] 34.7 % 36.0-48.0 [facility] Hemoglobin [Mass/volume] in Bloodon 02-05-2024 Hemoglobin (Bld) [Mass/Vol] 11.7 g/dL 12.0-16.0 [facility] Laboratory - Chemistry and C hemistry - challengeon 02-05-2024 Albumin [Mass/Vol] 2.9 g/dL 3.4-5.0 [facility] Calcium [Mass/Vol] 8.7 mg/dL 8.5-10.1 [facility] Chloride [Moles/Vol] 100 mmol/L 98-107 [facility] CO2 [Moles/Vol] 29.0 mmol/L 21.0-32.0 [facility] Creatinine [Mass/Vol] 1.27 mg/dL 0.55-1.02 [facility] GFR/1.73 sq M.predicted MDRD (S/P/Bld) [Vol rate/Area] 50 mL/min/{1.73_m2} >=60 [facility] Glucose [Mass/Vol] 94 mg/dL 74-106 [facility] Magnesium [Mass/Vol] 1.9 mg/dL 1.8-2.4 [facility] Potassium [Moles/Vol] 4.0 mmol/L 3.5-5.1 [facility] Sodium [Moles/Vol] 138 mmol/L 136-145 [facility] Urate [Mass/Vol] 6.2 mg/dL 2.6-6.0 [facility] Urea nitrogen [Mass/Vol] 14.0 mg/dL 7.0-18.0 [facility] Urea nitrogen/Creatinine [Mass ratio] 11.0 mg/mg [facility] Bilirubin Ql (U) Negative NEGATIVE [facility] Glucose (U) [Mass/Vol] Negative NEGATIVE [facility] Ketones Ql (U) Negative NEGATIVE [facility] pH (U) 6.0 [pH] 5.0-9.0 [facility] Specific gravity (U) [Rel density] 1.010 1.005-1.025 [facility] Urobilinogen Qn (U) 0.2 {Mitcehll'U}/dL 0.2-1.0 [facility] Laboratory - Specimen inform ationon 02-05-2024 Appearance (U) CLEAR CLEAR [facility] Color (U) LT. YELLOW YELLOW [facility] Laboratory - Urinalysison Leukocyte esterase Test strip Ql (U) MODERATE NEGATIVE [facility] Mucus Ql (Urine sed) NONE SEEN NONE SEEN [facility] Nitrite Ql (U) Negative NEGATIVE [facility] Protein Ql (U) Negative NEG/TRACE [facility] Leukocytes [#/volume] correc rigo for nucleated erythrocytes in Blood by Automated counon 02-05-2024 WBC corrected for nucl RBC Auto (Bld) [#/Vol] 8.5 10 3/uL 4.0-11.0 [facility] MCH Auto (RBC) [Entitic mass ]on 02-05-2024 MCH (RBC) [Entitic mass] 31.4 pg 26.7-34.0 [facility] MCHC Auto (RBC) [Mass/Vol]on 02-05-2024 MCHC (RBC) [Mass/Vol] 33.7 g/dL 29.9-35.2 [facility] MCV Auto (RBC) [Entitic vol] on 02-05-2024 MCV (RBC) [Entitic vol] 93.0 fL 81.0-99.0 [facility] No Panel Informationon 02-04 25-Hydroxy Vitamin D Total 41.3 ng/mL [facility] Comment on above: <20 ng/mL Vit D defi cient20-<30 ng/mL Vit D [id number] ng/mL Vit D sufficient>100 ng/mL Potential Toxicity Parathyroid Hormone (Intact) 42 pg/mL 15-65 [facility] Comment on above: Performed at: [facility] [employer] [address] [id number] Director: Aditya Kimbrough PhD, Phone: [phone] Phosphorus Level 3.3 mg/dL 2.6-4.7 [facility] Urine Bacteria MODERATE #/HPF NONE SEEN [facility] Urine Occult Blood Negative NEGATIVE [facility] Urine Random Creatinine 21.26 mg/dL 20.00-300.00 [facility] Urine Random Total Protein <6.0 mg/dL <=11.9 [facility] Urine RBC NONE SEEN #/HPF 0-2 [facility] Urine Squamous Epithelial Cells MODERATE #/LPF NONE/RARE [facility] Urine WBC 5-10 #/HPF NONE SEEN [facility] Platelet mean volume Auto (B ld) [Entitic vol]on 02-05-2024 Platelet mean volume (Bld) [Entitic vol] 9.5 fL 9.5-13.5 [facility] Platelets Auto (Bld) [#/Vol] on 02-05-2024 Platelets (Bld) [#/Vol] 387 10 3/uL 150-450 [facility] RBC Auto (Bld) [#/Vol]on RBC (Bld) [#/Vol] 3.73 10 6/uL 4.20-5.40 [facility] Serum or plasma anion gap de terminationon 02-05-2024 Anion gap [Moles/Vol] 13.0 mmol/L [facility] Urine protein/creatinine rat ioon 02-05-2024 Protein/Creatinine (U) [Ratio] 0.28 [facility] Alexander 01-09-2024 L Specimen: [id number] Received: 01/10/24 Status: MOHAMUD Burns Num: [id number] Spec Type: Surgical Subm Dr: Jose Luis Adam DO Tissues: A Stomach - Biopsy/Polyp (ANTRUM BX) B Esophagus Biopsy (DISTAL ESOPHAGUS) Procedures: HE/4, Gross/Micro L4/2, PAS-Alcian Blue, H PYLORI/2 Age/ Patient Sex Location Account Attending Physician Mira Shelton 73/F LABELL [id number] Jose Luis Adam DO SPEC NUM: [id number] RECD: 01/10/24 STATUS: MOHAMUD BURNS NUM: [id number] EVA: 01/09/24 [facility] DR: Jose Luis Adam DO ENTERED: 01/10/[address]: Nafisa,Lab SPEC TYPE: Surgical DEPT: KEYUR SULLIVAN ORDERED: HE/4, Gross/Micro L4/2, PAS-Alcian Blue, H PYLORI/2 ORDERED: HE/4, Gross/Micro L4/2, PAS-Alcian Blue, H PYLORI/2 Supplemental Report Addendum 1 Entered: 01/13/24 Supplemental for findings of PAS/AB special stain without a change or the initial interpretation: -The PAS/AB special stain is also negative CPT: 48351 Addendum Signed (signature on file) Edouard Barrera MD 01/13/24 1545 -------- Pathological Diagnosis A, gastric antrum biopsy: -Antral mucosa with moderate chronic gastritis in both fragments of only minor active type, and with focal mild chronic erosion, otherwise without intestinal metaplasia, active erosion, or glandular atypia identified -------- Specimen: [id number] Received: 01/10/24 Status: MOHAMUD Burns Num: [id number] Spec Type: Surgical Subm Dr: Jose Luis Adam DO Tissues: A Stomach - Biopsy/Polyp (ANTRUM BX) B Esophagus Biopsy (DISTAL ESOPHAGUS) Procedures: HE/4, Gross/Micro L4/2, PAS-Alcian Blue, H PYLORI/2 -------- Patient: Mira Shelton [id number] (Continued) -------- Specimen: [id number] Received: 01/10/24 (Continued) Pathological Diagnosis (Continued) Signed (signature on file) Edouard Barrera MD 01/13/24 1437 -------- Specimen: [id number] Received: 01/10/24 Status: MOHAMUD Burns Num: [id number] Spec Type: Surgical Subm Dr: Jose Luis Adam DO Tissues: A Stomach - Biopsy/Polyp (ANTRUM BX) B Esophagus Biopsy (DISTAL ESOPHAGUS) Procedures: HE/4, Gross/Micro L4/2, PAS-Alcian Blue, H PYLORI/2 -------- Patient: Mira Shelton [id number] (Continued) -------- Specimen: [id number] Received: 01/10/24 (Continued) Pathological Diagnosis (Continued) -H. [...] Clinical history: Hiatal hernia, esophagitis CPT Codes 90387 X2 [id number] -------- -------- Specimen: [id number] Received: 01/10/24 Status: BARNEYNeris Burns Num: [id number] Spec Type: Surgical Subm Dr: Jose Luis Adam DO Tissues: A Stomach - Biopsy/Polyp (ANTRUM BX) B Esophagus Biopsy (DISTAL ESOPHAGUS) Procedures: HE/4, Gross/Micro L4/2, PAS-Alcian Blue, H PYLORI/2 -------- Patient: Mira Shelton [id number] (Continued) -------- Signed (signature on file) Edouard Barrera MD 01/13/24 1437 Normal [facility] Surgical PathologyOrdered By : Janett Monroe on 01-09-2024 [facility] ECG 12 leadon 12-06-2023 [facility] PTH INTACTon 10-31-2022 PTH, Intact 42 pg/mL Normal 15-[address] [facility] Comment on above: Performed By: #### P THINT #### [facility] [address] [address] [address] Adin Barrera FERRITINon 10-30-2022 Ferritin [Mass/Vol] 35.0 ng/mL Normal 8.0-252.0 [facility] Comment on above: Performed By: #### F ERR, FETIBC, VITAD #### [facility] [address] [address] [address] Adin Barrera HEMOGRAM AND PLATELon 2022 Hematocrit (Bld) [Volume fraction] 35.5 % Critically low 36.0-48.[address] [facility] Comment on above: Performed By: #### H H #### [facility] [address] [address] [address] Adin Barrera Hemoglobin (Bld) [Mass/Vol] 11.9 g/dL Critically low 12.0-16.[address] [facility] Comment on above: Performed By: #### H H #### [facility] [address] [address] [address] Adin Barrera MCH (RBC) [Entitic mass] 31.5 pg Normal 26.7-34.[address] [facility] Comment on above: Performed By: #### H H #### [facility] [address] [address] [address] Adin Barrera MCHC (RBC) [Mass/Vol] 33.5 g/dL Normal 29.9-35.[address] [facility] Comment on above: Performed By: #### H H #### [facility] [address] [place] [address] Dr. Adin Barrera MCV (RBC) [Entitic vol] 93.9 fL Normal 81.0-99.[address] [facility] Comment on above: Performed By: #### H H #### [facility] [address] [address] [address] Adin Barrera PLT 435 103/ul Normal 150-450 [facility] Comment on above: Performed By: #### H H #### [facility] [address] [place] [address] Dr. Adin Barrera RBC 3.78 106/ul Critically low 4.20-5.40 [facility] Comment on above: Performed By: #### H H #### [facility] [address] [place] [address] Dr. Adin Barrera WBC 9.1 103/ul Normal 4.0-11.0 [facility] Comment on above: Performed By: #### H H #### [facility] [address] [place] [address] Dr. Adin Barrera IRON AND TIBCon 10-30-2022 % SATURATION 29.4 % Normal [facility] Comment on above: Performed By: #### F ERR, FETIBC, VITAD #### [facility] [address] [place] [address] Dr. Adin Barrera Iron [Mass/Vol] 84.0 ug/dL Normal 50.0-170.0 [facility] Comment on above: Performed By: #### F ERR, FETIBC, VITAD #### [facility] [address] [place] [address] Dr. Adin Barrera TIBC DIRECT 286.0 ug/dL Normal 250.0-450.0 [facility] Comment on above: Performed By: #### F ERR, FETIBC, VITAD #### [facility] [address] [place] [address] Dr. Adin Barrera MAGNESIUMon 10-30-2022 Magnesium [Mass/Vol] 1.8 mg/dL Normal 1.8-2.4 [facility] Comment on above: Performed By: #### M G, URIC, RENAL #### [facility] [address] [place] [address] Dr. Adin Barrera RENAL FUNCTION PANELon 10-30 Albumin [Mass/Vol] 3.4 g/dL Normal 3.4-5.0 [facility] Comment on above: Performed By: #### M G, URIC, RENAL #### [facility] [address] [place] [address] Dr. Adin Barrera Calcium [Mass/Vol] 9.2 mg/dL Normal 8.5-10.1 [facility] Comment on above: Performed By: #### M G, URIC, RENAL #### [facility] [address] [place] [address] Dr. Adin Barrera Chloride [Moles/Vol] 104 mmol/L Normal 98-107 [facility] Comment on above: Performed By: #### M G, URIC, RENAL #### [facility] [address] [place] [address] Dr. Adin Barrera CO2 [Moles/Vol] 24.9 mmol/L Normal 21.0-32.0 [facility] Comment on above: Performed By: #### M G, URIC, RENAL #### [facility] [address] [place] [address] Dr. Adin Barrera Creatinine [Mass/Vol] 1.13 mg/dL Critically high 0.55-1.[address] [facility] Comment on above: Performed By: #### M G, URIC, RENAL #### [facility] [address] [address] [address] Adin Barrera EGFR-AF CROATIAN 58 mL/min/1.73m2 Critically low >=60 [facility] Comment on above: Performed By: #### M G, URIC, RENAL #### [facility] [address] [address] [address] Adin Barrera EGFR-NON AF CROATIAN 48 mL/min/1.73m2 Critically low >=60 [facility] Comment on above: Performed By: #### M Luis Armando, URIC, RENAL #### [facility] [address] [address] [address] Adin Barrera Glucose [Mass/Vol] 88 mg/dL Normal 74-106 [facility] Comment on above: Performed By: #### M Luis Armando, URIC, RENAL #### [facility] [address] [address] [address] Adin Barrera Phosphate [Mass/Vol] 3.4 mg/dL Normal 2.6-4.[address] [facility] Comment on above: Performed By: #### M Luis Armando, URIC, RENAL #### [facility] [address] [address] [address] Adin Barrera Potassium [Moles/Vol] 4.4 mmol/L Normal 3.5-5.1 [facility] Comment on above: Performed By: #### M G, URIC, RENAL #### [facility] [address] [address] [address] Adin Barrera Sodium [Moles/Vol] 139 mmol/L Normal 136-145 [facility] Comment on above: Performed By: #### M G, URIC, RENAL #### [facility] [address] [address] [address] Adin Barrera Urea nitrogen [Mass/Vol] 13.0 mg/dL Normal 7.0-18.[address] [facility] Comment on above: Performed By: #### M G, URIC, RENAL #### [facility] [address] [address] [address] Adin Barrera UA RANDOM W/MICROSCOPICon BACTERIA TRACE Abnormal NONE SEEN [facility] Comment on above: Performed By: #### M G, URIC, RENAL #### [facility] [address] [place] [address] Dr. Adin Barrera Bilirubin Ql (U) Negative Normal NEGATIVE [facility] Comment on above: Performed By: #### M G, URIC, RENAL #### [facility] [address] [place] [address] Dr. Adin Barrera CAST NONE SEEN Normal NONE SEEN [facility] Comment on above: Performed By: #### M G, URIC, RENAL #### [facility] [address] [place] [address] Dr. Adin Barrera Clarity (U) CLEAR Normal CLEAR [facility] Comment on above: Performed By: #### M G, URIC, RENAL #### [facility] [address] [place] [address] Dr. Adin Barrera Color (U) LT. YELLOW Normal YELLOW [facility] Comment on above: Performed By: #### M G, URIC, RENAL #### [facility] [address] [place] [address] Dr. Adin Barrera Crystals LM Nom (Urine sed) NONE SEEN Normal NONE SEEN [facility] Comment on above: Performed By: #### M G, URIC, RENAL #### [facility] [address] [place] [address] Dr. Adin Barrera Epithelial cells LM Ql (Urine sed) FEW Abnormal NONE SEEN /RARE [facility] Comment on above: Performed By: #### M G, URIC, RENAL #### [facility] [address] [place] [address] Dr. Adin Barrera Glucose Ql (U) Negative Normal NEGATIVE [facility] Comment on above: Performed By: #### M G, URIC, RENAL #### [facility] [address] [place] [address] Dr. Adin Barrera Hemoglobin Ql (U) Negative Normal NEGATIVE [facility] Comment on above: Performed By: #### M G, URIC, RENAL #### [facility] [address] [address] [address] Adin Barrera Ketones Ql (U) Negative Normal NEGATIVE [facility] Comment on above: Performed By: #### M G, URIC, RENAL #### [facility] [address] [address] [address] Adin Barrera LEUKOCYTES MODERATE Abnormal NEGATIVE [facility] Comment on above: Performed By: #### M G, URIC, RENAL #### [facility] [address] [address] [address] Adin Barrera MUCOUS NONE SEEN Normal NONE SEEN [facility] Comment on above: Performed By: #### M G, URIC, RENAL #### [facility] [address] [address] [address] Adin Barrera Nitrite Ql (U) Negative Normal NEGATIVE [facility] Comment on above: Performed By: #### M G, URIC, RENAL #### [facility] [address] [address] [address] Adin Barrera pH (U) 5.5 [pH] Normal 5-9 [facility] Comment on above: Performed By: #### M G, URIC, RENAL #### [facility] [address] [address] [address] Adin Barrera RBC 0-2 Normal 0-[address] [facility] Comment on above: Performed By: #### M G, URIC, RENAL #### [facility] [address] [address] [address] Adin Barrera SPEC GRAVITY 1.010 Normal 1.005-<=1.025 [facility] Comment on above: Performed By: #### M G, URIC, RENAL #### [facility] [address] [address] [address] Adin Barrera UA PROTEIN Negative Normal NEGATIVE/ TRACE [facility] Comment on above: Performed By: #### M G, URIC, RENAL #### [facility] [address] [address] [address] Adin Barrera Urobilinogen Qn (U) 0.2 {Mitchell'U}/dL Normal 0.2 - 1. 0 [facility] Comment on above: Performed By: #### M G, URIC, RENAL #### [facility] [address] [address] [address] Adin Barrera WBC 5-10 Abnormal NONE SEEN [facility] Comment on above: Performed By: #### M G, URIC, RENAL #### [facility] [address], [place] [address] Dr. Adin Barrera URIC ACID SERUMon 10-30-2022 Urate [Mass/Vol] 5.4 mg/dL Normal 2.6-6.0 [facility] Comment on above: Performed By: #### M G, URIC, RENAL #### [facility] [address] [place] [address] [address] Adin Barrera VITAMIN D 25 OHon 10-30-2022 VIT D 25-OH 38.3 ng/mL Normal [facility] Comment on above: Performed By: #### F ERR, FETIBC, VITAD #### [facility] [address] [address] [address] Adin Barrera VIT D RANGES SEE BELOW Normal [facility] Comment on above: Result Comment: <20 ng/mL Vit D deficient 20 - <30 ng/mL Vit D insufficient 30 - 100 ng/mL Vit D sufficient >100 ng/mL Potential Toxicity Performed By: #### F ERR, FETIBC, VITAD #### [facility] [address] [address] [address] Adin Barrera Cardiac Stress Teston 2021 Cardiac Stress Test [address], [address], [place] [address] Exercise Stress Test Patient Name: MIRA SHELTON Ordering Physician: [id number] Marshall Shah DO Study Date: 07/31/2022 Reading Physician: [id number] Jessica Rojo MD, [facility] MRN/PID: [id number] Supervising Physician: [id number] Ayala Cordova MD Accession/Order#: [id number] Referring Physician: MARSHALL SHAH Date of : 1950 PCP: Gender: F Fellow: Height: 165.10 cm Nurse: Jessika Aguirre RN Weight: 68.04 kg Overseamer: KATIE BSA: 1.75 m2 Technologist: BMI: 24.96 kg/m2 Additional Staff: Age: 72 years cc report to: Patient Location: cc report to: [id number] Marshall Shah DO Study Type: Cardiac Stress Test Diagnosis/ICD: 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 Stress Stage Data: + +-- -+------+-------+ HR Sys BP Sahu BP + +-- -+------+-------+ Baseline Resting 82 120 78 + +-- -+------+-------+ Baseline Standing 83 122 76 + +-- -+------+-------+ Stage I 129 154 76 + +-- -+------+-------+ Recovery ECG: The heart rate recovery was normal. + +---+--- ---+-------+ HR Sys BP Sahu BP + +---+--- ---+-------+ Recovery I 127 146 72 + +---+--- ---+-------+ Recovery II 120 138 62 + +---+--- ---+-------+ Recovery III 100 126 68 + +---+--- ---+-------+ Recovery IV 90 120 74 + +---+--- ---+-------+ Summary: 1. 1_normal exercise tolerance test after [...] The adequate level of stress was achieved. [id number] Jessica Rojo MD, FACC Electronically signed on 07/31/2022 at 7:18:[address] [facility] Cardiac Stress Test MP-No rth [facility] 250 DO Work Phone: LIPID PROFILEon 06-15-2022 CHOL-HDL RATIO NORM SEE BELOW Normal [facility] Comment on above: Result Comment: 3.3 - 4.4 LOW RISK 4.4 - 7.1 AVERAGE RISK 7.1 - 11.0 MODERATE RISK >11.0 HIGH RISK Performed By: #### M G, URIC, RENAL #### [facility] [address] [address] [address] Adin Barrera Cholesterol [Mass/Vol] 191 mg/dL Normal <=[address] [facility] Comment on above: Performed By: #### M G, URIC, RENAL #### [facility] [address] [address] [address] Adin Barrera Cholesterol in HDL [Mass/Vol] 108 mg/dL Critically high 40-[address] [facility] Comment on above: Performed By: #### M G, URIC, RENAL #### [facility] [address] [address] [address] Adin Barrera Cholesterol in LDL [Mass/Vol] 70.4 mg/dL Normal [facility] Comment on above: Performed By: #### M G, URIC, RENAL #### [facility] [address] [address] [address] Adin Barrera Cholesterol.total/Cho lesterol in HDL [Mass ratio] 1.8 {ratio} Normal [facility] Comment on above: Performed By: #### M G, URIC, RENAL #### [facility] [address] [address] [address] Adin Barrera HDL NORMAL > or = 60 mg/dl - LO W CARDIOVASCULAR RISK <40 mg/dl - HIGH CARDIOVASCULAR RISK Normal [facility] Comment on above: Performed By: #### M G, URIC, RENAL #### [facility] [address] [address] [address] Adin Barrera LDL CALC NORMAL SEE BELOW Normal [facility] Comment on above: Result Comment: <100 mg/dl OPTIMAL 100 - 129 mg/dl NEAR OR ABOVE OPTIMAL 130 - 159 mg/dl BORDERLINE HIGH 160 - 189 mg/dl HIGH >190 mg/dl VERY HIGH Performed By: #### M G, URIC, RENAL #### [facility] [address] [address] [address] Adin Barrera Triglyceride [Mass/Vol] 63 mg/dL Normal <=150 [facility] Comment on above: Performed By: #### M G, URIC, RENAL #### [facility] [address], [place] [address] Dr. Adin Barrera VLDL CALC 12.6 mg/dL Normal [facility] Comment on above: Performed By: #### M G, URIC, RENAL #### [facility] [address], [place] [address] Dr. Adin Barrera SGOTon 06-15-2022 AST [Catalytic activity/Vol] 18 U/L Normal 15-[address] [facility] Comment on above: Performed By: #### M G, URIC, RENAL #### [facility] [address], [place] [address] Dr. Adin CONTRERASPTon 06-15-2022 ALT [Catalytic activity/Vol] 19 U/L Normal 14-[address] [facility] Comment on above: Performed By: #### M G, URIC, RENAL #### [facility] [address], [place] [address] Dr. Adin Barrera Office Visit (Cardiology)on 06-07-2022 [...] PTCA Cardiac Stress Test; Status:Hold For - Scheduling,Retrospect jarrett By Protocol Authorization; Requested for:[id number]; Hyperlipidemia ALT - Alanine Aminotransferase, Serum; Status:Active - Retrospective Authorization; Requested for:[id number]; AST; Status:Active - Retrospective Authorization; Requested for:[id number]; Lipid Panel; Status:Active - Retrospective Authorization; Requested for:[id number]; Patient Instructions Please bring all medicines, vitamins, [...] hospitalizations. 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 Normal Eng[facility] Tobacco Screening.on 022 Adult depression screening assessment No [facility] [employer] 250 DO Work Phone: Fall risk assessment b) One or more fall s in the last year [facility] 250 DO Work Phone: Tobacco use status [facility] b) No [facility] 250 DO Work Phone: VIT D 25-[place] LABCORPon 2021 Vitamin D, 25-Hydroxy 36.0 ng/mL Normal 30.0-100.[address] [facility] Comment on above: Result Comment: Meliza min D deficiency has been defined by the [place] [employer] and an Endocrine Society practice guideline as a level of serum 25-OH vitamin D less than 20 ng/mL (1,2). The Endocrine Society went on to further define vitamin D insufficiency as a level between 21 and 29 ng/mL (2). 1. IOM ([place] [employer]). 2010. Dietary reference intakes for calcium and D. [place]: The National Academies Press. 2. Britt MF, Antonia MAGAÑA, Zaid VIVAS, et al. Evaluation, treatment, and prevention of vitamin D deficiency: an Endocrine Society clinical practice guideline. JCEM. 2010; 96(7):1911-30. Performed By: #### M Luis Armando URIC, RENAL #### [facility] [address] [place] [address] Dr. Adin Barrera PTH INTACTon 05-06-2022 PTH, Intact 33 pg/mL Normal 15-[address] [facility] Comment on above: Performed By: #### M G, URIC, RENAL #### [facility] [address] [address] [address] Adin Barrera FERRITINon 05-05-2022 Ferritin [Mass/Vol] 28.0 ng/mL Normal 8.0-252.0 [facility] Comment on above: Performed By: #### M G URIC, RENAL #### [facility] [address] [address] [address] Adin Barrera HEMOGRAM AND PLATELon 2021 Hematocrit (Bld) [Volume fraction] 34.9 % Critically low 36.0-48.[address] [facility] Comment on above: Performed By: #### H H #### [facility] [address] [address] [address] Adin Barrera Hemoglobin (Bld) [Mass/Vol] 11.3 g/dL Critically low 12.0-16.[address] [facility] Comment on above: Performed By: #### H H #### [facility] [address] [place] [address] Dr. Adin Barrera MCH (RBC) [Entitic mass] 29.0 pg Normal 26.7-34.0 [facility] Comment on above: Performed By: #### H H #### [facility] [address] [place] [address] Dr. Adin Barrera MCHC (RBC) [Mass/Vol] 32.4 g/dL Normal 29.9-35.2 [facility] Comment on above: Performed By: #### H H #### [facility] [address] [place] [address] Dr. Adin Barrera MCV (RBC) [Entitic vol] 89.7 fL Normal 81.0-99.0 [facility] Comment on above: Performed By: #### H H #### [facility] [address] [place] [address] Dr. Adin Barrera PLT 355 103/ul Normal 150-450 [facility] Comment on above: Performed By: #### H H #### [facility] [address] [place] [address] Dr. Adin Barrera RBC 3.89 106/ul Critically low 4.20-5.40 [facility] Comment on above: Performed By: #### H H #### [facility] [address] [place] [address] Dr. Adin Barrera WBC 9.8 103/ul Normal 4.0-11.0 [facility] Comment on above: Performed By: #### H H #### [facility] [address] [place] [address] Dr. Adin Barrera IRON AND TIBCon 05-05-2022 % SATURATION 17.9 % Normal [facility] Comment on above: Performed By: #### M G, URIC, RENAL #### [facility] [address] [place] [address] Dr. Adin Barrera Iron [Mass/Vol] 53.0 ug/dL Normal 50.0-170.0 [facility] Comment on above: Performed By: #### M G, URIC, RENAL #### [facility] [address] [place] [address] Dr. Adin Barrera TIBC DIRECT 296.0 ug/dL Normal 250.0-450.0 [facility] Comment on above: Performed By: #### M G, URIC, RENAL #### [facility] [address] [address] [address] Adin Barrera MAGNESIUMon 05-05-2022 Magnesium [Mass/Vol] 2.0 mg/dL Normal 1.8-2.[address] [facility] Comment on above: Performed By: #### M G, URIC, RENAL #### [facility] [address] [address] [address] Adin Barrera RENAL FUNCTION PANELon 05-05 Albumin [Mass/Vol] 3.2 g/dL Critically low 3.4-5.0 [facility] Comment on above: Performed By: #### M G, URIC, RENAL #### [facility] [address] [address] [address] Adin Barrera Calcium [Mass/Vol] 8.7 mg/dL Normal 8.5-10.1 [facility] Comment on above: Performed By: #### M G, URIC, RENAL #### [facility] [address] [address] [address] Adin Barrera Chloride [Moles/Vol] 102 mmol/L Normal 98-[address] [facility] Comment on above: Performed By: #### M G, URIC, RENAL #### [facility] [address] [address] [address] Adin Barrera CO2 [Moles/Vol] 28.0 mmol/L Normal 21.0-32.0 [facility] Comment on above: Performed By: #### M G, URIC, RENAL #### [facility] [address] [address] [address] Adin Barrera Creatinine [Mass/Vol] 1.25 mg/dL Critically high 0.55-1.[address] [facility] Comment on above: Performed By: #### M G, URIC, RENAL #### [facility] [address] [address] [address] Adin Barrera EGFR-AF CROATIAN 51 mL/min/1.73m2 Critically low >=[address] [facility] Comment on above: Performed By: #### M G, URIC, RENAL #### [facility] [address] [address] [address] Adin Barrera EGFR-NON AF CROATIAN 42 mL/min/1.73m2 Critically low >=[address] [facility] Comment on above: Performed By: #### M G, URIC, RENAL #### [facility] [address] [address] [address] Adin Barrera Glucose [Mass/Vol] 101 mg/dL Normal 74-106 [facility] Comment on above: Performed By: #### M G, URIC, RENAL #### [facility] [address] [place] [address] Dr. Adin Barrera Phosphate [Mass/Vol] 3.9 mg/dL Normal 2.6-4.[address] [facility] Comment on above: Performed By: #### M G, URIC, RENAL #### [facility] [address] [place] [address] Dr. Adin Barrera Potassium [Moles/Vol] 3.8 mmol/L Normal 3.5-5.[address] [facility] Comment on above: Performed By: #### M G, URIC, RENAL #### [facility] [address] [place] [address] Dr. Adin Barrera Sodium [Moles/Vol] 139 mmol/L Normal 136-145 [facility] Comment on above: Performed By: #### M G, URIC, RENAL #### [facility] [address] [place] [address] Dr. Adin Barrera Urea nitrogen [Mass/Vol] 11.0 mg/dL Normal 7.0-18.[address] [facility] Comment on above: Performed By: #### M G, URIC, RENAL #### [facility] [address] [place] [address] Dr. Adin Barrera UA RANDOM W/MICROSCOPICon BACTERIA SMALL Abnormal NONE SEEN [facility] Comment on above: Performed By: #### U AMIC #### [facility] [address] [place] [address] Dr. Adin Barrera Bilirubin Ql (U) Negative Normal NEGATIVE [facility] Comment on above: Performed By: #### U AMIC #### [facility] [address] [address] [address] Adin Barrera CAST NONE SEEN Normal NONE SEEN [facility] Comment on above: Performed By: #### U AMIC #### [facility] [address] [address] [address] Adin Barrera Clarity (U) CLEAR Normal CLEAR [facility] Comment on above: Performed By: #### U AMIC #### [facility] [address] [address] [address] Adin Barrera Color (U) LT. YELLOW Normal YELLOW [facility] Comment on above: Performed By: #### U AMIC #### [facility] [address] [place] [address] Dr. Adin Barrera Crystals LM Nom (Urine sed) NONE SEEN Normal NONE SEEN [facility] Comment on above: Performed By: #### U AMIC #### [facility] [address] [place] [address] Dr. Adin Barrera Epithelial cells LM Ql (Urine sed) FEW Abnormal NONE SEEN /RARE [facility] Comment on above: Performed By: #### U AMIC #### [facility] [address] [place] [address] Dr. Adin Barrera Glucose Ql (U) Negative Normal NEGATIVE [facility] Comment on above: Performed By: #### U AMIC #### [facility] [address] [address] [address] Adin Barrera Hemoglobin Ql (U) Negative Normal NEGATIVE [facility] Comment on above: Performed By: #### U AMIC #### [facility] [address] [address] [address] Adin Barrera Ketones Ql (U) Negative Normal NEGATIVE [facility] Comment on above: Performed By: #### U AMIC #### [facility] [address] [place] [address] Dr. Adin Barrera LEUKOCYTES MODERATE Abnormal NEGATIVE [facility] Comment on above: Performed By: #### U AMIC #### [facility] [address] [address] [address] Adin Barrera MUCOUS NONE SEEN Normal NONE SEEN [facility] Comment on above: Performed By: #### U AMIC #### [facility] [address] [place] [address] Dr. Adin Barrera Nitrite Ql (U) Negative Normal NEGATIVE [facility] Comment on above: Performed By: #### U AMIC #### [facility] [address] [address] [address] Adin Barrera pH (U) 6.0 [pH] Normal 5-9 [facility] Comment on above: Performed By: #### U AMIC #### [facility] [address] [place] [address] Dr. Adin Barrera RBC NONE SEEN Abnormal 0-[address] [facility] Comment on above: Performed By: #### U AMIC #### [facility] [address] [place] [address] Dr. Adin Barrera SPEC GRAVITY 1.010 Normal 1.005-<=1.025 [facility] Comment on above: Performed By: #### U AMIC #### [facility] [address] [place] [address] Dr. Adin Barrera UA PROTEIN Negative Normal NEGATIVE/ TRACE [facility] Comment on above: Performed By: #### U AMIC #### [facility] [address] [place] [address] Dr. Adin Barrera Urobilinogen Qn (U) 0.2 {Mitchell'U}/dL Normal 0.2 - 1. [address] [facility] Comment on above: Performed By: #### U AMIC #### [facility] [address] [place] [address] Dr. Adin Barrera WBC 10-20 Abnormal NONE SEEN [facility] Comment on above: Performed By: #### U AMIC #### [facility] [address] [place] [address] Dr. Adin Barrera URIC ACID SERUMon 05-05-2022 Urate [Mass/Vol] 6.2 mg/dL Critically high 2.6-6.[address] [facility] Comment on above: Performed By: #### M G, URIC, RENAL #### [facility] [address] [address] [address] Adin Barrera URINE T PROTEIN CREAT RATIOo n 05-05-2022 Protein (U) [Mass/Vol] 6.5 mg/dL Normal <=12.[address] [facility] Comment on above: Performed By: #### M G, URIC, RENAL #### [facility] [address] [address] [address] Adin Barrera UR PROT CREAT RAT 0.21 Normal [facility] Comment on above: Performed By: #### M G, URIC, RENAL #### [facility] [address] [place] [address] Dr. Adin Barrera URINE CREAT 31.60 mg/dL Normal 20.00-300.00 [facility] Comment on above: Performed By: #### M G, URIC, RENAL #### [facility] [address] [address] [address] Adin Barrera VIT B12 AND FOLATEon 022 Cobalamin (Vitamin B12) [Mass/Vol] 208.0 pg/mL Normal 193.0-986.[address] [facility] Comment on above: Performed By: #### M G, URIC, RENAL #### [facility] [address] [place] [address] Dr. Adin Barrera FOLATE 13.30 ng/mL Normal 8.60-58.[address] [facility] Comment on above: Performed By: #### M G, URIC, RENAL #### [facility] [address] [place] [address] Dr. Adin Barrera Tobacco Screening.on 021 Fall risk assessment a) No falls within the last year [facility] 250 DO Work Phone: Tobacco use status [facility] b) No [facility] 250 DO Work Phone: Vital Signs Date Time Vital Sign Value Performing Clinician Facility 08-12-2024 10:36-0500 Body height 163.8 cm Ingrid Mark [employer]ER Work Phone: [facility] 08-12-2024 10:36-0500 Body mass index (BMI) [Ratio] 24.34 kg/m2 Ingrid Gonzalesz [employer]ER Work Phone: [facility] 08-12-2024 10:36-0500 Body temperature 98.29 [degF] Ingrid Gonzalesz [employer]ER Work Phone: [facility] 08-12-2024 10:36-0500 Body weight 65.32 kg Ingridterri Gonzalesz [employer]ER Work Phone: [facility] 08-12-2024 10:36-0500 Diastolic blood pressure 82 mm[Hg] Ingrid Gonzalesz [employer]OW [employer]ER Work Phone: [facility] 08-12-2024 10:36-0500 Heart rate 75 /min Ingridterri Gonzalesz [employer]ER Work Phone: [facility] 08-12-2024 10:36-0500 Respiratory rate 19 /min Ingridterri Gonzalesz [employer]ER Work Phone: [facility] 08-12-2024 10:36-0500 SaO2% (BldA) [Mass fraction] 97 % Ingrid Gonzalesz [employer]ER Work Phone: [facility] 08-12-2024 10:36-0500 Systolic blood pressure 112 mm[Hg] Ingrid Gonzalesz [employer]ER Work Phone: [facility] 06-18-2024 09:03-0400 Body height 162.6 cm Marshall Shah DO Work Phone: [facility] 06-18-2024 09:03-0400 Body mass index (BMI) [Ratio] 24.55 kg/m2 Marshall Shah DO Work Phone: [facility] 06-18-2024 09:03-0400 Body weight 64.86 kg Marshall Shah DO Work Phone: [facility] 06-18-2024 09:03-0400 Diastolic blood pressure 76 mm[Hg] Marshall Shah DO Work Phone: [facility] 06-18-2024 09:03-0400 Heart rate 68 /min Marshall Shah DO Work Phone: [facility] 06-18-2024 09:03-0400 Systolic blood pressure 122 mm[Hg] Marshall Shah DO Work Phone: [facility] 02-14-2024 09:10-0400 Body height 161.29 cm DO Jose Luis Adam Work Phone: [facility] 02-14-2024 09:10-0400 Body mass index (BMI) [Ratio] 24.6 kg/m2 DO Jose Luis Adam Work Phone: [facility] 02-14-2024 09:10-0400 Body temperature 96.2 [degF] DO Jose Luis Adam Work Phone: [facility] 02-14-2024 09:10-0400 Body weight 64.18 kg DO Jose Luis Hays Work Phone: [facility] 02-14-2024 09:10-0400 Diastolic blood pressure 60 mm[Hg] DO Jose Luis Hays Work Phone: [facility] 02-14-2024 09:10-0400 Heart rate 82 /min DO Jose Luis Hays Work Phone: [facility] 02-14-2024 09:10-0400 Respiratory rate 16 /min DO Jose Luis Hays Work Phone: [facility] 02-14-2024 09:10-0400 SaO2% (BldA) [Mass fraction] 94 % DO Jose Luis Hays Work Phone: [facility] 02-14-2024 09:10-0400 Systolic blood pressure 110 mm[Hg] DO Jose Luis Bhartis Work Phone: [facility] 12-19-2023 09:43-0400 Body height 165.1 cm Jose Luis Adam DO Work Phone: [employer] 12-19-2023 09:43-0400 Body mass index (BMI) [Ratio] 23.63 kg/m2 Jose Luis Adam DO Work Phone: [employer] 12-19-2023 09:43-0400 Body weight 64.41 kg Jose Luis Adam DO Work Phone: [employer] 08-23-2023 09:40-0500 Body height 161.29 cm Aggie Nessa Other [email or web address] Other 08-23-2023 09:40-0500 Body mass index (BMI) [Ratio] 25.51 kg/m2 Aggie Nessa Other [email or web address] Other 08-23-2023 09:40-0500 Body temperature 97.6 [degF] Aggie Nessa Other [email or web address] Other 08-23-2023 09:40-0500 Body weight 66.36 kg Aggie Nessa Other [email or web address] Other 08-23-2023 09:40-0500 Diastolic blood pressure 60 mm[Hg] Aggie Nessa Other [email or web address] Other 08-23-2023 09:40-0500 Respiratory rate 18 /min Aggie Nessa Other [email or web address] Other 08-23-2023 09:40-0500 SaO2% (BldA) [Mass fraction] 95 % Aggie Nessa Other [email or web address] Other 08-23-2023 09:40-0500 Systolic blood pressure 104 mm[Hg] Aggie Nessa Other [email or web address] Other 11-09-2022 10:20-0400 Body height 161.29 cm Aggie Nessa Other [email or web address] Other 11-09-2022 10:20-0400 Body mass index (BMI) [Ratio] 25.45 kg/m2 Aggie Nessa Other [email or web address] Other 11-09-2022 10:20-0400 Body temperature 96.5 [degF] Aggie Nessa Other [email or web address] Other 11-09-2022 10:20-0400 Body weight 66.23 kg Aggie Nessa Other [email or web address] Other 11-09-2022 10:20-0400 Diastolic blood pressure 74 mm[Hg] Aggie Nessa Other [email or web address] Other 11-09-2022 10:20-0400 Respiratory rate 18 /min Aggie Nessa Other [email or web address] Other 11-09-2022 10:20-0400 SaO2% (BldA) [Mass fraction] 96 % Aggie Nessa Other [email or web address] Other 11-09-2022 10:20-0400 Systolic blood pressure 110 mm[Hg] Aggie Nessa Other [email or web address] Other 06-07-2022 09:20-0400 Body height 165.1 cm Ingrid Yisel Mark Work Phone: [place] [facility] Work Phone: 06-07-2022 09:20-0400 Body mass index (BMI) [Ratio] 24.96 kg/m2 Ingrid Morillo Aichholz Work Phone: [facility] DO Work Phone: 06-07-2022 09:20-0400 Body surface area Derived from formula 1.75 m2 Ingrid Morillo Aichholz Work Phone: [facility] DO Work Phone: 06-07-2022 09:20-0400 Body weight 68.04 kg Ingrid Morillo Aichholz Work Phone: [facility] DO Work Phone: 06-07-2022 09:20-0400 Diastolic blood pressure 64 mm[Hg] Ingrid Morillo Aichholz Work Phone: [facility] DO Work Phone: 06-07-2022 09:20-0400 Heart rate 68 /min Ingrid Morillo Aichholz Work Phone: [facility] DO Work Phone: 06-07-2022 09:20-0400 Systolic blood pressure 110 mm[Hg] Ingrid Morillo Aichholz Work Phone: [facility] DO Work Phone: 06-02-2021 09:29-0400 Body height 160.02 cm Ingrid Morillo Aichholz Work Phone: [facility] DO Work Phone: 06-02-2021 09:29-0400 Body mass index (BMI) [Ratio] 26.39 kg/m2 Ingrid Morillo Aichholz Work Phone: [facility] DO Work Phone: 06-02-2021 09:29-0400 Body surface area Derived from formula 1.71 m2 Ingrid Morillo Aichholz Work Phone: [facility] DO Work Phone: 06-02-2021 09:29-0400 Body weight 67.59 kg Ingrid Morillo Aichholz Work Phone: [facility] DO Work Phone: 06-02-2021 09:29-0400 Diastolic blood pressure 78 mm[Hg] Ingrid Morillo Aichholz Work Phone: [facility] DO Work Phone: 06-02-2021 09:29-0400 Heart rate 74 /min Ingrid Diazhholz Work Phone: [facility] DO Work Phone: 06-02-2021 09:29-0400 Systolic blood pressure 136 mm[Hg] Ingrid Diazhholz Work Phone: [facility] DO Work Phone: 05-09-2021 13:12-0400 0 1 Ingrid Diazhholz Work Phone: [facility] DO Work Phone: Comment on above: [id number] Encounters Encounter Date Encounter Type Care Provider Facility Start: 08-12-2024 End: 08-12-2024 Bamboo flowsheet Ingrid Mark SNOW GROOMER Work Phone: [facility] Start: 08-12-2024 End: 08-12-2024 Bamboo flowsheet Ingrid Mark SNOW GROOMER Work Phone: [facility] Start: 08-12-2024 End: 08-12-2024 Patient encounter procedure Ignrid Mark SNOW GROOMER Work Phone: [facility] Comment on above: Encounter for subseq uent annual wellness visit (AWV) in Medicare patient (Primary Dx); Peripheral vascular disease, unspecified ([facility]/HCC); Chronic kidney disease, stage 3b (HCC) (CMS/HCC); Chronic obstructive pulmonary disease, unspecified (CMS/HCC); Mixed hyperlipidemia (CMS/HCC); Hyperuricemia; Secondary hyperparathyroidism (CMS/HCC); Hypertensive chronic kidney disease with stage 1 through stage 4 chronic kidney disease, or unspecified chronic kidney disease (CMS/HCC); PAD (peripheral artery disease) (CMS/HCC); Essential hypertension, benign ([facility]/HCC); Coronary artery disease involving [place] coronary artery of [place] heart without angina pectoris ([facility]); Former smoker; Needs flu shot; Dermatitis Start: 08-12-2024 End: 08-12-2024 ambulatory INGRID MARK Not Available Start: 07-21-2024 End: 07-21-2024 ambulatory Ingrid Mark Facility:[facility] Start: 06-18-2024 End: 06-18-2024 Office outpatient visit 25 minutes Marshall Shah DO Work Phone: [facility] Comment on above: 2-vessel coronary ar kaylan disease; History of PTCA; History of myocardial infarction; PVD (peripheral vascular disease) ([facility]); Essential hypertension, benign; Mixed hyperlipidemia; Stage 3b chronic kidney disease (Multi); BMI 24.0-24.9, adult; Former smoker; Chronic obstructive pulmonary disease, unspecified COPD type (Multi) Start: 06-18-2024 End: 06-18-2024 ambulatory MARSHALL SHAH [facility] Ambulatory Start: 02-14-2024 End: 02-14-2024 ambulatory DO Jose Luis Adam Work Phone: [facility] Work Phone: Start: 02-14-2024 End: 02-14-2024 Patient encounter procedure DO Jose Luis Adam Work Phone: [facility] [place] Work Phone: Start: 02-05-2024 Non-patient / Non-visit DO Corwin Adam Work Phone[facility] Work Phone: Start: 01-15-2024 End: 01-15-2024 Orders Only Not In System Ref Prov [facility] Start: 01-09-2024 End: 01-09-2024 ambulatory Jose Luis Leonel Johnhaley Facility:[facility] Start: 01-09-2024 End: 01-09-2024 Departed Referred DO Jose Luis Adam Work Phone: [facility] Start: 01-08-2024 End: 07-01-2024 Telephone encounter Karnia Corbettp [facility] Start: 12-19-2023 End: 12-19-2023 ambulatory JOSE LUIS ADAM [facility] Start: 12-19-2023 End: 12-19-2023 Office outpatient new 45 minutes Jose Luis Adam DO Work Phone: [facility] Comment on above: Hiatal hernia (Prima ry Dx); Elevated LFTs; Fatty liver; Epigastric abdominal pain; Right upper quadrant abdominal pain Start: 12-12-2023 ambulatory JOSE LUIS BHARTIGwendolyn [facility] Start: 12-11-2023 End: 12-12-2023 Orders Only Not In System Ref Prov [facility] Start: 08-23-2023 End: 08-23-2023 ambulatory Aggie Nessa Other [facility] [employer] Other Start: 08-23-2023 Office outpatient vi sit 25 minutes Aggie Nessa [facility] [place] Start: 01-19-2023 Rx Renewal Ingrid Morillo Aichho lz Work Phone: -[facility] DO Work Phone: Start: 11-09-2022 End: 11-09-2022 ambulatory Aggie Nessa Other [facility] [employer] Other Start: 11-09-2022 Office outpatient vi sit 15 minutes Aggie Nessa [facility] [place] Start: 10-30-2022 End: 10-31-2022 ambulatory AGGIE NESSA Facility:[facility] Start: 08-02-2022 Chart Update Ingrid Suhho lz Work Phone: [facility] DO Work Phone: Start: 07-31-2022 ambulatory Mrs. Ingrid Morillo Joehholkrystyna Facility:[id number] Start: 07-05-2022 End: 07-06-2022 ambulatory [facility] Facility:[facility] Start: 06-15-2022 End: 06-16-2022 ambulatory LUNCH WAGON OPERATOR INGRID JAS Facility:[facility] Start: 06-08-2022 End: 06-09-2022 ambulatory GEOVANNI KARYN Facility:[facility] Start: 06-07-2022 Office outpatient vi sit 25 minutes Ingrid Morillo Joehholz Work Phone: [facility] DO Work Phone: Start: 06-07-[address] Marshall Shah Fac ility: Start: 05-11-2022 End: 05-12-2022 ambulatory GEOVANNI KARYN Facility:[facility] Start: 05-05-2022 End: 05-06-2022 ambulatory AGGIE NESSA Facility:[facility] Start: 04-12-2022 End: 04-13-2022 ambulatory [facility] Facility:[facility]1 Start: 03-29-2022 End: 03-29-2022 ambulatory LUNCH WAGON OPERATOR INGRID MARK Facility:[facility]1 Start: 12-28-2021 Rx Renewal Ingrid Suhho lz Work Phone: [facility] DO Work Phone: Start: 10-03-2021 Rx Renewal Ingrid Diazhho lz Work Phone: [facility] DO Work Phone: Start: 06-02-2021 Office outpatient vi sit 25 minutes Ingrid Morillo Aichholz Work Phone: [facility] DO Work Phone: Start: 11-21-2017 Ambulatory PROVIDER UNKNOWN Facili ty:[id number] Procedures Date Procedure Procedure Detail Performing Clinician Start: 08-12-2024 Mammography Ingrid boateng SNOW GROOMER Work Phone: Start: 01-09-2024 Level i surg patholo gy gross examination only Not In System Ref Prov Start: 12-06-2023 Ecg routine ecg w/le ast 12 lds trcg only w/o i&r Not In System Ref Prov Start: 05-14-2023 History of percutane ous transluminal coronary angioplasty History of PTCA Marshall Hahndon DO Work Phone: Biopsy of breast Ingrid Morillo Aic hholz Work Phone: History of percutane ous transluminal coronary angioplasty History of PTCA Ingrid Morillo Aichholz Work Phone: History of percutane ous transluminal coronary angioplasty History of PTCA Marshall Shah DO Work Phone: Hysterectomy Ingrid Yisel Aichhol z Work Phone: Ligation of fallopian tube L michelle Yisel Aichholz Work Phone: Neuroplasty of media n nerve at carpal tunnel Ingrid Morillo Aichholz Work Phone: Removal of ectopic from fallopian tube Ingrid Morillo Aichholz Work Phone: Surgical procedure Ingrid Morillo A ichholz Work Phone: Total colonoscopy Ingrid Morillo chholz Work Phone: Plan of Treatment Date Care Activity Detail Author Start: 08-13-2025 End: 08-13-2025 Patient encounter procedure 08/13/2025 10:00 AM EST Office Visit [facility] [address] [place] [address] Ingrid Mark NP [address] [place] [id number] [facility] Start: 08-12-2025 Medicare Annual Wellness (AWV) Medicare Annual Wellness (AWV) [facility] Start: 08-12-2025 Screening for malignant neoplasm of breast Mammogram [facility] Start: 08-12-2025 Screening for malignant neoplasm of colon Colorectal Cancer Screening [facility] Comment on above: Postponed from 1950 (Patient Refus ed) Start: 06-18-2025 End: 06-18-2025 Patient encounter procedure 06/18/2025 10:10 AM EDT Office Visit [facility] [address] [place] [address] Marshall Shah DO [address] [place] [address] [facility] Start: 12-18-2024 Adult BMI Screening Adult BMI Screening [facility] Start: 12-18-2024 Tobacco Screening Tobacco Screening [facility] Start: 08-12-2024 End: 08-12-2024 Patient encounter procedure 08/12/2024 10:30 AM EST Office Visit [facility] [address] [place] [address] Ingrid Mark NP [address] [place] [address] Mixed hyperlipidemia (CMS/HCC) (Primary Dx); Peripheral vascular disease, unspecified (CMS/HCC); Chronic kidney disease, stage 3b (HCC) (CMS/HCC); Chronic obstructive pulmonary disease, unspecified (CMS/HCC); Hyperuricemia; Secondary hyperparathyroidism (CMS/HCC); Hypertensive chronic kidney disease with stage 1 through stage 4 chronic kidney disease, or unspecified chronic kidney disease (CMS/HCC); PAD (peripheral artery disease) (CMS/HCC); Essential hypertension, benign (CMS/HCC); Coronary artery disease involving [place] coronary artery of [place] heart without angina pectoris (CMS/HCC); Encounter for subsequent annual wellness visit (AWV) in Medicare patient; Former smoker [facility] Comment on above: Mixed hyperlipidemia (CMS/HCC) (Primary Dx); Peripheral vascular disease, unspecified (CMS/HCC); Chronic kidney disease, stage 3b (HCC) (CMS/HCC); Chronic obstructive pulmonary disease, unspecified (CMS/HCC); Hyperuricemia; Secondary hyperparathyroidism (CMS/HCC); Hypertensive chronic kidney disease with stage 1 through stage 4 chronic kidney disease, or unspecified chronic kidney disease (CMS/HCC); PAD (peripheral artery disease) (CMS/HCC); Essential hypertension, benign (CMS/HCC); Coronary artery disease involving [place] coronary artery of [place] heart without angina pectoris (CMS/HCC); Encounter for subsequent annual wellness visit (AWV) in Medicare patient; Former smoker Start: 06-18-2024 End: 06-18-2025 Lipid 1996 panel - Serum or Plasma Lipid Panel Lab Routine 2-vessel coronary artery disease Mixed hyperlipidemia Expected: 06/18/2024 (Approximate), Expires: 06/18/2025 [facility] Service Area Work Phone: Comment on above: Expected: 06/18/2024 (Approximate), Expi res: 06/18/2025 Start: 04-27-2024 COVID-19 Vaccine ( season) COVID-19 Vaccine () [facility] Start: 04-27-2024 Influenza vaccination [facility] Start: 01-09-2024 End: 01-09-2024 Patient encounter procedure 01/09/2024 9:45 AM EDT Procedure visit [facility] [address] [place] [id number] Jose Luis Adam, [address] [place], [place] [id number] [facility] Start: 12-19-2023 End: 12-19-2023 Patient encounter procedure 12/19/2023 9:45 AM EDT Office Visit [facility] [address] [place] [address] Jose Luis Adam DO [address] [place] [address] [facility] Start: 06-13-2023 FUV, Provider: Marshall Shah, Status: Pen, Time: 9:30 AM FUV, Provider: Marshall Shah, Status: Pen, Time: 9:30 AM -[facility] DO Work Phone: Start: 07-31-2022 STRESS ARAMIS, Provider: CHAD HHVI NUCLEAR 01,[id number], Status: Pen, Time: 11:00 AM STRESS ARAMIS, Provider: CHAD HHVI NUCLEAR 01,[id number], Status: Pen, Time: 11:00 AM -[facility] DO Work Phone: Start: 06-07-2022 FUV, Provider: Marshall Shah, Status: Pen, Time: 9:20 AM FUV, Provider: Marshall Shah, Status: Pen, Time: 9:20 AM -[facility] DO Work Phone: Start: 07-05-2021 STRESS ARAMIS, Provider: CHAD HHVI NUCLEAR 01,[id number], Status: Pen, Time: 11:00 AM STRESS ARAMIS, Provider: CHAD HHVI NUCLEAR 01,[id number], Status: Pen, Time: 11:00 AM -[facility] DO Work Phone: Start: 2017 Fall Risk Screening Fall Risk Screening [facility] Start: 2017 Pneumococcal Vaccine: 65+ Years (2 of 2 - PCV) Pneumococcal Vaccine: 65+ Years (2 of 2 - PCV) [facility] Start: 05-27-2016 Pneumococcal Vaccine: 65+ Years (2 of 2 - PCV) Pneumococcal Vaccine: 65+ Years (2 of 2 - PCV) [facility] Start: 2012 RSV High Risk: (Elderly (60+) or Population) (1 - Risk 60-74 years 1-dose series) RSV High Risk: (Elderly (60+) or Population) (1 - Risk 60-74 years 1-dose series) [facility] Start: 2002 Administration of varicella zoster vaccine Zoster (Shingles) Vaccine (1 of 2) [facility] Start: 2002 Zoster Vaccines (1 of 2) Zoster Vaccines (1 of 2) [facility] Start: 1992 Screening for malignant neoplasm of breast Mammogram [facility] Start: 1974 DTaP/Tdap/Td Vaccines (1 - Tdap) DTaP/Tdap/Td Vaccines (1 - Tdap) [facility] Start: 1971 DTaP,Tdap and Td Vaccines (1 - Tdap) DTaP,Tdap and Td Vaccines (1 - Tdap) [facility] Start: 1971 Urine screening for protein CKD: Urine Protein Screening [facility] Start: 1970 Adult BMI Screening Adult BMI Screening [facility] Start: 1970 Diabetes mellitus screening Diabetes Screening [facility] Start: 1970 Hepatitis C screening Hepatitis C Screening [facility] Start: 1964 Depression Screening Depression Screening [facility] Start: 1964 Tobacco Screening Tobacco Screening [facility] Start: 1952 Annual wellness visit Medicare Initial Physical (IPPE) [facility] Start: 1952 Lipid panel Lipid Panel [facility] Start: 1952 Medicare Annual Wellness Visit Medicare Annual Wellness Visit (AWV) [facility] Start: 1952 Screening for malignant neoplasm of colon [facility] Start: 1952 Screening for osteoporosis Bone Density Scan [facility] End: 12-18-2024 EGD / Colonoscopy EGD / Colonoscopy GI Routine Hiatal hernia Epigastric abdominal pain Right upper quadrant abdominal pain 1 Occurrences starting 12/19/2023 until 12/18/2024 [employer] Comment on above: 1 Occurrences starting 12/19/2023 until 12/18/2024 End: 12-18-2024 Liver panel Liver panel Lab Routine Elevated LFTs Fatty liver Epigastric abdominal pain Right upper quadrant abdominal pain 1 Occurrences starting 12/19/2023 until 12/18/2024 [employer] Work Phone: Comment on above: 1 Occurrences starting 12/19/2023 until 12/18/2024 Renal function 2000 panel - Serum or Plasma [facility] Immunizations Immunization Date Immunization Notes Care Provider Christiane butler 08-12-2024 influenza, high dose seasonal, preservative-free Ingrid Mark SNOW GROOMER Work Phone: [facility] 06-26-2023 Influenza, Seasonal, Quadrivalent, Adjuvanted Ingrid Janetz SNOW GROOMER Work Phone: [facility] 06-26-2023 influenza virus vacc ine, unspecified formulation Not Ref Prov [facility] 12-13-2021 Comirnaty 30 MCG/0.3 ML Intramuscular Suspension Ingrid Yisel Suhholkrystyna Work Phone: [facility] 250 DO Work Phone: 06-20-2021 Fluad Quadrivalent 0 .5 ML Intramuscular Prefilled Syringe Ingridterri Diazhholkrystyna Work Phone: [facility] 250 DO Work Phone: 06-20-2021 Pfizer-BioNTech COVI D-19 Vacc 30 MCG/0.3ML Intramuscular Suspension Ingrid Yisel Diazhholz Work Phone: [facility] 250 DO Work Phone: 11-16-2020 Pfizer-BioNTech COVI D-19 Vacc 30 MCG/0.3ML Intramuscular Suspension Ingrid Yisel Diazhholz Work Phone: [facility] 250 DO Work Phone: 10-25-2020 Pfizer-BioNTech COVI D-19 Vacc 30 MCG/0.3ML Intramuscular Suspension Ingrid Yisel Diazhholz Work Phone: [facility] 250 DO Work Phone: 06-10-2020 Fluad Quadrivalent 0 .5 ML Intramuscular Prefilled Syringe Ingrid Yisel Diazhholz Work Phone: [facility] 250 DO Work Phone: 06-24-2019 Seasonal trivalent influenza vaccine, adjuvanted, preservative free Ingrid Morillo Aickaylaholkrystyna Work Phone: [place] [address] DO Work Phone: 05-27-2019 influenza virus vacc ine, unspecified formulation Ingrid Mark Work Phone: [place] [address] DO Work Phone: 08-27-2017 influenza virus vacc ine, unspecified formulation [facility] Work Phone: [place] [address] DO Work Phone: 06-27-2017 influenza, injectabl e, quadrivalent, preservative free Ingrid Morillo [employer] Impkaylaholkrystyna Work Phone: [place] [address] DO Work Phone: 05-27-2015 pneumococcal polysaccharide vaccine, 23 valent Ingrid Morillo [facility] Work Phone: [place] [address] DO Work Phone: 06-14-2014 influenza virus vacc ine, unspecified formulation [facility]grid [facility] Work Phone: [place] [address] DO Work Phone: Payers Date Payer Category Payer Self-pay [id number] 2017 Managed Care Other (unspecified) COMMERCIAL [id number] 2017 Unknown 2017 Medicare [id number] 2017 Private Health Insurance [id number] 1959 Medicare [id number] 1959 Unknown [id number] 1952 Unknown [id number] [id number] .356 1952 Unknown [id number] 2.16.840.1.490469.3.579.2 .1068 1952 Unknown [id number] 2.16.840.1.133123.3.579.2 .593 1952 Unknown [id number] 2.16.840.1.708067.3.579.2 .593 1952 Unknown [id number] 2.16.840.1.910533.3.579.2 .593 1952 Unknown [id number] 2.16.840.1.851510.3.579.2 .593 1952 Unknown [id number] 2.16.840.1.993725.3.579.2 .593 1952 Unknown [id number] 2.16.840.1.814207.3.579.2 .593 1952 Unknown [id number] 2.16.840.1.765871.3.579.2 .593 1952 Unknown [id number] 2.16.840.1.122775.3.579.2 .593 1952 Unknown [id number] 2.16.840.1.448342.3.579.2 .1286 1952 Unknown [id number] 2.16.840.1.159709.3.579.2 .1244 1952 Unknown [id number] [id number] .1259 Medicare [id number] Unknown [facility] GONZALES/CINDI [id number] Unknown [id number] [id number] .531 Unknown [id number] .531 Social History Date Type Detail Facility Start: 12-19-2023 End: 06-18-2024 No illicit drug use No illicit drug use [facility] 250 DO Work Phone: Comment on above: socially; 2 sodas daily; Start: 12-19-2023 End: 06-18-2024 Sex Assigned At [facility] [employer] Other Start: 12-19-2023 End: 02-14-2024 Tobacco smoking status GAIS Ex-smoker (finding) [facility] Start: 1950 Sex Assigned At Female [facility] End: 08-27-2012 History of tobacco use Current smoker [facility] End: 08-27-2012 History of tobacco use Cigarette Smoker [facility] Start: 06-13-2023 End: 12-19-2023 Tobacco use and exposure Smokeless tobacco non-user [facility] Start: 06-18-2024 End: 08-12-2024 Alcoholic beverage intake Current drinker of alcohol (finding) [facility] Work Phone: Start: 06-13-2023 Alcohol Comment occassionally [facility] Work Phone: Start: 1950 Sex assigned at Not on file [facility] Start: 06-08-2024 End: 06-18-2024 Exposure to SARS-CoV-2 (event) Not sure [facility] Tobacco smoking status GAIS Tobacco smoking consumption unknown [facility] Start: 08-12-2024 Tobacco smoking status NHIS Never smoked tobacco [facility] Start: 08-12-2024 Alcohol Comment caffine: two s odas daily no coffee no tea [facility] Start: 12-19-2023 Alcoholic beverage intake Not Asked [facility] Childcare Unknown [facility] Start: 12-19-2023 Alcohol Comment 4-6 A WEEK [facility] Start: 04-01-2015 Sex Female (finding) [facility] Clinical Notes 03-29-2022 to 08-12-2024 JANETT LING - 08/12/2024 10:30 AM ESTLisa Jas, ADELITA - 08/12/2024 10:30 AM ESTLisa Jas, SNOW GROOMER - 08/12/2024 6:48 AM ESTLisa Jas, SNOW GROOMER - 08/12/2024 6:48 AM ESTPatient Instructions Note Date & Type Note Facility 08-12-2024 History of Present illness Narrative Pt has a rash on her chest for a week now pt has been using skin cream for itching but has not gone a way. Images from the original note were not included. Mira Shelton is a 74 y.o. female presents with chief complaint of Medicare Annual Wellness Visit Initial HPI: Diet: balanced, and dairy Activity: tries, but limited with PAD Mental Health Concerns: none Falls in the last year: no Still driving:yes Do you pay your bills:yes Any hearing problems:no Any Vision problems: wears glasses, had eye exam 2023 Any Hospitalizations in the last year: none Specialist: nephrology as well as [facility] HCPOA/Living Will: yes Concerns: rash Chest only, +itch, X1 week, no fever, chills, did get new shower soap, thinks it could have been that went back to old soap SUBJECTIVE: MEDICATIONS: Current Outpatient Medications Medication Instructions albuterol 2.5 mg, Every 6 hours PRN amLODIPine (NORVASC) 5 mg, Oral, Daily aspirin 81 mg, Oral, Daily RT atorvastatin (LIPITOR) 80 mg, Oral, Nightly clopidogrel (PLAVIX) 75 mg, Oral, Daily furosemide (LASIX) 20 mg, Oral, Daily metoprolol tartrate (LOPRESSOR) 25 mg, Oral, 2 times daily nitroglycerin (NITROSTAT) 0.4 mg, Sublingual, Every 5 min PRN sucralfate (CARAFATE) 1 g, 4 times daily Sutab [id number] MG tablet USE PER INSTRUCTIONAL SHEET GIVEN BY OFFICE triamcinolone (Kenalog) 0.1 % cream Topical, 2 times daily, Apply to affected area, for up to 14 days, avoid use to face ALLERGIES: No Known Allergies REVIEW OF SYMPTOMS: Review of Systems Constitutional: Negative for appetite change, chills and fever. HENT: Negative for congestion, ear pain, sinus pressure and sore throat. Eyes: Negative for pain, discharge, redness and visual disturbance. Respiratory: Positive for cough and shortness of breath. Negative for wheezing. Cardiovascular: Positive for leg swelling. Negative for chest pain and palpitations. Leg pain from PAD Gastrointestinal: Negative for abdominal pain, blood in stool, constipation, diarrhea, nausea and vomiting. Genitourinary: Negative for difficulty urinating, dysuria and frequency. Musculoskeletal: Negative for arthralgias, back pain, joint swelling and myalgias. Skin: Negative for rash and wound. Neurological: Negative for dizziness, tremors, seizures, syncope and headaches. Psychiatric/Behavioral: Negative for behavioral problems, self-injury and suicidal ideas. The patient is not nervous/anxious. Hematological: Does not bruise/bleed easily. Endocrine: Negative for polydipsia, polyphagia and polyuria. Allergic/Immunologic: Negative for environmental allergies and food allergies. PAST MEDICAL HISTORY History reviewed. No pertinent past medical history. History reviewed. No pertinent surgical history. family history is not on file. OBJECTIVE: Visit Vitals BP 112/82 (BP Location: Left arm, Patient Position: Sitting, BP Cuff Size: Adult long) Pulse 75 Temp 98.3 F (Temporal) Resp 19 Ht 5' 4.5 Wt 144 lb SpO2 97% BMI 24.34 kg/m Smoking Status Never BSA 1.72 m Physical Exam Vitals and nursing note reviewed. Constitutional: General: She is not in acute distress. Appearance: Normal appearance. She is normal weight. She is not ill-appearing. HENT: Head: Normocephalic and atraumatic. Right Ear: Tympanic membrane, ear canal and external ear normal. Left Ear: Tympanic membrane, ear canal and external ear normal. Nose: Nose normal. No congestion or rhinorrhea. Mouth/Throat: Mouth: Mucous membranes are moist. Pharynx: No oropharyngeal exudate or posterior oropharyngeal erythema. Eyes: Extraocular Movements: Extraocular movements intact. Conjunctiva/sclera: Conjunctivae normal. Neck: Vascular: No carotid bruit. Cardiovascular: Rate and Rhythm: Normal rate and regular rhythm. Pulses: Normal pulses. Heart sounds: Normal heart sounds. Pulmonary: Effort: Pulmonary effort is normal. Breath sounds: Normal breath sounds. No wheezing or rales. Comments: Moist cough Abdominal: General: Bowel sounds are normal. There is no distension. Palpations: Abdomen is soft. There is no mass. Tenderness: There is no abdominal tenderness. Musculoskeletal: General: Normal range of motion. Cervical back: Normal range of motion and neck supple. Right lower leg: Edema present. Left lower leg: Edema present. Comments: Trace pedal bilat Lymphadenopathy: Cervical: No cervical adenopathy. Skin: General: Skin is warm and dry. Capillary Refill: Capillary refill takes 2 to 3 seconds. Findings: Rash (chest wall with papular mild erythema colored lesion, w some scabs noted) present. Neurological: General: No focal deficit present. Mental Status: She is alert and oriented to person, place, and time. Psychiatric: Mood and Affect: Mood normal. Behavior: Behavior normal. Thought Content: Thought content normal. Judgment: Judgment normal. ASSESSMENT AND PLAN: Follow up in about 1 year (around 08/12/2025) for Recheck AWV. Problem List Items Addressed This Visit Chronic obstructive pulmonary disease, unspecified (CMS/HCC) Former smoker Uses albuterol prn Essential hypertension, benign (CMS/HCC) Please check blood pressure daily and record DASH diet Limit caffeine Take medication as directed Contact office if chest pain, pressure, dizziness, shortness of breath, swelling legs Recommend slow position changes Current meds: Amlodipine, metoprolol Hyperlipidemia (CMS/HCC) Currently on statin Check labs yearly and prn dose changes RESOLVED: Peripheral vascular disease, unspecified (CMS/HCC) Chronic kidney disease, stage 3b (HCC) (CMS/HCC) Mgmt per nephrology Former smoker Was a former smoker Patient meets requirements [...] smoking cessation. She declines wanting this done Hyperuricemia No current meds, is followed by nephrology for her CKD stage 3b Secondary hyperparathyroidism ([facility]) Monitor with nephrology, secondary to her CKD CAD (coronary artery disease) ([facility]) Follows with [facility] Current meds: asa, statin, plavix, amlodpine, and metoprolol and prn nitro Hypertensive chronic kidney disease with stage 1 through stage 4 chronic kidney disease, or unspecified chronic kidney disease ([facility]) Recommend bp control Nephrology monitors PAD (peripheral artery disease) ([facility]) On statin, asa, plavix, b lindsay Cont with cardiology Encounter for subsequent annual wellness visit (AWV) in Medicare patient - Primary Reviewed Ht/Wt/BMI Recommend eye exam yearly Recommend dental exams twice a year Balance work/leisure activities Exercises is recommended most days of the week (appropriate as chronic conditions allow) Follow up yearly and prn Refuses mammogram, colon cancer testing, or lung cancer screening Dermatitis Relevant Medications triamcinolone (Kenalog) 0.1 % cream Other Visit Diagnoses Needs flu shot Relevant Orders Flu vaccine, high dose seasonal, PF ([id number]) (Fluzone High Dose) (Completed) Associated Problem(s): Former smoker Was a former smoker Patient meets requirements [...] smoking cessation. She declines wanting this done Associated Problem(s): Encounter for subsequent annual wellness visit (AWV) in Medicare patient Reviewed Ht/Wt/BMI Recommend eye exam yearly Recommend dental exams twice a year Balance work/leisure activities Exercises is recommended most days of the week (appropriate as chronic conditions allow) Follow up yearly and prn Refuses mammogram, colon cancer testing, or lung cancer screening Recommend updating her pneumovax 23 vaccine Associated Problem(s): Chronic obstructive pulmonary disease, unspecified (CMS/HCC) Former smoker Uses albuterol prn Associated Problem(s): CAD (coronary artery disease) (CMS/HCC) Follows with [facility] Current meds: asa, statin, plavix, amlodpine, and metoprolol and prn nitro Associated Problem(s): Essential hypertension, benign (CMS/HCC) Please check blood pressure daily and record DASH diet Limit caffeine Take medication as directed Contact office if chest pain, pressure, dizziness, shortness of breath, swelling legs Recommend slow position changes Current meds: Amlodipine, metoprolol Associated Problem(s): PAD (peripheral artery disease) (CMS/HCC) On statin, asa, plavix, b lindsay Cont with cardiology Associated Problem(s): Chronic kidney disease, stage 3b (HCC) (CMS/HCC) Mgmt per nephrology Associated Problem(s): Hypertensive chronic kidney disease with stage 1 through stage 4 chronic kidney disease, or unspecified chronic kidney disease (CMS/HCC) Recommend bp control Nephrology monitors Associated Problem(s): Secondary hyperparathyroidism (CMS/HCC) Monitor with nephrology, secondary to her CKD Associated Problem(s): Hyperuricemia No current meds, is followed by nephrology for her CKD stage 3b Associated Problem(s): Hyperlipidemia (CMS/HCC) Currently on statin Check labs yearly and prn dose changes documented in this encounter [facility] 08-12-2024 Instructions Ingrid Mark NP - 08/12/2024 10:30 AM EST Recommend pneumonia shot: Pneumovax 23 Steroid cream to rash on chest, if not better after 14 days of use, contact office documented in this encounter [facility] 06-18-2024 History of Present illness Narrative Subjective Mira Shelton is a 74 y.o. female Chief Complaint Annual Exam 74-year-old female here for annual follow-up. She is doing very well, denies any hospitalizations, nitrate usage or angina or recurrent cardiovascular or vascular events. She sustained inferior IA with revascularization of the RCA in 2014 with preserved LV function. Subsequent stress testing in July 2022, was normal at 3 minutes on the Mike protocol (reduced aerobic capacity) She also has underlying PVD status post right iliac percutaneous revascularization and stenting in 2015, hyperlipidemia and chronic kidney disease. Most recent labs are reviewed, serum creatinine is 1.27, liver functions and chemistries are otherwise normal. There is no lipid panel available. Recommendations: Continue current therapies albeit we can hold aspirin at this juncture at her request, continue clopidogrel 75 mg daily for multi vascular bed involvement, obtain lipid panel, follow-up in 1 year Review of Systems All other systems reviewed and are negative. Vitals: 06/18/24 0903 BP: 122/76 BP Location: Left arm Patient Position: Sitting Pulse: 68 Weight: 64.9 kg (143 lb) Height: 1.626 m (5' 4 ) Objective Physical Exam Constitutional: Appearance: Normal appearance. HENT: Nose: Nose normal. Neck: Vascular: No carotid bruit. Cardiovascular: Rate and Rhythm: Normal rate. Pulses: Normal pulses. Heart sounds: Normal heart sounds. Pulmonary: Effort: Pulmonary effort is normal. Abdominal: General: Bowel sounds are normal. Palpations: Abdomen is soft. Musculoskeletal: General: Normal range of motion. Cervical back: Normal range of motion. Right lower leg: No edema. Left lower leg: No edema. Skin: General: Skin is warm and dry. Neurological: General: No focal deficit present. Mental Status: She is alert. Psychiatric: Mood and Affect: Mood normal. Behavior: Behavior normal. Thought Content: Thought content normal. Judgment: Judgment normal. Allergies Patient has no known allergies. Current Medications Current Outpatient Medications: amLODIPine (Norvasc) 5 mg tablet, Take 1 tablet (5 mg) by mouth once daily., Disp: , Rfl: atorvastatin (Lipitor) 80 mg tablet, Take 1 tablet (80 mg) by mouth once daily at bedtime., Disp: 90 tablet, Rfl: 3 clopidogrel (Plavix) 75 mg tablet, Take 1 tablet (75 mg) by mouth once daily., Disp: 90 tablet, Rfl: 3 furosemide (Lasix) 20 mg tablet, Take 1 tablet (20 mg) by mouth once daily., Disp: , Rfl: metoprolol tartrate (Lopressor) 25 mg tablet, Take 1 tablet (25 mg) by mouth 2 times a day., Disp: 180 tablet, Rfl: 3 nitroglycerin (Nitrostat) 0.4 mg SL tablet, Place 1 tablet (0.4 mg) under the tongue every 5 minutes if needed for chest pain., Disp: , Rfl: Assessment/Plan 1. 2-vessel coronary artery disease Follow Up In Cardiology 2. History of PTCA 3. History of myocardial infarction 4. PVD (peripheral vascular disease) ([facility]) 5. Essential hypertension, benign 6. Mixed hyperlipidemia 7. Stage 3b chronic kidney disease (Multi) 8. BMI 24.0-24.9, adult 9. Former smoker 10. Chronic obstructive pulmonary disease, unspecified COPD type (Multi) Scribe Attestation By signing my name below, I, Kristin Saravanan Villavicencio LPN attest that this documentation has been prepared under the direction and in the presence of Marshall Shah DO. Provider Attestation - Scribe documentation All medical record entries made by the Scribe were at my direction and personally dictated by me. I have reviewed the chart and agree that the record accurately reflects my personal performance of the history, physical exam, discussion and plan. documented in this encounter [facility] Work Phone: 06-18-2024 Instructions Alem Edmonds CMA - 06/18/2024 9:10 AM EDT Please bring all medicines, vitamins, and herbal supplements with you when you come to the office. Prescriptions will not be filled unless you are compliant with your follow up appointments or have a follow up appointment scheduled as per instruction of your physician. Refills should be requested at the time of your visit. Fall Prevention Education Given documented in this encounter [facility] Work Phone: 01-08-2024 Miscellaneous Notes Received a call from patients spouse stating that she is unable to keep the bowel prep down. They might need to re-schedule with a different bowel prep. The patient is scheduled tomorrow, 01/10/24 at [facility] with Dr Adam. Will route to surgery aid The patient was called and she would like to only do the EGD tomorrow 01/09/24 at [facility]. She had trouble keeping the Sutab down - and she would like to do the Miralax prep and colonoscopy at a later date. I called [facility] and spoke with Natalya to inform her that only the EGD would be done. documented in this encounter [facility] 01-08-2024 Telephone encounter Note Received a call from patients spouse stating that she is unable to keep the bowel prep down. They might need to re-schedule with a different bowel prep. The patient is scheduled tomorrow, 01/10/24 at [facility] with Dr Adam. Will route to surgery aid [facility] 01-08-2024 Telephone encounter Note The patient was called and she would like to only do the EGD tomorrow 01/09/24 at [facility]. She had trouble keeping the Sutab down - and she would like to do the Miralax prep and colonoscopy at a later date. I called [facility] and spoke with Natalya to inform her that only the EGD would be done. [facility] 12-19-2023 History of Present illness Narrative Patient called and states her mail-in order will not be there within the next 2 weeks. 2 week prescription sent to local pharmacy. AAKASH Thomas 12/19/23 1546 documented in this encounter [facility] 12-19-2023 History of Present illness Narrative Images from the original note were not included. [facility] [address] [place] [id number] CONSULT NOTE CHIEF COMPLAINT Chief Complaint Patient presents with Hernia [facility] ED 12/06/23, LARGE HIATAL HERNIA, WAS HAVING PAIN, NAUSEA & VOMITING Mira Shelton is a 73 y.o. female who presents along with her after she went to the [place] ED on 12/06/2023 with complaints of abdominal pain nausea and vomiting. The pain has since resolved the following day was completely gone. She was found have elevated LFTs. She denies any fevers chills jaundice juan david-colored stools melena hematochezia. She states that she feels full after eating at times. She has known that she had a hiatal hernia for many years. She denies taking any medications for it. She is on Plavix and baby aspirin daily due to a blockage around her heart which she had busted up 10 years ago at [facility] by Dr. Shah the dimension warehouse supervisor. CT scan of the abdomen and pelvis performed at the [facility] on 12/05 showed [id number]-[id number]-[id number] sized hiatal hernia and a normal gallbladder with fatty infiltration of the liver and right kidney with cortical thinning and a 3.8 cm cyst without hydronephrosis. There were no stones or sludge no sonographic evidence of acute cholecystitis on ultrasound. The rest of the CT scan was negative. [facility]CK HIDA scan performed on 12/13/2023 was normal with an ejection fraction of 67% within 60 minutes. Normal EF is greater than 38%. MEDICATION Current Outpatient Medications: amLODIPine (NORVASC) 5 mg tablet, Take 1 tablet (5 mg total) by mouth in the morning., Disp: , Rfl: aspirin 81 mg, Take 1 tablet (81 mg total) by mouth in the morning., Disp: , Rfl: atorvastatin (LIPITOR) 80 mg tablet, Take 1 tablet (80 mg total) by mouth in the morning., Disp: , Rfl: furosemide (LASIX) 20 mg tablet, Take 1 tablet (20 mg total) by mouth daily., Disp: , Rfl: HYDROcodone-acetaminophen (NORCO) 5-325 mg per tablet, Take 1 tablet by mouth every 6 (six) hours as needed for pain., Disp: , Rfl: hyoscyamine (ANASPAZ,LEVSIN) 0.125 mg tablet, Take 1 tablet (0.125 mg total) by mouth., Disp: , Rfl: nitroglycerin (NITROSTAT) 0.4 MG SL tablet, Place 1 tablet (0.4 mg total) under the tongue., Disp: , Rfl: ondansetron ODT (ZOFRAN ODT) 4 mg disintegrating tablet, Dissolve 1 tablet (4 mg total) on tongue every 8 (eight) hours as needed., Disp: , Rfl: promethazine (PHENERGAN) 25 mg tablet, Take 0.5 tablets (12.5 mg total) by mouth every 6 (six) hours as needed., Disp: , Rfl: sod sulf-pot chloride-mag sulf 1.479-0.188- 0.225 gram tablet, See instructional sheet given by office. Patient was given a [employer] coupon voucher to use, this is not to be ran through patients insurance., Disp: 24 tablet, Rfl: 0 sucralfate (CARAFATE) 1 gram tablet, Take 1 tablet (1 g total) by mouth in the morning and 1 tablet (1 g total) at noon and 1 tablet (1 g total) in the evening and 1 tablet (1 g total) before bedtime., Disp: 360 tablet, Rfl: 0 ALLERGY No Known Allergies MEDICAL HISTORY Past Medical History: Diagnosis Date Heart block, congenital 2014 STENT PLACEMENT AT [facility] High cholesterol Kidney disease SURGICAL HISTORY Past Surgical History: Procedure Laterality Date APPENDECTOMY HYSTERECTOMY SHOULDER SURGERY Right SOCIAL HISTORY Social History Socioeconomic History Marital status: Spouse name: Not on file Number of children: Not on file Years of education: Not on file Highest education level: Not on file Occupational History Not on file Tobacco Use Smoking status: Former Current packs/day: 0.00 Types: Cigarettes Smokeless tobacco: Never Substance and Sexual Activity Alcohol use: Not on file Comment: 4-6 A WEEK Drug use: Not on file Sexual activity: Defer Other Topics Concern Not on file Social History Narrative Not on file Social Determinants of Health Financial Resource Strain: Not on file Food Insecurity: No Food Insecurity (12/19/2023) Hunger Screening Food Insecurity - Worry: Never True Food Insecurity - Inability: Never True Transportation Needs: Not on file Physical Activity: Not on file Stress: Not on file Social Connections: Not on file Interpersonal Safety: Not on file Housing Instability: Not on file FAMILY HISTORY Family History Problem Relation Age of Onset Hypertension Mother Cancer Father Esophageal cancer Father Cancer Brother Liver cancer Brother REVIEW OF SYSTEMS: Constitutional: Denies fevers, denies recent illnesses. Eyes: Denies any vision changes. ENT: Denies any throat pain. Neck: Denies any neck pain. Cardiovascular denies chest pain. Denies palpitations. Respiratory: Denies shortness of breath, denies cough, denies history of asthma or any other pulmonary illnesses. Gastrointestinal: Negative for abdominal pain, nausea, melena, hematochezia, weight loss, change in bowel habits or weight loss or emesis. Genitourinary negative for dysuria hematuria urinary frequency or urgency. Musculoskeletal: Negative for extremity pains or joint discomfort. Neurologic: No change in sensation or paresthesias or history of seizure disorder skin: No rashes. Hematologic: No anemia. No purpura. No petechiae and no prolonged or excessive bleeding Allergic and immunologic: No pruritus. No swelling. Endocrine: No unexplained weight loss. No polydipsia. No polyuria. No polyphagia. PHYSICAL EXAM Constitutional: She is oriented to person, place, and time. Vital signs are normal. She appears well-developed and well-nourished. HEENT: Head: Normocephalic and atraumatic. Eyes: Conjunctivae, EOM and lids are normal. Neck: Trachea normal. Neck supple. No thyroid mass present. Cardiovascular: Normal rate and regular rhythm. Pulmonary/Chest: Effort normal and breath sounds normal. Abdominal: Soft. Normal appearance. She exhibits no distension and no mass. Positive epigastric/right upper quadrant tenderness with mild guarding but no rebound. There is negative Xie's sign. No hernia. Musculoskeletal: Normal range of motion. Lymphadenopathy: She has no cervical adenopathy. Neurological: She is alert and oriented to person, place, and time. Skin: Skin is warm, dry and intact. Psychiatric: She has a normal mood and affect. Her speech is normal and behavior is normal. Cognition and memory are normal. IMPRESSION 1. Moderate to large hiatal hernia by CT scan at [facility] 2. Fatty liver 3. Elevated LFTs 4. Epigastric abdominal pain rule out ulcer disease gastritis 5. Right upper quadrant abdominal pain with negative ultrasound and CCK HIDA scan rule out ulcer disease colon cancer; patient has never had a colonoscopy. ASSESSMENT & PLAN 1. Repeat LFTs 2.Colonoscopy and EGD with possible biopsy or polypectomy. I discussed the risks, benefits, alternatives to the above which may include perforation or bleeding or risks of anesthesia. They understood all the above and wished to proceed. She will need to stop her Plavix 7 days in advance but may continue the baby aspirin. 3. We will place on Carafate 1 g p.o. a.c. and HS due to possible gastritis until EGD performed with biopsies. She and her understood all the above. Evaluation included: Preparing to see the patient (e.g., review of tests) Obtaining and/or reviewing separately obtained history Performing a medically appropriate examination and/or evaluation Counseling and educating the patient/family/caregiver Referring and communicating with other health skin care therapist Hiatal hernia [K44.9] Jose Luis Adam DO This note was created with the assistance of a speech recognition program. While intending to generate a timely document that accurately reflects the content of the visit, no guarantee can be provided that every grammatical or spelling mistake has been or will be identified or corrected. Thank you for your understanding. documented in this encounter [facility] 08-23-2023 Evaluation note Encounter Date Diagnosis Assessment [...] current medications Jul, Coronary artery disease involving [place] coronary artery of [place] heart without angina pectoris (ICD-10 - I25.10) [...] any gout flare. Will monitor without medication. [email or web address] Other 03-16-2023 Evaluation note* Encounter Date Diagnosis Assessment Notes Treatment Notes Treatment Clinical Notes Oct, Chronic kidney disea se, stage 3 unspecified (ICD-10 - N18.30) She has CKD likely due to longstanding HTN. Her b/l serum Creatinine is 1.3-1.5 mg/dl. She has no proteinuria and hematuria. She has weakly positive LAURENT biut has negative Anti Ds Ab and normal C3, C4. She has no evidence of proteinuria or hematuria Oct, Anemia of renal dise ase (ICD-10 - D63.1) Hemoglobin is within the goal and has adequate Iron. No need for SE[place]OUR Oct, Hypertensive chronic kidney disease with stage 1 through stage 4 chronic kidney disease, or unspecified chronic kidney disease (ICD-10 - I12.9) Blood pressure is controlled and appears to be euvolemic. Continue current medications Oct, Coronary artery dise ase involving [place] coronary artery of [place] heart without angina pectoris (ICD-10 - I25.10) Continue current medications and follow with Cardiology Oct, PAD (peripheral magaly ry disease) (ICD-10 - I73.9) She denies any symptoms. Continue ASA and Statin Oct, Secondary hyperparathyroidism (ICD-10 - N25.81) MBD parameters including calcium, phosphorus, PTH and vitamin D are within the target goal. [email or web address] Other 11-09-2022 NotePROCEDURE: XR FOOT RT MIN 3 VIEWS HISTORY: Pain in foot [...] through fifth metatarsal fractures. Electronically authenticated by: DEANA THURMAN Date: 2022-07-05 14:14[facility]10-13-2022 NotePROCEDURE: XR FOOT RT MIN 3 VIEWS COMPARISON: 05/11/2022 HISTORY: Pain in right foot FINDINGS: BONES:Stable angulated fractures involving the head and neck of the second through fifth metatarsals. Intra-articular fracture medial base of the first proximal phalanx. No dislocation. Enthesopathic spurring of the calcaneus. SOFT TISSUES:Negative. No visible soft tissue swelling. EFFUSION:None visible. OTHER: Negative. IMPRESSION: Stable healing fractures Electronically authenticated by: EMILY REMY Date: 2022-06-08 18:49[facility]09-15-2022 NotePROCEDURE: XR FOOT RT MIN 3 VIEWS HISTORY: Pain in right [...] compared to prior study. Electronically authenticated by: DEANA THURMAN Date: 2022-05-11 10:51[facility]08-18-2022 NotePROCEDURE: XR FOOT RT MIN 3 VIEWS HISTORY: Pain in right [...] appear stable in alignment. Electronically authenticated by: DEANA THURMAN Date: 2022-04-13 06:59[facility]08-03-2022 NotePROCEDURE: XR FOOT RT MIN 3 VIEWS HISTORY: Unspecified fall ; [...] possibly the second metatarsal. Electronically authenticated by: DEANA THURMAN Date: 2022-03-29 11:[facility] Diagnosis Onset Date Resolution Status Anemia of renal disease acut e CAD (coronary artery disease) acute CKD (chronic kidney disease) stage 3, GFR 30-59 ml/min acute [id number] acute Hyperuricemia acute PAD (peripheral artery disease) acute Secondary hyperparathyroidism acute [facility] Work Phone: Evaluation note* Diagnosis 2-vessel coronary artery disease History of PTCA Postsurgical percutaneous transluminal coronary angioplasty status History of myocardial infarction [facility]) [facility] [facility]) Unspecified peripheral vascular disease Essential hypertension, benign Mixed hyperlipidemia Stage 3b chronic kidney disease (Multi) BMI 24.0-24.9, adult Former smoker Personal history of tobacco use, presenting hazards to health Chronic obstructive pulmonary disease, unspecified COPD type (Multi) documented in this encounter [facility] Work Phone: Evaluation note* Diagnosis Encounter for subsequent annual wellness visit (AWV) in Medicare patient- Primary Peripheral vascular disease, unspecified (CMS/HCC) Peripheral vascular disease, unspecified Chronic kidney disease, stage 3b (HCC) (CMS/HCC) Chronic obstructive pulmonary disease, unspecified (CMS/HCC) Mixed hyperlipidemia (CMS/HCC) Mixed hyperlipidemia Hyperuricemia Other abnormal blood chemistry Secondary hyperparathyroidism ([facility]/HCC) Secondary hyperparathyroidism (of renal origin) Hypertensive chronic kidney disease with stage 1 through stage 4 chronic kidney disease, or unspecified chronic kidney disease (CMS/HCC) PAD (peripheral artery disease) (CMS/HCC) Unspecified peripheral vascular disease Essential hypertension, benign (CMS/HCC) Essential hypertension, benign Coronary artery disease involving [place] coronary artery of [place] heart without angina pectoris (CMS/HCC) Former smoker Personal history of tobacco use, presenting hazards to health Needs flu shot Need for prophylactic vaccination and inoculation against influenza Dermatitis Contact dermatitis and other eczema, due to unspecified cause [facility] Diagnosis Hiatal hernia- Primary Diaphragmatic hernia without mention of obstruction or gangrene Elevated LFTs Other abnormal blood chemistry Fatty liver Other chronic nonalcoholic liver disease Epigastric abdominal pain Abdominal pain, epigastric Right upper quadrant abdominal pain [facility] - [facility]orted* Type Description Date Medical History hypertension Medical History hyperlipidemia Medical History heart attack Medical History copd Medical History RIGHT FOOT FRACTURE Surgical History heart stent Surgical History hysterectomy Surgical History shoulder surgery Surgical History Bilateral CTR Hospitalization History See Above Hospitalization History Tubal preganacy [email or web address] Other InstructionsNot on filedocumented in this encounter [facility] this [facility] filedocumented in this encounter [facility] on filedocumented in this encounter [facility] filed[facility] encounter [facility] Summary Purpose Family History Unknown Family Member [...] history of hypertensi on: Mother(V17.49, Z82.49) Status:Active Relationship Condition Age at Onset Recorded Date/T palmira brother Diabetes mellitus Unknown father Malignant neoplasm Unknown Unknown family member Unknown Not Specified Unknown Hypertension Unknown Advance Directives Advance Directive Response Recorded Date/ Time Advance Directives No April 17, 2018 5:21pm Chief Complaint * MIRA SHELTON is being [...] She has a history of prior inferior IA with primary revascularization of the RCA PLV branch, and in 2016 had [employer] and stenting of the right iliac artery and with relief of her symptomatology. She has developed chronic renal insufficiency due to combination of medications that have been adjudicated and now with improving renal parameters as followed by her head host/hostess. She also has a history of TIAs [...] She has a history of prior inferior IA with primary revascularization of the RCA PLV branch, and in 2016 had [employer] BUSINESS [employer]ELOPER and stenting of the right iliac artery and with relief of her symptomatology. She has developed chronic renal insufficiency due to combination of medications that have been adjudicated and now with improving renal parameters as followed by her head host/hostess. She also has a history of TIAs [...] hospitalizations. She has a history of inferior IA with revascularization the RCA and PLV branch [...] hospitalizations. She has a history of inferior IA with revascularization the RCA and PLV branch [...] hospitalizations. She has a history of inferior IA with revascularization the RCA and PLV branch [...] hospitalizations. She has a history of inferior IA with revascularization the RCA and PLV branch [...] given her previous coronary and vascular history. Chief Complaint and Reason for Visit Chief Complaint Unknown RENAL f/u Reason for Visit Anemia of renal dise ase CAD (coronary artery disease) CKD (chronic kidney disease) stage 3, GFR 30-59 ml/min [id number] Hyperuricemia PAD (peripheral artery disease) Secondary hyperparathyroidism Additional Source Comments INFORMATION SOURCE (unrecogn ized section and content) DATE CREATED AUTHOR 02/14/2018 formerly [facility] DATE CREATED AUTHOR AUTHOR'S ORGANIZ ATION 06/07/2022 [facility] DATE CREATED AUTHOR AUTHOR'S ORGANIZ ATION 06/07/2022 [facility] DATE CREATED AUTHOR AUTHOR'S ORGANIZ ATION 08/02/2022 [facility] DATE CREATED AUTHOR AUTHOR'S ORGANIZ ATION 11/01/2022 [facility] DATE CREATED AUTHOR AUTHOR'S ORGANIZ ATION 12/20/2023 [facility] DATE CREATED AUTHOR AUTHOR'S ORGANIZ ATION 06/19/2024 [facility] DATE CREATED AUTHOR AUTHOR'S ORGANIZ ATION 07/26/2024 [facility] DATE CREATED AUTHOR AUTHOR'S ORGANIZ ATION 08/15/2024 [facility] EPIC REASON FOR VISIT (unrecogniz ed section and content) Reason Comments Annual Exam Specialty Diagnoses / Procedures Referred By Contac t Referred To Contact Cardiology Diagnoses 2-vessel coronary artery disease Procedures Follow Up In Cardiology Marshall Shah DO Phone: tel: fax: Marshall Shah DO Phone: tel: fax: Referral ID Status Reason Start Date Expiration Date V isits Requested Visits Authorized [id number] Authorized 06/13/2023 06/12/2024 1 1 Reason Comments Medicare Annual Wellness Visit Initial Reason Comments Hernia [facility] 12/06/23, LARG E HIATAL HERNIA, WAS HAVING PAIN, NAUSEA & VOMITING Care Teams (unrecognized sec tion and content) Team Status: Active Member Role Status Dates Ingrid Mark Primary Care Provider Active Team Status: Inactive Member Role Status Dates Jose Luis Adam DO Attending Provider Active Start: January 09, 2024 End: January 09, 2024 Team Status: Active Member Role Status Dates Aggie Hernandez MD Attending Provider Active Start : February 05, 2024 Team Status: Inactive Member Role Status Dates Aggie Hernandez MD Attending Provider Active Start : February 14, 2024 End: February 14, 2024 Ingrid Mark Primary Care Provider Active Sta rt: February 14, 2024 End: February 14, 2024 Tool Builder Relationship Specialty Start Date End Date Ingrid Mark, HOT AIR F[employer]NACE INSTALLER REPAIRER-LUNCH WAGON OPERATOR [address] [place] [id number] PCP - General 09/17/19 Tool Builder Relationship Specialty Start Date End Date Dangelo Mittal MD [address] [place] [phone] PCP - General Family Medicine 08/12/24 Ingrid Mark NP [address] [place] [phone] Nurse Practitioner Family Medicine 08/12/24 Tool Builder Relationship Specialty Start Date End Date Dangelo Mittal MD [address] [place] [phone] PCP - General Family Medicine 08/12/24 Ingrid Mark NP [address] [place] [phone] Nurse Practitioner Family Medicine 08/12/24 Tool Builder Relationship Specialty Start Date End Date Ingrid Mark HOT AIR FURNACE INSTALLER REPAIRER-LUNCH WAGON OPERATOR [address] [place] [address] PCP - General Nurse Practitioner 12/19/23 Tool Builder Relationship Specialty Start Date End Date Ingrid Mark HOT AIR FURNACE INSTALLER REPAIRER-LUNCH WAGON OPERATOR [address] [place] [phone] PCP - General Nurse Practitioner 12/19/23 Tool Builder Relationship Specialty Start Date End Date Ingrid Mark HOT AIR FURNACE INSTALLER REPAIRER-LUNCH WAGON OPERATOR [address] [place] [address] PCP - General Nurse Practitioner 12/19/23 Tool Builder Relationship Specialty Start Date End Date Ingrid Mark APRN-LUNCH WAGON OPERATOR PCP - General Nurse Practitioner 12/19/23 Goals (unrecognized section and content) Goals may be documented in a n alternate section FOR RECORDS PERTAINING TO PATIENTS WHO ARE [...] BE BASED ON THE PRIMARY CLINICAL RECORDS. [facility] [employer] provides no warranty or guarantee of the accuracy or completeness of information in this document.
[2025-02-20 08:49] LABS: Hematocrit 35.7 % (36.0-48.0); Mean Corpuscular HGB Conc 33.6 g/dL (29.9-35.2); Mean Corpuscular Hemoglobin 31.5 pg (26.7-34.0); Mean Corpuscular Volume 93.7 fL (81.0-99.0); Platelet Count 346 10^3/uL (150-450); Red Blood Count 3.81 10^6/uL (4.20-5.40); Red Cell Distribution Width 14.8 % (11.0-15.0); White Blood Count 7.8 10^3/uL (4.0-11.0)
[2025-02-20 09:03] LABS: Bilirubin Urine NEGATIVE (NEGATIVE); Blood Urine TRACE-I (NEGATIVE); Clarity Urine SL CLOUDY (CLEAR); Color Urine LT. YELLOW (YELLOW); Glucose Urine UA NEGATIVE (NEGATIVE); Ketones Urine NEGATIVE (NEGATIVE); Leukocyte Esterase Urine LARGE (NEGATIVE); Nitrite Urine NEGATIVE (NEGATIVE); Protein Urine NEGATIVE (NEG/TRACE); Urobilinogen Urine 0.2 EU/dL (0.2-1.0)
[2025-02-20 09:15] LABS: Creatinine Urine Random 64.02 mg/dL (20.00-300.00); Total Protein Urine Random 19.1 mg/dL (<=11.9)
[2025-02-20 09:29] LABS: Percent Iron Saturation 31.4 %
[2025-02-20 10:22] LABS: Albumin Level 3.2 g/dL (3.4-5.0); Anion Gap 12.5; BUN Creatinine Ratio 12.2; Calcium 9.1 mg/dL (8.5-10.1); Carbon Dioxide 28.6 mmol/L (21.0-32.0); Chloride 104 mmol/L (98-107); Estimated GFR (African America 56 (>=60 mL/min/1.73m^2); Estimated GFR (Non-African Ame 46 (>=60 mL/min/1.73m^2); Glucose 97 mg/dL (74-106); Magnesium 1.7 mg/dL (1.8-2.4); Phosphorus 3.4 mg/dL (2.6-4.7); Potassium 4.1 mmol/L (3.5-5.1); Sodium 141 mmol/L (136-145)
[2025-02-20 11:02] LABS: Bacteria Urine LARGE #/HPF (NONE SEEN); Cast Seen? NONE SEEN #/LPF (NONE SEEN); Crystals Seen? None Seen #/HPF (None Seen); Mucus Urine NONE SEEN (NONE SEEN); Squamous Epithelial Cell Urine MODERATE #/LPF (NONE/RARE)
[2025-02-22 11:10] LABS: PTH, Intact 38 pg/mL (15-65)
== END 2025-02-20 08:02 | disposition home or self-care (01) ==
LOC: LAB 08:03
PROVIDERS: PCP Nurse Practitioner; Visit Provider Internal Medicine
DX: N18.9 Chronic kidney disease, unspecified (principal); D63.1 Anemia in chronic kidney disease; I73.9 Peripheral vascular disease, unspecified; I25.10 Atherosclerotic heart disease of native coronary artery without angina pectoris; N25.81 Secondary hyperparathyroidism of renal origin; E79.0 Hyperuricemia without signs of inflammatory arthritis and tophaceous disease
CPT/HCPCS: 36415; 80069; 81001; 82306; 82570; 82728; 83540; 83550; 83735; 83970; 84156; 84550; 85027